=== PATIENT | male | born 1960 | race Caucasian/White ===

== ENCOUNTER 2017-06-15 08:19 | Inpatient (IN) | payer BC ==
[2017-06-15] VITALS (7 sets, daily range): BP systolic 105–108; BP diastolic 63–72; PULSE 56–98; TEMP 36.6–37.5; O2SAT 94–97; BMI 33.0
[~2017-06-15] VITALS: Ht 175.3 cm; Wt 102.1 kg
[~2017-06-15 08:19] MED LIST: ATOR-22 PO; GLC/500 PO; OLME40TA30 PO
[2017-06-15] MEDS ORDERED: NovoLIN-R INSULIN PER UNIT CHARGE SC STA (08:27)
[2017-06-15] MEDS ORDERED: SODIUM CHLORIDE 0.9% 1000ML 1,000 ML IV STA (08:27)
[2017-06-15] MEDS ORDERED: PANTOprazole INJ 80 MG in DEXTROSE 5% 100ML 100 ML IV SCH (08:30)
[2017-06-15 08:51] LABS: ISTAT CREATININE 0.9 mg/dl (0.6-1.3); ISTAT HEMOGLOBIN 10.9 g/dl (14.0-18.0); ISTAT IONIZED CALCIUM 1.12 mmol/l (1.12-1.32)
--- NOTE | 2017-06-15 08:51 | DIAGNOSTIC IMAGING REPORT ---
CHEST ONE VIEW PORTABLE CLINICAL HISTORY: Hypoxia, hypotension, gastrointestinal hemorrhage. COMPARISON STUDY: No previous studies for comparison. FINDINGS: The heart is at the upper limits of normal in size. There is no failure. There is no focal pulmonary consolidation. There are no pleural effusions. There is no free intraperitoneal air.[ IMPRESSION: No active disease in the chest. Electronically signed by: Lee Muniz M.D. 06/15/2017 8:49 AM Dictated Date/Time: 06/15/2017 8:49 AM
[2017-06-15 08:56] LABS: INR 1.1 (0.9-1.1); PARTIAL THROMBOPLASTIN RATIO 0.8
[2017-06-15] MEDS ORDERED: METF-384 PO (08:56)
[2017-06-15] MEDS ORDERED: GLIM1TAB PO (08:56)
[2017-06-15] MEDS ORDERED: LOSA100T26 PO (08:56)
--- NOTE | 2017-06-15 09:00 | EMERGENCY ROOM VISIT NOTE ---
History Report prepared by Diamond: Manju Gaviria Under the Supervision of: Dr. Priscila Alva M.D. First contact with patient: 08:15 Chief Complaint: GI ASSESSMENT Stated Complaint: GI ASSESSMENT/HYPOTENSION History of Present Illness The patient is a 56 year old male who presents to the Emergency Room for a GI assessment. The patient woke up this morning and was feeling normal. He took a shower and then went back to bed to wake his up. He went to get up again and states that he was feeling lightheaded so he went back to bed. He got up again because he felt the need to have a bowel movement. He went to the bathroom and sat down on the toilet. He leaned his head against the wall and states that the next thing he knew, there was bright red blood in the toilet and all over the wall. He is unsure if he lost consciousness. He does not remember vomiting and does not think that he had a nose bleed. states that the patient has been sick the past couple of days with a sore throat, stuffy nose, and cough. He called for help this morning and she found him standing in the bathroom with blood all over the toilet, floor, and wall. The patient denies chest pain. He is currently feeling tired, diaphoretic, and slightly short of breath. He did not have any bleeding yesterday. He does not take any blood thinners. He took Aleve last night for thumb pain, but does not take NSAIDs on a regular basis. The patient has a history of hemorrhoids. He has had 2 colonoscopies in the past, with the most recent one being about a year ago. The patient was brought to the ED by ambulance. EMS states that the patient became very hypotensive en route. 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 A total of 10 systems reviewed and were otherwise negative. Past Medical & Surgical Medical Problems: (1) Diabetes mellitus (2) Hematemesis (3) Hyperlipidemia (4) Hypertension Family History Cancer Heart disease Social History Smoking Status: Former Smoker Marital Status: Housing Status: lives with family Occupation Status: employed Current/Historical Medications Scheduled Atorvastatin (Lipitor), 20 MG PO DAILY Glimepiride (Amaryl), 1 MG PO DAILY Hctz/Losartan (Hyzaar 12.5MG/100MG), 1 TAB PO DAILY Metformin Hcl (Glucophage), 1,000 MG PO BID Allergies Coded Allergies: Penicillins (Verified Allergy, Unknown, ., 06/15/17) Physical Exam Vital Signs Date Time Temp Pulse Resp B/P (MAP) Pulse Ox O2 Delivery O2 Flow Rate FiO2 06/15/17 10:00 88 15 111/67 98 Nasal Cannula 2.0 06/15/17 09:50 87 19 97/59 99 Nasal Cannula 2.0 06/15/17 09:50 84 17 97/59 98 Nasal Cannula 2.0 06/15/17 09:40 84/56 06/15/17 09:31 84 17 106/47 96 Nasal Cannula 2.0 06/15/17 09:13 82 22 97/56 95 Nasal Cannula 2.0 06/15/17 09:12 83 22 88/50 93 06/15/17 08:45 82 107/68 95 06/15/17 08:44 115/70 06/15/17 08:35 36.5 87 20 109/69 88 Room Air 06/15/17 08:35 84 06/15/17 08:35 95 Nasal Cannula 2.0 06/15/17 08:35 Room Air 06/15/17 08:22 109/69 Physical Exam Vital signs reviewed. General: Well-appearing 56 year old male, in no significant distress. Anxious appearing HEENT: No scleral icterus, PERRLA, neck supple. Atraumatic. Dried blood in the nares and mouth. Cardiovascular: Regular rate and rhythm, no extra sounds. Pulmonary: Clear to auscultation bilaterally, normal work of breathing. Abdomen: Soft, nontender, nondistended, positive bowel sounds. Rectal: Faintly guaiac positive brown stool. No blood around the rectum. Musculoskeletal: Atraumatic, no peripheral edema. Neurologic: Patient awake alert and oriented x 3, full strength in all 4 extremities. Cranial nerves 2 through 12 grossly intact. Skin: Warm, dry, no rash, some dried blood to skin on abd, hair and upper chest Medical Decision & Procedures ER Provider Diagnostic Interpretation: Radiology results as stated below per my review and radiologist interpretation: CHEST ONE VIEW PORTABLE CLINICAL HISTORY: Hypoxia, hypotension, gastrointestinal hemorrhage. COMPARISON STUDY: No previous studies for comparison. FINDINGS: The heart is at the upper limits of normal in size. There is no failure. There is no focal pulmonary consolidation. There are no pleural effusions. There is no free intraperitoneal air. IMPRESSION: No active disease in the chest. Electronically signed by: Lee Muniz M.D. 06/15/2017 8:49 AM Dictated Date/Time: 06/15/2017 8:49 AM Laboratory Results Test 06/15/17 08:31 06/15/17 08:38 Immature Granulocyte % (Auto) 0.2 % White Blood Count 5.88 K/uL (4.8-10.8) Red Blood Count 3.58 M/uL (4.7-6.1) Hemoglobin 11.4 g/dL (14.0-18.0) Hematocrit 32.2 % (42-52) Mean Corpuscular Volume 89.9 fL (80-100) Mean Corpuscular Hemoglobin 31.8 pg (25-34) Mean Corpuscular Hemoglobin Concent 35.4 g/dl (32-36) Platelet Count 88 K/uL (130-400) Mean Platelet Volume 10.6 fL (7.4-10.4) Neutrophils (%) (Auto) 62.1 % Lymphocytes (%) (Auto) 29.4 % Monocytes (%) (Auto) 6.5 % Eosinophils (%) (Auto) 1.5 % Basophils (%) (Auto) 0.3 % Neutrophils # (Auto) 3.65 K/uL (1.4-6.5) Lymphocytes # (Auto) 1.73 K/uL (1.2-3.4) Monocytes # (Auto) 0.38 K/uL (0.11-0.59) Eosinophils # (Auto) 0.09 K/uL (0-0.5) Basophils # (Auto) 0.02 K/uL (0-0.2) Immature Granulocyte # (Auto) 0.01 K/uL (0.00-0.02) Prothrombin Time 12.0 SECONDS (9.0-12.0) Prothromb Time International Ratio 1.1 (0.9-1.1) Activated Partial Thromboplast Time 20.5 SECONDS (21.0-31.0) Partial Thromboplastin Ratio 0.8 Total Bilirubin 0.9 mg/dl (0.2-1) Direct Bilirubin 0.2 mg/dl (0-0.2) Aspartate Amino Transf (AST/SGOT) 23 U/L (15-37) Alanine Aminotransferase (ALT/SGPT) 32 U/L (12-78) Alkaline Phosphatase 47 U/L (45-117) Total Protein 5.6 gm/dl (6.4-8.2) Albumin 2.9 gm/dl (3.4-5.0) Beta-Hydroxybutyric Acid 2.28 mg/dL (0.2-2.81) Hepatitis C Antibody Screen NEG (NEG) Bedside Hemoglobin 10.9 g/dl (14.0-18.0) Bedside Hematocrit 32 % (42-52) Bedside Sodium 140 mEq/L (135-144) Bedside Potassium 4.3 mEq/L (3.3-5.0) Bedside Chloride 103 mEq/L (101-112) Bedside Total CO2 24 mEq/l (24-31) Bedside Blood Urea Nitrogen 18 mg/dl (7-18) Bedside Creatinine 0.9 mg/dl (0.6-1.3) Bedside Glucose (other) 363 mg/dl (70-99) Bedside Ionized Calcium (Jono) 1.12 mmol/l (1.12-1.32) Laboratory results per my review. Medications Administered Medications (Trade) Dose Ordered Sig/Shahid Route Start Time Stop Time Status Last Admin Dose Admin Insulin Human Regular (novoLIN-R U-100 PER UNIT) 10 units NOW STAT SC 06/15/17 08:27 06/15/17 08:32 DC 06/15/17 08:57 10 UNITS Sodium Chloride 1,000 ml @ 150 mls/hr Q6H40M STAT IV 06/15/17 08:27 06/15/17 11:26 DC 06/15/17 08:58 150 MLS/HR Pantoprazole Sodium 80 mg/ Dextrose 120 ml @ 400 mls/hr NOW IV 06/15/17 08:30 06/15/17 11:26 DC 06/15/17 09:07 400 MLS/HR Sodium Chloride 500 ml @ 999 mls/hr Q31M STAT IV 06/15/17 09:27 06/15/17 09:57 DC 06/15/17 09:42 999 MLS/HR Pantoprazole Sodium 40 mg/ Dextrose 100 ml @ 20 mls/hr Q5H IV 06/15/17 10:00 07/15/17 09:59 06/16/17 06:12 20 MLS/HR Sodium Chloride 500 ml @ 999 mls/hr Q31M STAT IV 06/15/17 09:58 06/15/17 10:31 DC 06/15/17 10:37 999 MLS/HR ECG Indication: other Rate (beats per minute): 86 Rhythm: sinus rhythm Findings: PVC, RBBB ED Course 0815: Past medical records reviewed. The patient was evaluated in room A1. A complete history and physical examination was performed. 0827: NSS 1000 ml @ 150 mls/hr IV, Insulin Human Regular 10 units SC 0830: Pantoprazole Sodium 80 mg/Dextrose 120 ml @ 400 mls/hr IV 0845: I spoke with Dr. Capone of GI. He will evaluate the patient in the hospital. 0850: I reviewed the patient's case with Dr. Aguilar. [facility] will evaluate the patient for further management. 0852: I reassessed the patient at this time. He is feeling better and resting comfortably. I discussed the results and treatment plan with the patient and his . I answered all pertaining questions that they had. They expressed understanding and verbalized agreement. Medical Decision Differential diagnosis: Etiologies such as diverticulosis, AVM, coagulopathy, colitis, inflammatory bowel disease, malignancy, Lea-Gambino tear, esophagitis, peptic ulcer disease , variceal bleed, gastritis, epistaxis, fissure, hemorrhoids, as well as others were entertained. This patient was evaluated and appeared to be in no significant distress. The patient is somewhat anxious but has no significant complaints at this time. IV fluids were initiated. The patient's blood sugar is noted to be elevated and he was given regular insulin subcutaneously. IV Protonix 80 mg bolus was ordered. Patient was type and cross for 2 units. H&H seems to be stable at this time at . Patient is noted to be chronically thrombocytopenic. Patient's blood pressure is reported to be 60 systolic in the field. It has improved and he is over 100 at this time. IV fluids have been continued. I did speak with Dr. Capone of gastroenterology who will evaluate the patient hospital. Hospital service was contacted will evaluate the patient in the ED. Patient family are aware of the plan and agree. Medication Reconcilliation Current Medication List: was personally reviewed by me Blood Pressure Screening Patient's blood pressure: Low blood pressure Consults Time Called: 08 Consulting Physician: Dr. Capone Returned Call: [address] Capone of GI. He will evaluate the patient in the hospital. Additional Consults: Time Called: 0848 Consulted Physician: Dr. Aguilar Returned Call: 0850 Additional Comments: I reviewed the patient's case with Dr. Aguilar. [facility] will evaluate the patient for further management. Impression Primary Impression: GI bleed Additional Impression: Thrombocytopenia Scribe Attestation The scribe's documentation has been prepared under my direction and personally reviewed by me in its entirety. I confirm that the note above accurately reflects all work, treatment, procedures, and medical decision making performed by me. Departure Information Dispostion Being Evaluated By Hospitalist Referrals Trace Neri M.D. (PCP) Patient Instructions My [facility] Problem Qualifiers Primary Impression: GI bleed GI bleed type/associated pathology: unspecified gastrointestinal hemorrhage type Qualified Codes: K92.2 - Gastrointestinal hemorrhage, unspecified
[2017-06-15 09:09] LABS: BUN/CREATININE RATIO 17.3 (10-20); CALCIUM 8.2 mg/dl (8.5-10.1); POTASSIUM 4.3 mmol/L (3.5-5.1)
[2017-06-15 09:21] LABS: BETA-HYDROXYBUTYRATE 2.28 mg/dL (0.2-2.81)
[2017-06-15 09:26] LABS: HEMATOCRIT 32.2 % (42-52); MEAN CELL VOLUME 89.9 fL (80-100); MEAN CORPUSCULAR HEMOGLOBIN 31.8 pg (25-34); MEAN CORPUSCULAR HGB CONC 35.4 g/dl (32-36); MEAN PLATELET VOLUME 10.6 fL (7.4-10.4); PLATELET COUNT 88 K/uL (130-400); RED BLOOD COUNT 3.58 M/uL (4.7-6.1); WHITE BLOOD COUNT 5.88 K/uL (4.8-10.8)
[2017-06-15] MEDS ORDERED: SODIUM CHLORIDE 0.9% 500ML 500 ML IV STA ×2 (09:27→09:58)
--- NOTE | 2017-06-15 09:29 | Gastrointestinal Consultation ---
Gastrointestinal Consultation Date of Consultation: Jun 15, 2017 Attending Physician: Dr. Alva Consulting Physician: Dr. Capone/JEANNINE Parnell Reason for Consultation: Hematemesis History of Present Illness Patient is a 56 year old male with a history of diabetes, sleep apnea and hyperlipidemia presenting to the ER after a sudden onset of dizziness and a single episodes of hematemesis of bright red blood. Per the patient's , "it was a lot". The symptoms began at approximately 0700 upon awakening to have a bowel movement. He denies ever having these symptoms in the past. Prior to the onset, the patient states he has been not feeling well for a few days with sore throat, headache and sinus symptoms. He was using Aleve to treat symptoms and last dose was last evening. He denies any aspirin use. No alcohol or tobacco. Upon arrival, the patient states he is slightly bloated with mild abdominal discomfort. Mild shortness of breath but no chest pain. No vomiting or nausea at present. No black, tarry or bloody stools. Dr. Capone did speak with Dr. Alva and the patient was noted to have a hemoglobin of approximately 10 and was reportedly heme negative. He has been given a single dose of IV Protonix. Past Medical/Surgical History Medical Problems: (1) GI bleed Status: Acute Past Medical History: 1. Diabetes 2. Diabetic retinopathy 3. Hypertension 4. Hyperlipidemia 5. Esophageal reflux 6. Sleep apnea 7. Cellulitis 8. Tubular adenoma Past Surgical History: Complete colonoscopy Family History Cancer Heart disease Negative for GI malignancy or IBD Social History Smoking Status: Former Smoker Alcohol Use: none Drug Use: none Marital Status: Housing Status: lives with family Occupation Status: employed Allergies Coded Allergies: Penicillins (Verified Allergy, Unknown, ., 06/15/17) Current Medications Home Meds and Scripts Medications Dose Route/Sig Max Daily Dose Days Date Category Hyzaar 12.5MG/100MG (Hctz/Losartan) 1 Tab Tab 1 Tab PO DAILY 06/15/17 Reported Amaryl (Glimepiride) 1 Mg Tab 1 Mg PO DAILY 06/15/17 Reported Glucophage (Metformin Hcl) 1,000 Mg Tab 1,000 Mg PO BID 06/15/17 Reported Lipitor (Atorvastatin Calcium) 20 Mg Tab 20 Mg PO DAILY 12/06/14 Reported Review of Systems Constitutional: + fatigue, No fever, No chills Eyes: No problem reported ENT: + sore throat, No trouble swallowing, No pain on swallowing Respiratory: + shortness of breath, No cough, No wheezing Cardiac: + see HPI Abdomen: + see HPI Musculoskeletal: No problem reported Male : No problem reported Neuro: + see HPI Psych: No problem reported Physical Exam Date Time Temp Pulse Resp B/P (MAP) Pulse Ox O2 Delivery O2 Flow Rate FiO2 06/15/17 08:35 36.5 87 20 109/69 88 Room Air 06/15/17 08:35 84 06/15/17 08:35 95 Nasal Cannula 2.0 06/15/17 08:35 Room Air General Appearance: WD/WN, no apparent distress Eyes: EOMI ENT: hearing grossly normal Neck: supple Respiratory/Chest: lungs clear, normal breath sounds, no respiratory distress Cardiovascular: regular rate, rhythm, no gallop, no murmur Abdomen: normal bowel sounds, soft, + tenderness (mild, bilateral upper quadrants) Extremities: no pedal edema Neurologic/Psych: alert, normal mood/affect, oriented x 3 Skin: warm/dry Laboratory Results Last 24 Hours Test 06/15/17 08:28 06/15/17 08:31 06/15/17 08:38 Bedside Glucose 359 mg/dl Prothrombin Time 12.0 SECONDS Prothromb Time International Ratio 1.1 Activated Partial Thromboplast Time 20.5 SECONDS Partial Thromboplastin Ratio 0.8 Sodium Level 141 mmol/L Potassium Level 4.3 mmol/L Chloride Level 108 mmol/L Carbon Dioxide Level 27 mmol/L Anion Gap 6.0 mmol/L 19.0 mmol/L Blood Urea Nitrogen 17 mg/dl Creatinine 1.00 mg/dl Est Creatinine Clear Calc Drug Dose 94.8 ml/min Estimated GFR () 97.8 Estimated GFR (Non- 84.4 BUN/Creatinine Ratio 17.3 Random Glucose 367 mg/dl Calcium Level 8.2 mg/dl Total Bilirubin 0.9 mg/dl Direct Bilirubin 0.2 mg/dl Aspartate Amino Transf (AST/SGOT) 23 U/L Alanine Aminotransferase (ALT/SGPT) 32 U/L Alkaline Phosphatase 47 U/L Total Protein 5.6 gm/dl Albumin 2.9 gm/dl Bedside Hemoglobin 10.9 g/dl Bedside Hematocrit 32 % Bedside Sodium 140 mEq/L Bedside Potassium 4.3 mEq/L Bedside Chloride 103 mEq/L Bedside Total CO2 24 mEq/l Bedside Blood Urea Nitrogen 18 mg/dl Bedside Creatinine 0.9 mg/dl Bedside Glucose (other) 363 mg/dl Bedside Ionized Calcium (Jono) 1.12 mmol/l Impression Patient is a 56 year old male with a history of diabetes presenting with dizziness and hematemesis. Diff dx: gastritis vs PUD vs esophagitis vs gastroparesis vs Lea-Gambino tear vs Kamran's erosions vs malignancy vs other. Plan 1. Keep NPO for now. 2. Await repeat H&H. Recommend transfusion if hemoglobin is <8. 3. Start a Protonix ggt at 8 mg/hr. 4. EGD with Dr. Capone. Timing to be determined. 5. Additional recommendations pending results of testing. Agree with JEANNINE Parnell as above Abd: Soft, NT, ND, +BS Continue current therapy Clear liquids tonight, NPO after midnight EGD in AM
[2017-06-15 09:32] LABS: BASO % 0.3 %; BASO ABS # 0.02 K/uL (0-0.2); COMPLETE YES; EOS % 1.5 %; IG% 0.2 %; LYMPH % 29.4 %; LYMPH ABS # 1.73 K/uL (1.2-3.4); MONO % 6.5 %; NEUT % 62.1 %; PLT ESTIMATE DECREASED
[2017-06-15] MEDS ORDERED: DEXTROSE 50% 50 ML SYR IV PRN (10:00)
[2017-06-15] MEDS ORDERED: ONDANSETRON INJ 2 MG/ML 2 ML VIAL IV PRN (10:00)
[2017-06-15] MEDS ORDERED: GLUCOSE 40% GEL 15 GM TUBE PO PRN (10:00)
[2017-06-15] MEDS ORDERED: GLUCAGON FOR INJ 1 MG VIAL SQ PRN (10:00)
[2017-06-15] MEDS ORDERED: MAGNESIUM HYDROXIDE SUSP 30 ML UDC PO PRN (10:00)
[2017-06-15] MEDS ORDERED: GLUCOSE 10 TABS/TUBE PO PRN (10:00)
[2017-06-15] MEDS ORDERED: ACETAMINOPHEN 325 MG TAB PO PRN (10:00)
[2017-06-15] MEDS ORDERED: ALUMINUM/MAGNESIUM/SIMETH (MAALOX MAX) 30 ML UDC PO PRN (10:00)
[2017-06-15] MEDS ORDERED: POLYETHYLENE (MIRALAX) 17 GM PACK PO PRN (10:00)
[2017-06-15] MEDS: PANTOprazole INJ 40 MG in DEXTROSE 5% 100ML IV SCH ×3 (10:00→20:04)
--- NOTE | 2017-06-15 10:23 | History and Physical ---
History & Physical Date & Time of Service: Jun 15, 2017 at 10:10 Chief Complaint: Gi Assessment/Hypotension Primary Care Physician: Emy Akhtar P.A. History of Present Illness Source: patient, family Mr. Hunt is a 56 y/o male with PMHx of T2DM, HTN, and HLD who presents to the ED c/o hematemesis and possible loss of consciousness this AM. He has had a URI with sore throat, rhinorrhea, and cough that started a couple days ago but reports these symptoms have been improving, otherwise has felt his normal self. He awoke this morning and felt fine. He took a shower and returned to bed. He awoke again but felt lightheaded and remained laying down. Later, he felt the need to move his bowels and went to the bathroom. He remembers leaning his head against the wall but cannot recall much after that. Per , he yelled for her to help him and she found him with diffuse blood all over the bathroom and blood around his nose and mouth. She denies recalling an actual bowel movement. He is unsure if he lost consciousness. He cannot recall actually vomiting. Per [id number], blood was thick, red, with numerous clots. He denies previous H/O GI bleed or ulcers. He took Aleve last night for thumb pain but denies chronic NSAID use. He denies chronic ETOH use. Associated lightheadedness, generalized fatigue, diaphoresis, and mild SOB. He denies fever /chills, CP, abdominal pain, nausea, dysuria, melena/hematochezia. Pre-Hospital he was noted by EMS to be hypotensive at 60/38 and received 1 L NSS. Upon arrival, he was mildly hypoxic at 88% which response to supplemental O2. Remains hypotensive but is responding to fluids. EKG with NSR and PVCs without evidence of ischemia. Hemoglobin 10.9 with repeat pending. Noted to be hyperglycemic at 359 but no presence of anion gap. GI was consulted and evaluated patient. He was initiated on Protonix gtt and placed NPO with plan for scope. Past Medical/Surgical History Medical Problems: (1) Diabetes mellitus Status: Chronic (2) Hyperlipidemia Status: Chronic (3) Hypertension Status: Chronic Family History Cancer Heart disease Social History Smoking Status: Former Smoker Alcohol Use: socially Drug Use: none Marital Status: Occupational Status: employed Multi-Drug Resistant Organisms History of MDRO: No Allergies Coded Allergies: Penicillins (Verified Allergy, Unknown, ., 06/15/17) Home Medications Scheduled Atorvastatin (Lipitor), 20 MG PO DAILY Glimepiride (Amaryl), 1 MG PO DAILY Hctz/Losartan (Hyzaar 12.5MG/100MG), 1 TAB PO DAILY Metformin Hcl (Glucophage), 1,000 MG PO BID Review of Systems Constitutional: + sweats, + weakness (generalized), + fatigue, No fever, No chills ENT: + nasal symptoms, + sore throat (improving) Respiratory: + cough, + shortness of breath (initially - currently resolved) Cardiovascular: No chest pain, No palpitations Abdomen: + GI bleeding (hematemesis), No pain, No nausea, No diarrhea, No constipation Musculoskeletal: No swelling, No calf pain Genitourinary - Male: No dysuria Hematologic / Lymphatic: No clotting problems Physical Exam Vital Signs Date Time Temp Pulse Resp B/P (MAP) Pulse Ox O2 Delivery O2 Flow Rate FiO2 06/15/17 10:00 88 15 111/67 98 Nasal Cannula 2.0 06/15/17 09:50 87 19 97/59 99 Nasal Cannula 2.0 06/15/17 09:50 84 17 97/59 98 Nasal Cannula 2.0 06/15/17 09:40 84/56 06/15/17 09:31 84 17 106/47 96 Nasal Cannula 2.0 06/15/17 09:13 82 22 97/56 95 Nasal Cannula 2.0 06/15/17 09:12 83 22 88/50 93 06/15/17 08:45 82 107/68 95 06/15/17 08:44 115/70 06/15/17 08:35 36.5 87 20 109/69 88 Room Air 06/15/17 08:35 84 06/15/17 08:35 95 Nasal Cannula 2.0 06/15/17 08:35 Room Air 06/15/17 08:22 109/69 General Appearance: WD/WN, no apparent distress Head: normocephalic, atraumatic Eyes: sclerae normal ENT: hearing grossly normal Neck: supple, no JVD, trachea midline Respiratory/Chest: lungs clear, normal breath sounds, no respiratory distress, no accessory muscle use Cardiovascular: regular rate, rhythm, no gallop, no murmur Abdomen/GI: normal bowel sounds, soft, + tenderness (mild tenderness in b/l upper quadrants, worse in the LUQ without guarding or rigidity), + distended Extremities/Musculoskelatal: no calf tenderness, no pedal edema Neurologic/Psych: alert, oriented x 3 Skin: warm/dry, + pallor Diagnostics Laboratory Results Results Past 24 Hours Test 06/15/17 08:28 06/15/17 08:31 06/15/17 08:38 06/15/17 09:27 Range/Units Bedside Glucose 359 70-99 mg/dl White Blood Count 5.88 4.8-10.8 K/uL Red Blood Count 3.58 4.7-6.1 M/uL Hemoglobin 11.4 14.0-18.0 g/dL Hematocrit 32.2 42-52 % Mean Corpuscular Volume 89.9 80-100 fL Mean Corpuscular Hemoglobin 31.8 25-34 pg Mean Corpuscular Hemoglobin Concent 35.4 32-36 g/dl Platelet Count 88 130-400 K/uL Mean Platelet Volume 10.6 7.4-10.4 fL Neutrophils (%) (Auto) 62.1 % Lymphocytes (%) (Auto) 29.4 % Monocytes (%) (Auto) 6.5 % Eosinophils (%) (Auto) 1.5 % Basophils (%) (Auto) 0.3 % Neutrophils # (Auto) 3.65 1.4-6.5 K/uL Lymphocytes # (Auto) 1.73 1.2-3.4 K/uL Monocytes # (Auto) 0.38 0.11-0.59 K/uL Eosinophils # (Auto) 0.09 0-0.5 K/uL Basophils # (Auto) 0.02 0-0.2 K/uL RDW Standard Deviation 42.3 36.4-46.3 fL RDW Coefficient of Variation 13.0 11.5-14.5 % Immature Granulocyte % (Auto) 0.2 % Immature Granulocyte # (Auto) 0.01 0.00-0.02 K/uL Platelet Estimate DECREASED Prothrombin Time 12.0 9.0-12.0 SECONDS Prothromb Time International Ratio 1.1 0.9-1.1 Activated Partial Thromboplast Time 20.5 21.0-31.0 SECONDS Partial Thromboplastin Ratio 0.8 Sodium Level 141 136-145 mmol/L Potassium Level 4.3 3.5-5.1 mmol/L Chloride Level 108 98-107 mmol/L Carbon Dioxide Level 27 21-32 mmol/L Anion Gap 6.0 19.0 16-25 mmol/L Blood Urea Nitrogen 17 7-18 mg/dl Creatinine 1.00 0.60-1.40 mg/dl Est Creatinine Clear Calc Drug Dose 94.8 ml/min Estimated GFR () 97.8 Estimated GFR (Non- 84.4 BUN/Creatinine Ratio 17.3 10-20 Random Glucose 367 70-99 mg/dl Calcium Level 8.2 8.5-10.1 mg/dl Total Bilirubin 0.9 0.2-1 mg/dl Direct Bilirubin 0.2 0-0.2 mg/dl Aspartate Amino Transf (AST/SGOT) 23 15-37 U/L Alanine Aminotransferase (ALT/SGPT) 32 12-78 U/L Alkaline Phosphatase 47 45-117 U/L Total Protein 5.6 6.4-8.2 gm/dl Albumin 2.9 3.4-5.0 gm/dl Beta-Hydroxybutyric Acid 2.28 0.2-2.81 mg/dL Bedside Hemoglobin 10.9 14.0-18.0 g/dl Bedside Hematocrit 32 42-52 % Bedside Sodium 140 135-144 mEq/L Bedside Potassium 4.3 3.3-5.0 mEq/L Bedside Chloride 103 101-112 mEq/L Bedside Total CO2 24 24-31 mEq/l Bedside Blood Urea Nitrogen 18 7-18 mg/dl Bedside Creatinine 0.9 0.6-1.3 mg/dl Bedside Glucose (other) 363 70-99 mg/dl Bedside Ionized Calcium (Jono) 1.12 1.12-1.32 mmol/l Diagnostic Radiology CHEST ONE VIEW PORTABLE FINDINGS: The heart is at the upper limits of normal in size. There is no failure. There is no focal pulmonary consolidation. There are no pleural effusions. There is no free intraperitoneal air.[ IMPRESSION: No active disease in the chest. EKG Sinus rhythm with frequent Premature ventricular complexes Right bundle branch block Abnormal ECG No previous ECGs available Impression Assessment and Plan Mr. Hunt is a 56 y/o male with PMHx of T2DM, HTN, and HLD who presents to the ED c/o hematemesis and possible loss of consciousness this AM. Upper GI Bleed: - H&H Q4H - Protonix bolus/gtt - GI following - possible scope today vs tomorrow Hypotension 2/2 Likely Hypovolemia: - Improving with fluid resuscitation - continue NSS at 175 mL/hr - may need additional boluses T2DM with Hyperglycemia: - No anion gap and beta-hydroxybutric acid WNL - Hold oral agents and cover with SSI with BSG ACHS or Q6H while NPO Thrombocytopenia: - Repeat with CBC this afternoon HTN: Currently Hypotensive - Hold Hyzaar - did not take this AM HLD: - Hold Atorvastatin 20 mg daily at this time DVT Prophylaxis: BRE/SCD; no chemical means due to thrombocytopenia/GI Bleed Code Status: FULL RESUSCITATION Disposition: From home without needs anticipated Level of Care Telemetry Resuscitation Status FULL RESUSCITATION VTE Prophylaxis VTE Risk Assessment Done? Y/N: Yes Risk Level: Moderate Given or contraindicated: T.ENghia Stockings, SCD's Social Service Consult None Apply Reviewed: Pt Seen/Exam by Me History Pt is exhausted, but no new concerns. Denies further bleeding since incident this AM. States that he had a normal day yesterday and felt just fine, but waking this AM did not feel well at all. Does not remember many details regarding this morning's event. Had blood around his mouth suggesting emesis, but is not certain if he had bleeding per rectum. No abd pain. No chest pain or SOB. Agree with HPI/ROS as noted. General Appearance: WD/WN, no apparent distress Respiratory: normal breath sounds, no respiratory distress Cardiovascular: normal peripheral pulses, regular rate, rhythm Gastrointestinal: non tender, soft Extremities: non-tender, no pedal edema Neurologic/Psychiatric: alert, normal mood/affect, oriented x 3 Skin Characteristics: normal color, warm/dry Assessment/Plan Agree with plan as outlined above GIB earlier today Hb stable, however bleeding occurred this AM Monitor on IVF C-scope/EGD later today Protonix drip No hx of prior bleeds Pt is noncompliant with medications. Did not take metformin for a week due to travel and the GI issues it causes. He travels frequently for work and holds it when this is the case Discussed that he should have a trial of XR version which has less GI side effects once this acute issue is resolved
[2017-06-15] MEDS: SODIUM CHLORIDE 0.9% 1000ML 1,000 ML IV SCH ×3 (11:00→23:00)
[2017-06-15 11:58] LABS: HEMATOCRIT 31.2 % (42-52)
[2017-06-15 11:59] LABS: URINE APPEARANCE CLEAR (CLEAR); URINE BILIRUBIN NEG (NEG); URINE COLOR YELLOW; URINE NITRITE NEG (NEG); URINE PH 5.5 (4.5-7.5); URINE SPECIFIC GRAVITY 1.039 (1.000-1.030); UROBILINOGEN NEG (NEG); ZZUR CULT IF INDIC CLEAN CATCH NO
[2017-06-15 12:24] LABS: MANUAL MICROSCOPIC REQUIRED? NO; REVIEW REQ? NO
[2017-06-15] MEDS: INSULIN ASPART 100 UNITS/ML 3 ML PEN SC SCH ×3 (12:32→21:28)
[2017-06-15] MEDS ORDERED: PNEUMOCOCCAL ADMINISTRATION CHARGE ONE (14:30)
[2017-06-15] MEDS ORDERED: PNEUMOCOCCAL POLYSACCHARIDES 25 MCG/0.5 ML VIAL/SYR IM. ONE (14:30)
[2017-06-15 16:07] LABS: HEMATOCRIT 29.5 % (42-52); MEAN CELL VOLUME 88.1 fL (80-100); MEAN CORPUSCULAR HEMOGLOBIN 30.7 pg (25-34); RED BLOOD COUNT 3.35 M/uL (4.7-6.1); WHITE BLOOD COUNT 5.96 K/uL (4.8-10.8)
[2017-06-15 17:25] LABS: MEAN CORPUSCULAR HGB CONC 34.9 g/dl (32-36); MEAN PLATELET VOLUME 10.4 fL (7.4-10.4); PLATELET COUNT 58 K/uL (130-400)
[2017-06-15 17:26] LABS: PLT ESTIMATE DECREASED
[2017-06-15 20:01] LABS: HEMATOCRIT 28.8 % (42-52); MEAN CELL VOLUME 89.2 fL (80-100); RED BLOOD COUNT 3.23 M/uL (4.7-6.1); WHITE BLOOD COUNT 6.06 K/uL (4.8-10.8)
[2017-06-15 20:03] LABS: MEAN CORPUSCULAR HGB CONC 33.7 g/dl (32-36); MEAN PLATELET VOLUME 9.9 fL (7.4-10.4); PLATELET COUNT 61 K/uL (130-400)
[2017-06-16] VITALS (12 sets, daily range): BP systolic 114–153; BP diastolic 66–93; PULSE 78–89; TEMP 36.5–37.1; O2SAT 91–99; BMI 33.2
[2017-06-16 00:31] LABS: HEMATOCRIT 26.9 % (42-52); MEAN CELL VOLUME 89.1 fL (80-100); MEAN CORPUSCULAR HEMOGLOBIN 31.5 pg (25-34); RED BLOOD COUNT 3.02 M/uL (4.7-6.1); WHITE BLOOD COUNT 5.16 K/uL (4.8-10.8)
[2017-06-16 00:42] LABS: MEAN CORPUSCULAR HGB CONC 35.3 g/dl (32-36); MEAN PLATELET VOLUME 10.6 fL (7.4-10.4); PLATELET COUNT 61 K/uL (130-400)
[2017-06-16] MEDS: PANTOprazole INJ 40 MG in DEXTROSE 5% 100ML IV SCH ×6 (01:32→23:48)
[2017-06-16] MEDS: SODIUM CHLORIDE 0.9% 1000ML 1,000 ML IV SCH (04:39)
[2017-06-16 06:34] LABS: HEMATOCRIT 26.2 % (42-52); MEAN CELL VOLUME 89.1 fL (80-100); MEAN CORPUSCULAR HEMOGLOBIN 31.6 pg (25-34); MEAN CORPUSCULAR HGB CONC 35.5 g/dl (32-36); RED BLOOD COUNT 2.94 M/uL (4.7-6.1); WHITE BLOOD COUNT 3.67 K/uL (4.8-10.8)
[2017-06-16 07:04] LABS: MEAN PLATELET VOLUME 10.2 fL (7.4-10.4); PLATELET COUNT 50 K/uL (130-400)
[2017-06-16 07:06] LABS: BUN/CREATININE RATIO 30.9 (10-20); CALCIUM 7.5 mg/dl (8.5-10.1); CREATININE 0.85 mg/dl (0.60-1.40); POTASSIUM 3.6 mmol/L (3.5-5.1)
[2017-06-16] MEDS: INSULIN ASPART 100 UNITS/ML 3 ML PEN SC SCH ×4 (08:47→20:15)
--- NOTE | 2017-06-16 10:52 | Hospitalist Progress Note ---
Hospitalist Progress Note Date of Service Jun 16, 2017. (Bekah Larkin PA-C) Subjective Pt evaluation today including: conversation w/ patient, conversation w/ family , physical exam, chart review, lab review, review of studies, review of inpatient medication list Patient seen and evaluated. No acute events overnight. Looks and feels much better today. Sitting in bedside chair. No further nausea, vomiting, fatigue. Hemoglobin dropped but stable in 9s. BP improved with fluid resuscitation and glucose readings improved. Is intermittently non-compliant with diabetes medication due to GI upset. Will obtain A1c. Discussed benefits of weight loss and diet in setting of DM and HTN. and patient verbalized understanding. Is having some bilateral hand edema and will D/C fluids at this time. Reports having melanotic stool since admission. Plan for EGD today. Constitutional: No fever, No chills, No fatigue Respiratory: No cough, No shortness of breath Cardiovascular: No chest pain, No palpitations Abdomen: + GI bleeding (melanotic stool), No pain, No nausea, No vomiting, No diarrhea, No constipation Musculoskeletal: + swelling (bilateral hands), No calf pain Male : No dysuria Heme: No abnormal bleeding/bruising Skin: No rash (Bekah Larkin PA-C) Medications Current Inpatient Medications Medications (Trade) Dose Ordered Sig/Shahid Route Start Time Stop Time Status Last Admin Dose Admin Pantoprazole Sodium 40 mg/ Dextrose 100 ml @ 20 mls/hr Q5H IV 06/15/17 10:00 07/15/17 09:59 06/16/17 06:12 20 MLS/HR Acetaminophen (Tylenol Tab) 650 mg Q4H PRN PO 06/15/17 10:00 07/15/17 09:59 Al Hydrox/Mg Hydrox/Simethicone (Maalox Max Susp) 15 ml Q4H PRN PO 06/15/17 10:00 07/15/17 09:59 Magnesium Hydroxide (Milk Of Magnesia Susp) 30 ml Q12H PRN PO 06/15/17 10:00 07/15/17 09:59 Ondansetron HCl (Zofran Inj) 4 mg Q6H PRN IV 06/15/17 10:00 07/15/17 09:59 Polyethylene (Miralax Powder Packet) 17 gm DAILY PRN PO 06/15/17 10:00 07/15/17 09:59 Insulin Aspart (novoLOG ASPART) SLIDING SCALE If C... ACHS SC 06/15/17 16:30 07/15/17 16:29 06/16/17 08:47 1 UNITS Glucose (Glucose 40% Gel) 15-30 GRAMS 15 GRAMS... UD PRN PO 06/15/17 10:00 07/15/17 09:59 Glucose (Glucose Chew Tab) 4-8 Tablets 4 Tabl... UD PRN PO 06/15/17 10:00 07/15/17 09:59 Dextrose (Dextrose 50% 50ML Syringe) 25-50ML OF 50% DW IV FOR... UD PRN IV 06/15/17 10:00 07/15/17 09:59 Glucagon (Glucagon Inj) 1 mg UD PRN SQ 06/15/17 10:00 07/15/17 09:59 (Bekah Larikn, PA-C) Objective Vital Signs Date Time Temp Pulse Resp B/P (MAP) Pulse Ox O2 Delivery O2 Flow Rate FiO2 06/16/17 06:58 36.8 89 20 142/78 (99) 98 Room Air 06/16/17 04:00 Room Air 06/16/17 03:44 36.5 84 20 114/66 (82) 98 Room Air 06/16/17 00:01 Room Air 06/15/17 23:46 36.9 56 20 105/63 (77) 94 Room Air 06/15/17 20:00 96 Room Air 06/15/17 19:20 37.5 93 18 105/68 (80) 96 Room Air 06/15/17 16:00 96 Room Air 06/15/17 15:38 37.1 98 18 108/67 (81) 96 06/15/17 12:46 Room Air 06/15/17 11:27 36.6 87 17 108/72 97 Room Air 06/15/17 10:42 89 22 106/67 98 (Bekah Larkin PA-C) Physical Exam General Appearance: WD/WN, no apparent distress Eyes: sclerae normal ENT: hearing grossly normal Neck: supple, no JVD, trachea midline Respiratory/Chest: lungs clear, normal breath sounds, no respiratory distress, no accessory muscle use Cardiovascular: regular rate, rhythm, no gallop, no murmur Abdomen: normal bowel sounds, non tender, soft, + distended Extremities: no pedal edema, no calf tenderness, + swelling (non-pitting bilateral hands/fingers) Neurologic/Psychiatric: alert, oriented x 3 Skin: normal color, warm/dry, + pertinent finding (no petechiae or purpura) (Bekah Larkin, TANIKA) Laboratory Results Last 24 Hours Test 06/15/17 11:06 06/15/17 11:20 06/15/17 11:50 06/15/17 15:57 Bedside Glucose 351 mg/dl Urine Color YELLOW Urine Appearance CLEAR Urine pH 5.5 Urine Specific [place] 1.039 Urine Protein NEG Urine Glucose (UA) 3+ Urine Ketones 1+ Urine Occult Blood NEG Urine Nitrite NEG Urine Bilirubin NEG Urine Urobilinogen NEG Urine Leukocyte Esterase NEG Hemoglobin 10.4 g/dL 10.3 g/dL Hematocrit 31.2 % 29.5 % White Blood Count 5.96 K/uL Red Blood Count 3.35 M/uL Mean Corpuscular Volume 88.1 fL Mean Corpuscular Hemoglobin 30.7 pg Mean Corpuscular Hemoglobin Concent 34.9 g/dl RDW Standard Deviation 42.2 fL RDW Coefficient of Variation 13.0 % Platelet Count 58 K/uL Mean Platelet Volume 10.4 fL Platelet Estimate DECREASED Test 06/15/17 16:30 06/15/17 19:54 06/15/17 20:19 06/15/17 23:58 Bedside Glucose 245 mg/dl 243 mg/dl White Blood Count 6.06 K/uL 5.16 K/uL Red Blood Count 3.23 M/uL 3.02 M/uL Hemoglobin 9.7 g/dL 9.5 g/dL Hematocrit 28.8 % 26.9 % Mean Corpuscular Volume 89.2 fL 89.1 fL Mean Corpuscular Hemoglobin 30.0 pg 31.5 pg Mean Corpuscular Hemoglobin Concent 33.7 g/dl 35.3 g/dl RDW Standard Deviation 42.8 fL 42.9 fL RDW Coefficient of Variation 13.1 % 13.3 % Platelet Count 61 K/uL 61 K/uL Mean Platelet Volume 9.9 fL 10.6 fL Test 06/16/17 06:12 06/16/17 07:28 White Blood Count 3.67 K/uL Red Blood Count 2.94 M/uL Hemoglobin 9.3 g/dL Hematocrit 26.2 % Mean Corpuscular Volume 89.1 fL Mean Corpuscular Hemoglobin 31.6 pg Mean Corpuscular Hemoglobin Concent 35.5 g/dl RDW Standard Deviation 44.0 fL RDW Coefficient of Variation 13.5 % Platelet Count 50 K/uL Mean Platelet Volume 10.2 fL Sodium Level 142 mmol/L Potassium Level 3.6 mmol/L Chloride Level 112 mmol/L Carbon Dioxide Level 27 mmol/L Anion Gap 3.0 mmol/L Blood Urea Nitrogen 26 mg/dl Creatinine 0.85 mg/dl Est Creatinine Clear Calc Drug Dose 115.7 ml/min Estimated GFR () 113.7 Estimated GFR (Non- 98.1 BUN/Creatinine Ratio 30.9 Random Glucose 202 mg/dl Calcium Level 7.5 mg/dl Bedside Glucose 210 mg/dl (Bekah Larkin PA-C) Assessment and Plan Mr. Hunt is a 56 y/o male with PMHx of T2DM, HTN, and HLD who presents to the ED c/o hematemesis and possible loss of consciousness this AM. Upper GI Bleed: - Hemoglobin has remained stable in 9s - Protonix bolus/gtt - GI following - plan for EGD today Hypotension 2/2 Likely Hypovolemia: RESOLVED - Likely from hypovolemia and dehydration in setting of hyperglycemia - Will D/C fluids at this time T2DM with Hyperglycemia: IMPROVING - HbA1c pending - Hold oral agents and cover with SSI with BSG ACHS or Q6H while NPO Pancytopenia: - Remains stable - unsure of etiology - did have recent URI symptoms - possible viral etiology? HTN: - Continue to hold anti-hypertensives at this time and will reinstitute when NPO lifted HLD: - Hold Atorvastatin 20 mg daily while NPO DVT Prophylaxis: BRE/SCD; no chemical means due to thrombocytopenia/GI Bleed Code Status: FULL RESUSCITATION Disposition: From home without needs anticipated - await EGD findings - likely D /C 1-2 days Continued [facility] stay due to: multiple IV medications needed Discharge planning: home (Bekah Larkin PA-C) Reviewed: Pt Seen/Exam by Me (Brittani Lowry, DO) History Pt is feeling incredibly fatigued s/p EGD. He is hungry and anxious to attempt PO. No SOB or chest pain. No further new bleeding, but stools are melanotic. Agree with HPI/ROS as noted. (Brittani Lowry, DO) General Appearance: WD/WN, no apparent distress Respiratory: normal breath sounds, no respiratory distress Cardiovascular: normal peripheral pulses, regular rate, rhythm Gastrointestinal: non tender, soft, distended Extremities: non-tender, no pedal edema Neurologic/Psychiatric: alert, normal mood/affect, oriented x 3 Skin Characteristics: normal color, warm/dry (Brittani Lowry, DO) Assessment/Plan Agree with plan as outlined above GIB Hb stable EGD shows esophageal varies that were banded Octreotide drip Monitor in ICU given extent of varies, fortunately pt's VS and Hb are stable, but increased risk of rebleeding No hx of prior bleeds LFTs WNL Platelets are trending down Liver US shows fatty liver with trace ascites (Brittani Lowry, DO)
--- NOTE | 2017-06-16 12:32 | Gastroenterology Progress Note ---
Progress Note Date of Service: Jun 16, 2017 Subjective Pt evaluation today including: conversation w/ patient, physical exam, chart review, review of inpatient medication list Still with melena. No abdominal pain. Review of Systems Abdomen: + GI bleeding Medications Current Inpatient Medications Medications (Trade) Dose Ordered Sig/Shahid Route Start Time Stop Time Status Last Admin Dose Admin Pantoprazole Sodium 40 mg/ Dextrose 100 ml @ 20 mls/hr Q5H IV 06/15/17 10:00 07/15/17 09:59 06/16/17 11:36 20 MLS/HR Acetaminophen (Tylenol Tab) 650 mg Q4H PRN PO 06/15/17 10:00 07/15/17 09:59 Al Hydrox/Mg Hydrox/Simethicone (Maalox Max Susp) 15 ml Q4H PRN PO 06/15/17 10:00 07/15/17 09:59 Magnesium Hydroxide (Milk Of Magnesia Susp) 30 ml Q12H PRN PO 06/15/17 10:00 07/15/17 09:59 Ondansetron HCl (Zofran Inj) 4 mg Q6H PRN IV 06/15/17 10:00 07/15/17 09:59 Polyethylene (Miralax Powder Packet) 17 gm DAILY PRN PO 06/15/17 10:00 07/15/17 09:59 Insulin Aspart (novoLOG ASPART) SLIDING SCALE If C... ACHS SC 06/15/17 16:30 07/15/17 16:29 06/16/17 08:47 1 UNITS Glucose (Glucose 40% Gel) 15-30 GRAMS 15 GRAMS... UD PRN PO 06/15/17 10:00 07/15/17 09:59 Glucose (Glucose Chew Tab) 4-8 Tablets 4 Tabl... UD PRN PO 06/15/17 10:00 07/15/17 09:59 Dextrose (Dextrose 50% 50ML Syringe) 25-50ML OF 50% DW IV FOR... UD PRN IV 06/15/17 10:00 07/15/17 09:59 Glucagon (Glucagon Inj) 1 mg UD PRN SQ 06/15/17 10:00 07/15/17 09:59 Objective Vital Signs Date Time Temp Pulse Resp B/P (MAP) Pulse Ox O2 Delivery O2 Flow Rate FiO2 06/16/17 12:27 37.1 86 20 165/89 (114) 98 Room Air 06/16/17 11:03 36.9 88 18 114/70 (85) 99 Room Air 06/16/17 06:58 36.8 89 20 142/78 (99) 98 Room Air 06/16/17 04:00 Room Air 06/16/17 03:44 36.5 84 20 114/66 (82) 98 Room Air 06/16/17 00:01 Room Air 06/15/17 23:46 36.9 56 20 105/63 (77) 94 Room Air 06/15/17 20:00 96 Room Air 06/15/17 19:20 37.5 93 18 105/68 (80) 96 Room Air 06/15/17 16:00 96 Room Air 06/15/17 15:38 37.1 98 18 108/67 (81) 96 06/15/17 12:46 Room Air Physical Exam General Appearance: no apparent distress Respiratory/Chest: lungs clear Cardiovascular: regular rate, rhythm Abdomen: non tender, soft Laboratory Results Last 24 Hours Test 06/15/17 15:57 06/15/17 16:30 06/15/17 19:54 06/15/17 20:19 White Blood Count 5.96 K/uL 6.06 K/uL Red Blood Count 3.35 M/uL 3.23 M/uL Hemoglobin 10.3 g/dL 9.7 g/dL Hematocrit 29.5 % 28.8 % Mean Corpuscular Volume 88.1 fL 89.2 fL Mean Corpuscular Hemoglobin 30.7 pg 30.0 pg Mean Corpuscular Hemoglobin Concent 34.9 g/dl 33.7 g/dl RDW Standard Deviation 42.2 fL 42.8 fL RDW Coefficient of Variation 13.0 % 13.1 % Platelet Count 58 K/uL 61 K/uL Mean Platelet Volume 10.4 fL 9.9 fL Platelet Estimate DECREASED Bedside Glucose 245 mg/dl 243 mg/dl Test 06/15/17 23:58 06/16/17 06:12 06/16/17 07:28 06/16/17 11:20 White Blood Count 5.16 K/uL 3.67 K/uL Red Blood Count 3.02 M/uL 2.94 M/uL Hemoglobin 9.5 g/dL 9.3 g/dL Hematocrit 26.9 % 26.2 % Mean Corpuscular Volume 89.1 fL 89.1 fL Mean Corpuscular Hemoglobin 31.5 pg 31.6 pg Mean Corpuscular Hemoglobin Concent 35.3 g/dl 35.5 g/dl RDW Standard Deviation 42.9 fL 44.0 fL RDW Coefficient of Variation 13.3 % 13.5 % Platelet Count 61 K/uL 50 K/uL Mean Platelet Volume 10.6 fL 10.2 fL Sodium Level 142 mmol/L Potassium Level 3.6 mmol/L Chloride Level 112 mmol/L Carbon Dioxide Level 27 mmol/L Anion Gap 3.0 mmol/L Blood Urea Nitrogen 26 mg/dl Creatinine 0.85 mg/dl Est Creatinine Clear Calc Drug Dose 115.7 ml/min Estimated GFR () 113.7 Estimated GFR (Non- 98.1 BUN/Creatinine Ratio 30.9 Random Glucose 202 mg/dl Calcium Level 7.5 mg/dl Bedside Glucose 210 mg/dl 218 mg/dl Assessment and Plan Assessment: 56 yo CM who presents for EGD secondary to hematemesis and melena. Plan: Proceed with EGD.
[2017-06-16] MEDS ORDERED: FENTANYL CITRATE INJ 50 MCG/1 ML 2 ML VIAL ONE (12:37)
[2017-06-16] MEDS ORDERED: LIDOCAINE HCL 2% 2 ML VIAL (20MG/ML) ONE (12:37)
[2017-06-16] MEDS ORDERED: PROPOFOL IV EMULSION 10 MG/ML 20 ML VIAL IV ONE (12:37)
[2017-06-16] MEDS ORDERED: OCTREOTIDE IV BOLUS & DRIP IV STA (12:57)
--- NOTE | 2017-06-16 13:15 | GI REPORT ---
Procedure Date: 06/16/2017 12:43 PM THIS REPORT HAS BEEN AMENDED Addendum Number: 1 Addendum Date: 06/16/2017 1:16:41 PM Will need repeat EGD in 2 weeks for further endoscopic treatment of esophageal varices. Procedure: Upper GI endoscopy Indications: Melena Medicines: Monitored Anesthesia Care Complications: No immediate complications. Estimated Blood Loss: Estimated blood loss: none. Procedure: Pre-Anesthesia Assessment: - Prior to the procedure, a History and Physical was performed, and patient medications and allergies were reviewed. The patient's tolerance of previous anesthesia was also reviewed. The risks and benefits of the procedure and the sedation options and risks were discussed with the patient. All questions were answered, and informed consent was obtained. Prior Anticoagulants: The patient has taken no previous anticoagulant or antiplatelet agents. ASA Grade Assessment: III - A patient with severe systemic disease. After reviewing the risks and benefits, the patient was deemed in satisfactory condition to undergo the procedure. After obtaining informed consent, the endoscope was passed under direct vision. Throughout the procedure, the patient's blood pressure, pulse, and oxygen saturations were monitored continuously. The scope was introduced through the mouth, and advanced to the second part of duodenum. The upper GI endoscopy was accomplished without difficulty. The patient tolerated the procedure well. Findings: Four columns of non-bleeding grade III varices were found in the entire esophagus,. They were 6 mm in largest diameter. Stigmata of recent bleeding were evident and red ray signs were present. Six bands were successfully placed with complete eradication, resulting in deflation of varices. There was no bleeding at the end of the procedure. Multiple dispersed, non-bleeding erosions were found in the entire examined stomach. There were no stigmata of recent bleeding. The examined duodenum was normal. Impression: - Recently bleeding grade III esophageal varices. Completely eradicated. Banded. - Non-bleeding erosive gastropathy. - Normal examined duodenum. - No specimens collected. Recommendation: - Return patient to ICU for ongoing care. - Clear liquid diet today. - Administer an IV bolus of 100 micrograms of octreotide followed by an infusion of 50 micrograms per hour for 5 days. Esa Capone DO 06/16/2017 1:14:46 PM This report has been signed electronically. Note Initiated On: 06/16/2017 12:43 PM I attest to the content of the Intraoperative Record and orders documented therein, exceptions below Esa Capone, 06/16/2017 1:17:20 PM This report has been signed electronically.
[2017-06-16] MEDS ORDERED: OCTREOTIDE ACETATE INJ 100 MCG in SYRINGE 9 ML IV SCH (13:30)
--- NOTE | 2017-06-16 14:19 | Anesthesiology Progress Note ---
Anesthesia Post Op Note Date & Time Jun 16, 2017 at 14:18 Vital Signs Pain Intensity: 0.0 Vital Signs Past 12 Hours Date Time Temp Pulse Resp B/P (MAP) Pulse Ox O2 Delivery O2 Flow Rate FiO2 06/16/17 13:35 85 16 125/68 (87) 100 Room Air 06/16/17 13:20 82 16 131/85 (100) 100 Room Air 06/16/17 13:05 82 14 115/70 (85) 98 Mask 10 06/16/17 12:27 37.1 86 20 165/89 (114) 98 Room Air 06/16/17 11:03 36.9 88 18 114/70 (85) 99 Room Air 06/16/17 08:00 98 Room Air 06/16/17 06:58 36.8 89 20 142/78 (99) 98 Room Air 06/16/17 04:00 Room Air 06/16/17 03:44 36.5 84 20 114/66 (82) 98 Room Air Notes Mental Status: alert / awake / arousable, participated in evaluation Pt Amnestic to Procedure: Yes Nausea / Vomiting: adequately controlled Pain: adequately controlled Airway Patency, RR, SpO2: stable & adequate BP & HR: stable & adequate Hydration State: stable & adequate Anesthetic Complications: no major complications apparent Patient had several large varices banded. Per GI physician, patient to be transferred to ICU for further workup and management. All questions answered. VSS. No complications.
--- NOTE | 2017-06-16 15:02 | DIAGNOSTIC IMAGING REPORT ---
ABDOMEN LIMITED (US) HISTORY: Ovarian disease. Dysphagia. Esophageal varices. COMPARISON: None. FINDINGS: Pancreas: The pancreas demonstrates a normal echotexture. Liver: The liver is echogenic consistent with fatty change. Trace perihepatic ascites Gallbladder: No gallbladder wall thickening. No gallstones. CBD: 5 mm Right kidney: No hydronephrosis. IMPRESSION: 1. Fatty liver 2. Trace perihepatic ascites. 3. Otherwise negative study The above report was generated using voice recognition software. It may contain grammatical, syntax or spelling errors. Electronically signed by: Pedro Pablo Garcia M.D. 06/16/2017 3:00 PM Dictated Date/Time: 06/16/2017 2:59 PM
--- NOTE | 2017-06-16 15:02 | Critical Care Consultation ---
Critical Care Consultation Date of Consultation: Jun 16, 2017. Attending Physician: Brittani Lowry DO Reason for Consultation: Hematemesis 2/2 Esophageal Varices History of Present Illness Patient is a 56 year old male with a past medical history of HTN, HLD, and DM that presented to the ED with Hematemesis. The patient had an episode yesterday morning when he went to use the bathroom, leaned against the wall, but then does not recall any events after that. The patient was found by his , where there was diffuse blood all around the bathroom and over his nose and mouth. He dose not recall the actual event or if he lost consciousness.The patient was found hypotensive by EMS and given 1 L. He was also hypoxic with a O2 sat of 88 % in the ED but responded well to oxygen. He was having some URI symptoms for a few days prior but states his symptoms were improving. He also took an ALEVE the night before but denies chronic NSAID use. He has no history of GI bleed or ulcers. Patient states he was a social drinker but denies ETOH abuse. Family History Cancer Heart disease Social History Smoking Status: Unknown if Ever Smoked Alcohol Use: socially Drug Use: none Marital Status: Housing Status: lives with family Occupation Status: employed Allergies Coded Allergies: Penicillins (Verified Allergy, Unknown, ., 06/15/17) Home Medications Scheduled Atorvastatin (Lipitor), 20 MG PO DAILY Glimepiride (Amaryl), 1 MG PO DAILY Hctz/Losartan (Hyzaar 12.5MG/100MG), 1 TAB PO DAILY Metformin Hcl (Glucophage), 1,000 MG PO BID Current Inpatient Medications Current Inpatient Medications Medications (Trade) Dose Ordered Sig/Shahid Route Start Time Stop Time Status Last Admin Dose Admin Pantoprazole Sodium 40 mg/ Dextrose 100 ml @ 20 mls/hr Q5H IV 06/15/17 10:00 07/15/17 09:59 06/16/17 11:36 20 MLS/HR Acetaminophen (Tylenol Tab) 650 mg Q4H PRN PO 06/15/17 10:00 07/15/17 09:59 Al Hydrox/Mg Hydrox/Simethicone (Maalox Max Susp) 15 ml Q4H PRN PO 06/15/17 10:00 07/15/17 09:59 Magnesium Hydroxide (Milk Of Magnesia Susp) 30 ml Q12H PRN PO 06/15/17 10:00 07/15/17 09:59 Ondansetron HCl (Zofran Inj) 4 mg Q6H PRN IV 06/15/17 10:00 07/15/17 09:59 Polyethylene (Miralax Powder Packet) 17 gm DAILY PRN PO 06/15/17 10:00 07/15/17 09:59 Insulin Aspart (novoLOG ASPART) SLIDING SCALE If C... ACHS SC 06/15/17 16:30 07/15/17 16:29 06/16/17 08:47 1 UNITS Glucose (Glucose 40% Gel) 15-30 GRAMS 15 GRAMS... UD PRN PO 06/15/17 10:00 07/15/17 09:59 Glucose (Glucose Chew Tab) 4-8 Tablets 4 Tabl... UD PRN PO 06/15/17 10:00 07/15/17 09:59 Dextrose (Dextrose 50% 50ML Syringe) 25-50ML OF 50% DW IV FOR... UD PRN IV 06/15/17 10:00 07/15/17 09:59 Glucagon (Glucagon Inj) 1 mg UD PRN SQ 06/15/17 10:00 07/15/17 09:59 Octreotide Acetate 500 mcg/ Sodium Chloride 105 ml @ 10 mls/hr [id number] IV 06/16/17 13:30 07/16/17 13:29 Physical Exam Date Time Temp Pulse Resp B/P (MAP) Pulse Ox O2 Delivery O2 Flow Rate FiO2 06/16/17 14:20 79 16 125/74 (91) 100 Room Air 06/16/17 14:05 78 16 140/80 (100) 100 Room Air 06/16/17 13:35 85 16 125/68 (87) 100 Room Air 06/16/17 13:20 82 16 131/85 (100) 100 Room Air 06/16/17 13:05 82 14 115/70 (85) 98 Mask 10 06/16/17 12:27 37.1 86 20 165/89 (114) 98 Room Air 06/16/17 11:03 36.9 88 18 114/70 (85) 99 Room Air 06/16/17 08:00 98 Room Air 06/16/17 06:58 36.8 89 20 142/78 (99) 98 Room Air 06/16/17 04:00 Room Air 06/16/17 03:44 36.5 84 20 114/66 (82) 98 Room Air 06/16/17 00:01 Room Air 06/15/17 23:46 36.9 56 20 105/63 (77) 94 Room Air 06/15/17 20:00 96 Room Air 06/15/17 19:20 37.5 93 18 105/68 (80) 96 Room Air 06/15/17 16:00 96 Room Air 06/15/17 15:38 37.1 98 18 108/67 (81) 96 Laboratory Results Last 24 Hours Test 06/15/17 15:57 06/15/17 16:30 06/15/17 19:54 06/15/17 20:19 White Blood Count 5.96 K/uL 6.06 K/uL Red Blood Count 3.35 M/uL 3.23 M/uL Hemoglobin 10.3 g/dL 9.7 g/dL Hematocrit 29.5 % 28.8 % Mean Corpuscular Volume 88.1 fL 89.2 fL Mean Corpuscular Hemoglobin 30.7 pg 30.0 pg Mean Corpuscular Hemoglobin Concent 34.9 g/dl 33.7 g/dl RDW Standard Deviation 42.2 fL 42.8 fL RDW Coefficient of Variation 13.0 % 13.1 % Platelet Count 58 K/uL 61 K/uL Mean Platelet Volume 10.4 fL 9.9 fL Platelet Estimate DECREASED Bedside Glucose 245 mg/dl 243 mg/dl Test 06/15/17 23:58 06/16/17 06:12 06/16/17 07:28 06/16/17 11:20 White Blood Count 5.16 K/uL 3.67 K/uL Red Blood Count 3.02 M/uL 2.94 M/uL Hemoglobin 9.5 g/dL 9.3 g/dL Hematocrit 26.9 % 26.2 % Mean Corpuscular Volume 89.1 fL 89.1 fL Mean Corpuscular Hemoglobin 31.5 pg 31.6 pg Mean Corpuscular Hemoglobin Concent 35.3 g/dl 35.5 g/dl RDW Standard Deviation 42.9 fL 44.0 fL RDW Coefficient of Variation 13.3 % 13.5 % Platelet Count 61 K/uL 50 K/uL Mean Platelet Volume 10.6 fL 10.2 fL Sodium Level 142 mmol/L Potassium Level 3.6 mmol/L Chloride Level 112 mmol/L Carbon Dioxide Level 27 mmol/L Anion Gap 3.0 mmol/L Blood Urea Nitrogen 26 mg/dl Creatinine 0.85 mg/dl Est Creatinine Clear Calc Drug Dose 115.7 ml/min Estimated GFR () 113.7 Estimated GFR (Non- 98.1 BUN/Creatinine Ratio 30.9 Random Glucose 202 mg/dl Calcium Level 7.5 mg/dl Bedside Glucose 210 mg/dl 218 mg/dl
--- NOTE | 2017-06-16 15:12 | Critical Care Consultation ---
Critical Care Consultation Date of Consultation: Jun 16, 2017. Attending Physician: Brittani Lowry DO Reason for Consultation: Hematemesis 2/2 Esophageal Varices History of Present Illness Patient is a 56 year old male with a past medical history of HTN, HLD, and DM that presented to the ED with Hematemesis. The patient had an episode yesterday morning when he went to use the bathroom, leaned against the wall, but then does not recall any events after that. The patient was found by his , where there was diffuse blood all around the bathroom and over his nose and mouth. The reported having URI symptoms for a few days before the event, but states that his symptoms had been improving. The patient reports being a social smoker but denies ETOH abuse. The patient also had taken an Aleve the night before, but denies chronic NSAID use. He dose not recall the actual event or if he lost consciousness.The patient was found hypotensive by EMS and given 1 L. He was also hypoxic with a O2 sat of 88% in the ED but responded well to oxygen. The patient was also found to have a glucose in the 300's. The patient was evaluated by GI and recommended starting a Protonix drip at 8mg/hr, transfuse if Hgb <8 (found to be 11.4 initially but quickly dropped to 10's in the ED), and plan to take the patient for EGD. The patient was scoped this afternoon and found to have grade III esophageal varices that were banded. The patient was transfered to the ICU after having being administered an IV bolus of 100ug of octreotide followed by an infusion of 50ug/hr for 5 days. Past Medical/Surgical History DM, HTN, HLD Family History Cancer Heart disease Social History Smoking Status: Unknown if Ever Smoked Alcohol Use: socially Drug Use: none Marital Status: Housing Status: lives with family Occupation Status: employed Allergies Coded Allergies: Penicillins (Verified Allergy, Unknown, ., 06/15/17) Home Medications Scheduled Atorvastatin (Lipitor), 20 MG PO DAILY Glimepiride (Amaryl), 1 MG PO DAILY Hctz/Losartan (Hyzaar 12.5MG/100MG), 1 TAB PO DAILY Metformin Hcl (Glucophage), 1,000 MG PO BID Current Inpatient Medications Current Inpatient Medications Medications (Trade) Dose Ordered Sig/Shahid Route Start Time Stop Time Status Last Admin Dose Admin Pantoprazole Sodium 40 mg/ Dextrose 100 ml @ 20 mls/hr Q5H IV 06/15/17 10:00 07/15/17 09:59 06/16/17 11:36 20 MLS/HR Acetaminophen (Tylenol Tab) 650 mg Q4H PRN PO 06/15/17 10:00 07/15/17 09:59 Al Hydrox/Mg Hydrox/Simethicone (Maalox Max Susp) 15 ml Q4H PRN PO 06/15/17 10:00 07/15/17 09:59 Magnesium Hydroxide (Milk Of Magnesia Susp) 30 ml Q12H PRN PO 06/15/17 10:00 07/15/17 09:59 Ondansetron HCl (Zofran Inj) 4 mg Q6H PRN IV 06/15/17 10:00 07/15/17 09:59 Polyethylene (Miralax Powder Packet) 17 gm DAILY PRN PO 06/15/17 10:00 07/15/17 09:59 Insulin Aspart (novoLOG ASPART) SLIDING SCALE If C... ACHS SC 06/15/17 16:30 07/15/17 16:29 06/16/17 08:47 1 UNITS Glucose (Glucose 40% Gel) 15-30 GRAMS 15 GRAMS... UD PRN PO 06/15/17 10:00 07/15/17 09:59 Glucose (Glucose Chew Tab) 4-8 Tablets 4 Tabl... UD PRN PO 06/15/17 10:00 07/15/17 09:59 Dextrose (Dextrose 50% 50ML Syringe) 25-50ML OF 50% DW IV FOR... UD PRN IV 06/15/17 10:00 07/15/17 09:59 Glucagon (Glucagon Inj) 1 mg UD PRN SQ 06/15/17 10:00 07/15/17 09:59 Octreotide Acetate 500 mcg/ Sodium Chloride 105 ml @ 10 mls/hr [id number] IV 06/16/17 13:30 07/16/17 13:29 Review of Systems Constitutional: + fatigue, No fever, No chills Respiratory: No cough, No sputum, No shortness of breath Cardiovascular: No chest pain, No palpitations Abdomen: No pain, No nausea, No vomiting, No diarrhea, No constipation Musculoskeletal: + swelling (Right arm swelling from IV therapy), No joint pain Psychiatric: No substance abuse Hematologic / Lymphatic: No clotting problems Physical Exam Date Time Temp Pulse Resp B/P (MAP) Pulse Ox O2 Delivery O2 Flow Rate FiO2 06/16/17 14:20 79 16 125/74 (91) 100 Room Air 06/16/17 14:05 78 16 140/80 (100) 100 Room Air 06/16/17 13:35 85 16 125/68 (87) 100 Room Air 06/16/17 13:20 82 16 131/85 (100) 100 Room Air 06/16/17 13:05 82 14 115/70 (85) 98 Mask 10 06/16/17 12:27 37.1 86 20 165/89 (114) 98 Room Air 06/16/17 11:03 36.9 88 18 114/70 (85) 99 Room Air 06/16/17 08:00 98 Room Air 06/16/17 06:58 36.8 89 20 142/78 (99) 98 Room Air 06/16/17 04:00 Room Air 06/16/17 03:44 36.5 84 20 114/66 (82) 98 Room Air 06/16/17 00:01 Room Air 06/15/17 23:46 36.9 56 20 105/63 (77) 94 Room Air 06/15/17 20:00 96 Room Air 06/15/17 19:20 37.5 93 18 105/68 (80) 96 Room Air 06/15/17 16:00 96 Room Air 06/15/17 15:38 37.1 98 18 108/67 (81) 96 General Appearance: well-appearing, WD/WN, no apparent distress Head: normocephalic, atraumatic Eyes: PERRLA, EOMI, sclerae normal, conjunctivae normal ENT: normal mouth exam Respiratory: breath sounds normal, clear to auscultation Cardiovasular: regular rate/rhythm, normal S1S2, no M/G/R, no murmur Abdomen: non tender, normal bowel sounds, no rebound, no masses, no guarding, no organomegaly Lower Extremities: no edema, no deformity Edema: RUE (0) Neuro: alert, oriented x 3, normal sensation, normal speech Psychiatric: normal affect Laboratory Results Last 24 Hours Test 06/15/17 15:57 06/15/17 16:30 06/15/17 19:54 06/15/17 20:19 White Blood Count 5.96 K/uL 6.06 K/uL Red Blood Count 3.35 M/uL 3.23 M/uL Hemoglobin 10.3 g/dL 9.7 g/dL Hematocrit 29.5 % 28.8 % Mean Corpuscular Volume 88.1 fL 89.2 fL Mean Corpuscular Hemoglobin 30.7 pg 30.0 pg Mean Corpuscular Hemoglobin Concent 34.9 g/dl 33.7 g/dl RDW Standard Deviation 42.2 fL 42.8 fL RDW Coefficient of Variation 13.0 % 13.1 % Platelet Count 58 K/uL 61 K/uL Mean Platelet Volume 10.4 fL 9.9 fL Platelet Estimate DECREASED Bedside Glucose 245 mg/dl 243 mg/dl Test 06/15/17 23:58 06/16/17 06:12 06/16/17 07:28 06/16/17 11:20 White Blood Count 5.16 K/uL 3.67 K/uL Red Blood Count 3.02 M/uL 2.94 M/uL Hemoglobin 9.5 g/dL 9.3 g/dL Hematocrit 26.9 % 26.2 % Mean Corpuscular Volume 89.1 fL 89.1 fL Mean Corpuscular Hemoglobin 31.5 pg 31.6 pg Mean Corpuscular Hemoglobin Concent 35.3 g/dl 35.5 g/dl RDW Standard Deviation 42.9 fL 44.0 fL RDW Coefficient of Variation 13.3 % 13.5 % Platelet Count 61 K/uL 50 K/uL Mean Platelet Volume 10.6 fL 10.2 fL Sodium Level 142 mmol/L Potassium Level 3.6 mmol/L Chloride Level 112 mmol/L Carbon Dioxide Level 27 mmol/L Anion Gap 3.0 mmol/L Blood Urea Nitrogen 26 mg/dl Creatinine 0.85 mg/dl Est Creatinine Clear Calc Drug Dose 115.7 ml/min Estimated GFR () 113.7 Estimated GFR (Non- 98.1 BUN/Creatinine Ratio 30.9 Random Glucose 202 mg/dl Calcium Level 7.5 mg/dl Bedside Glucose 210 mg/dl 218 mg/dl Assessment & Plan The patient is a 56 year old male with a past medical history of HTN, DM, and T2D who presented to the ED yesterday morning with Hematemesis found on EGD to have stage 3 esophageal varices and is s/p banding Neuro - Alert & Oriented - CAM-ICU negative CV - History of hypertension - resume home HCTZ/ Losartan - Resume home Atorvastatin 20mg daily GI - Stage 3 esophageal varices s/p EGD banding - Protonix 40mg q5h - IV Octreotide bolus of 100ug of octreotide followed by an infusion of 50ug/hr for 5 days. - Abdominal US --> Fatty liver - Diagnosis at this time appears to favor NAFLD (nonalcoholic fatty liver disease), especially considering patients history of HTN, HLD, and DM - LFTs wnl (AST 23, ALT 32, T Bili 0.9, Alk Phos 47) - Liquid diet - GI on board Endo - History of DM -> Insulin sliding scale as per ICU protocol - HbA1c 7.9 in 2015 - Holding home metformin and glyburide - Patient admits to not taking his metformin for the last week Heme - H/H stable (Hgb in 9's since admission) --> Monitor with q6 H/H - No bleeding since admission and banding on EGD to control esophageal varices - Pancytopenia of unknown etiology --> Continue to monitor with daily BMP - Hold DVT ppx due to GI bleed - PT/INR 12.0/1.1 Resident Physician Supervision Note: Dr. Hollingsworth was resident physician during care of patient. I separately evaluated patient and did history and exam. I discussed the case with the resident and generally agree with the findings and plan. Patient underwent EGD today, and was found to have esophageal varices which required banding. Patient critically ill due to hematemesis, acute blood loss anemia, unclear etiology of likely liver cirrhosis. We will send hepatitis panel, add antibiotic coverage secondary to esophageal leading, will require octreotide and PPI infusions. During my evaluation patient was alert oriented, not having any pain, mild dyspnea. Adequate vascular access at this time with 2 large-bore peripheral IVs. I have personally spent 40 minutes of critical care time in the direct management of this patient. This is a life/limb threatening event. This includes time spent evaluating patient, direct bedside care, chart review, placing orders, interpretation of diagnostic studies, discussion with consultants, patient, and family members, as well as other required patient management activities. This time is exclusive of all separately billable procedures, and teaching time and separate from and in addition to any other critical care service time. Documented By: Chencho Cardenas DO Resident Tracking Resident Involvement: Resident Care Provided Care Provided: [facility] Medicine
[2017-06-16] MEDS: OCTREOTIDE ACETATE INJ 500 MCG in NSS 100ML IV SCH ×2 (15:49→23:48)
[2017-06-16 20:26] LABS: HEMATOCRIT 27.7 % (42-52)
[2017-06-16] MEDS ORDERED: DOXYCYCLINE HYCLATE 100 MG CAP PO SCH (21:00)
[2017-06-17] VITALS (13 sets, daily range): BP systolic 110–151; BP diastolic 69–91; PULSE 75–84; TEMP 36.7–37.6; O2SAT 93–99; Ht 175.3 cm; Wt 102.1 kg
[2017-06-17 06:17] LABS: HEMATOCRIT 25.5 % (42-52); MEAN CELL VOLUME 89.8 fL (80-100); MEAN CORPUSCULAR HEMOGLOBIN 32.7 pg (25-34); MEAN CORPUSCULAR HGB CONC 36.5 g/dl (32-36); RED BLOOD COUNT 2.84 M/uL (4.7-6.1); WHITE BLOOD COUNT 2.61 K/uL (4.8-10.8)
[2017-06-17] MEDS: PANTOprazole INJ 40 MG in DEXTROSE 5% 100ML IV SCH ×3 (06:17→17:24)
[2017-06-17 07:01] LABS: BUN/CREATININE RATIO 17.7 (10-20); CALCIUM 8.1 mg/dl (8.5-10.1); CHOLESTEROL/HDL RATIO 4.2; CREATININE 0.95 mg/dl (0.60-1.40); FERRITIN 36.7 ng/ml (8.0-388.0); MAGNESIUM 1.9 mg/dl (1.8-2.4); PHOSPHORUS 1.7 mg/dl (2.5-4.9); POTASSIUM 3.8 mmol/L (3.5-5.1)
[2017-06-17 07:12] LABS: MEAN PLATELET VOLUME 10.2 fL (7.4-10.4); PLATELET COUNT 51 K/uL (130-400)
[2017-06-17] MEDS: INSULIN ASPART 100 UNITS/ML 3 ML PEN SC SCH ×4 (07:53→20:47)
[2017-06-17] MEDS: RIFAXIMIN TAB 550 MG TAB PO SCH ×2 (07:54→20:49)
[2017-06-17 08:33] LABS: ESTIMATED AVERAGE GLUCOSE 266 mg/dl; HA1C FLAG Normal (Normal)
[2017-06-17] MEDS ORDERED: PHARMACY GLYCEMIC MGMT CONSULT PRN (08:45)
[2017-06-17] MEDS: OCTREOTIDE ACETATE INJ 500 MCG in NSS 100ML IV SCH ×2 (09:16→20:48)
[2017-06-17] MEDS: INSULIN GLARGINE SOLOSTAR 100 UNITS/ML 3 ML PEN SC SCH ×2 (09:18→20:51)
--- NOTE | 2017-06-17 09:39 | Gastroenterology Progress Note ---
Progress Note Date of Service: Jun 17, 2017 Subjective Pt evaluation today including: conversation w/ patient, physical exam, chart review, lab review, review of studies, review of inpatient medication list Patient status post EGD with banding on Octreotide drip and Cipro due to findings of grade III varices with red ray sign. Denies any chest pain, odynophagia or dysphagia. Tolerating diet. Started Xifaxan by Dr. Capone due to hyperammonemia. Liver ultrasound with fatty liver infiltration. Denies any nausea or vomiting, GI bleeding, abdominal pain or swelling or lower extremity edema. No other complaints at present. H&H is stable at present. Review of Systems Constitutional: + see HPI Respiratory: No problem reported Cardiac: No problem reported Abdomen: + see HPI Neuro: No problem reported Psych: No problem reported Medications Current Inpatient Medications Medications (Trade) Dose Ordered Sig/Shahid Route Start Time Stop Time Status Last Admin Dose Admin Pantoprazole Sodium 40 mg/ Dextrose 100 ml @ 20 mls/hr Q5H IV 06/15/17 10:00 07/15/17 09:59 06/17/17 06:17 20 MLS/HR Acetaminophen (Tylenol Tab) 650 mg Q4H PRN PO 06/15/17 10:00 07/15/17 09:59 Al Hydrox/Mg Hydrox/Simethicone (Maalox Max Susp) 15 ml Q4H PRN PO 06/15/17 10:00 07/15/17 09:59 Magnesium Hydroxide (Milk Of Magnesia Susp) 30 ml Q12H PRN PO 06/15/17 10:00 07/15/17 09:59 Ondansetron HCl (Zofran Inj) 4 mg Q6H PRN IV 06/15/17 10:00 07/15/17 09:59 Polyethylene (Miralax Powder Packet) 17 gm DAILY PRN PO 06/15/17 10:00 07/15/17 09:59 Insulin Aspart (novoLOG ASPART) SLIDING SCALE If C... ACHS SC 06/15/17 16:30 07/15/17 16:29 06/17/17 07:53 2 UNITS Glucose (Glucose 40% Gel) 15-30 GRAMS 15 GRAMS... UD PRN PO 06/15/17 10:00 07/15/17 09:59 Glucose (Glucose Chew Tab) 4-8 Tablets 4 Tabl... UD PRN PO 06/15/17 10:00 07/15/17 09:59 Dextrose (Dextrose 50% 50ML Syringe) 25-50ML OF 50% DW IV FOR... UD PRN IV 06/15/17 10:00 07/15/17 09:59 Glucagon (Glucagon Inj) 1 mg UD PRN SQ 06/15/17 10:00 07/15/17 09:59 Octreotide Acetate 500 mcg/ Sodium Chloride 105 ml @ 10 mls/hr [id number] IV 06/16/17 13:30 07/16/17 13:29 06/17/17 09:16 10 MLS/HR Rifaximin (Xifaxan Tab) 550 mg BID PO 06/17/17 09:00 07/17/17 08:59 06/17/17 07:54 550 MG Ciprofloxacin/ Dextrose 400 mg/ Prmx 200 ml @ 100 mls/hr Q12H IV 06/17/17 10:00 06/27/17 09:59 06/17/17 09:16 100 MLS/HR Miscellaneous Information (Consult Glycemic Management Pharmacy) 1 ea UD PRN N/A 06/17/17 08:45 07/17/17 08:44 Insulin Glargine (Lantus Solostar Pen) 15 units BID SC 06/17/17 09:00 07/17/17 08:59 06/17/17 09:18 15 UNITS Objective Vital Signs Date Time Temp Pulse Resp B/P (MAP) Pulse Ox O2 Delivery O2 Flow Rate FiO2 06/17/17 08:00 36.7 78 14 134/80 (98) 95 Room Air 06/17/17 07:01 76 13 127/80 (96) 96 Room Air 06/17/17 06:00 79 18 110/69 (83) 95 Room Air 06/17/17 04:00 37.0 75 14 140/76 (97) 94 06/17/17 04:00 93 Room Air 06/17/17 03:00 84 14 138/83 (101) 06/17/17 02:00 80 12 147/76 (99) 94 Room Air 06/17/17 00:00 37.6 80 17 135/80 (98) 95 Room Air 06/16/17 23:59 93 Room Air 06/16/17 22:00 85 10 125/76 (92) 93 Room Air 06/16/17 20:00 37.1 84 16 129/77 (94) 97 Room Air 06/16/17 20:00 Room Air 06/16/17 18:00 81 19 134/68 (90) 91 Room Air 06/16/17 16:15 82 17 136/83 (100) 96 06/16/17 16:00 78 14 121/80 (94) 96 06/16/17 16:00 Room Air 06/16/17 15:15 82 20 139/79 (99) 97 Room Air 06/16/17 15:00 36.8 83 14 153/93 (113) 98 Room Air 06/16/17 14:20 79 16 125/74 (91) 100 Room Air 06/16/17 14:05 78 16 140/80 (100) 100 Room Air 06/16/17 13:35 85 16 125/68 (87) 100 Room Air 06/16/17 13:20 82 16 131/85 (100) 100 Room Air 06/16/17 13:05 82 14 115/70 (85) 98 Mask 10 06/16/17 12:27 37.1 86 20 165/89 (114) 98 Room Air 06/16/17 11:03 36.9 88 18 114/70 (85) 99 Room Air Physical Exam General Appearance: no apparent distress Eyes: EOMI ENT: hearing grossly normal Neck: supple Respiratory/Chest: lungs clear, normal breath sounds, no respiratory distress Cardiovascular: regular rate, rhythm, no gallop, no murmur Abdomen: normal bowel sounds, soft Extremities: no pedal edema Neurologic/Psych: alert, normal mood/affect, oriented x 3 Skin: warm/dry Laboratory Results Last 24 Hours Test 06/16/17 11:20 06/16/17 16:04 06/16/17 17:58 06/16/17 19:55 Bedside Glucose 218 mg/dl 177 mg/dl Ammonia 67.0 umol/L Hemoglobin 9.5 g/dL Hematocrit 27.7 % Test 06/16/17 20:10 06/17/17 05:41 06/17/17 05:45 Bedside Glucose 210 mg/dl 191 mg/dl White Blood Count 2.61 K/uL Red Blood Count 2.84 M/uL Hemoglobin 9.3 g/dL Hematocrit 25.5 % Mean Corpuscular Volume 89.8 fL Mean Corpuscular Hemoglobin 32.7 pg Mean Corpuscular Hemoglobin Concent 36.5 g/dl RDW Standard Deviation 43.9 fL RDW Coefficient of Variation 13.4 % Platelet Count 51 K/uL Mean Platelet Volume 10.2 fL Sodium Level 141 mmol/L Potassium Level 3.8 mmol/L Chloride Level 109 mmol/L Carbon Dioxide Level 28 mmol/L Anion Gap 4.0 mmol/L Blood Urea Nitrogen 17 mg/dl Creatinine 0.95 mg/dl Est Creatinine Clear Calc Drug Dose 103.5 ml/min Estimated GFR () 104.0 Estimated GFR (Non- 89.8 BUN/Creatinine Ratio 17.7 Random Glucose 178 mg/dl Estimated Average Glucose 266 mg/dl Hemoglobin A1c 10.9 % Calcium Level 8.1 mg/dl Phosphorus Level 1.7 mg/dl Magnesium Level 1.9 mg/dl Iron Level 34 mcg/dl Total Iron Binding Capacity 349 mcg/dl Transferrin 266 mg/dl Transferrin % Saturation 9 % Ferritin 36.7 ng/ml Triglycerides Level 241 mg/dl Cholesterol Level 110 mg/dl HDL Cholesterol 26 mg/dl LDL Cholesterol, Calculated 36 mg/dl VLDL Cholesterol, Calculated 48 mg/dl Cholesterol/HDL Ratio 4.2 Hepatitis B Surface Antigen NEG Hepatitis C Antibody NEG Assessment and Plan Patient is a 56 year old male with a history of diabetes presenting with dizziness and hematemesis with findings of grade III varices s/p banding and hyperammonemia suspicious for cirrhosis. 1. Triphasic liver CT for further evaluation of liver. 2. Continue PPI ggt. 3. Continue Octreotide and Cipro IV for a total of 5 days. 4. Xifaxan 550 mg po BID. 5. Repeat EGD in 2 weeks for re-evaluation of varices. Currently being scheduled by our office. 6. Supportive care per primary team. Agree with JEANNINE Parnell Abd: Soft, NT Continue Octreotide gtt at 50 micrograms per hour for 5 days Continue Xifaxan 550mg by mouth BID Continue Cipro 400 IV BID Discussed case with Dr. Cardenas [employer] following review of Triphasic CT scan of liver. Will need IR biopsies of liver and possibly lymph nodes and will be transferred to [facility] Will need repeat EGD in 2 weeks for repeat evaluation of the esophageal varices
[2017-06-17] MEDS ORDERED: OPTIRAY 320 IV PRN (09:45)
[2017-06-17] MEDS ORDERED: CIPROFLOXACIN / D5W 400 MG in PREMIXED IN D5W 200 ML IV SCH (10:00)
--- NOTE | 2017-06-17 12:08 | DIAGNOSTIC IMAGING REPORT ---
ABDOMINAL CT WITH AND WITHOUT INTRAVENOUS CONTRAST, LIVER PROTOCOL HISTORY: esophageal varices. ? Cirrhosis TECHNIQUE: Multiaxial CT images of the abdomen were performed both before and after the intravenous administration of contrast to evaluate the liver. COMPARISON STUDY: Abdominal ultrasound 06/16/2017. FINDINGS: There are patchy perihilar groundglass airspace opacities. The heart is normal in size. No pleural effusions. Extensive periesophageal varices. No evidence for hepatic cirrhosis. An 8 mm hypodense lesion within the left hepatic lobe. This is too small to characterize. Scattered peripheral ill-defined areas of hypervascularity seen predominantly within the left hepatic lobe favor transient hepatic attenuation differences. No definite hypervascular masses identified. Small amount of upper abdominal ascites. The pancreas, adrenal glands, and kidneys are unremarkable. The gallbladder is distended. There is mild gallbladder wall thickening. The spleen is enlarged measuring 16.5 cm in length. No splenic masses. The visualized loops of bowel show no wall thickening or obstruction. Mild periportal, peripancreatic, and mesenteric lymphadenopathy. The IVC and renal veins are patent. Normal caliber abdominal aorta. There is nonocclusive thrombus seen within the main portal vein, right portal vein, left portal vein, and branches of the superior mesenteric vein. There is also near occlusive thrombus seen within the mid splenic vein. The esophageal varices result from a dominant collateral extending from the splenic vein which is also partially thrombosed. There are perigastric varices present. There is partial recanalization of the umbilical vein. The splenic vein is also dilated. IMPRESSION: 1. Multiple areas of nonocclusive thrombus seen within the portal veins, splenic vein, and branches of the superior mesenteric vein. These findings likely account for the splenomegaly and extensive periesophageal and upper abdominal varices. The dominant periesophageal varix originating from the splenic vein is also partially thrombosed. 2. Small amount of upper abdominal ascites. Mildly distended gallbladder which demonstrates a thickened wall. This could also be due to the long-standing venous congestion from the areas of venous thrombosis. 3. Upper abdominal/mesenteric lymphadenopathy. This is nonspecific. However, chronic venous congestion can result in this appearance. A neoplastic process is considered less likely but not entirely excluded. 4. Patchy perihilar groundglass airspace opacities within the lungs. This may be due to mild ulnar edema or an atypical pneumonitis. 5. No evidence for hepatic cirrhosis. Electronically signed by: Miguel Chandler M.D. 06/17/2017 1:15 PM Dictated Date/Time: 06/17/2017 11:51 AM
--- NOTE | 2017-06-17 13:07 | Critical Care Progress Note ---
Critical Care Progress Note Date of Service Jun 17, 2017. ICU Day ICU Day Number: [address] Cardenas Subjective Patient resting comfortably in bed this morning with no acute complaints. The states that he did not his stool was darker yesterday but no gross blood with his bowel movement. The patient denies any shortness of breath, sore throat, abdominal pain, or any other acute complaints. Objective GENERAL: Awake, alert, well-appearing, in no distress HENT: Normocephalic, atraumatic. Oropharynx unremarkable. EYES: Normal conjunctiva. Sclera non-icteric. NECK: Supple. No nuchal rigidity. FROM. No JVD. RESPIRATORY: Clear to auscultation. CARDIAC: Regular rate, normal rhythm. Extremities warm and well perfused. ABDOMEN: Soft, non-distended. No tenderness to palpation. No rebound or guarding. No masses. RECTAL: Deferred. MUSCULOSKELETAL: Chest examination reveals no tenderness. LOWER EXTREMITIES: Calves are equal size bilaterally and non-tender. No edema. No discoloration. NEURO: Normal sensorium. No sensory or motor deficits noted. SKIN: No rash or jaundice noted. Current SOFA Score SOFA Score Response (Comments) Value Platelets (x10) > 150 0 Bilirubin (mg/dL) < 1.2 0 [place] Coma Score 15 0 Level of Hypotension No Hypotension 0 Creatinine (mg/dL) < 1.2 0 Total 0 Assessment & Plan The patient is a 56 year old male with a past medical history of HTN, DM, and T2D who presented to the ED yesterday morning with Hematemesis found on EGD to have stage 3 esophageal varices and is s/p banding Neuro - Alert & Oriented - CAM-ICU negative CV - History of hypertension - Would consider changing blood pressure medication to Propranolol from HCTZ/ Losartan due to protective effects of liver disease and hypertension - Resume home Atorvastatin 20mg daily GI - Stage 3 esophageal varices s/p EGD banding - Concert to Protonix IV BID from drip --> Continue IV therapy for 72 hours then convert to PO - IV Octreotide bolus of 100ug of octreotide followed by an infusion of 50ug/hr for 5 days. - Cipro 400mg BID - coverage after esophageal varices --> 7 days of total treatment, convert to PO on discharge - Rifaximin 550mg BID - Abdominal US --> Fatty liver and trace perihepatic ascites - Abdominal CT today - Triglycerides elevated 241 --> Consider outpatient therapy with fibrate - Hepatitis C Screen negative, Acute Hepatitis panel pending - Diagnosis at this time appears to favor NAFLD (nonalcoholic fatty liver disease), especially considering patients history of HTN, HLD, and DM - LFTs wnl (AST 23, ALT 32, T Bili 0.9, Alk Phos 47) - Liquid diet - GI on board Endo - History of DM - Lantus BID + ISS - HbA1c 10.9 today, 7.9 in 2015 - Holding home metformin and glyburide - Patient admits to not taking his metformin for the last week Heme - H/H stable (Hgb in 9's since admission) --> stopping q8h H/H, continue daily CBC - No bleeding since admission and banding on EGD to control esophageal varices - Pancytopenia of unknown etiology --> Continue to monitor with daily BMP - Hold DVT ppx due to GI bleed - PT/INR 12.0/1.1 Resident Physician Supervision Note: Dr. Hollingsworth was resident physician during care of patient. I separately evaluated patient and did history and exam. I discussed the case with the resident and generally agree with the findings and plan. On CT scanning, patient was found to have portal venous clots. I discussed the case extensively with Dr. cheek and we will proceed with IV heparin infusion. Discussed the case with radiology with regards to getting tissue sample of liver to evaluate for an extent of cirrhosis. Radiology does not believe they could safely obtain a liver biopsy specimen secondary to ascites around the liver. Minimal ascites around the liver nothing in the lower abdomen that could be easily accessed for further evaluation. We do not have interventional radiology capability to obtain at the transjugular biopsy. Given the complexity of this patient's, recent gastrointestinal bleeding secondary to grade 3 varices, and unclear etiology of the portal clot, consideration for malignancy versus hypercoagulable state and need for specialized care we have contacted [facility] who is accepting the patient in transport for further evaluation. Patient understands risks associated with transfer and accepts them, he is highly interested in furthering his evaluation and etiology of his current medical issues. I have personally spent 50 minutes of critical care time in the direct management of this patient. This is a life/limb threatening event. This includes time spent evaluating patient, direct bedside care, chart review, placing orders, interpretation of diagnostic studies, discussion with consultants, patient, and family members, as well as other required patient management activities. This time is exclusive of all separately billable procedures, and teaching time and separate from and in addition to any other critical care service time. Documented By: Chencho Cardenas DO Consults & Procedures Consultants: GI Procedures: EGD with banding of esophageal varices Data Medications: Current Inpatient Medications Medications (Trade) Dose Ordered Sig/Shahid Route Start Time Stop Time Status Last Admin Dose Admin Pantoprazole Sodium 40 mg/ Dextrose 100 ml @ 20 mls/hr Q5H IV 06/15/17 10:00 06/18/17 09:59 06/17/17 12:04 20 MLS/HR Acetaminophen (Tylenol Tab) 650 mg Q4H PRN PO 06/15/17 10:00 07/15/17 09:59 Al Hydrox/Mg Hydrox/Simethicone (Maalox Max Susp) 15 ml Q4H PRN PO 06/15/17 10:00 07/15/17 09:59 Magnesium Hydroxide (Milk Of Magnesia Susp) 30 ml Q12H PRN PO 06/15/17 10:00 07/15/17 09:59 Ondansetron HCl (Zofran Inj) 4 mg Q6H PRN IV 06/15/17 10:00 07/15/17 09:59 Polyethylene (Miralax Powder Packet) 17 gm DAILY PRN PO 06/15/17 10:00 07/15/17 09:59 Insulin Aspart (novoLOG ASPART) SLIDING SCALE If C... ACHS SC 06/15/17 16:30 07/15/17 16:29 06/17/17 12:08 6 UNITS Glucose (Glucose 40% Gel) 15-30 GRAMS 15 GRAMS... UD PRN PO 06/15/17 10:00 07/15/17 09:59 Glucose (Glucose Chew Tab) 4-8 Tablets 4 Tabl... UD PRN PO 06/15/17 10:00 07/15/17 09:59 Dextrose (Dextrose 50% 50ML Syringe) 25-50ML OF 50% DW IV FOR... UD PRN IV 06/15/17 10:00 07/15/17 09:59 Glucagon (Glucagon Inj) 1 mg UD PRN SQ 06/15/17 10:00 10/11/17 09:59 Octreotide Acetate 500 mcg/ Sodium Chloride 105 ml @ 10 mls/hr [id number] IV 06/16/17 13:30 07/16/17 13:29 06/17/17 09:16 10 MLS/HR Rifaximin (Xifaxan Tab) 550 mg BID PO 06/17/17 09:00 07/17/17 08:59 06/17/17 07:54 550 MG Ciprofloxacin/ Dextrose 400 mg/ Prmx 200 ml @ 100 mls/hr Q12H IV 06/17/17 10:00 06/27/17 09:59 06/17/17 09:16 100 MLS/HR Miscellaneous Information (Consult Glycemic Management Pharmacy) 1 ea UD PRN N/A 06/17/17 08:45 07/17/17 08:44 Insulin Glargine (Lantus Solostar Pen) 15 units BID SC 06/17/17 09:00 07/17/17 08:59 06/17/17 09:18 15 UNITS Ioversol (Optiray 320) 100 ml UD PRN IV 06/17/17 09:45 06/21/17 09:44 Pantoprazole Sodium 40 mg/ Syringe 10 ml @ 5 mls/min BID@09,21 IV 06/18/17 21:00 07/18/17 20:59 Vital Signs: Date Time Temp Pulse Resp B/P (MAP) Pulse Ox O2 Delivery O2 Flow Rate FiO2 06/17/17 12:36 36.7 82 21 143/83 (103) 99 Room Air 06/17/17 12:00 Room Air 06/17/17 10:00 80 17 129/81 (97) 98 Room Air 06/17/17 08:00 Room Air 06/17/17 08:00 36.7 78 14 134/80 (98) 95 Room Air 06/17/17 07:01 76 13 127/80 (96) 96 Room Air 06/17/17 06:00 79 18 110/69 (83) 95 Room Air 06/17/17 04:00 37.0 75 14 140/76 (97) 94 06/17/17 04:00 93 Room Air 06/17/17 03:00 84 14 138/83 (101) 06/17/17 02:00 80 12 147/76 (99) 94 Room Air 06/17/17 00:00 37.6 80 17 135/80 (98) 95 Room Air 06/16/17 23:59 93 Room Air 06/16/17 22:00 85 10 125/76 (92) 93 Room Air 06/16/17 20:00 37.1 84 16 129/77 (94) 97 Room Air 06/16/17 20:00 Room Air 06/16/17 18:00 81 19 134/68 (90) 91 Room Air 06/16/17 16:15 82 17 136/83 (100) 96 06/16/17 16:00 78 14 121/80 (94) 96 06/16/17 16:00 Room Air 06/16/17 15:15 82 20 139/79 (99) 97 Room Air 06/16/17 15:00 36.8 83 14 153/93 (113) 98 Room Air 06/16/17 14:20 79 16 125/74 (91) 100 Room Air 06/16/17 14:05 78 16 140/80 (100) 100 Room Air 06/16/17 13:35 85 16 125/68 (87) 100 Room Air 06/16/17 13:20 82 16 131/85 (100) 100 Room Air 06/16/17 13:05 82 14 115/70 (85) 98 Mask 10 Laboratory Results: Last 24 Hours Test 06/16/17 16:04 06/16/17 17:58 06/16/17 19:55 06/16/17 20:10 Bedside Glucose 177 mg/dl 210 mg/dl Ammonia 67.0 umol/L Hemoglobin 9.5 g/dL Hematocrit 27.7 % Test 06/17/17 05:41 06/17/17 05:45 06/17/17 10:57 White Blood Count 2.61 K/uL Red Blood Count 2.84 M/uL Hemoglobin 9.3 g/dL Hematocrit 25.5 % Mean Corpuscular Volume 89.8 fL Mean Corpuscular Hemoglobin 32.7 pg Mean Corpuscular Hemoglobin Concent 36.5 g/dl RDW Standard Deviation 43.9 fL RDW Coefficient of Variation 13.4 % Platelet Count 51 K/uL Mean Platelet Volume 10.2 fL Sodium Level 141 mmol/L Potassium Level 3.8 mmol/L Chloride Level 109 mmol/L Carbon Dioxide Level 28 mmol/L Anion Gap 4.0 mmol/L Blood Urea Nitrogen 17 mg/dl Creatinine 0.95 mg/dl Est Creatinine Clear Calc Drug Dose 103.5 ml/min Estimated GFR () 104.0 Estimated GFR (Non- 89.8 BUN/Creatinine Ratio 17.7 Random Glucose 178 mg/dl Estimated Average Glucose 266 mg/dl Hemoglobin A1c 10.9 % Calcium Level 8.1 mg/dl Phosphorus Level 1.7 mg/dl Magnesium Level 1.9 mg/dl Iron Level 34 mcg/dl Total Iron Binding Capacity 349 mcg/dl Transferrin 266 mg/dl Transferrin % Saturation 9 % Ferritin 36.7 ng/ml Triglycerides Level 241 mg/dl Cholesterol Level 110 mg/dl HDL Cholesterol 26 mg/dl LDL Cholesterol, Calculated 36 mg/dl VLDL Cholesterol, Calculated 48 mg/dl Cholesterol/HDL Ratio 4.2 Hepatitis B Surface Antigen NEG Hepatitis C Antibody NEG Bedside Glucose 191 mg/dl 195 mg/dl Resident Tracking Resident Involvement: Resident Care Provided Care Provided: Adult Hospital Medicine
--- NOTE | 2017-06-17 14:15 | Hospitalist Progress Note ---
Hospitalist Progress Note Date of Service Jun 17, 2017. (Bekah Larkin PA-C) Subjective Pt evaluation today including: conversation w/ patient, conversation w/ family , physical exam, chart review, lab review, review of studies, conversation w/ business system consultant ([employer]), review of inpatient medication list Patient seen and evaluated. Placed in ICU overnight due to EGD findings of Grade III esophageal varices. Continues to have melena that is improving and no further hematemesis. No abdominal pain and is tolerating clear liquid diet. No telemetry events. Initially to be transferred to Med/Surg however CT with evidence of multiple thrombi in portal vein, splenic vein, and superior mesenteric vein. Transfer will be D/Cd Constitutional: No fever, No chills ENT: + sore throat (irritative), No unusual epistaxis, No nasal symptoms, No trouble swallowing Respiratory: No cough, No sputum, No shortness of breath Cardiovascular: No chest pain, No palpitations Abdomen: + GI bleeding (melena - improving), No pain, No nausea, No vomiting , No diarrhea, No constipation Musculoskeletal: + swelling (bilateral hands - improving), No calf pain Male : No dysuria Heme: No abnormal bleeding/bruising (Bekah Larkin, REJIC) Medications Current Inpatient Medications Medications (Trade) Dose Ordered Sig/Shahid Route Start Time Stop Time Status Last Admin Dose Admin Pantoprazole Sodium 40 mg/ Dextrose 100 ml @ 20 mls/hr Q5H IV 06/15/17 10:00 06/18/17 09:59 06/17/17 12:04 20 MLS/HR Acetaminophen (Tylenol Tab) 650 mg Q4H PRN PO 06/15/17 10:00 07/15/17 09:59 Al Hydrox/Mg Hydrox/Simethicone (Maalox Max Susp) 15 ml Q4H PRN PO 06/15/17 10:00 07/15/17 09:59 Magnesium Hydroxide (Milk Of Magnesia Susp) 30 ml Q12H PRN PO 06/15/17 10:00 07/15/17 09:59 Ondansetron HCl (Zofran Inj) 4 mg Q6H PRN IV 06/15/17 10:00 07/15/17 09:59 Polyethylene (Miralax Powder Packet) 17 gm DAILY PRN PO 06/15/17 10:00 07/15/17 09:59 Insulin Aspart (novoLOG ASPART) SLIDING SCALE If C... ACHS SC 06/15/17 16:30 07/15/17 16:29 06/17/17 12:08 6 UNITS Glucose (Glucose 40% Gel) 15-30 GRAMS 15 GRAMS... UD PRN PO 06/15/17 10:00 07/15/17 09:59 Glucose (Glucose Chew Tab) 4-8 Tablets 4 Tabl... UD PRN PO 06/15/17 10:00 07/15/17 09:59 Dextrose (Dextrose 50% 50ML Syringe) 25-50ML OF 50% DW IV FOR... UD PRN IV 06/15/17 10:00 07/15/17 09:59 Glucagon (Glucagon Inj) 1 mg UD PRN SQ 06/15/17 10:00 07/15/17 09:59 Octreotide Acetate 500 mcg/ Sodium Chloride 105 ml @ 10 mls/hr [id number] IV 06/16/17 13:30 07/16/17 13:29 06/17/17 09:16 10 MLS/HR Rifaximin (Xifaxan Tab) 550 mg BID PO 06/17/17 09:00 07/17/17 08:59 06/17/17 07:54 550 MG Ciprofloxacin/ Dextrose 400 mg/ Prmx 200 ml @ 100 mls/hr Q12H IV 06/17/17 10:00 06/27/17 09:59 06/17/17 09:16 100 MLS/HR Miscellaneous Information (Consult Glycemic Management Pharmacy) 1 ea UD PRN N/A 06/17/17 08:45 07/17/17 08:44 Insulin Glargine (Lantus Solostar Pen) 15 units BID SC 06/17/17 09:00 07/17/17 08:59 06/17/17 09:18 15 UNITS Ioversol (Optiray 320) 100 ml UD PRN IV 06/17/17 09:45 06/21/17 09:44 Pantoprazole Sodium 40 mg/ Syringe 10 ml @ 5 mls/min BID@, IV 06/18/17 21:00 07/18/17 20:59 (Bekah Larkin, PAMarcelleC) Objective Vital Signs Date Time Temp Pulse Resp B/P (MAP) Pulse Ox O2 Delivery O2 Flow Rate FiO2 06/17/17 12:36 36.7 82 21 143/83 (103) 99 Room Air 06/17/17 12:00 Room Air 06/17/17 10:00 80 17 129/81 (97) 98 Room Air 06/17/17 08:00 Room Air 06/17/17 08:00 36.7 78 14 134/80 (98) 95 Room Air 06/17/17 07:01 76 13 127/80 (96) 96 Room Air 06/17/17 06:00 79 18 110/69 (83) 95 Room Air 06/17/17 04:00 37.0 75 14 140/76 (97) 94 06/17/17 04:00 93 Room Air 06/17/17 03:00 84 14 138/83 (101) 06/17/17 02:00 80 12 147/76 (99) 94 Room Air 06/17/17 00:00 37.6 80 17 135/80 (98) 95 Room Air 06/16/17 23:59 93 Room Air 06/16/17 22:00 85 10 125/76 (92) 93 Room Air 06/16/17 20:00 37.1 84 16 129/77 (94) 97 Room Air 06/16/17 20:00 Room Air 06/16/17 18:00 81 19 134/68 (90) 91 Room Air 06/16/17 16:15 82 17 136/83 (100) 96 06/16/17 16:00 78 14 121/80 (94) 96 06/16/17 16:00 Room Air 06/16/17 15:15 82 20 139/79 (99) 97 Room Air 06/16/17 15:00 36.8 83 14 153/93 (113) 98 Room Air 06/16/17 14:20 79 16 125/74 (91) 100 Room Air 06/16/17 14:05 78 16 140/80 (100) 100 Room Air (Bekah Larkin PA-C) Physical Exam General Appearance: WD/WN, no apparent distress Eyes: sclerae normal ENT: hearing grossly normal Neck: supple, no JVD, trachea midline Respiratory/Chest: lungs clear, normal breath sounds, no respiratory distress, no accessory muscle use Cardiovascular: regular rate, rhythm, no gallop, no murmur Abdomen: normal bowel sounds, non tender, + distended Extremities: no pedal edema, no calf tenderness Neurologic/Psychiatric: alert, oriented x 3 Skin: normal color, warm/dry (Bekah Larkin PA-C) Laboratory Results Last 24 Hours Test 06/16/17 16:04 06/16/17 17:58 06/16/17 19:55 06/16/17 20:10 Bedside Glucose 177 mg/dl 210 mg/dl Ammonia 67.0 umol/L Hemoglobin 9.5 g/dL Hematocrit 27.7 % Test 06/17/17 05:41 06/17/17 05:45 06/17/17 10:57 White Blood Count 2.61 K/uL Red Blood Count 2.84 M/uL Hemoglobin 9.3 g/dL Hematocrit 25.5 % Mean Corpuscular Volume 89.8 fL Mean Corpuscular Hemoglobin 32.7 pg Mean Corpuscular Hemoglobin Concent 36.5 g/dl RDW Standard Deviation 43.9 fL RDW Coefficient of Variation 13.4 % Platelet Count 51 K/uL Mean Platelet Volume 10.2 fL Sodium Level 141 mmol/L Potassium Level 3.8 mmol/L Chloride Level 109 mmol/L Carbon Dioxide Level 28 mmol/L Anion Gap 4.0 mmol/L Blood Urea Nitrogen 17 mg/dl Creatinine 0.95 mg/dl Est Creatinine Clear Calc Drug Dose 103.5 ml/min Estimated GFR () 104.0 Estimated GFR (Non- 89.8 BUN/Creatinine Ratio 17.7 Random Glucose 178 mg/dl Estimated Average Glucose 266 mg/dl Hemoglobin A1c 10.9 % Calcium Level 8.1 mg/dl Phosphorus Level 1.7 mg/dl Magnesium Level 1.9 mg/dl Iron Level 34 mcg/dl Total Iron Binding Capacity 349 mcg/dl Transferrin 266 mg/dl Transferrin % Saturation 9 % Ferritin 36.7 ng/ml Triglycerides Level 241 mg/dl Cholesterol Level 110 mg/dl HDL Cholesterol 26 mg/dl LDL Cholesterol, Calculated 36 mg/dl VLDL Cholesterol, Calculated 48 mg/dl Cholesterol/HDL Ratio 4.2 Hepatitis B Surface Antigen NEG Hepatitis C Antibody NEG Bedside Glucose 191 mg/dl 195 mg/dl (Bekah Larkin PA-C) Assessment and Plan Mr. Hunt is a 56 y/o male with PMHx of T2DM, HTN, and HLD who presents to the ED c/o hematemesis and possible loss of consciousness this AM. Grade III Esophageal Varices Bleed: - Hemoglobin has remained stable in 9s - hemodynamically stable - asymptomatic with anemia - Protonix and Octreotide x 5 days total - Ciprofloxacin 400 mg IV BID x 5 days total - GI following - recommendations appreciated - F/U EGD x 2 weeks Non-Alcoholic Fatty Liver Disease and Hyperammonemia: - Xifaxan 550 mg BID Multiple Thrombi - Portal Vein, Splenic Vein, and Superior Mesenteric Vein: - Will discuss with GI and formalize treatment plan - may need vascular input Hypotension 2/2 Likely Hypovolemia: RESOLVED - Likely from hypovolemia and dehydration in setting of hyperglycemia T2DM with Hyperglycemia: IMPROVING - HbA1c 10.9 - Hold oral agents and cover with SSI with BSG ACHS - Glycemic management - institution of Lantus Pancytopenia 2/2 Fatty Liver Disease: - Continue to monitor - no signs of bleeding, petechiae, purpura HTN: - Continue to hold anti-hypertensives at this time and will monitor - Consideration for Propranolol in place of Hyzaar for HTN control and varices HLD: - Hold Atorvastatin 20 mg daily DVT Prophylaxis: BRE/SCD; will discuss chemical prophylaxis Code Status: FULL RESUSCITATION Disposition: From home without needs anticipated - at least 4-[address] [facility] stay due to: multiple IV medications needed Discharge planning: home (Bekah Larkin, PAMarcelleC) Reviewed: Pt Seen/Exam by Me (Brittani Lowry DO) History See d/c summary for details. (Brittani Lowry DO) Assessment/Plan Agree with plan as outlined above GIB Hb stable EGD shows esophageal varies that were banded Octreotide drip Monitor in ICU given extent of varies, fortunately pt's VS and Hb are stable, but increased risk of rebleeding No hx of prior bleeds LFTs WNL Platelets are trending down Liver US shows fatty liver with trace ascites (Brittani Lowry, )
[2017-06-17] MEDS ORDERED: HEPARIN IV LOW DOSE NO BOLUS SCH (14:35)
[2017-06-17] MEDS ORDERED: HEPARIN 25,000 UNIT/500ML D5W 500 ML IV PRN (15:00)
[2017-06-17 15:33] LABS: HEMATOCRIT 28.5 % (42-52); MEAN CELL VOLUME 89.9 fL (80-100); MEAN CORPUSCULAR HEMOGLOBIN 31.5 pg (25-34); RED BLOOD COUNT 3.17 M/uL (4.7-6.1); WHITE BLOOD COUNT 3.28 K/uL (4.8-10.8)
[2017-06-17 15:58] LABS: MEAN CORPUSCULAR HGB CONC 35.1 g/dl (32-36)
[2017-06-17 16:02] LABS: PROTHROMBIN TIME (PATIENT) 11.2 SECONDS (9.0-12.0)
[2017-06-17 16:06] LABS: BASO % 0.3 %; BASO ABS # 0.01 K/uL (0-0.2); COMPLETE YES; EOS % 1.8 %; IG% 0.3 %; LYMPH % 19.8 %; LYMPH ABS # 0.65 K/uL (1.2-3.4); MEAN PLATELET VOLUME 9.5 fL (7.4-10.4); MONO % 7.6 %; NEUT % 70.2 %; PLATELET COUNT 59 K/uL (130-400); PLT ESTIMATE DECREASED
--- NOTE | 2017-06-17 17:46 | Discharge Summary ---
Discharge Summary Date of Service Jun 17, 2017. (Bekah Larkin PA-C) Discharge Summary Admission Date: Jun 15, 2017 at 10:04 Discharge Date: Jun 18, 2017 Discharge Disposition: Acute care facility ([facility]) Principal Diagnosis: Acute GI Bleed 2/2 Esophageal Varices with Multiple Venous Thrombi Problems/Secondary Diagnoses: 1. T2DM, Uncontrolled 2. HTN 3. Pancytopenia 4. Non-Alcoholic Fatty Liver Disease 5. HLD 6. Grade III Esophageal Varices Procedures: ABDOMINAL CT WITH AND WITHOUT INTRAVENOUS CONTRAST, LIVER PROTOCOL FINDINGS: There are patchy perihilar groundglass airspace opacities. The heart is normal in size. No pleural effusions. Extensive periesophageal varices. No evidence for hepatic cirrhosis. An 8 mm hypodense lesion within the left hepatic lobe. This is too small to characterize. Scattered peripheral ill-defined areas of hypervascularity seen predominantly within the left hepatic lobe favor transient hepatic attenuation differences. No definite hypervascular masses identified. Small amount of upper abdominal ascites. The pancreas, adrenal glands, and kidneys are unremarkable. The gallbladder is distended. There is mild gallbladder wall thickening. The spleen is enlarged measuring 16.5 cm in length. No splenic masses. The visualized loops of bowel show no wall thickening or obstruction. Mild periportal, peripancreatic, and mesenteric lymphadenopathy. The IVC and renal veins are patent. Normal caliber abdominal aorta. There is nonocclusive thrombus seen within the main portal vein, right portal vein, left portal vein, and branches of the superior mesenteric vein. There is also near occlusive thrombus seen within the mid splenic vein. The esophageal varices result from a dominant collateral extending from the splenic vein which is also partially thrombosed. There are perigastric varices present. There is partial recanalization of the umbilical vein. The splenic vein is also dilated. IMPRESSION: 1. Multiple areas of nonocclusive thrombus seen within the portal veins, splenic vein, and branches of the superior mesenteric vein. These findings likely account for the splenomegaly and extensive periesophageal and upper abdominal varices. The dominant periesophageal varix originating from the splenic vein is also partially thrombosed. 2. Small amount of upper abdominal ascites. Mildly distended gallbladder which demonstrates a thickened wall. This could also be due to the long-standing venous congestion from the areas of venous thrombosis. 3. Upper abdominal/mesenteric lymphadenopathy. This is nonspecific. However, chronic venous congestion can result in this appearance. A neoplastic process is considered less likely but not entirely excluded. 4. Patchy perihilar groundglass airspace opacities within the lungs. This may be due to mild ulnar edema or an atypical pneumonitis. 5. No evidence for hepatic cirrhosis. ABDOMEN LIMITED (US) FINDINGS: Pancreas: The pancreas demonstrates a normal echotexture. Liver: The liver is echogenic consistent with fatty change. Trace perihepatic ascites Gallbladder: No gallbladder wall thickening. No gallstones. CBD: 5 mm Right kidney: No hydronephrosis. IMPRESSION: 1. Fatty liver 2. Trace perihepatic ascites. 3. Otherwise negative study CHEST ONE VIEW PORTABLE FINDINGS: The heart is at the upper limits of normal in size. There is no failure. There is no focal pulmonary consolidation. There are no pleural effusions. There is no free intraperitoneal air.[ IMPRESSION: No active disease in the chest. Consultations: 1. Gastroenterology 2. Intensivists (Bekah Larkin PA-C) Discharge Exam Review of Systems: Constitutional: No fever, No chills ENT: + sore throat (irritative), No nasal symptoms, No trouble swallowing Respiratory: No cough, No shortness of breath, No hemoptysis Cardiovascular: No chest pain, No palpitations Abdomen: + GI bleeding (melena - improving), No pain, No nausea, No vomiting , No diarrhea, No constipation Musculoskeletal: + swelling (bilateral hands), No calf pain Genitourinary - Male: No dysuria Hematologic / Lymphatic: No abnormal bleeding/bruising, No clotting problems Integumentary: No rash Physical Exam: General Appearance: WD/WN, no apparent distress Eyes: sclerae normal ENT: hearing grossly normal Neck: supple, no JVD, trachea midline Respiratory/Chest: lungs clear, normal breath sounds, no respiratory distress, no accessory muscle use Cardiovascular: regular rate, rhythm, no gallop, no murmur Abdomen / GI: normal bowel sounds, non tender, soft, + distended Extremities: no calf tenderness, no pedal edema Neurologic/Psychiatric: alert, oriented x 3 Skin: normal color, warm/dry (Bekah Larkin PA-C) Hospital Course ADMISSION: Mr. Hunt is a 56 y/o male with PMHx of T2DM, HTN, and HLD who presents to the ED c/o hematemesis and possible loss of consciousness this AM. He has had a URI with sore throat, rhinorrhea, and cough that started a couple days ago but reports these symptoms have been improving, otherwise has felt his normal self. He awoke this morning and felt fine. He took a shower and returned to bed. He awoke again but felt lightheaded and remained laying down. Later, he felt the need to move his bowels and went to the bathroom. He remembers leaning his head against the wall but cannot recall much after that. Per , he yelled for her to help him and she found him with diffuse blood all over the bathroom and blood around his nose and mouth. She denies recalling an actual bowel movement. He is unsure if he lost consciousness. He cannot recall actually vomiting. Per [id number], blood was thick, red, with numerous clots. He denies previous H/O GI bleed or ulcers. He took Aleve last night for thumb pain but denies chronic NSAID use. He denies chronic ETOH use. Associated lightheadedness, generalized fatigue, diaphoresis, and mild SOB. He denies fever/chills, CP, abdominal pain, nausea, dysuria, melena/hematochezia. Pre-Hospital he was noted by EMS to be hypotensive at 60/38 and received 1 L NSS. Upon arrival, he was mildly hypoxic at 88% which response to supplemental O2. Remains hypotensive but is responding to fluids. EKG with NSR and PVCs without evidence of ischemia. Hemoglobin 10.9 with repeat pending. Noted to be hyperglycemic at 359 but no presence of anion gap. GI was consulted and evaluated patient. He was initiated on Protonix gtt and placed NPO with plan for scope. HOSPITAL COURSE: Mr. Hunt was admitted for acute GI bleed 2/2 Grade III esophageal varices and Multiple Venous Thrombi in the Portal Vein, Splenic Vein , and aspects of the Superior Mesenteric Vein. Patient adequately responded to fluid resuscitation with resolution of his hypotension. He is anemic on labs but Hgb stable in the 9s without need for transfusion. PPI gtt was instituted. EGD revealed Grade III Esophageal Varices which were banded and was started on Ciprofloxacin and Octreotide. He was placed in the ICU due to rebleeding risk. Liver U/S revealed fatty liver with trace perihepatic ascites. He also was found to have hyperammonemia. LFTs remained normal. He was then placed on Rifaximin. CT of the liver revealed multiple thrombi in the portal vein, splenic vein, and aspects of the superior mesenteric vein with ascites and splenomegaly. He was also noted to be hyperglycemic but has improved with diabetic management and A1c 10.9. May benefit for insulin therapy after acute treatment. Upon admission he was found to be pancytopenic. This may be related to the liver findings however question something more. Unfortunately differential may be concerning for underlying malignancy or possible HIV infection. In regards to his HTN medications, it may be reasonable to stop Hyzaar and institute non-selective beta petra therapy. Due to findings, patient was started on Heparin and will be transferred to [facility] for further diagnostic testing and treatment. DISPOSITION: GI recommending a repeat EGD in 2 [address] [facility] MEDICATION RECONCILIATION: - This was completed per ICU transfer to [facility]. Home medications may change pending [facility] evaluation. Total Time Spent: Greater than 30 minutes This includes examination of the patient, discharge planning, medication reconciliation, and communication with other providers. (Bekah Larkin PA-C) Discharge Instructions Please refer to the electronic Patient Visit Report (Discharge Instructions) for additional information. (Bekah Larkin PA-C) Additional Copies To Trace Neri M.D.; Emy Akhtar,P.A. Reviewed: Pt Seen/Exam by Me (Brittani Lowry DO) History Pt seen prior to CT scan. He is feeling quite well. Has tolerated liquids with no issues. Ongoing dark stools, but no further hematemesis. No SOB or chest pain. Has been able to rest some and is feeling much improved overall. Agree with HPI/ROS as noted. (Brittani Lowyr DO) General Appearance: WD/WN, no apparent distress Respiratory: normal breath sounds, no respiratory distress Cardiovascular: normal peripheral pulses, regular rate, rhythm Gastrointestinal: non tender, soft Extremities: non-tender, no pedal edema Neurologic/Psychiatric: alert, normal mood/affect, oriented x 3 Skin Characteristics: normal color, warm/dry (Brittani Lowry DO) Assessment/Plan Agree with plan as outlined above GIB Hb stable EGD shows esophageal varies that were banded Octreotide drip No hx of prior bleeds LFTs WNL Platelets are trending down--t/c HIV vs metastatic process Liver US shows fatty liver with trace ascites CT shows multiple thrombi as noted above GI discussed with pt and family Pt will need further eval at tertiary care (Brittani Lowry, DO)
[2017-06-17] MEDS ORDERED: PANTOprazole INJ 40 MG in SYRINGE 0 ML IV ONE (19:00)
[2017-06-18] MEDS ORDERED: PANTOprazole INJ 40 MG in SYRINGE 0 ML IV SCH (21:00)
[2017-06-24] MEDS ORDERED: CARV3.122 PO (08:51)
[2017-07-07] MEDS ORDERED: CARV3.122 PO (12:34)
[2017-07-07] MEDS ORDERED: OMEP20CA59 PO (12:35)
== END 2017-06-17 21:49 | disposition short-term general hospital (02) | DRG 368 ==
LOC: EDBD 08:19 → C.ED 08:20 → C.MED 10:04 → ENRESERV 10:26 → C.MSICU 06-16 14:50 → ENRESERV 06-17 11:44 → CANBEDREQ 06-17 13:53
PROVIDERS: ADMIT Family Medicine; ATTEND Family Medicine
PROC: 06L34CZ Occlusion of Esophageal Vein with Extraluminal Device, Percutaneous Endoscopic Approach (ICD-10-PCS; principal; 2017-06-16 12:13)
DX: I85.01 Esophageal varices with bleeding (principal); I81 Portal vein thrombosis; D61.818 Other pancytopenia; I82.890 Acute embolism and thrombosis of other specified veins; R18.8 Other ascites; E11.65 Type 2 diabetes mellitus with hyperglycemia; E78.5 Hyperlipidemia, unspecified; I10 Essential (primary) hypertension; F17.200 Nicotine dependence, unspecified, uncomplicated; E86.1 Hypovolemia; Z91.14 Patient's other noncompliance with medication regimen; K76.0 Fatty (change of) liver, not elsewhere classified; K31.9 Disease of stomach and duodenum, unspecified

== ENCOUNTER → 2017-06-25 | Outpatient (CLI) | payer BC ==
[~2017-06-25] MED LIST changes: +CARV3.122 PO; -GLC/500 PO; +GLIM1TAB PO; +METF-384 PO; -OLME40TA30 PO; +OMEP20CA59 PO
[2017-06-25 09:40] LABS: HEMATOCRIT 32.2 % (42-52); MEAN CELL VOLUME 90.2 fL (80-100); MEAN CORPUSCULAR HEMOGLOBIN 29.1 pg (25-34); MEAN CORPUSCULAR HGB CONC 32.3 g/dl (32-36); MEAN PLATELET VOLUME 10.4 fL (7.4-10.4); PLATELET COUNT 116 K/uL (130-400); RED BLOOD COUNT 3.57 M/uL (4.7-6.1)
[2017-06-25 10:14] LABS: BLOOD UREA NITROGEN 14 mg/dl (7-18); BUN/CREATININE RATIO 16.2 (10-20); CALCIUM 9.4 mg/dl (8.5-10.1); CARBON DIOXIDE 25 mmol/L (21-32); CHLORIDE 107 mmol/L (98-107); CREATININE 0.85 mg/dl (0.60-1.40); GLUCOSE 96 mg/dl (70-99); SODIUM 139 mmol/L (136-145)
[2017-06-25 10:17] LABS: ALB/GLOB RATIO 1.1 (0.9-2); ALKALINE PHOSPHATASE 52 U/L (45-117); ALT/SGPT 26 U/L (12-78); AST/SGOT 31 U/L (15-37)
== END | disposition home or self-care (01) ==
LOC: C.LAB 08:22
PROVIDERS: ATTEND Physician Assistant Medical
DX: I85.00 Esophageal varices without bleeding (principal); E11.65 Type 2 diabetes mellitus with hyperglycemia

== ENCOUNTER → 2017-06-29 | Day surgery (SDC) | payer BC ==
[2017-06-24 08:52] VITALS: BMI 32.0
[~2017-06-29] VITALS: Ht 170.2 cm; Wt 94.1 kg
[~2017-06-29] MED LIST changes: +LIDOCAINE HCL 2% 2 ML VIAL (20MG/ML) ONE; +MIDAZOLAM HCL 1 MG/ML 2ML VIAL ONE; +ONDANSETRON INJ 2 MG/ML 2 ML VIAL ONE; +PROPOFOL IV EMULSION 10 MG/ML 20 ML VIAL IV ONE
[2017-06-29 11:24] VITALS: Ht 170.2 cm; Wt 94.1 kg
--- NOTE | 2017-06-29 11:33 | Endo History and Physical ---
History & Physical Date of Service: Jun 29, 2017. Chief Complaint: Esophageal varices Referring Physician: Trace Neri History of Present Illness 56 yo CM who presents for EGD secondary to esophageal varices. Past Medical History Diabetes, Reflux, High Cholesterol, Sleep Apnea, Hypertension Past Surgical History Hx Cardiac Surgery: No Hx Internal Defibrillator: No Hx Pacemaker: No Hx Abdominal Surgery: No Hx Post-Op Nausea and Vomiting: No Hx Cancer Surgery: No Hx Thoracic Surgery: No Hx Orthopedic: No Hx Urinary Tract Surgery: No Family History None Social History Smoking Status: Never Smoker Hx Substance Use: No Hx Alcohol Use: Yes (RARE) Allergies Coded Allergies: Penicillins (Verified Allergy, Mild, RASH, 06/29/17) Current Medications Reported Home Medications Medications Dose Route/Sig Max Daily Dose Days Date Category Coreg (Carvedilol) 3.125 Mg Tab 3.125 Mg PO QAM 06/24/17 Reported Amaryl (Glimepiride) 1 Mg Tab 1 Mg PO QAM 06/15/17 Reported Glucophage (Metformin Hcl) 1,000 Mg Tab 1,000 Mg PO BID 06/15/17 Reported Lipitor (Atorvastatin Calcium) 20 Mg Tab 20 Mg PO HS 12/06/14 Reported Vital Signs Weight (Kilograms): 94.09 Height (Feet): 5 Height (Inches): 7 Physical Exam General Appearance: WD/WN, no apparent distress Respiratory/Chest: Auscultation: breath sounds normal Cardiovascular: Heart Auscultation: RRR Abdomen: Bowel Sounds: normal Inspection & Palpation: soft, non-distended, no tenderness, guarding & rebound Assessment and Plan Assessment: 56 yo CM who presents for EGD secondary to esophageal varices. Plan: Proceed with EGD.
--- NOTE | 2017-06-29 12:31 | GI REPORT ---
Procedure Date: 06/29/2017 12:09 PM Procedure: Upper GI endoscopy Indications: Follow-up of esophageal varices Medicines: Monitored Anesthesia Care Complications: No immediate complications. Estimated Blood Loss: Estimated blood loss: none. Procedure: Pre-Anesthesia Assessment: - Prior to the procedure, a History and Physical was performed, and patient medications and allergies were reviewed. The patient's tolerance of previous anesthesia was also reviewed. The risks and benefits of the procedure and the sedation options and risks were discussed with the patient. All questions were answered, and informed consent was obtained. Prior Anticoagulants: The patient has taken no previous anticoagulant or antiplatelet agents. ASA Grade Assessment: III - A patient with severe systemic disease. After reviewing the risks and benefits, the patient was deemed in satisfactory condition to undergo the procedure. After obtaining informed consent, the endoscope was passed under direct vision. Throughout the procedure, the patient's blood pressure, pulse, and oxygen saturations were monitored continuously. The scope was introduced through the mouth, and advanced to the second part of duodenum. The upper GI endoscopy was accomplished without difficulty. The patient tolerated the procedure well. Findings: Grade II varices were found in the middle third of the esophagus and in the lower third of the esophagus. They were 5 mm in largest diameter. Six bands were successfully placed with complete eradication, resulting in deflation of varices. Diffuse mildly erythematous mucosa without bleeding was found in the entire examined stomach. The examined duodenum was normal. Impression: - Grade II esophageal varices. Completely eradicated. Banded. - Erythematous mucosa in the stomach. - Normal examined duodenum. - No specimens collected. Recommendation: - Resume previous diet. - Continue present medications. - Repeat the upper endoscopy in 2 weeks for retreatment. - Return to primary care physician as previously scheduled. Esa Capone DO 06/29/2017 12:30:35 PM This report has been signed electronically. Note Initiated On: 06/29/2017 12:09 PM I attest to the content of the Intraoperative Record and orders documented therein, exceptions below
--- NOTE | 2017-06-29 12:31 | Discharge Instructions ---
Endoscopy Patient Instructions Date / Procedure(s) Performed Jun 29, 2017. EGD Allergy Information Coded Allergies: Penicillins (Verified Allergy, Mild, RASH, 06/29/17) Discharge Date / Findings Jun 29, 2017. Esophageal varices s/p banding Portal hypertensive gastropathy Medication Instructions Stopped Medication(s): TAKE BP MED TODAY OK to resume all medications today as prescribed Reported Home Medications Medications Dose Route/Sig Max Daily Dose Days Date Category Coreg (Carvedilol) 3.125 Mg Tab 3.125 Mg PO QAM 06/24/17 Reported Amaryl (Glimepiride) 1 Mg Tab 1 Mg PO QAM 06/15/17 Reported Glucophage (Metformin Hcl) 1,000 Mg Tab 1,000 Mg PO BID 06/15/17 Reported Lipitor (Atorvastatin Calcium) 20 Mg Tab 20 Mg PO HS 12/06/14 Reported Provider Instructions Activity Restrictions - No exercising or heavy lifting for 24 hours. - Do not drink alcohol the day of the procedure. - Do not drive a car or operate machinery until the day after the procedure. - Do not make any important decisions or sign important papers in 24 hours after the procedure. Following Day: - Return to full activity which may include returning to work/school. Diet Start your diet with liquids and light foods (jello, soup, juice, toast). Then eat your usual diet if not nauseated. Treatment For Common After Affects For mild abdominal pain, bloating, or excessive gas: - Rest - Eat lightly - Lie on right side Follow-Up Information Follow-up with DR. RUFINO ALMONTE as scheduled Anesthesia Information What You Should Know You have had a procedure that required some medicine to reduce anxiety and discomfort. This treatment is called moderate sedation. After receiving the treatment, you may be sleepy, but you will be able to breathe on your own. The effects of the treatment may last for several hours. Follow these instructions along with Activity/Diet recommendations noted above: * Do NOT do anything where dizziness or clumsiness would be dangerous. * Rest quietly at home today, then you can be up and about tomorrow. * Have a responsible person stay with you the rest of today. * You may have had an I.V. today. If so, you may take the dressing off later today. Recommendations Call your doctor if: * Trouble breathing * Continuous vomiting for more than 24 hours * Temperature above 101 degrees * Severe abdominal pain or bloating * Pain not relieved by pain medicine ordered * There is increased drainage or redness from any incision * A large amount of rectal bleeding greater than 2-3 tablespoons. (If you had a polyp/s removed or have hemorrhoids, a small amount of blood - from the rectum is to be expected.) * You have any unanswered questions or concerns. IN THE EVENT OF A SERIOUS EMERGENCY, GO TO THE NEAREST EMERGENCY ROOM Your discharge instructions were prepared by provider Esa Capone. Patient Instructions Signature Page Jose Hunt Patient (or Guardian) Signature/Date: I have read and understand the instructions given to me by my caregivers. Caregiver/RN/Doctor Signature/Date: The above-named patient and/or guardian has received patient instructions on this date. + Original Patient Signature Page (only) stays with chart. Please make copy for patient.
[2017-06-29 13:08] VITALS: BP 140/84; PULSE 74; O2SAT 98
--- NOTE | 2017-06-29 14:12 | Anesthesiology Progress Note ---
Anesthesia Post Op Note Date & Time Jun 29, 2017 at 14:12 Vital Signs Pain Intensity: 0 Vital Signs Past 12 Hours Date Time Temp Pulse Resp B/P (MAP) Pulse Ox O2 Delivery O2 Flow Rate FiO2 06/29/17 13:08 74 16 140/84 (102) 98 Room Air 06/29/17 12:57 78 16 126/85 (99) 97 Room Air 06/29/17 12:42 75 16 130/81 (97) 97 Room Air 06/29/17 12:27 81 16 120/72 (88) 99 Room Air 06/29/17 11:33 37.2 77 20 110/75 (87) 97 Room Air Notes Mental Status: alert / awake / arousable, participated in evaluation Pt Amnestic to Procedure: Yes Nausea / Vomiting: adequately controlled Pain: adequately controlled Airway Patency, RR, SpO2: stable & adequate BP & HR: stable & adequate Hydration State: stable & adequate Anesthetic Complications: no major complications apparent
== END | disposition home or self-care (01) ==
LOC: C.GI 11:00
PROVIDERS: ATTEND Internal Medicine
DX: I85.00 Esophageal varices without bleeding (principal); K21.9 Gastro-esophageal reflux disease without esophagitis; I10 Essential (primary) hypertension; E78.00 Pure hypercholesterolemia, unspecified; E11.9 Type 2 diabetes mellitus without complications; G47.30 Sleep apnea, unspecified; Z79.84 Long term (current) use of oral hypoglycemic drugs; Z79.899 Other long term (current) drug therapy

== ENCOUNTER → 2017-07-13 | Day surgery (SDC) | payer BC ==
[2017-07-07 12:36] VITALS: Ht 170.2 cm; Wt 90.9 kg
[~2017-07-13] VITALS: Ht 170.2 cm; Wt 90.9 kg
[~2017-07-13] MED LIST changes: +FENTANYL CITRATE INJ 50 MCG/1 ML 2 ML VIAL ONE; -MIDAZOLAM HCL 1 MG/ML 2ML VIAL ONE; -ONDANSETRON INJ 2 MG/ML 2 ML VIAL ONE; +SODIUM CHLORIDE 0.9% 500ML 500 ML IV ONE
[2017-07-13 13:16] VITALS: TEMP 36.6
--- NOTE | 2017-07-13 13:16 | Endo History and Physical ---
History & Physical Date of Service: Jul 13, 2017. Chief Complaint: Esophagheal varices Referring Physician: Emy Akhtar History of Present Illness 57 yo CM who presents for EGD secondary to esophageal varices. Past Medical History Diabetes, Reflux, High Cholesterol, Sleep Apnea, Hypertension Past Surgical History Hx Cardiac Surgery: No Hx Internal Defibrillator: No Hx Pacemaker: No Hx Abdominal Surgery: No Hx of Implantable Prosthesis: No Hx Post-Op Nausea and Vomiting: No Hx Cancer Surgery: No Hx Thoracic Surgery: No Hx Orthopedic: No Hx Urinary Tract Surgery: No Family History None Social History Smoking Status: Never Smoker Hx Substance Use: No Hx Alcohol Use: Yes (RARE) Allergies Coded Allergies: Penicillins (Verified Allergy, Mild, RASH, 07/13/17) Current Medications Reported Home Medications Medications Dose Route/Sig Max Daily Dose Days Date Category Prilosec (Omeprazole) 20 Mg Capcr 20 Mg PO QAM 07/07/17 Reported Coreg (Carvedilol) 3.125 Mg Tab 2 Tab PO BID 07/07/17 Reported Amaryl (Glimepiride) 1 Mg Tab 1 Mg PO QAM 06/15/17 Reported Glucophage (Metformin Hcl) 1,000 Mg Tab 1,000 Mg PO BID 06/15/17 Reported Lipitor (Atorvastatin Calcium) 20 Mg Tab 20 Mg PO HS 12/06/14 Reported Vital Signs Weight (Kilograms): 90.91 Height (Feet): 5 Height (Inches): 7 Physical Exam General Appearance: WD/WN, no apparent distress Respiratory/Chest: Auscultation: breath sounds normal Cardiovascular: Heart Auscultation: RRR Abdomen: Bowel Sounds: normal Inspection & Palpation: soft, non-distended, no tenderness, guarding & rebound Assessment and Plan Assessment: 57 yo CM who presents for EGD secondary to esophageal varices. Plan: Proceed with EGD.
--- NOTE | 2017-07-13 13:49 | GI REPORT ---
Procedure Date: 07/13/2017 1:23 PM Procedure: Upper GI endoscopy Indications: Follow-up of esophageal varices, For therapy of esophageal varices Medicines: Monitored Anesthesia Care Complications: No immediate complications. Estimated Blood Loss: Estimated blood loss: none. Procedure: Pre-Anesthesia Assessment: - Prior to the procedure, a History and Physical was performed, and patient medications and allergies were reviewed. The patient's tolerance of previous anesthesia was also reviewed. The risks and benefits of the procedure and the sedation options and risks were discussed with the patient. All questions were answered, and informed consent was obtained. Prior Anticoagulants: The patient has taken no previous anticoagulant or antiplatelet agents. ASA Grade Assessment: III - A patient with severe systemic disease. After reviewing the risks and benefits, the patient was deemed in satisfactory condition to undergo the procedure. After obtaining informed consent, the endoscope was passed under direct vision. Throughout the procedure, the patient's blood pressure, pulse, and oxygen saturations were monitored continuously. The scope was introduced through the mouth, and advanced to the second part of duodenum. The upper GI endoscopy was accomplished without difficulty. The patient tolerated the procedure well. Findings: Grade II varices were found in the middle third of the esophagus. They were 5 mm in largest diameter. Two bands were successfully placed with complete eradication, resulting in deflation of varices. There was no bleeding during the procedure. A small hiatus hernia was present. The examined duodenum was normal. Impression: - Grade II esophageal varices. Completely eradicated. Banded. - Small hiatus hernia. - Normal examined duodenum. - No specimens collected. Recommendation: - Resume previous diet. - Continue present medications. - Repeat the upper endoscopy in 3 weeks for retreatment. - Return to primary care physician as previously scheduled. Esa Capone DO 07/13/2017 1:48:50 PM This report has been signed electronically. Note Initiated On: 07/13/2017 1:23 PM I attest to the content of the Intraoperative Record and orders documented therein, exceptions below
--- NOTE | 2017-07-13 13:52 | Anesthesiology Progress Note ---
Anesthesia Post Op Note Date & Time Jul 13, 2017 at 13:51 Vital Signs Vital Signs Past 12 Hours Date Time Temp Pulse Resp B/P (MAP) Pulse Ox O2 Delivery O2 Flow Rate FiO2 07/13/17 13:45 68 12 124/69 (87) 98 Room Air 07/13/17 13:16 36.6 75 20 143/79 (100) 98 Room Air Notes Mental Status: alert / awake / arousable, participated in evaluation Pt Amnestic to Procedure: Yes Nausea / Vomiting: adequately controlled Pain: adequately controlled Airway Patency, RR, SpO2: stable & adequate BP & HR: stable & adequate Hydration State: stable & adequate Anesthetic Complications: no major complications apparent
--- NOTE | 2017-07-13 14:07 | Discharge Instructions ---
Endoscopy Patient Instructions Date / Procedure(s) Performed Jul 13, 2017. EGD Allergy Information Coded Allergies: Penicillins (Verified Allergy, Mild, RASH, 07/13/17) Discharge Date / Findings Jul 13, 2017. Esophageal varices s/p banding Medication Instructions Stopped Medication(s): metformin,glimepiride OK to resume all medications today as prescribed Reported Home Medications Medications Dose Route/Sig Max Daily Dose Days Date Category Prilosec (Omeprazole) 20 Mg Capcr 20 Mg PO QAM 07/07/17 Reported Coreg (Carvedilol) 3.125 Mg Tab 2 Tab PO BID 07/07/17 Reported Amaryl (Glimepiride) 1 Mg Tab 1 Mg PO QAM 06/15/17 Reported Glucophage (Metformin Hcl) 1,000 Mg Tab 1,000 Mg PO BID 06/15/17 Reported Lipitor (Atorvastatin Calcium) 20 Mg Tab 20 Mg PO HS 12/06/14 Reported Provider Instructions Activity Restrictions - No exercising or heavy lifting for 24 hours. - Do not drink alcohol the day of the procedure. - Do not drive a car or operate machinery until the day after the procedure. - Do not make any important decisions or sign important papers in 24 hours after the procedure. Following Day: - Return to full activity which may include returning to work/school. Diet Start your diet with liquids and light foods (jello, soup, juice, toast). Then eat your usual diet if not nauseated. Treatment For Common After Affects For mild abdominal pain, bloating, or excessive gas: - Rest - Eat lightly - Lie on right side Follow-Up Information Follow-up with Dr Trace Trinidad as scheduled Anesthesia Information What You Should Know You have had a procedure that required some medicine to reduce anxiety and discomfort. This treatment is called moderate sedation. After receiving the treatment, you may be sleepy, but you will be able to breathe on your own. The effects of the treatment may last for several hours. Follow these instructions along with Activity/Diet recommendations noted above: * Do NOT do anything where dizziness or clumsiness would be dangerous. * Rest quietly at home today, then you can be up and about tomorrow. * Have a responsible person stay with you the rest of today. * You may have had an I.V. today. If so, you may take the dressing off later today. Recommendations Call your doctor if: * Trouble breathing * Continuous vomiting for more than 24 hours * Temperature above 101 degrees * Severe abdominal pain or bloating * Pain not relieved by pain medicine ordered * There is increased drainage or redness from any incision * A large amount of rectal bleeding greater than 2-3 tablespoons. (If you had a polyp/s removed or have hemorrhoids, a small amount of blood - from the rectum is to be expected.) * You have any unanswered questions or concerns. IN THE EVENT OF A SERIOUS EMERGENCY, GO TO THE NEAREST EMERGENCY ROOM Your discharge instructions were prepared by provider Esa Capone. Patient Instructions Signature Page Jose Hunt Patient (or Guardian) Signature/Date: I have read and understand the instructions given to me by my caregivers. Caregiver/RN/Doctor Signature/Date: The above-named patient and/or guardian has received patient instructions on this date. + Original Patient Signature Page (only) stays with chart. Please make copy for patient.
[2017-07-13 14:15] VITALS: BP 137/81; PULSE 73; O2SAT 96
== END | disposition home or self-care (01) ==
LOC: C.GI 12:56
PROVIDERS: ATTEND Internal Medicine
DX: Z09 Encounter for follow-up examination after completed treatment for conditions other than malignant neoplasm (principal); I85.00 Esophageal varices without bleeding; K44.9 Diaphragmatic hernia without obstruction or gangrene; E11.9 Type 2 diabetes mellitus without complications; E78.00 Pure hypercholesterolemia, unspecified; I10 Essential (primary) hypertension; Z88.0 Allergy status to penicillin; G47.33 Obstructive sleep apnea (adult) (pediatric); E66.9 Obesity, unspecified; Z68.31 Body mass index [BMI] 31.0-31.9, adult

== ENCOUNTER → 2017-07-27 | Day surgery (SDC) | payer BC ==
[2017-07-20 08:35] VITALS: Ht 170.2 cm; Wt 90.9 kg
[~2017-07-27] VITALS: Ht 170.2 cm; Wt 90.9 kg
[~2017-07-27] MED LIST changes: -FENTANYL CITRATE INJ 50 MCG/1 ML 2 ML VIAL ONE; -SODIUM CHLORIDE 0.9% 500ML 500 ML IV ONE
--- NOTE | 2017-07-27 11:37 | Endo History and Physical ---
History & Physical Date of Service: Jul 27, 2017. Chief Complaint: Esophageal Varicies Referring Physician: Dr Trace Neri, [facility] History of Present Illness 57 yo CM who presents for EGD secondary to esophageal varices Past Medical History Diabetes, Reflux, High Cholesterol, Sleep Apnea, Hypertension Past Surgical History Hx Cardiac Surgery: No Hx Internal Defibrillator: No Hx Pacemaker: No Hx Abdominal Surgery: No Hx of Implantable Prosthesis: No Hx Post-Op Nausea and Vomiting: No Hx Cancer Surgery: No Hx Thoracic Surgery: No Hx Orthopedic: No Hx Urinary Tract Surgery: No Family History None Social History Smoking Status: Never Smoker Hx Substance Use: No Hx Alcohol Use: Yes (RARE) Allergies Coded Allergies: Penicillins (Verified Allergy, Mild, RASH, 07/20/17) Current Medications Reported Home Medications Medications Dose Route/Sig Max Daily Dose Days Date Category Prilosec (Omeprazole) 20 Mg Capcr 20 Mg PO QAM 07/07/17 Reported Coreg (Carvedilol) 3.125 Mg Tab 2 Tab PO BID 07/07/17 Reported Amaryl (Glimepiride) 1 Mg Tab 1 Mg PO QAM 06/15/17 Reported Glucophage (Metformin Hcl) 1,000 Mg Tab 1,000 Mg PO BID 06/15/17 Reported Lipitor (Atorvastatin Calcium) 20 Mg Tab 20 Mg PO HS 12/06/14 Reported Vital Signs Weight (Kilograms): 90.91 Height (Feet): 5 Height (Inches): 7 Date Time Temp Pulse Resp B/P (MAP) Pulse Ox O2 Delivery O2 Flow Rate FiO2 07/27/17 10:44 36.6 66 18 131/81 (98) 98 Room Air Physical Exam General Appearance: WD/WN, no apparent distress Respiratory/Chest: Auscultation: breath sounds normal Cardiovascular: Heart Auscultation: RRR Abdomen: Bowel Sounds: normal Inspection & Palpation: soft, non-distended, no tenderness, guarding & rebound Assessment and Plan Assessment: 57 yo CM who presents for EGD secondary to esophageal varices Plan: Proceed with EGD.
--- NOTE | 2017-07-27 12:28 | GI REPORT ---
Procedure Date: 07/27/2017 11:35 AM Procedure: Upper GI endoscopy Indications: Follow-up of esophageal varices Medicines: Monitored Anesthesia Care Complications: No immediate complications. Estimated Blood Loss: Estimated blood loss: none. Procedure: Pre-Anesthesia Assessment: - Prior to the procedure, a History and Physical was performed, and patient medications and allergies were reviewed. The patient's tolerance of previous anesthesia was also reviewed. The risks and benefits of the procedure and the sedation options and risks were discussed with the patient. All questions were answered, and informed consent was obtained. Prior Anticoagulants: The patient has taken no previous anticoagulant or antiplatelet agents. ASA Grade Assessment: III - A patient with severe systemic disease. After reviewing the risks and benefits, the patient was deemed in satisfactory condition to undergo the procedure. After obtaining informed consent, the endoscope was passed under direct vision. Throughout the procedure, the patient's blood pressure, pulse, and oxygen saturations were monitored continuously. The scope was introduced through the mouth, and advanced to the second part of duodenum. The upper GI endoscopy was accomplished without difficulty. The patient tolerated the procedure well. Findings: Grade I varices were found in the lower third of the esophagus. They were 3 mm in largest diameter. A small hiatus hernia was present. The examined duodenum was normal. Impression: - Grade I esophageal varices. - Small hiatus hernia. - Normal examined duodenum. - No specimens collected. Recommendation: - Resume previous diet. - Continue present medications. - Repeat the upper endoscopy in 1 year for surveillance. - Return to primary care physician as previously scheduled. Esa Capone DO 07/27/2017 12:28:02 PM This report has been signed electronically. Note Initiated On: 07/27/2017 11:35 AM I attest to the content of the Intraoperative Record and orders documented therein, exceptions below
--- NOTE | 2017-07-27 12:29 | Discharge Instructions ---
Endoscopy Patient Instructions Date / Procedure(s) Performed Jul 27, 2017. EGD Allergy Information Coded Allergies: Penicillins (Verified Allergy, Mild, RASH, 07/20/17) Discharge Date / Findings Jul 27, 2017. Grade I esophageal varices Hiatal hernia Medication Instructions Restart Stopped Medication(s): OK to resume all medications today as prescribed Reported Home Medications Medications Dose Route/Sig Max Daily Dose Days Date Category Prilosec (Omeprazole) 20 Mg Capcr 20 Mg PO QAM 07/07/17 Reported Coreg (Carvedilol) 3.125 Mg Tab 2 Tab PO BID 07/07/17 Reported Amaryl (Glimepiride) 1 Mg Tab 1 Mg PO QAM 06/15/17 Reported Glucophage (Metformin Hcl) 1,000 Mg Tab 1,000 Mg PO BID 06/15/17 Reported Lipitor (Atorvastatin Calcium) 20 Mg Tab 20 Mg PO HS 12/06/14 Reported Provider Instructions Activity Restrictions - No exercising or heavy lifting for 24 hours. - Do not drink alcohol the day of the procedure. - Do not drive a car or operate machinery until the day after the procedure. - Do not make any important decisions or sign important papers in 24 hours after the procedure. Following Day: - Return to full activity which may include returning to work/school. Diet Start your diet with liquids and light foods (jello, soup, juice, toast). Then eat your usual diet if not nauseated. Treatment For Common After Affects For mild abdominal pain, bloating, or excessive gas: - Rest - Eat lightly - Lie on right side Follow-Up Information Follow-up with Dr Trace Neri, [facility] as scheduled Anesthesia Information What You Should Know You have had a procedure that required some medicine to reduce anxiety and discomfort. This treatment is called moderate sedation. After receiving the treatment, you may be sleepy, but you will be able to breathe on your own. The effects of the treatment may last for several hours. Follow these instructions along with Activity/Diet recommendations noted above: * Do NOT do anything where dizziness or clumsiness would be dangerous. * Rest quietly at home today, then you can be up and about tomorrow. * Have a responsible person stay with you the rest of today. * You may have had an I.V. today. If so, you may take the dressing off later today. Recommendations Call your doctor if: * Trouble breathing * Continuous vomiting for more than 24 hours * Temperature above 101 degrees * Severe abdominal pain or bloating * Pain not relieved by pain medicine ordered * There is increased drainage or redness from any incision * A large amount of rectal bleeding greater than 2-3 tablespoons. (If you had a polyp/s removed or have hemorrhoids, a small amount of blood - from the rectum is to be expected.) * You have any unanswered questions or concerns. IN THE EVENT OF A SERIOUS EMERGENCY, GO TO THE NEAREST EMERGENCY ROOM Your discharge instructions were prepared by provider Esa Capone. Patient Instructions Signature Page Jose Hunt Patient (or Guardian) Signature/Date: I have read and understand the instructions given to me by my caregivers. Caregiver/RN/Doctor Signature/Date: The above-named patient and/or guardian has received patient instructions on this date. + Original Patient Signature Page (only) stays with chart. Please make copy for patient.
[2017-07-27 12:31] VITALS: BP 129/71; PULSE 69; O2SAT 97
--- NOTE | 2017-07-27 13:03 | Anesthesiology Progress Note ---
Anesthesia Post Op Note Date & Time Jul 27, 2017 at 13:03 Vital Signs Pain Intensity: 0 Vital Signs Past 12 Hours Date Time Temp Pulse Resp B/P (MAP) Pulse Ox O2 Delivery O2 Flow Rate FiO2 07/27/17 12:31 69 18 129/71 (90) 97 Room Air 07/27/17 12:16 66 18 113/66 (82) 97 Room Air 07/27/17 12:01 69 18 109/60 (76) 97 Room Air 07/27/17 10:44 36.6 66 18 131/81 (98) 98 Room Air Notes Mental Status: alert / awake / arousable, participated in evaluation Pt Amnestic to Procedure: Yes Nausea / Vomiting: adequately controlled Pain: adequately controlled Airway Patency, RR, SpO2: stable & adequate BP & HR: stable & adequate Hydration State: stable & adequate Anesthetic Complications: no major complications apparent
== END | disposition home or self-care (01) ==
LOC: C.GI 10:15
PROVIDERS: ATTEND Internal Medicine
DX: Z09 Encounter for follow-up examination after completed treatment for conditions other than malignant neoplasm (principal); I85.00 Esophageal varices without bleeding; K44.9 Diaphragmatic hernia without obstruction or gangrene; G47.33 Obstructive sleep apnea (adult) (pediatric); I10 Essential (primary) hypertension; E11.9 Type 2 diabetes mellitus without complications; K21.9 Gastro-esophageal reflux disease without esophagitis; E78.00 Pure hypercholesterolemia, unspecified; Z68.31 Body mass index [BMI] 31.0-31.9, adult; E66.9 Obesity, unspecified; Z88.0 Allergy status to penicillin; Z79.899 Other long term (current) drug therapy; Z87.891 Personal history of nicotine dependence

== ENCOUNTER → 2017-09-22 | Outpatient (CLI) | payer BC ==
[~2017-09-22] MED LIST changes: -LIDOCAINE HCL 2% 2 ML VIAL (20MG/ML) ONE; -PROPOFOL IV EMULSION 10 MG/ML 20 ML VIAL IV ONE
[2017-09-22 10:03] LABS: ALT/SGPT 35 U/L (12-78); BLOOD UREA NITROGEN 19 mg/dl (7-18); CALCIUM 9.6 mg/dl (8.5-10.1); CARBON DIOXIDE 28 mmol/L (21-32); CHLORIDE 107 mmol/L (98-107); CREATININE 0.94 mg/dl (0.60-1.40); GLUCOSE 98 mg/dl (70-99); POTASSIUM 4.2 mmol/L (3.5-5.1); SODIUM 138 mmol/L (136-145)
[2017-09-22 10:06] LABS: ALB/GLOB RATIO 1.2 (0.9-2); ALKALINE PHOSPHATASE 51 U/L (45-117); AST/SGOT 29 U/L (15-37)
[2017-09-22 10:12] LABS: ESTIMATED AVERAGE GLUCOSE 94 mg/dl; HA1C FLAG Normal (Normal)
== END | disposition home or self-care (01) ==
LOC: C.LAB 08:04
PROVIDERS: ATTEND Physician Assistant Medical
DX: E11.65 Type 2 diabetes mellitus with hyperglycemia (principal); E11.319 Type 2 diabetes mellitus with unspecified diabetic retinopathy without macular edema; K75.81 Nonalcoholic steatohepatitis (NASH)

== ENCOUNTER → 2017-10-28 | Outpatient (CLI) | payer BC ==
[2017-10-28 18:36] LABS: ALBUMIN 4.2 gm/dl (3.4-5.0); ALT/SGPT 42 U/L (12-78); BLOOD UREA NITROGEN 19 mg/dl (7-18); CALCIUM 9.7 mg/dl (8.5-10.1); CARBON DIOXIDE 27 mmol/L (21-32); CREATININE 0.91 mg/dl (0.60-1.40); GLUCOSE 75 mg/dl (70-99); POTASSIUM 3.9 mmol/L (3.5-5.1); SODIUM 138 mmol/L (136-145)
[2017-10-28 18:43] LABS: BASO % 0.5 %; BASO ABS # 0.02 K/uL (0-0.2); EOS ABS # 0.12 K/uL (0-0.5); HEMATOCRIT 39.9 % (42-52); HEMOGLOBIN 13.7 g/dL (14.0-18.0); IG# 0.01 K/uL (0.00-0.02); LYMPH % 24.3 %; LYMPH ABS # 0.97 K/uL (1.2-3.4); MEAN CELL VOLUME 84.4 fL (80-100); MEAN CORPUSCULAR HGB CONC 34.3 g/dl (32-36); MEAN PLATELET VOLUME 9.7 fL (7.4-10.4); MONO % 12.3 %; MONO ABS # 0.49 K/uL (0.11-0.59); NEUT % 59.6 %; NEUT ABS # 2.38 K/uL (1.4-6.5); PLATELET COUNT 70 K/uL (130-400); RED CELL DISTRIBUTION WIDTH CV 22.1 % (11.5-14.5); RED CELL DISTRIBUTION WIDTH SD 66.8 fL (36.4-46.3); WHITE BLOOD COUNT 3.99 K/uL (4.8-10.8)
[2017-10-28 18:46] LABS: ALKALINE PHOSPHATASE 51 U/L (45-117); AST/SGOT 31 U/L (15-37); TOTAL PROTEIN 7.4 gm/dl (6.4-8.2)
== END | disposition home or self-care (01) ==
LOC: C.LAB 17:19
PROVIDERS: ATTEND Physician Assistant Medical
DX: E11.65 Type 2 diabetes mellitus with hyperglycemia (principal); D64.9 Anemia, unspecified

== ENCOUNTER → 2017-10-29 | Outpatient (CLI) | payer BC ==
--- NOTE | 2017-10-29 13:50 | DIAGNOSTIC IMAGING REPORT ---
VENOUS DOPPLER UPR EXT BILA HISTORY: Pain. Edema. ARM EDEMA, PARATHESIA/TPAIN BOTH ARMS, THROMBOSIS COMPARISON STUDY: None. FINDINGS: The internal jugular veins are patent. There is normal flow within the subclavian veins. There is normal flow and compressibility within the bilateral axillary, basilic, brachial, radial, ulnar, and visualized cephalic veins. IMPRESSION: No DVT within the upper extremitys. The above report was generated using voice recognition software. It may contain grammatical, syntax or spelling errors. Electronically signed by: Pedro Pablo Garcia M.D. 10/29/2017 1:49 PM Dictated Date/Time: 10/29/2017 1:48 PM
== END | disposition home or self-care (01) ==
LOC: C.ULTRBC 13:08
PROVIDERS: ATTEND Physician Assistant Medical
DX: E11.65 Type 2 diabetes mellitus with hyperglycemia (principal); I82.890 Acute embolism and thrombosis of other specified veins; I81 Portal vein thrombosis; R20.2 Paresthesia of skin; M79.601 Pain in right arm; M79.602 Pain in left arm; R60.0 Localized edema

== ENCOUNTER → 2017-10-29 | Outpatient (CLI) | payer BC ==
[~2017-10-29] MED LIST changes: +OPTIRAY 320 IV PRN
--- NOTE | 2017-10-29 18:10 | DIAGNOSTIC IMAGING REPORT ---
CHEST ANGIO WITH CONTRAST CT DOSE: 619.74 mGycm HISTORY: 57 years-old Male with I82.890 Splenic vein [id number] Portal vein [id number]. TECHNIQUE: Multiple CTA images of the chest were obtained after the intravenous administration of 120 ml Optiray 320. Coronal and sagittal MIPS were obtained from the axial data set and were submitted for review. A dose lowering technique was utilized adhering to the principles of ALARA. COMPARISON: Duplex venous Doppler study of the upper extremities of same day, CT of the abdomen 06/17/2017. FINDINGS: CTA: Heart is normal in size without pericardial effusion. Coronary arterial disease. The thoracic aorta is normal in both course and caliber without aneurysm or dissection. Minimal atherosclerosis of the aortic arch. The imaged great vessels appear to be patent, specifically the bilateral subclavian arteries appear patent. The opacified pulmonary arterial tree is unremarkable. The segmental and subsegmental branches are not well opacified and therefore difficult to evaluate. CT CHEST: No dominant thyroid nodule identified. There is no pathologic adenopathy about the chest. There is no pneumothorax, pleural effusion, focal airspace consolidation or definite pulmonary edema. No suspicious nodules or pulmonary masses identified. Central airways are patent. Moderate sized hiatal hernia. Dilated collateral vessels are again seen adjacent to the distal esophagus and also within the upper abdomen with areas of mild mesenteric edema, unchanged from comparison study 06/17/2017. The spleen is enlarged measuring up to 16 cm. The bones appear intact. IMPRESSION: 1. No acute intrathoracic abnormality identified. No aortic aneurysm identified. 2. Dilated collateral vessels of the upper abdomen are redemonstrated, better characterized on comparison CT study 06/17/2017 which showed multiple areas of nonocclusive thrombus within the portal, splenic and superior mesenteric veins. 2. Splenomegaly. The above report was generated using voice recognition software. It may contain grammatical, syntax or spelling errors. Electronically signed by: Duy Oliveros M.D. 10/29/2017 6:08 PM Dictated Date/Time: 10/29/2017 6:00 PM
== END | disposition home or self-care (01) ==
LOC: C.CTS 17:09
PROVIDERS: ATTEND Physician Assistant Medical
DX: I82.890 Acute embolism and thrombosis of other specified veins (principal); I81 Portal vein thrombosis; R20.2 Paresthesia of skin; M79.601 Pain in right arm; M79.602 Pain in left arm

== ENCOUNTER → 2017-11-11 | Outpatient (CLI) | payer BC ==
[~2017-11-11] MED LIST changes: -OPTIRAY 320 IV PRN
--- NOTE | 2017-11-11 08:14 | DIAGNOSTIC IMAGING REPORT ---
CERVICAL WITHOUT CONTRAST HISTORY: Pain. Neuropathy. R29.898 Arm [id number] Arm painR20.0 Arm [id number] TECHNIQUE: Multiplanar multisequence MRI of the cervical spine was performed without the use of contrast. COMPARISON STUDY: None. FINDINGS: Normal signal characteristics of the vertebral bodies. Moderate degenerative disc change C5-C6. C2-C3: No significant central canal or neural foraminal narrowing. C3-C4: No significant central canal or neural foraminal narrowing. C4-C5: Slight broad-based central disc bulge. Partial effacement of the anterior subarachnoid space. No impact upon the cervical cord or neural foramina. C5-C6: Broad-based right central disc herniation. Mild focal impact right anterior aspect cervical cord. Significant narrowing right neuroforamina. Mild narrowing left neuroforamina. C6-C7: Minimal broad-based disc bulge. No impact upon the cervical cord. C7-T1: No significant central canal or neural foraminal narrowing. IMPRESSION: 1. Right central disc herniation C5-C6. 2. This creates mild focal impact upon the anterior right cervical cord and significant narrowing of the right neuroforamina. 3. Minimal disc bulges C4-C5 and C6-C7 The above report was generated using voice recognition software. It may contain grammatical, syntax or spelling errors. Electronically signed by: Pedro Pablo Garcia M.D. 11/11/2017 8:13 AM Dictated Date/Time: 11/11/2017 8:10 AM
== END | disposition home or self-care (01) ==
LOC: C.MRI 07:20
PROVIDERS: ATTEND Physician Assistant Medical
DX: M79.603 Pain in arm, unspecified (principal); R29.898 Other symptoms and signs involving the musculoskeletal system; R20.0 Anesthesia of skin; M50.20 Other cervical disc displacement, unspecified cervical region; M48.02 Spinal stenosis, cervical region

== ENCOUNTER 2021-07-30 18:33 | Inpatient (IN) ==
[2021-07-30 19:41] LABS: Hemoglobin 6.3 g/dL (14.0-18.0); Mean Corpuscular Hemoglobin 28.8 pg (25-34); Mean Corpuscular Hgb Conc 31.5 g/dL (32-36); Mean Corpuscular Volume 91.3 fL (80-100); Mean Platelet Volume 9.9 fL (7.4-10.4); Platelet Count 57 K/uL (130-400); RDW Coefficient of Variation 15.2 % (11.5-14.5); RDW Standard Deviation 50.7 fL (36.4-46.3); Red Blood Count 2.19 M/uL (4.7-6.1); White Blood Count 1.61 K/uL (4.8-10.8)
[2021-07-30 19:42] LABS: INR 1.2 (0.9-1.1); Partial Thromboplastin Time 25.8 Seconds (21.0-31.0); Prothrombin Time 11.7 Seconds (9.0-12.0)
--- NOTE | 2021-07-30 19:42 | Emergency Department Note ---
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 PLAN: Disposition: Admit MEDICAL DECISION MAKING: The patient is a pleasant 61-year-old gentleman with a past medical history of cirrhosis secondary to Baez who is status post TIPS with normalization of portosystemic gradient with history of acalculous cholecystitis status post surgery with stent placement and removal, history of MTHFR on Eliquis who presents to the emergency department referred from his urology office for ou tpatient blood work that showed severe anemia with hemoglobin 6.7. Patient reports feeling some generalized weakness but no particular dizziness or near syncope. He denies any fevers, chills, cough, congestion. He reports he has not had any bloody or black stools. He reports he did have anemia requiring transfusion at the end of June which he received in the cancer center and subsequently did have an evaluation of his TIPS which per his understanding was functioning normally. He also reports that there is a suspicion of iron deficiency and that he may need iron infusions. Patient is vaccinated for COVID-19. Denies any known COVID-19 exposures. Patient is in agreement with plan for admission for transfusion and further evaluation of his ongoing anemia. On arrival patient is fatigued appearing but no distress, afebrile with stable vital signs. He appears clinically dry. His abdomen is benign. WBC 1.6 and platelets 57K similar to prior range of values in setting of patient cirrhosis. H/H 6.3/20.0 decreased from a hemoglobin of 8 on 07/18. MCV is 91. Chemistry without metabolic acidosis. Electrolytes LFTs without significant abnormality. Patient was consented and crossed for [address] abd/pelvis demonstrates known cirrhosis per preliminary [facility] report. No acute findings. Case was discussed with Dr. Castellano, [facility] hospitalist, who will evaluate t he patient for admission. Triage Nursing notes reviewed and agree them. Prior medical records reviewed Vital Signs: reviewed and remarkable for no significant abnormalities Differential diagnosis: Infection, dehydration, metabolic abnormality, hypo/hyperglycemia, electrolyte disturbance, anemia, hypoxia, cardiac sources, intracerebral event, toxicologic, neurologic, as well as other pathologies. ER treatment provided: See below. Diagnostics interpreted by me: ECG: None Cardiac Monitoring: None Laboratory studies: See below Imaging studies: See below Preliminary Findings Only See Final Report For Complete Findings CT ABDOMEN & PELVIS With Contrast: Comparison to March 11, 2021. There is a TIPS running through a shrunken and nodular liver indicating cirrhosis. IV contrast opacification of vascular structures is suboptimal. The patency of the TIPS is not reliably determined. There is a large gastric varix as well as surgical clips in the gastric cardia. The splenic and portal veins are patent and dilated the portal vein measuring 2.3 cm consistent with cirrhosis. The liver is enlarged measuring 16 cm. Trace amount of edema in the upper abdomen adjacent to the anchors. Mild pancreatitis can be excluded. The previously seen pseudocyst is no longer present. No pneumobilia or biliary duct dilation is seen. There is a nonobstructive 3 mm calyceal calculus in the lower pole of the right kidney. No hydronephrosis or ureterolithiasis. Moderate calcification of a nondilated abdominal aorta. No aneurysm or dissection. The appendix is normal. Bowel loops are nondilated. No acute inflammatory process is seen involving the bowel. No pneumoperitoneum or free fluid. Mild degenerative changes throughout the spine. No acute fracture or bone lesion. Radiologist: Espinoza Meadows MD Study ready at 21:58 and initial results transmitted at 22:07 Consultation(s): Case was discussed with Dr. Castellano, [facility] hospitalist, who will evaluate the patient for admission. 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 Patient reports feeling some generalized weakness but no particular dizziness or near syncope. He denies any fevers, chills, cough, congestion. He reports he has not had any bloody or black stools. He reports he did have anemia requiring transfusion at the end of June which he received in the cancer center and subsequently did have an evaluation of his TIPS which per his understanding was functioning normally. He also reports that there is a suspicion of iron deficiency and that he may need iron infusions. Patient is vaccinated for COVID-19. Denies any known COVID-19 exposures. Patient is in agreement with plan for admission for transfusion and further evaluation of his ongoing anemia. ROS: See above HPI for pertinent positives & negatives. A total of 10 systems reviewed and were otherwise negative. PAST MEDICAL HISTORY:See Below PAST SURGICAL HISTORY:See Below FAMILY HISTORY:See Below SOCIAL HISTORY:See Below HOME MEDICATIONS:See Below ALLERGIES:See Below VITALS:See Below PHYSICAL EXAMINATION: GENERAL: Awake, alert, fatigued-appearing, in no distress HENT: Normocephalic, atraumatic. Oropharynx with dry mucous membranes and otherwise unremarkable. EYES: Normal conjunctiva. Sclera non-icteric. NECK: Supple. No nuchal rigidity. FROM. No JVD. RESPIRATORY: Clear to auscultation. CARDIAC: Regular rate, normal rhythm. Extremities warm and well perfused. Pulses equal. ABDOMEN: Soft, non-distended. No tenderness to palpation. No rebound or guarding. No masses. RECTAL: Deferred. MUSCULOSKELETAL: Chest examination reveals no tenderness. The back is symmetrical on inspection without obvious abnormality. There is no CVA tenderness to palpation. No joint edema. LOWER EXTREMITIES: Calves are equal size bilaterally and non-tender. No edema. No discoloration. NEURO: Normal sensorium. No sensory or motor deficits noted. SKIN: No rash or jaundice noted. ED COURSE: Critical Care: I have personally spent greater than 45 minutes of critical care time in the direct management of this patient. This includes bedside care, interpretation of diagnostic studies, and testing, discussion with consultants, patient, and family members, and other required patient management activities. This 45 minutes is in excess of all separately billable procedures. Isaac Botello MD Past Med/Surg History Medical History Anemia Anxiety CAD (coronary artery disease) Chronic anticoagulation Depression Diabetes mellitus, type [address] 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 Hiatal hernia History of biliary stent insertion Hyperlipidemia Hypertension Insomnia Nonalcoholic steatohepatitis stage 4--reason for eliquis Portal vein thrombosis Tx with Eliquis Sleep apnea no device Splenic vein thrombosis Splenomegaly Surgical History History of colonoscopy with polypectomy History of esophagogastroduodenoscopy (EGD) History of wisdom tooth extraction S/P TIPS (transjugular intrahepatic portosystemic shunt) Family History Mother Family history of diabetes mellitus Sister Leukemia Family history of diabetes mellitus Father , age 42 No problems noted. 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 Required: No Beliefs That Will Affect Care: None marital status: Current Living Situation: Spouse and Family Current Living Situation Comment: Lives with and son current occupational status: employed current occupation: [employer] Other Information That Helps Us Care for You: No Feels Safe at Home: Yes Safety Concerns: Feels Safe At This Time Childhood Exposure to Second-Hand Smoke: No caffeine: Yes Dental Care, Regularly: Yes Physical Activity Frequency: Daily Physical Activity Frequency Comment: WALK Seatbelt Use: always Sunscreen Use: Yes Assistive Devices: Glasses Allergies Allergies Allergy/AdvReac Type Severity Reaction Status Date / Time lisinopril Allergy Mild cough Verified 07/30/21 21:45 Penicillins Allergy Mild RASH Verified 07/30/21 21:45 Home Meds Home Medications Medication Instructions Recorded Confirmed apixaban 5 mg tablet 5 mg PO BID #60 tab 08/03/19 07/30/21 lactulose 10 gram/15 mL oral 15 ml PO DAILY 02/11/21 07/30/21 solution rifaximin 550 mg tablet 550 mg PO BID 02/11/21 07/30/21 trazodone 100 mg tablet 50 mg PO HS 02/27/21 07/30/21 bupropion HCl 300 mg 24 hr tablet, 300 mg PO QAM tab 05/20/21 07/30/21 extended release coenzyme Q10 30 mg capsule 30 mg PO DAILY 07/30/21 07/30/21 zinc sulfate 50 mg zinc (220 mg) 50 mg PO DAILY 07/30/21 07/30/21 tablet Previous Rx's Medication Instructions Recorded gabapentin 300 mg capsule 300 mg PO HS #90 cap 11/09/19 blood sugar diagnostic (FreeStyle #100 ea 01/12/20 Lite Strips) lancets 28 gauge (FreeStyle #100 ea 01/12/20 Lancets) atorvastatin 20 mg tablet 20 mg PO HS #90 tab 11/02/20 omeprazole 20 mg capsule,delayed 20 mg PO DAILY #90 cap 01/31/21 release fluoxetine 10 mg capsule (Prozac) 10 mg PO DAILY #90 cap 04/11/21 Results & Data (ED) Vital Signs Vital Signs - 24 hr 07/30/21 18:40 07/30/21 19:32 07/30/21 19:34 Temperature 36.7 C Temperature Source Temporal Artery Scan Pulse Rate 90 89 Pulse Rate from SpO2 Sensor 89 Respiratory Rate 18 17 Blood Pressure 152/69 H Blood Pressure Mean 96 Pulse Oximetry 99 99 Oxygen Delivery Method Room Air Room Air Sepsis Recent Fever Within 48 Hours No Sepsis New/Unexplained Change in Mental Status No Sepsis Action Taken by Nursing No Action Required 07/30/21 19:45 07/30/21 20:03 07/30/21 20:15 Temperature Temperature Source Pulse Rate 86 83 87 Pulse Rate from SpO2 Sensor 87 84 87 Respiratory Rate 16 18 17 Blood Pressure 126/68 Blood Pressure Mean 87 Pulse Oximetry 99 99 99 Oxygen Delivery Method Sepsis Recent Fever Within 48 Hours Sepsis New/Unexplained Change in Mental Status Sepsis Action Taken by Nursing 07/30/21 20:30 07/30/21 20:45 07/30/21 21:17 Temperature Temperature Source Pulse Rate 84 84 81 Pulse Rate from SpO2 Sensor 84 84 81 Respiratory Rate 16 15 17 Blood Pressure 120/52 L 135/64 Blood Pressure Mean 74 87 Pulse Oximetry 99 98 99 Oxygen Delivery Method Sepsis Recent Fever Within 48 Hours Sepsis New/Unexplained Change in Mental Status Sepsis Action Taken by Nursing 07/30/21 21:30 07/30/21 21:31 07/30/21 21:45 Temperature 37.2 C 36.9 C Temperature Source Oral Oral Pulse Rate 85 83 82 Pulse Rate from SpO2 Sensor 84 83 Respiratory Rate 17 25 H 16 Blood Pressure 128/65 128/65 121/61 Blood Pressure Mean 86 86 81 Pulse Oximetry 99 99 97 Oxygen Delivery Method Sepsis Recent Fever Within 48 Hours Sepsis New/Unexplained Change in Mental Status Sepsis Action Taken by Nursing 07/30/21 22:00 07/30/21 22:15 07/30/21 22:31 Temperature Temperature Source Pulse Rate 83 80 81 Pulse Rate from SpO2 Sensor 82 81 81 Respiratory Rate 23 17 18 Blood Pressure 113/90 126/62 Blood Pressure Mean 97 83 Pulse Oximetry 98 97 99 Oxygen Delivery Method Sepsis Recent Fever Within 48 Hours Sepsis New/Unexplained Change in Mental Status Sepsis Action Taken by Nursing 07/30/21 22:45 07/30/21 23:00 07/30/21 23:15 Temperature Temperature Source Pulse Rate 79 81 86 Pulse Rate from SpO2 Sensor 80 81 85 Respiratory Rate 13 16 23 Blood Pressure 123/57 L 120/59 L 129/68 Blood Pressure Mean 79 79 88 Pulse Oximetry 97 98 98 Oxygen Delivery Method Sepsis Recent Fever Within 48 Hours Sepsis New/Unexplained Change in Mental Status Sepsis Action Taken by Nursing 07/30/21 23:30 Temperature Temperature Source Pulse Rate 86 Pulse Rate from SpO2 Sensor 84 Respiratory Rate 18 Blood Pressure 121/72 Blood Pressure Mean 88 Pulse Oximetry 99 Oxygen Delivery Method Sepsis Recent Fever Within 48 Hours Sepsis New/Unexplained Change in Mental Status Sepsis Action Taken by Nursing Laboratory Data Attestation: I reviewed the patient's lab results. Result diagrams: 07/31/21 05:21 07/30/21 19:15 Lab Results 07/30/21 07/30/21 07/30/21 Range/Units 19:15 19:15 19:15 WBC 1.61 L (4.8-10.8) K/uL RBC 2.19 L (4.7-6.1) M/uL Hgb 6.3 L* (14.0-18.0) g/dL Hct 20.0 L* (42-52) % MCV 91.3 (80-100) fL MCH 28.8 (25-34) pg MCHC 31.5 L (32-36) g/dL RDW Std Deviation 50.7 H (36.4-46.3) fL RDW Coeff of Blanca 15.2 H (11.5-14.5) % Plt Count 57 L (130-400) K/uL MPV 9.9 (7.4-10.4) fL Immature Gran % (Auto) 0.0 % Neut % (Auto) 68.6 % Lymph % (Auto) 21.6 % Sharp % (Auto) 8.6 % Eos % (Auto) 1.2 % Baso % (Auto) 0.0 % Reticulocyte % (Auto) 3.0 H (0.5-2.0) % Neut # (Auto) 1.11 L (1.4-6.5) K/uL Lymph # (Auto) 0.35 L (1.2-3.4) K/uL Sharp # (Auto) 0.14 (0.11-0.59) K/uL Eos # (Auto) 0.02 (0-0.5) K/uL Baso # (Auto) 0.00 (0-0.2) K/uL Reticulocyte # 0.07 (0.02-0.10) 10^6/uL Immature Gran # (Auto) 0.00 (0.00-0.02) K/uL Platelet Estimate Decreased L (Normal) PT 11.7 (9.0-12.0) Seconds INR 1.2 H (0.9-1.1) APTT 25.8 (21.0-31.0) Seconds PTT Ratio 1.0 Sodium 142 (136-145) mmol/L Potassium 3.8 (3.5-5.1) mmol/L Chloride 112 H (98-107) mmol/L Carbon Dioxide 25 (21-32) mmol/L Anion Gap 6.0 (3-11) BUN 13 (7-18) mg/dl Creatinine 0.88 (0.6-1.4) mg/dl Est Cr Clr Drug Dosing 91.2 ml/min Est GFR ( Amer) 108.2 ml/min Est GFR (Non-Af Amer) 93.4 ml/min BUN/Creatinine Ratio 15.2 (10-20) Glucose 146 H (70-99) mg/dl Calcium 8.7 (8.5-10.1) mg/dl Iron 30 L (35-175) mcg/dl TIBC 411 (250-450) mcg/dl Transferrin 321 (200-360) mg/dl Ferritin 8.8 (8-388) ng/ml Total Bilirubin 0.5 (0.2-1) mg/dl AST 28 (15-37) U/L ALT 30 (12-78) U/L Alkaline Phosphatase 88 (45-117) U/L Total Protein 5.8 L (6.4-8.2) gm/dl Albumin 2.6 L (3.4-5.0) gm/dl Globulin 3.2 (2.5-4.0) gm/dl Albumin/Globulin Ratio 0.8 L (0.9-2) Lipase 300 (73-393) U/L COVID-19 Eval Order SARS-CoV-2 (PCR) (Negative) Blood Type Antibody Screen Crossmatch 07/30/21 07/30/21 07/30/21 Range/Units 19:27 20:44 20:44 WBC (4.8-10.8) K/uL RBC (4.7-6.1) M/uL Hgb (14.0-18.0) g/dL Hct (42-52) % MCV (80-100) fL MCH (25-34) pg MCHC (32-36) g/dL RDW Std Deviation (36.4-46.3) fL RDW Coeff of Blanca (11.5-14.5) % Plt Count (130-400) K/uL MPV (7.4-10.4) fL Immature Gran % (Auto) % Neut % (Auto) % Lymph % (Auto) % Sharp % (Auto) % Eos % (Auto) % Baso % (Auto) % Reticulocyte % (Auto) (0.5-2.0) % Neut # (Auto) (1.4-6.5) K/uL Lymph # (Auto) (1.2-3.4) K/uL Sharp # (Auto) (0.11-0.59) K/uL Eos # (Auto) (0-0.5) K/uL Baso # (Auto) (0-0.2) K/uL Reticulocyte # (0.02-0.10) 10^6/uL Immature Gran # (Auto) (0.00-0.02) K/uL Platelet Estimate (Normal) PT (9.0-12.0) Seconds INR (0.9-1.1) APTT (21.0-31.0) Seconds PTT Ratio Sodium (136-145) mmol/L Potassium (3.5-5.1) mmol/L Chloride (98-107) mmol/L Carbon Dioxide (21-32) mmol/L Anion Gap (3-11) BUN (7-18) mg/dl Creatinine (0.6-1.4) mg/dl Est Cr Clr Drug Dosing ml/min Est GFR ( Amer) ml/min Est GFR (Non-Af Amer) ml/min BUN/Creatinine Ratio (10-20) Glucose (70-99) mg/dl Calcium (8.5-10.1) mg/dl Iron (35-175) mcg/dl TIBC (250-450) mcg/dl Transferrin (200-360) mg/dl Ferritin (8-388) ng/ml Total Bilirubin (0.2-1) mg/dl AST (15-37) U/L ALT (12-78) U/L Alkaline Phosphatase (45-117) U/L Total Protein (6.4-8.2) gm/dl Albumin (3.4-5.0) gm/dl Globulin (2.5-4.0) gm/dl Albumin/Globulin Ratio (0.9-2) Lipase (73-393) U/L COVID-19 Eval Order Covid19 at [facility] SARS-CoV-2 (PCR) NEGATIVE (Negative) Blood Type A Positive Antibody Screen NEGATIVE Crossmatch See Detail Administered Medications Gabapentin (Gabapentin 300 Mg Cap) 300 mg PO HS LIZET Stop: 08/30/21 00:48 Last Admin: 07/31/21 02:06 Dose: 300 mg Documented by: [id number] Sodium Chloride (Nss 1000ml) 1,000 mls @ 125 mls/hr IV .Q8H LIZET Stop: 08/30/21 01:44 Last Admin: 07/31/21 04:35 Dose: 125 mls/hr Documented by: [id number] Rifaximin (Rifaximin 550 Mg Tablet) 550 mg PO BID LIZET Stop: 08/30/21 00:48 Last Admin: 07/31/21 02:05 Dose: 550 mg Documented by: [id number] Discontinued Medications Sodium Chloride (Nss) 500 mls @ 125 mls/hr IV .Q4H LIZET Stop: 08/29/21 19:59 Last Admin: 07/31/21 03:32 Dose: Not Given Documented by: [id number] Infusion: 07/31/21 01:45 Dose: 0 mls/hr Documented by: [id number] Admin: 07/30/21 20:11 Dose: 125 mls/hr Documented by: [id number] Ioversol (Optiray 320 100ml) 90 ml IV ONCE ONE Stop: 07/30/21 21:05 Last Admin: 07/30/21 21:09 Dose: 90 ml Documented by: [id number] Discharge Plan Visit Data Chief Complaint: Abnormal Labs/Diagnostic Testing Stated Complaint: LOW BLOOD COUNT- DOC REF ED Provider: Isaac Botello Discharge Problem: Anemia, 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
[2021-07-30 19:49] LABS: Albumin Level 2.6 gm/dl (3.4-5.0); BUN Creatinine Ratio 15.2 (10-20); Calcium 8.7 mg/dl (8.5-10.1); Creatinine Clr Calc Pharmacy 91.2 ml/min; Est GFR (African American) 108.2 ml/min; Est GFR (Non-African American) 93.4 ml/min; Potassium 3.8 mmol/L (3.5-5.1)
[2021-07-30 19:51] LABS: Albumin Globulin Ratio 0.8 (0.9-2); Bilirubin,Total 0.5 mg/dl (0.2-1); Globulin 3.2 gm/dl (2.5-4.0); Total Protein 5.8 gm/dl (6.4-8.2)
[2021-07-30] MEDS ORDERED: SODIUM CHLORIDE 0.9% 250 ML IV PRN (19:51)
[2021-07-30 19:54] LABS: Platelet Estimate Decreased (Normal)
[2021-07-30 20:10] LABS: Reticulocytes # 0.07 10^6/uL (0.02-0.10)
[2021-07-30] MEDS: SODIUM CHLORIDE 0.9% 500 ML IV SCH (20:11)
[2021-07-30 20:26] LABS: Ferritin 8.8 ng/ml (8-388)
[2021-07-30] MEDS ORDERED: OPTIRAY 320 100ml IV ONE (21:04)
[2021-07-30 23:07] LABS: Eosinophils # (auto) 0.02 K/uL (0-0.5); Eosinophils % (auto) 1.2 %; Lymphocytes # (auto) 0.35 K/uL (1.2-3.4); Lymphocytes % (auto) 21.6 %; Monocytes # (auto) 0.14 K/uL (0.11-0.59); Monocytes % (auto) 8.6 %; Neutrophils # (auto) 1.11 K/uL (1.4-6.5); Neutrophils % (auto) 68.6 %
--- NOTE | 2021-07-30 23:43 | History & Physical Report ---
Date of Service July 30, 2021 Assessment & Plan (1) Anemia: Plan: Mr. Hunt is a 61 yo gentleman with a complex PMHx here today for acute on chronic anemia. - acute on chronic - Hgb 6.3, down from 8.0. MCV 91, normocytic - etiology of acute worsening unknown. Hemoccult all stool to assess for GI bleed - blood consent signed - 2 unit prbcs ordered - repeat H+H q4 - As for underlying etiology: suspect production > destruction issue, as peripheral smear in 03/2021 showed no evidence of hemolysis and retic count not appropriately elevated (3.0) - iron low at 30, ferritin 8.8, TIBC and transferrin normal. per patient, Dr. Murphy has scheduled him to have an IV iron infusion on 08/16/21. Will start oral supplement now. - B12 and folate were both WNL in 03/2021. - intake unlikley to be an issue, malabsorption unlikley given normal B12 and folate - transaminases WNL, lipase WNL - unlikley to have an exocrine problem - bone marrow issue is possible - DOAC is likely contributory to his symptoms - placed on hold - If hemoglobin appropriately increases, can be d/c with further work up as outpatient (2) Pancytopenia: Plan: - platelet count considered stable > 40 - WBC 1.21, ANC > 1000 - anemia as above - likely secondary to liver cirrhosis, although unclear if bone marrow disease has been explored - follows with Dr. 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 Crisostomo (7) Diabetes mellitus: Plan: - history of - A1c 5.1 in 06/2021 - diet controlled (8) Hyperlipidemia: Plan: - continue home dose statin with coQ10 Diet: heart healthy, carb consistent DVT ppx: eliquis on hold, SCD Dispo: Med/tele Code: Full History of Present Illness Primary Care Provider: Chencho Gilliland DO Mr. Hunt is a 61 yo gentleman who was referred by his urologist ([facility]) to the [facility] ED after an outpatient blood draw revealed a hemoglobin of 6.7 on 07/30/21. He has an extensive PMHx including type II diabetes, liver cirrhosis secondary to COOL with severe portal hypertension and esophageal varices, s/p TIPS with normalization of the portosystemic gradient, and portal vein thrombosis (on chronic anticoagulation). His TIPS procedure was complicated by acalculous cholecystitis (which was treated with EUG guided drainage, stenting) and subsequent duodenal fistula formation. He follows with [facility] and Dr. Murphy locally for hematology. His last colonoscopy was in 2019 - 2 polyps were removed and 3-5 year follow up was recommended. He is not dizzy or lightheaded, although he generally feels weak and fatigued. No chest pain or SOB. He denies any visible blood in stool or urine. He eats meat and dairy products. In the ED, he was afebrile and hemodynamically stable. His Hgb was 6.3, down from 8.0 on 07/18/21. MCV is 91. Retic count at 3.0. His WBC was 1.61, platelets low at 57k/Ul. ALT/AST and alk phos WNL. Kidney function and electrolytes WNL. CT abdomen showing no acute changes when compared to prior imaging (per STAT rad). A blood consent was obtained and 2 units pRBCs were ordered. Allergies Allergy/AdvReac Type Severity Reaction Status Date / Time lisinopril Allergy Mild cough Verified 07/30/21 21:45 Penicillins Allergy Mild RASH Verified 07/30/21 21:45 Home Medications Medication Instructions Recorded Confirmed Type apixaban 5 mg tablet 5 mg PO BID #60 tab 08/03/19 07/30/21 History gabapentin 300 mg capsule 300 mg PO HS #90 cap 11/09/19 07/30/21 Rx blood sugar diagnostic (FreeStyle #100 ea 01/12/20 05/20/21 Rx Lite Strips) lancets 28 gauge (FreeStyle #100 ea 01/12/20 05/20/21 Rx Lancets) atorvastatin 20 mg tablet 20 mg PO HS #90 tab 11/02/20 07/30/21 Rx omeprazole 20 mg capsule,delayed 20 mg PO DAILY #90 cap 01/31/21 07/30/21 Rx release lactulose 10 gram/15 mL oral 15 ml PO DAILY 02/11/21 07/30/21 History solution rifaximin 550 mg tablet 550 mg PO BID 02/11/21 07/30/21 History trazodone 100 mg tablet 50 mg PO HS 02/27/21 07/30/21 History fluoxetine 10 mg capsule (Prozac) 10 mg PO DAILY #90 cap 04/11/21 07/30/21 Rx bupropion HCl 300 mg 24 hr tablet, 300 mg PO QAM tab 05/20/21 07/30/21 History extended release coenzyme Q10 30 mg capsule 30 mg PO DAILY 07/30/21 07/30/21 History zinc sulfate 50 mg zinc (220 mg) 50 mg PO DAILY 07/30/21 07/30/21 History tablet Past Med/Surg History Medical History Anemia Anxiety CAD (coronary artery disease) Chronic anticoagulation Depression Diabetes mellitus, type [address] 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 Hiatal hernia History of biliary stent insertion Hyperlipidemia Hypertension Insomnia Nonalcoholic steatohepatitis stage 4--reason for eliquis Portal vein thrombosis Tx with Eliquis Sleep apnea no device Splenic vein thrombosis Splenomegaly Surgical History History of colonoscopy with polypectomy History of esophagogastroduodenoscopy (EGD) History of wisdom tooth extraction S/P TIPS (transjugular intrahepatic portosystemic shunt) Family History Mother Family history of diabetes mellitus Sister Leukemia Family history of diabetes mellitus Father , age 42 No problems noted. Brother Benign polyp of large intestine Uncle Diabetes Other No family history of adverse response to anesthesia Social History Smoking Status: Never smoker Tobacco Type: Cigarettes Age Started Using Tobacco: 22; Age Quit Using Tobacco: 47; packs per day: 1; Years Smoked: 25; Second Hand Exposure: No (parents smoked); Hx Alcohol Use: No Hx Substance Use: No Preferred Language: Citizen Of [place] Communication Ability: Effective Visual Impairment: Limited Hearing Ability: Normal Machine Stripper Cutter Required: No Beliefs That Will Affect Care: None marital status: Current Living Situation: Spouse and Family Current Living Situation Comment: Lives with and son current occupational status: employed current occupation: [employer] Feels Safe at Home: Yes Childhood Exposure to Second-Hand Smoke: No caffeine: Yes Dental Care, Regularly: Yes Physical Activity Frequency: Daily Physical Activity Frequency Comment: WALK Seatbelt Use: always Sunscreen Use: Yes Assistive Devices: None Review of Systems Review of Systems: All systems reviewed & are unremarkable except as noted in HPI & below Physical Exam Constitutional: WD/WN, vitals as above cooperative; no acute distress Eyes: + anicteric sclerae ENMT: external ear and nose normal, oropharynx normal Neck: trachea midline Respiratory: normal respiratory effort, lungs clear to auscultation Cardiovascular: Rate/Rhythm: regular rate and regular rhythm Heart Sounds: normal S1, normal S2 and + murmur (systolic) Gastrointestinal (Abdomen): normal bowel sounds, soft, nontender, no hepatosplenomegaly Musculoskeletal: Head/Neck/Chest: normocephalic and head atraumatic Skin: no rashes, warm and dry Psychiatric: A+Ox3, euthymic affect Results & Data Results & Data ([facility]) Vital Signs (Past 12 Hours) Vital Signs Temp Pulse Resp BP Pulse Ox 07/30/21 23:15 86 23 129/68 98 07/30/21 23:00 81 16 120/59 L 98 07/30/21 22:45 79 13 123/57 L 97 07/30/21 22:31 81 18 99 07/30/21 22:15 80 17 126/62 97 07/30/21 22:00 83 23 113/90 98 07/30/21 21:45 36.9 C 82 16 121/61 97 07/30/21 21:31 37.2 C 83 25 H 128/65 99 07/30/21 21:30 85 17 128/65 99 07/30/21 21:17 81 17 135/64 99 07/30/21 20:45 84 15 98 07/30/21 20:30 84 16 120/52 L 99 07/30/21 20:15 87 17 99 07/30/21 20:03 83 18 126/68 99 07/30/21 19:45 86 16 99 07/30/21 19:34 89 17 99 07/30/21 18:40 36.7 C 90 18 152/69 H 99 Supervising Physician Co-Signing Physician Notes Attending addendum: I have physically seen this patient, have supervised the medical residents activities, and agree with the H&P unless as otherwise noted. Assessment and Plan: Acute on chronic symptomatic anemia- Hemoglobin 6.3 down from most recent 8.0 To receive 2 units PRBCs from the ED H&H every 4 hours Check a peripheral smear Hold apixaban for now Hemoccult stools Pancytopenia- Chronic Following with Dr. Murphy Portal vein thrombosis/cirrhosis/COOL- Temporarily hold anticoagulation Remaining orders and notations as noted Resident Activity Tracking Resident Involvement: Resident Care Provided Care Provided: Adult Hospital Medicine
[2021-07-31] MEDS ORDERED: GABAPENTIN 300 MG CAP PO SCH (00:49)
[2021-07-31] MEDS ORDERED: ONDANSETRON INJ 2 MG/ML 2 ML VIAL IV PRN (00:49)
[2021-07-31] MEDS ORDERED: ACETAMINOPHEN 325 MG TAB PO PRN (00:49)
[2021-07-31] MEDS ORDERED: SODIUM CHLORIDE 0.9% 250 ML IV PRN (00:55)
[2021-07-31] MEDS: rifAXIMin 550 MG TABLET PO SCH ×2 (02:05→09:16)
[2021-07-31] MEDS: SODIUM CHLORIDE 0.9% 500 ML IV SCH (03:32)
[2021-07-31] MEDS: SODIUM CHLORIDE 0.9% 1000ML 1,000 ML IV SCH ×2 (04:35→10:01)
[2021-07-31 05:41] LABS: Hematocrit (blood only) 24.3 % (42-52); Hemoglobin 7.8 g/dL (14.0-18.0)
[2021-07-31] MEDS ORDERED: Influenza Vaccine (Fluarix) 0.5 ML SYR (Standard Dose) IM ONE (08:00)
[2021-07-31] MEDS ORDERED: FERROUS SULFATE 325 MG TAB PO SCH (08:00)
[2021-07-31 08:12] LABS: Hematocrit (blood only) 23.4 % (42-52); Hemoglobin 7.7 g/dL (14.0-18.0)
--- NOTE | 2021-07-31 08:43 | CT Scan Report ---
ABDOMEN AND PELVIS CT WITH IV CONTRAST CT DOSE: 475.68 mGy.cm HISTORY: Follow up study in a patient with anemia and cirrhosis. anemia, h/o varices TECHNIQUE: Multiaxial CT images of the abdomen and pelvis were performed following the IV administrat ion of 90 cc of Optiray, A dose lowering technique was utilized adhering to the principles of ALARA. COMPARISON STUDY: CT abdomen and pelvis 03/11/2021, 02/27/2021 FINDINGS: Moderate coronary artery calcifications. The lung bases are generally clear. There is no pn eumatosis or pneumoperitoneum. The spleen measures up to 16.8 cm in length, similar in size to prior. Interstitial and peripancreatic edema with edema within the mesenteric root. No pancreatic ductal di lation. Unremarkable adrenal glands. Upper abdominal varices are notably adjacent to the distal esoph dmitry and proximal stomach. Surgical clips of the gastric cardia. There is a punctate calcification no naveed in the gallbladder fundus. Gallbladder wall thickening and irregularity may represent partial cho lecystectomy changes. Edema within the joe hepatis is noted. Cirrhotic liver. No hepatic mass ident ified. A TIPS shunt is present which appears to be patent. Decreased attenuation along the posterior aspect of the portal vein on image 133 is unchanged possibly a small chronic thrombus. No acute throm bus within the portal vein is identified. Unremarkable left kidney. 3 mm nonobstructing calculus of the interpolar right kidney. No hydronephro sis. Prostamegaly. Mild urinary bladder wall thickening with partial distention. Atherosclerosis of t he aorta. Prominent retroperitoneal lymph nodes measure up to 8 mm. Mildly enlarged mesenteric lymph nodes measure up to 10 mm, similar from comparison. No bowel obstruction or bowel wall thickening. No retroperitoneal hematoma. Normal appendix. Unremarkable soft tissues. There is no acute fracture. IMPRESSION: 1. Mild interstitial and peripancreatic edema with edema also noted within the mesenteric root. Corre late with lipase to exclude acute pancreatitis. 2. Cirrhotic liver disease with patent appearing TIPS shunt. 3. Irregular gallbladder wall thickening with possible partial cholecystectomy changes. Cholelithiasi s. 4. Prominent distal esophageal and proximal gastric varices redemonstrated. 5. Right nephrolithiasis. 6. Prostamegaly with evidence of chronic bladder outlet obstruction. 7. Unchanged retroperitoneal and mesenteric adenopathy. 8. Additional findings as above. ACT 112: Negative or not required by law. The above report was generated using voice recognition software. It may contain grammatical, syntax o r spelling errors. Electronically signed by: Mik Oliveros M.D. 07/31/2021 8:41 AM
[2021-07-31] MEDS ORDERED: LACTULOSE SYRUP 20 GM/30 ML UDC PO SCH (09:00)
[2021-07-31] MEDS ORDERED: FLUoxetine HCL 10 MG CAP PO SCH (09:00)
[2021-07-31] MEDS ORDERED: PANTOprazole 40 MG TAB PO SCH (09:00)
[2021-07-31] MEDS ORDERED: buPROPion XL 300 MG TABCR PO SCH (09:00)
[2021-07-31] MEDS ORDERED: IRON SUCROSE 400 MG in SODIUM CHLORIDE 0.9% 250 ML IV ONE (10:00)
--- NOTE | 2021-07-31 10:35 | Discharge Summary ---
Date of Service July 31, 2021 Admission HPI Per Admitting Provider Mr. Hunt is a 61 yo gentleman who was referred by his urologist ([facility]) to the [facility] ED after an outpatient blood draw revealed a hemoglobin of 6.7 on 07/30/21. He has an extensive PMHx including type II diabetes, liver cirrhosis secondary to COOL with severe portal hypertension and esophageal varices, s/p TIPS with normalization of the portosystemic gradient, and portal vein thrombosis (on chronic anticoagulation). His TIPS procedure was complicated by acalculous cholecystitis (which was treated with EUG guided drainage, stenting) and subsequent duodenal fistula formation. He follows with [facility] and Dr. Murphy locally for hematology. His last colonoscopy was in 2019 - 2 polyps were removed and 3-5 year follow up was recommended. He is not dizzy or lightheaded, although he generally feels weak and fatigued. No chest pain or SOB. He denies any visible blood in stool or urine. He eats meat and dairy products. In the ED, he was afebrile and hemodynamically stable. His Hgb was 6.3, down from 8.0 on 07/18/21. MCV is 91. Retic count at 3.0. His WBC was 1.61, platelets low at 57k/Ul. ALT/AST and alk phos WNL. Kidney function and electrolytes WNL. CT abdomen showing no acute changes when compared to prior imaging (per STAT rad). A blood consent was obtained and 2 units pRBCs were ordered. Principal Diagnosis Anemia NOS Discharge Exam Constitutional WD/WN, vitals as above Eyes EOM intact bilaterally; no conjunctival abnormality ENMT external ear and nose normal, oropharynx normal Neck trachea midline, no thyromegaly normal visual inspection Respiratory normal respiratory effort, lungs clear to auscultation no respiratory distress Cardiovascular RRR, no murmur, no edema Gastrointestinal (Abdomen) Inspection/Auscultation: abdomen normal to inspection; abdomen not distended Musculoskeletal no cyanosis or clubbing, extremities motor strength 5/5 Skin no rashes, warm and dry Neurologic moves all extremities and awake Psychiatric Orientation: alert, oriented to person and cooperative Discharge Data Allergies Allergy/AdvReac Type Severity Reaction Status Date / Time lisinopril Allergy Mild cough Verified 07/30/21 21:45 Penicillins Allergy Mild RASH Verified 07/30/21 21:45 Consultations 10/26/21 22:09 ED Decision to Admit Stat Ordered Studies 07/30/21 19:50 CT abd pelvis IV con only Urgent Hospital Course (1) Anemia: Mr. Hunt is a 61 yo gentleman with a complex PMHx here today for acute on chronic anemia. - chronic - Hgb 6.3, down from 8.0. MCV 91, normocytic. - etiology of acute worsening unknown. Hemoccult all stool to assess for GI bleed - As for underlying etiology: suspect production > destruction issue, as peripheral smear in 03/2021 showed no evidence of hemolysis and retic count not appropriately elevated (3.0) - iron low at 30, ferritin 8.8, TIBC and transferrin normal. per patient, Dr. Murphy has scheduled him to have an IV iron infusion on 08/16/21. Will start oral supplement now. - B12 and folate were both WNL in 03/2021. - intake unlikley to be an issue, malabsorption unlikley given normal B12 and folate - transaminases WNL, lipase WNL - unlikley to have an exocrine problem - bone marrow issue is possible - DOAC is likely contributory to his symptoms - placed on hold - If hemoglobin appropriately increases, can be d/c with further work up as outpatient -> Improved to 7.9 after 2 units. Patient felt well and requested to go. Given chronicity and hemodynamic stability, I do not think this is an acute bleed. - On discharge, restarted his DOAC. [facility] note clearly indicates anticoagulation is very important for him to maintain superior mesenteric vein patency which would be critical for eventual liver transplant if he needs it. Plt count > 40k is their cutoff, and again, I think this is a slow, chronic bleed or underproduction rather than an acute GI or other bleed. - Patient in agreement with above plan. Will get 1 bag of IV iron before discharge. F/u with Dr. Murphy in Aug. Appt already made and the patient was encouraged to keep this appt. (2) Pancytopenia: - platelet count considered stable > 40 - WBC 1.21, ANC > 1000 - anemia as above - likely secondary to liver cirrhosis, although unclear if bone marrow disease has been explored - follows with Dr. 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 Crisostomo (7) Diabetes mellitus: - history of - A1c 5.1 in 06/2021 - diet controlled (8) Hyperlipidemia: - continue home dose statin with coQ10 Diet: heart healthy, carb consistent DVT ppx: eliquis on hold, SCD Dispo: Med/tele Code: Full Total Time Total Time Spent Total Time Spent (In Minutes): 35 Discharge Plan Discharge Items Patient Disposition: Home - Self-Care Reason For Visit: ANEMIA Discharge Diagnosis: Anemia of unknown cause Activity: Resume your previous activity Non-emergency contact: Primary Care Provider, Traveling Auditor and Oncologist Call non-emergency contact if: your symptoms worsen Follow-up/Referrals: Primo Murphy DO [Physician] - (Please follow up with your usual appt in August.) Chencho Gilliland DO [Primary Care Provider] - 08/06/21 11:00 am (Your appointment is with Emy Akhtar PA-C. If you have any questions or need to change this appointment, please call [phone].) Diet: Heart Healthy Addtl Attending Provider Instructions: You were admitted with anemia which has been an ongoing issue for you. We gave you 2 units of blood and a dose of IV iron to help with this. Please follow up with Dr. Murphy at your usual appointment. Pending Studies at Discharge: No Stand-Alone Forms: My [facility] [employer], Smoking Cessation Medications and DC Order Prescriptions: Continued gabapentin 300 mg capsule 300 mg PO HS Qty: 90 RF: 3 omeprazole 20 mg capsule,delayed release(DR/EC) 20 mg PO DAILY Qty: 90 RF: 3 lactulose 10 gram/15 mL solution 15 ml PO DAILY RF: 0 rifaximin 550 mg tablet 550 mg PO BID RF: 0 fluoxetine [Prozac] 10 mg capsule 10 mg PO DAILY Qty: 90 RF: 3 (DME) blood sugar diagnostic [FreeStyle Lite Strips] Strip See Rx Instructions .ROUTE .MEDSUPPLY Qty: 100 RF: 0 (DME) lancets [FreeStyle Lancets] 28 gauge misc See Rx Instructions .ROUTE .MEDSUPPLY Qty: 100 RF: 0 bupropion HCl 300 mg tablet extended release 24 hr 300 mg PO QAM RF: 0 apixaban 5 mg tablet 5 mg PO BID Qty: 60 RF: 0 Hold Instructions: per forest fire lookout atorvastatin 20 mg tablet 20 mg PO HS Qty: 90 RF: 3 trazodone 100 mg tablet 50 mg PO HS RF: 0 zinc sulfate 50 mg zinc (220 mg) tablet 50 mg PO DAILY RF: 0 coenzyme Q10 30 mg capsule 30 mg PO DAILY RF: 0 Discharge Orders: Discharge Order (Routine); Ordered 07/31/21 Ordered By: Alf Mendez Admission Data Admit Date/Time: 07/30/21 23:35 Attending Provider: Alf Mendez Admit Provider: Maine Dueñas Primary Care Provider: Chencho Gilliland Other Providers: Alf Mendez Other Interventions: Discharge Summary Assessment (RN) Last Done: 07/31/21 10:09 Coding Level of Care Code D/C DAY MANAGEMENT >30 MINS Diagnoses Anemia D64.9 Anemia type: unspecified type Pancytopenia D61.818 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
--- NOTE | 2021-07-31 20:00 | Billing Data ---
Date of Service July 31, 2021 Coding Level of Care Code 84507 Initial Inpt Care Lvl 3
[2021-07-31] MEDS ORDERED: ATORVASTATIN 20 MG TAB PO SCH (21:00)
[2021-07-31] MEDS ORDERED: traZODone HCL 50 MG TAB PO SCH (21:00)
--- NOTE | 2021-08-01 05:33 | Electrocardiogram Report ---
Test Reason : Blood Pressure : / mmHG Vent. Rate : 087 BPM Atrial Rate : 087 BPM P-R Int : 194 ms QRS Dur : 160 ms QT Int : 456 ms P-R-T Axes : 056 102 072 degrees QTc Int : 548 ms Normal sinus rhythm Right bundle branch block Abnormal ECG When compared with ECG of 11-MAR-2021 12:45, No significant change was found Confirmed by Benjamin Caballero ([id number]) on 08/01/2021 5:32:57 AM Referred By: DOMENICA DILLARD Confirmed By:Benjamin Caballero
--- NOTE | 2021-08-06 12:22 | Coding Query ---
CODING QUERY To promote full compliance with coding requirements relating to patient care, provider participation is requested in all cases of silk screen operator uncertainty. Please assist us with the question(s) below: Coding Question(s): There is documentation in the record of History of Portal Vein Thrombosis and the Discharge Summary documents, "(4) Portal vein thrombosis: - in the setting on an inherited thrombophilia (MTHFR) - on chronic anticoagulation with eliquis". The CT scan shows, "Decreased attenuation along the posterior aspect of the portal vein on image 133 is unchanged possibly a small chronic thrombus. No acute thrombus within the portal vein is identified". It is not clear if the patient was treated for current Chronic Portal Vein Thrombosis or for History of Portal Vein Thrombosis with no current thrombosis. Please specify below, in your clinical opinion. ( ) Current Portal Vein Thrombosis was teated during this admission ( x ) History of Portal Vein Thrombosis was under treatment during this admission ( ) Other: Please Specify Physician's Response(s): Thank you Suzanna Pisano Principal Diagnosis: "that condition established after study, to be chiefly responsible for occasioning the admission of the patient to the hospital for care." Co-Existing Principal Diagnosis: "when two or more diagnoses equally meet the criteria for principal diagnosis as determined by the circumstances of admission, diagnostic work up, and/or therapy provided, and the Alphabetic Index, Tabular List, or another coding guideline does not provide sequencing direction, any one of the diagnoses may be sequenced first." "When the physician has documented what appears to be a current diagnosis in the body of the record, but has not included the diagnosis in the final diagnostic statement, the physician should be asked whether the diagnosis should be added." (Source Coding Clinic 2 QTR90. p3-4) CORNELL
== END 2021-07-31 13:04 | disposition home or self-care (01) | DRG 812 ==
LOC: ED 18:33 → SUATTDRO 23:35 → 2N 23:35

== ENCOUNTER 2021-10-04 22:07 | Observation (INO) ==
--- NOTE | 2021-10-04 22:52 | XRay Report ---
SINGLE VIEW CHEST CLINICAL HISTORY: Generalized weakness. FINDINGS: An AP, portable, upright chest radiograph is compared to study dated 02/01/2021. Correlation is made with chest CT dated 10/29/2017. The heart is top normal for projection. There is bibasilar at electasis. No airspace consolidation or large pleural effusion is identified. No pneumothorax is seen . The skeletal structures appear osteopenic. The bony thorax is grossly intact. Surgical clips projec t over the upper abdomen. IMPRESSION: No acute cardiopulmonary abnormality. ACT 112: Negative or not required by law. Electronically signed by: Robe Lin M.D. 10/04/2021 10:51 PM
[2021-10-04 22:56] LABS: Hematocrit (blood only) 22.3 % (42-52); Hemoglobin 6.8 g/dL (14.0-18.0); Mean Corpuscular Hemoglobin 29.8 pg (25-34); Mean Corpuscular Hgb Conc 30.5 g/dL (32-36); Mean Corpuscular Volume 97.8 fL (80-100); Mean Platelet Volume 9.5 fL (7.4-10.4); Platelet Count 68 K/uL (130-400); RDW Standard Deviation 65.6 fL (36.4-46.3); Red Blood Count 2.28 M/uL (4.7-6.1); White Blood Count 2.18 K/uL (4.8-10.8)
[2021-10-04 22:59] LABS: Partial Thromboplastin Ratio 0.9; Partial Thromboplastin Time 23.2 Seconds (21.0-31.0); Prothrombin Time 10.6 Seconds (9.0-12.0)
[2021-10-04 23:00] LABS: iSTAT Hemoglobin 6.5 g/dl (14.0-18.0); iSTAT Ionized Calcium 1.22 mmol/l (1.12-1.32); iSTAT Potassium 3.8 mmol/L (3.3-5.0)
[2021-10-04 23:07] LABS: Alanine Aminotransferase 43 (12-78); Albumin Level 2.7 gm/dl (3.4-5.0); Aspartate Aminotransferase 49 U/L (15-37); BUN Creatinine Ratio 17.1 (10-20); Blood Urea Nitrogen 17 mg/dl (7-18); Calcium 8.3 mg/dl (8.5-10.1); Carbon Dioxide 27 mmol/L (21-32); Chloride 112 mmol/L (98-107); Creatinine Clr Calc Pharmacy 84.3 ml/min; Est GFR (African American) 97.9 ml/min; Est GFR (Non-African American) 84.5 ml/min; Glucose 124 mg/dl (70-99); Potassium 3.8 mmol/L (3.5-5.1); Sodium 141 mmol/L (136-145)
[2021-10-04 23:12] LABS: Albumin Globulin Ratio 0.8 (0.9-2); Alkaline Phosphatase 101 U/L (45-117); Bilirubin,Total 0.7 mg/dl (0.2-1); Globulin 3.3 gm/dl (2.5-4.0); Troponin I < 0.015 ng/ml (0-0.045)
[2021-10-04 23:13] LABS: Anisocytosis Present; Basophilic Stippling 1+; Basophils # (auto) 0.01 K/uL (0-0.2); Basophils % (auto) 0.5 %; Eosinophils # (auto) 0.07 K/uL (0-0.5); Eosinophils % (auto) 3.2 %; Immature Granulocytes # (auto) 0.01 K/uL (0.00-0.02); Immature Granulocytes % (auto) 0.5 %; Lymphocytes # (auto) 0.55 K/uL (1.2-3.4); Lymphocytes % (auto) 25.2 %; Monocytes # (auto) 0.21 K/uL (0.11-0.59); Monocytes % (auto) 9.6 %; Neutrophils # (auto) 1.33 K/uL (1.4-6.5); Polychromasia 1+; Tear Drop Cells Occasional
[2021-10-04] MEDS ORDERED: SODIUM CHLORIDE 0.9% 250 ML IV PRN (23:23)
[2021-10-04 23:36] LABS: Magnesium 2.1 mg/dl (1.8-2.4); Phosphorus 2.9 mg/dl (2.5-4.9)
--- NOTE | 2021-10-04 23:48 | Emergency Department Note ---
History of Present Illness General Chief complaint: Swelling/Edema to Extremity Stated complaint: fluid around liver, edema in legs and abdomen Time Seen by Provider: 10/04/21 22:52 Source: patient and family Mode of arrival: ambulatory Limitations: no limitations History of Present Illness Provider complaint: Anemia, concern for bleeding Onset (ago): unknown Maximum Pain Intensity: 2 Treatments prior to arrival: none This is a 61-year-old male presents emergency department with concern for anemia, leg swelling, and unknown source of bleeding. Patient with an extensive past medical history including Baez status post TIPS. He does follow with [facility] liver specialist Dr. Aj. Patient also follows with Dr. Murphy of hematology here. Patient had routine follow-up this week down at [facility] including a CAT scan, and then had follow-up vascular ultrasound this past week in addition. Patient had a urology appointment which she states was unremarkable. Patient states he has had ongoing evaluation due to anemia. Patient has been anticoagulated due to a portal vein thrombus and a history of MTHFR. He states he was told by both his customer care manager and his GI specialist at [facility] to stop his Eliquis. He states his last dose was Thursday morning. Patient with chronic ongoing anemia, worse over the last 6 months. Patient has had previous blood transfusion. On a outpatient check of labs earlier this week his hemoglobin was found to be 4. He states Dr. Murphy arranged for an outpatient blood transfusion. He did not have a repeat H&H drawn until tonight when he presented to the emergency room. He has denied noting any black or bloody sto ols. Denies epistaxis, bleeding with brushing his teeth, hematemesis, or bleeding from any other source. Patient and have been in contact with his nursing skilled nursing case manager at [facility] who instructed him to come the emergency room for any changes. Patient states he has noticed increased lower extremity edema and sense of bloating in the abdomen. He denies any swelling to the face or legs. Copies of results from recent vascular ultrasound and CT of the abdomen and pelvis were obtained. Pt seen during a time of high acuity and national emergency pandemic while wearing PPE. Home Medications Medication Instructions Recorded Confirmed Type blood sugar diagnostic (FreeStyle #100 ea 01/12/20 09/17/21 Rx Lite Strips) lancets 28 gauge (FreeStyle #100 ea 01/12/20 09/17/21 Rx Lancets) atorvastatin 20 mg tablet 20 mg PO HS #90 tab 11/02/20 10/04/21 Rx omeprazole 20 mg capsule,delayed 20 mg PO DAILY #90 cap 01/31/21 10/04/21 Rx release lactulose 10 gram/15 mL oral 15 ml PO DAILY 02/11/21 10/04/21 History solution rifaximin 550 mg tablet 550 mg PO BID 02/11/21 10/04/21 History trazodone 100 mg tablet 50 mg PO HS 02/27/21 10/04/21 History fluoxetine 10 mg capsule (Prozac) 10 mg PO DAILY #90 cap 04/11/21 10/04/21 Rx bupropion HCl 300 mg 24 hr tablet, 300 mg PO QAM tab 05/20/21 10/04/21 History extended release coenzyme Q10 30 mg capsule 30 mg PO DAILY 07/30/21 10/04/21 History zinc sulfate 50 mg zinc (220 mg) 50 mg PO DAILY 07/30/21 10/04/21 History tablet ferrous sulfate 325 mg (65 mg 325 mg PO BID 08/06/21 10/04/21 History iron) tablet (Feosol) gabapentin 300 mg capsule 300 mg PO HS #90 cap 08/06/21 10/04/21 Rx doxycycline hyclate 100 mg capsule 100 mg PO BID 7 Days #14 cap 09/18/21 10/04/21 Rx Allergies Allergy/AdvReac Type Severity Reaction Status Date / Time lisinopril Allergy Mild cough Verified 10/04/21 23:22 Penicillins Allergy Mild RASH Verified 10/04/21 23:22 Past Med/Surg History Medical History Anemia Anxiety CAD (coronary artery disease) Chronic anticoagulation Depression Diabetes mellitus, type [address] 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 Hiatal hernia History of biliary stent insertion Hyperlipidemia Hypertension Insomnia Nonalcoholic steatohepatitis stage 4--reason for eliquis Portal vein thrombosis Tx with Eliquis Sleep apnea no device Splenic vein thrombosis Splenomegaly Surgical History History of colonoscopy with polypectomy History of esophagogastroduodenoscopy (EGD) History of wisdom tooth extraction S/P TIPS (transjugular intrahepatic portosystemic shunt) Family History Mother Family history of diabetes mellitus Sister Leukemia Family history of diabetes mellitus Father , age 42 No problems noted. Brother Benign polyp of large intestine Uncle Diabetes Other No family history of adverse response to anesthesia Social History Smoking Status: Never smoker Tobacco Type: Cigarettes Age Started Using Tobacco: 22; Age Quit Using Tobacco: 47; packs per day: 1; Years Smoked: 25; Second Hand Exposure: No (parents smoked); Hx Alcohol Use: No Hx Substance Use: No Preferred Language: Sinhala Communication Ability: Effective Visual Impairment: Limited Hearing Ability: Normal Color Straining Bag Washer Required: No Beliefs That Will Affect Care: None marital status: Current Living Situation: Spouse and Family Current Living Situation Comment: Lives with and son current occupational status: employed current occupation: [employer] Feels Safe at Home: Yes Childhood Exposure to Second-Hand Smoke: No caffeine: Yes Dental Care, Regularly: Yes Physical Activity Frequency: Daily Physical Activity Frequency Comment: WALK Seatbelt Use: always Sunscreen Use: Yes Assistive Devices: Glasses Review of Systems A total of 10 systems reviewed and were otherwise negative All systems reviewed & are unremarkable except as noted in HPI & below Physical Exam Vital Signs Vital Signs - 24 hr 10/04/21 22:14 10/05/21 00:22 10/05/21 00:40 Temperature 36.8 C 36.9 C 37 C Temperature Source Temporal Artery Scan Oral Oral Pulse Rate 93 H 95 H 91 H Pulse Rhythm Regular Regular Pulse Strength Normal Normal Respiratory Rate 18 18 18 Respiratory Depth Normal Blood Pressure 136/71 138/70 131/67 Blood Pressure Mean 92 92 88 Blood Pressure Position Sitting Lying Pulse Oximetry 100 100 99 Oxygen Delivery Method Room Air Sepsis Recent Fever Within 48 Hours No Sepsis New/Unexplained Change in Mental Status N/A Sepsis Action Taken by Nursing No Action Required 10/05/21 00:55 Temperature 37 C Temperature Source Oral Pulse Rate 94 H Pulse Rhythm Regular Pulse Strength Normal Respiratory Rate 18 Respiratory Depth Blood Pressure 122/66 Blood Pressure Mean 84 Blood Pressure Position Lying Pulse Oximetry 99 Oxygen Delivery Method Sepsis Recent Fever Within 48 Hours Sepsis New/Unexplained Change in Mental Status Sepsis Action Taken by Nursing GENERAL: alert, well appearing, well nourished, no distress, non-toxic EYE EXAM: normal conjunctiva, PERRL and EOM's grossly intact OROPHARYNX: no exudate, no erythema, lips, buccal mucosa, and tongue normal and mucous membranes are moist NECK: supple, no nuchal rigidity, no adenopathy, non-tender LUNGS: Clear to auscultation. Normal chest wall mechanics, no w/r/r HEART: no murmurs, S1 normal and S2 normal ABDOMEN: abdomen soft, non-tender, normo-active bowel sounds, no masses, no rebound or guarding. Mild abdominal bloating noted, no pitting edema to the abdominal wall. BACK: Back is symmetrical on inspection and there is no deformity, no midline tenderness, no CVA tenderness. No presacral edema. SKIN: no rashes and no bruising, no petechiae UPPER EXTREMITIES: upper extremities are grossly normal. FROM, nml pulses b/l. LOWER EXTREMITIES: 1-2+ b/l pitting edema. FROM, nml pulses b/l. NEURO EXAM: Normal sensorium, cranial nerves II-XII grossly intact, normal speech, no gross weakness of arms, no gross weakness of legs. Gross sensation intact. Course Course 0010: Discussed with [facility] GI/hepatology, Dr. Gupta. Discussed all results and patient presentation. Discussed recent imaging and other evaluations. At this time given stability and no evidence for acute ongoing blood loss, she feels patient could be admitted here for blood transfusion. Agrees with plan for 2 units at this time. Patient's last dose of anticoagulation was Thursday morning. We also discussed lower extremity edema and she recommended starting Lasix 40 mg and spironolactone 100 mg. She requested a CBC be drawn in the morning and the hospitalist team call her back to update on the H&H. If patient's H&H responds appropriately, they will continue to make attempts to move up the patient's EGD/[place] to earlier in October instead of the as a scheduled at this time. If the patient does not have an appropriate response, they will consider transfer for more emergent intervention. 0050: Pt updated on discussion with [facility]. Discussed with the hospitalist team. First unit of blood already being transfused. Administered Medications Discontinued Medications Atorvastatin Calcium (Atorvastatin 20 Mg Tab) 20 mg PO [facility] Stop: 11/04/21 20:59 Last Admin: 10/05/21 20:30 Dose: 20 mg Documented by: [id number] Bupropion HCl (Bupropion Xl 300 Mg Tabcr) [facility] Stop: 11/04/21 08:59 Last Admin: 10/05/21 08:09 Dose: 300 mg Documented by: [id number] Ceftriaxone Sodium (Ceftriaxone Sodium 2000mg/70ml D5w) Confirm Administered Dose 2,000 mg IV .STK-MED ONE Stop: 10/05/21 05:54 Last Admin: 10/05/21 06:00 Dose: Not Given Documented by: [id number] Fluoxetine HCl (Fluoxetine Hcl 10 Mg Cap) 10 mg PO DAILY [facility] Stop: 11/04/21 08:59 Last Admin: 10/05/21 08:09 Dose: 10 mg Documented by: [id number] Furosemide (Furosemide 40 Mg/4 Ml Vial) 40 mg IV ONE [facility] Stop: 10/05/21 03:30 Last Admin: 10/05/21 06:02 Dose: 40 mg Documented by: [id number] Furosemide (Furosemide 40 Mg/4 Ml Vial) Confirm Administered Dose 40 mg IV .STK- MED ONE Stop: 10/05/21 05:54 Last Admin: 10/05/21 06:00 Dose: Not Given Documented by: [id number] Gabapentin (Gabapentin 300 Mg Cap) 300 mg PO [facility] Stop: 11/04/21 20:59 Last Admin: 10/05/21 20:30 Dose: 300 mg Documented by: [id number] Ceftriaxone Sodium 2,000 mg/ (Dextrose) 70 mls @ 100 mls/hr IV Q24H [facility]; Protocol Stop: 10/15/21 05:59 Last Infusion: 10/06/21 06:32 Dose: 0 mls/hr Documented by: [id number] Admin: 10/06/21 05:50 Dose: 100 mls/hr Documented by: [id number] Infusion: 10/05/21 07:05 Dose: 0 mls/hr Documented by: [id number] Admin: 10/05/21 06:07 Dose: 100 mls/hr Documented by: [id number] Famotidine 20 mg/ Syringe 5 mls @ 2.5 mls/min IV Q12H [facility] Stop: 11/04/21 08:59 Last Admin: 10/05/21 20:31 Dose: 2.5 mls/min Documented by: [id number] Admin: 10/05/21 08:07 Dose: 2.5 mls/min Documented by: [id number] Lactulose (Lactulose Syrup 20 Gm/30 Ml Udc) 10 gm PO DAILY [facility] Stop: 11/04/21 08:59 Last Admin: 10/05/21 08:11 Dose: 10 gm Documented by: [id number] Pantoprazole Sodium (Pantoprazole 40 Mg Tab) 40 mg PO DAILY [facility] Stop: 11/04/21 08:59 Last Admin: 10/05/21 08:10 Dose: 40 mg Documented by: [id number] Rifaximin (Rifaximin 550 Mg Tablet) 550 mg PO BID [facility] Stop: 11/04/21 08:59 Last Admin: 10/05/21 20:30 Dose: 550 mg Documented by: [id number] Admin: 10/05/21 08:10 Dose: 550 mg Documented by: [id number] Trazodone HCl (Trazodone Hcl 50 Mg Tab) 50 mg PO HS [facility] Stop: 11/04/21 20:59 Last Admin: 10/05/21 20:30 Dose: 50 mg Documented by: [id number] Zinc Sulfate (Zinc Sulfate 220 Mg Capsule) 220 mg PO DAILY [facility] Stop: 11/04/21 08:59 Last Admin: 10/05/21 08:10 Dose: 220 mg Documented by: [id number] Critical Care Time Critical Care Time: Yes Total Critical Care Time: 48 Critical care of 48 min performed to assess and manage high likelihood of life- threatening anemia and GI bleed, involving labs and imaging performed with assessment to evaluate anemia diagnosis with frequent reassessment. This time includes bedside time, treatment discussions with patient/family/consultants, documentation time and excludes procedure time. Medical Decision Making Differential Diagnosis Differential diagnosis includes etiologies such as diverticulosis, AVM, coagulopathy, colitis, inflammatory bowel disease, malignancy, Lea-Gambino tear, esophagitis, peptic ulcer disease, variceal bleed, gastritis, epistaxis, fissure, hemorrhoids, as well as others were entertained. Medical Records Attestation: I reviewed the patient's medical records. Home Medications Current Medication List: was personally reviewed by me Laboratory Data Attestation: I reviewed the patient's lab results. Result diagrams: 10/06/21 04:58 10/06/21 04:58 Lab Results 10/04/21 10/04/21 10/04/21 Range/Units 22:35 22:35 22:35 WBC 2.18 L (4.8-10.8) K/uL RBC 2.28 L (4.7-6.1) M/uL Hgb 6.8 L* (14.0-18.0) g/dL POC Hgb (14.0-18.0) g/dl Hct 22.3 L (42-52) % POC Hct (42-52) % MCV 97.8 (80-100) fL MCH 29.8 (25-34) pg MCHC 30.5 L (32-36) g/dL RDW Std Deviation 65.6 H (36.4-46.3) fL RDW Coeff of Blanca 20.0 H (11.5-14.5) % Plt Count 68 L (130-400) K/uL MPV 9.5 (7.4-10.4) fL Immature Gran % (Auto) 0.5 % Neut % (Auto) 61.0 % Lymph % (Auto) 25.2 % Riley % (Auto) 9.6 % Eos % (Auto) 3.2 % Baso % (Auto) 0.5 % Neut # (Auto) 1.33 L (1.4-6.5) K/uL Lymph # (Auto) 0.55 L (1.2-3.4) K/uL Riley # (Auto) 0.21 (0.11-0.59) K/uL Eos # (Auto) 0.07 (0-0.5) K/uL Baso # (Auto) 0.01 (0-0.2) K/uL Immature Gran # (Auto) 0.01 (0.00-0.02) K/uL Polychromasia 1+ Basophilic Stippling 1+ Anisocytosis Present Tear Drop Cells Occasional PT 10.6 (9.0-12.0) Seconds INR 1.0 (0.9-1.1) APTT 23.2 (21.0-31.0) Seconds PTT Ratio 0.9 POC Sodium (135-144) mmol/L Sodium (136-145) mmol/L POC Potassium (3.3-5.0) mmol/L Potassium (3.5-5.1) mmol/L POC Chloride (101-112) mmol/L Chloride (98-107) mmol/L Carbon Dioxide (21-32) mmol/L POC Total CO2 (24-31) mmol/L Anion Gap (3-11) POC Anion Gap (16-25) mmol/L POC BUN (7-18) mg/dl BUN (7-18) mg/dl Creatinine (0.6-1.4) mg/dl POC Creatinine (0.6-1.3) mg/dl Est Cr Clr Drug Dosing ml/min Est GFR ( Amer) ml/min Est GFR (Non-Af Amer) ml/min BUN/Creatinine Ratio (10-20) Glucose (70-99) mg/dl POC Glucose (other) (70-99) mg/dl Calcium (8.5-10.1) mg/dl POC Ioniz Calcium Jono (1.12-1.32) mmol/l Phosphorus (2.5-4.9) mg/dl Magnesium (1.8-2.4) mg/dl Total Bilirubin (0.2-1) mg/dl AST (15-37) U/L ALT (12-78) Alkaline Phosphatase (45-117) U/L Troponin I (0-0.045) ng/ml Total Protein (6.4-8.2) gm/dl Albumin (3.4-5.0) gm/dl Globulin (2.5-4.0) gm/dl Albumin/Globulin Ratio (0.9-2) POC Stool Occult Blood (Negative) SARS-CoV-2, RNA, NAAT (NEGATIVE) Blood Type A Positive Antibody Screen NEGATIVE Crossmatch See Detail 10/04/21 10/04/21 10/04/21 Range/Units 22:35 22:48 23:47 WBC (4.8-10.8) K/uL RBC (4.7-6.1) M/uL Hgb (14.0-18.0) g/dL POC Hgb 6.5 L* (14.0-18.0) g/dl Hct (42-52) % POC Hct 19 L* (42-52) % MCV (80-100) fL MCH (25-34) pg MCHC (32-36) g/dL RDW Std Deviation (36.4-46.3) fL RDW Coeff of Blanca (11.5-14.5) % Plt Count (130-400) K/uL MPV (7.4-10.4) fL Immature Gran % (Auto) % Neut % (Auto) % Lymph % (Auto) % Riley % (Auto) % Eos % (Auto) % Baso % (Auto) % Neut # (Auto) (1.4-6.5) K/uL Lymph # (Auto) (1.2-3.4) K/uL Riley # (Auto) (0.11-0.59) K/uL Eos # (Auto) (0-0.5) K/uL Baso # (Auto) (0-0.2) K/uL Immature Gran # (Auto) (0.00-0.02) K/uL Polychromasia Basophilic Stippling Anisocytosis Tear Drop Cells PT (9.0-12.0) Seconds INR (0.9-1.1) APTT (21.0-31.0) Seconds PTT Ratio POC Sodium 141 (135-144) mmol/L Sodium 141 (136-145) mmol/L POC Potassium 3.8 (3.3-5.0) mmol/L Potassium 3.8 (3.5-5.1) mmol/L POC Chloride 107 (101-112) mmol/L Chloride 112 H (98-107) mmol/L Carbon Dioxide 27 (21-32) mmol/L POC Total CO2 23 L (24-31) mmol/L Anion Gap 2.0 L (3-11) POC Anion Gap 16.0 (16-25) mmol/L POC BUN 15 (7-18) mg/dl BUN 17 (7-18) mg/dl Creatinine 0.97 (0.6-1.4) mg/dl POC Creatinine 1.0 (0.6-1.3) mg/dl Est Cr Clr Drug Dosing 84.3 ml/min Est GFR ( Amer) 97.9 ml/min Est GFR (Non-Af Amer) 84.5 ml/min BUN/Creatinine Ratio 17.1 (10-20) Glucose 124 H (70-99) mg/dl POC Glucose (other) 121 H (70-99) mg/dl Calcium 8.3 L (8.5-10.1) mg/dl POC Ioniz Calcium Jono 1.22 (1.12-1.32) mmol/l Phosphorus 2.9 (2.5-4.9) mg/dl Magnesium 2.1 (1.8-2.4) mg/dl Total Bilirubin 0.7 (0.2-1) mg/dl AST 49 H (15-37) U/L ALT 43 (12-78) Alkaline Phosphatase 101 (45-117) U/L Troponin I < 0.015 (0-0.045) ng/ml Total Protein 6.0 L (6.4-8.2) gm/dl Albumin 2.7 L (3.4-5.0) gm/dl Globulin 3.3 (2.5-4.0) gm/dl Albumin/Globulin Ratio 0.8 L (0.9-2) POC Stool Occult Blood Positive A (Negative) SARS-CoV-2, RNA, NAAT (NEGATIVE) Blood Type Antibody Screen Crossmatch 10/05/21 Range/Units 01:15 WBC (4.8-10.8) K/uL RBC (4.7-6.1) M/uL Hgb (14.0-18.0) g/dL POC Hgb (14.0-18.0) g/dl Hct (42-52) % POC Hct (42-52) % MCV (80-100) fL MCH (25-34) pg MCHC (32-36) g/dL RDW Std Deviation (36.4-46.3) fL RDW Coeff of Blanca (11.5-14.5) % Plt Count (130-400) K/uL MPV (7.4-10.4) fL Immature Gran % (Auto) % Neut % (Auto) % Lymph % (Auto) % Riley % (Auto) % Eos % (Auto) % Baso % (Auto) % Neut # (Auto) (1.4-6.5) K/uL Lymph # (Auto) (1.2-3.4) K/uL Riley # (Auto) (0.11-0.59) K/uL Eos # (Auto) (0-0.5) K/uL Baso # (Auto) (0-0.2) K/uL Immature Gran # (Auto) (0.00-0.02) K/uL Polychromasia Basophilic Stippling Anisocytosis Tear Drop Cells PT (9.0-12.0) Seconds INR (0.9-1.1) APTT (21.0-31.0) Seconds PTT Ratio POC Sodium (135-144) mmol/L Sodium (136-145) mmol/L POC Potassium (3.3-5.0) mmol/L Potassium (3.5-5.1) mmol/L POC Chloride (101-112) mmol/L Chloride (98-107) mmol/L Carbon Dioxide (21-32) mmol/L POC Total CO2 (24-31) mmol/L Anion Gap (3-11) POC Anion Gap (16-25) mmol/L POC BUN (7-18) mg/dl BUN (7-18) mg/dl Creatinine (0.6-1.4) mg/dl POC Creatinine (0.6-1.3) mg/dl Est Cr Clr Drug Dosing ml/min Est GFR ( Amer) ml/min Est GFR (Non-Af Amer) ml/min BUN/Creatinine Ratio (10-20) Glucose (70-99) mg/dl POC Glucose (other) (70-99) mg/dl Calcium (8.5-10.1) mg/dl POC Ioniz Calcium Jono (1.12-1.32) mmol/l Phosphorus (2.5-4.9) mg/dl Magnesium (1.8-2.4) mg/dl Total Bilirubin (0.2-1) mg/dl AST (15-37) U/L ALT (12-78) Alkaline Phosphatase (45-117) U/L Troponin I (0-0.045) ng/ml Total Protein (6.4-8.2) gm/dl Albumin (3.4-5.0) gm/dl Globulin (2.5-4.0) gm/dl Albumin/Globulin Ratio (0.9-2) POC Stool Occult Blood (Negative) SARS-CoV-2, RNA, NAAT NEGATIVE (NEGATIVE) Blood Type Antibody Screen Crossmatch Imaging Data Radiologist's Impression: Chest X-Ray 10/04/21 22:22 SINGLE VIEW CHEST CLINICAL HISTORY: Generalized weakness. FINDINGS: An AP, portable, upright chest radiograph is compared to study dated 02/01/2021. Correlation is made with chest CT dated 10/29/2017. The heart is top normal for projection. There is bibasilar atelectasis. No airspace consolidation or large pleural effusion is identified. No pneumothorax is seen. The skeletal structures appear osteopenic. The bony thorax is grossly intact. Surgical clips project over the upper abdomen. IMPRESSION: No acute cardiopulmonary abnormality. ACT 112: Negative or not required by law. Electronically signed by: Robe Lni M.D. 10/04/2021 10:51 PM ECG Data Attestation: I personally reviewed and interpreted this ECG as follows: Indication: + weakness Rate (beats per minute): 92 Rhythm: + normal sinus ECG Intervals/blocks: + Right Bundle branch block and + Prolonged QT ECG [place]: + Normal ECG ST segments: + Nonspecific ST abnormalities MDM Narrative This is a 61-year-old male with a complicated past medical history including BAEZ cirrhosis status post TIPS at [facility]. Patient hemodynamically stable. Patient has had contact and evaluation by her she hepatology recently. Patient with recent worsening anemia status post transfusion earlier this week as an outpatient by hematology. Patient found to have persistent anemia here. concerned about additional lower extremity and abdominal wall edema in addition. Case discussed with [facility] hepatology on-call Dr. Gupta. At this time they do not feel patient required emergent transfer, were comfortable with transfusi on and monitoring appear overnight and will reevaluate need for urgent transfer versus outpatient follow-up and EGD/[place]. Case discussed with hospitalist for additional evaluation and management. Patient remained hemodynamically stable and afebrile in the emergency room. Blood was ordered and transfusion begun while in the emergency room. An order was placed for continuous cardiac monitoring. The monitor shows a rate of _68_ with _normal sinus_ rhythm. 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
[2021-10-05] MEDS ORDERED: FUROSEMIDE 40 MG/4 ML VIAL IV STA (03:29)
--- NOTE | 2021-10-05 03:43 | History & Physical Report ---
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 Glucose 124 upon admission We will place on Accu-Cheks his a.m. glucose is elevated (10) Hyperlipidemia: Plan: Continue atorvastatin (11) CAD (coronary artery disease): Plan: Continue treatment for risk factor modifications (12) Depression: Plan: Continue bupropion, fluoxetine and trazodone History of Present Illness Chief Complaint: The patient presents to the emergency department with complaint of swelling in abdomen and legs, and concern regarding anemia Primary Care Provider: Chencho Gilliland DO The patient is a 61-year-old male with a past medical history including portal vein thrombosis, status post TIPS, liver cirrhosis secondary to COOL, esophageal varices, splenomegaly, insomnia, depression, SHEREEN, diabetes mellitus, hypertension, hyperlipidemia, CAD, diabetic retinopathy, and hiatal hernia. He presently had his Eliquis discontinued and oral iron discontinued. He most recently received 2 units PRBCs on 10/02 for hemoglobin of 4.7, and upon admission this evening, has a hemoglobin 6.8. [facility] hepatology asked that the patient be admitted to [facility], be transfused 2 additional units of PRBCs, and contact them in the a.m. for further recommendations. Patient does have some outpatient studies that [facility] would prefer to keep as outpatient if possible Allergies Allergy/AdvReac Type Severity Reaction Status Date / Time lisinopril Allergy Mild cough Verified 10/04/21 23:22 Penicillins Allergy Mild RASH Verified 10/04/21 23:22 Home Medications Medication Instructions Recorded Confirmed Type apixaban 5 mg tablet 5 mg PO BID #60 tab 08/03/19 10/04/21 History blood sugar diagnostic (FreeStyle #100 ea 01/12/20 09/17/21 Rx Lite Strips) lancets 28 gauge (FreeStyle #100 ea 01/12/20 09/17/21 Rx Lancets) atorvastatin 20 mg tablet 20 mg PO HS #90 tab 11/02/20 10/04/21 Rx omeprazole 20 mg capsule,delayed 20 mg PO DAILY #90 cap 01/31/21 10/04/21 Rx release lactulose 10 gram/15 mL oral 15 ml PO DAILY 02/11/21 10/04/21 History solution rifaximin 550 mg tablet 550 mg PO BID 02/11/21 10/04/21 History trazodone 100 mg tablet 50 mg PO HS 02/27/21 10/04/21 History fluoxetine 10 mg capsule (Prozac) 10 mg PO DAILY #90 cap 04/11/21 10/04/21 Rx bupropion HCl 300 mg 24 hr tablet, 300 mg PO QAM tab 05/20/21 10/04/21 History extended release coenzyme Q10 30 mg capsule 30 mg PO DAILY 07/30/21 10/04/21 History zinc sulfate 50 mg zinc (220 mg) 50 mg PO DAILY 07/30/21 10/04/21 History tablet ferrous sulfate 325 mg (65 mg 325 mg PO BID 08/06/21 10/04/21 History iron) tablet (Feosol) gabapentin 300 mg capsule 300 mg PO HS #90 cap 08/06/21 10/04/21 Rx doxycycline hyclate 100 mg capsule 100 mg PO BID 7 Days #14 cap 09/18/21 10/04/21 Rx Past Med/Surg History Medical History Anemia Anxiety CAD (coronary artery disease) Chronic anticoagulation Depression Diabetes mellitus, type [address] 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 Hiatal hernia History of biliary stent insertion Hyperlipidemia Hypertension Insomnia Nonalcoholic steatohepatitis stage 4--reason for eliquis Portal vein thrombosis Tx with Eliquis Sleep apnea no device Splenic vein thrombosis Splenomegaly Surgical History History of colonoscopy with polypectomy History of esophagogastroduodenoscopy (EGD) History of wisdom tooth extraction S/P TIPS (transjugular intrahepatic portosystemic shunt) Family History Mother Family history of diabetes mellitus Sister Leukemia Family history of diabetes mellitus Father , age 42 No problems noted. Brother Benign polyp of large intestine Uncle Diabetes Other No family history of adverse response to anesthesia Social History Smoking Status: Former smoker Tobacco Type: Cigarettes Age Started Using Tobacco: 22; Age Quit Using Tobacco: 47; packs per day: 1; Years Smoked: 25; Second Hand Exposure: No (parents smoked); Hx Alcohol Use: No Hx Substance Use: No Preferred Language: Danish Communication Ability: Effective Visual Impairment: Limited Hearing Ability: Normal Supplier Quality Required: No Beliefs That Will Affect Care: None marital status: Current Living Situation: Spouse and Family Current Living Situation Comment: Lives with and son current occupational status: employed current occupation: [employer] Feels Safe at Home: Yes Childhood Exposure to Second-Hand Smoke: No caffeine: Yes Dental Care, Regularly: Yes Physical Activity Frequency: Daily Physical Activity Frequency Comment: WALK Seatbelt Use: always Sunscreen Use: Yes Assistive Devices: None Review of Systems Review of Systems: The patient denies chest pain, palpitations, cough, sore throat, fevers, chills, sweats, nausea, vomiting, diarrhea , constipation, abdominal pain, pelvic pain, blood in urine or stool, dysuria, urinary frequency or urgency, lightheadedness, dizziness, headache, memory loss, loss of consciousness, imbalance, focal weakness, numbness or tingling in arms or legs, generalized arthralgias or myalgias, back or neck pain, or night sweats. The review of systems is otherwise negative other than for that already noted above, and at least 10 systems have been reviewed. Physical Exam Physical Exam: The patient is awake, alert and oriented 3, well developed and well nourished, normocephalic and atraumatic, lying in bed and in no acute distress. HEENT--PERRL, EOMI, mucous membranes and oropharynx normal Neck--supple. No JVD. No bruits. Thyroid normal, trachea midline, no adenopathy. Heart--normal S1 and S2. No murmurs, rubs or gallops. Lungs--clear bilaterally, no respiratory distress, no accessory muscle use. Abdomen--normal bowel sounds and soft. Nontender. Mildly distended. Extremities--2+ bilateral pretibial pitting edema Dermatologic--skin is mildly dry Neurologic--cranial nerves II through XII grossly intact. Rheumatologic--normal range of motion. Psychiatric--normal affect. Results & Data Results & Data ([facility]) Vital Signs (Past 12 Hours) Vital Signs Temp Pulse Resp BP Pulse Ox 10/05/21 03:23 37.5 C 94 H 18 122/72 98 10/05/21 03:00 37 C 93 H 18 128/78 99 10/05/21 01:25 37 C 93 H 18 126/67 98 10/05/21 01:20 94 H 16 99 10/05/21 01:15 96 H 13 109/66 100 10/05/21 01:10 96 H 13 100 10/05/21 01:00 94 H 17 122/66 99 10/05/21 00:55 37 C 94 H 18 122/66 99 10/05/21 00:50 96 H 14 99 10/05/21 00:45 115/68 10/05/21 00:44 92 H 26 H 99 10/05/21 00:40 37 C 93 H 13 131/67 99 10/05/21 00:30 91 H 11 L 131/67 100 10/05/21 00:23 93 H 16 132/68 99 10/05/21 00:22 36.9 C 95 H 18 138/70 100 10/05/21 00:20 95 H 14 100 10/05/21 00:10 94 H 17 100 10/05/21 00:00 92 H 16 138/70 100 10/04/21 23:56 92 H 16 100 10/04/21 22:14 36.8 C 93 H 18 136/71 100 Laboratory Results Laboratory Results WBC 2.18 K/uL (4.8-10.8) L 10/04/21 22:35 RBC 2.28 M/uL (4.7-6.1) L 10/04/21 22:35 Hgb 6.8 g/dL (14.0-18.0) L* 10/04/21 22:35 POC Hgb 6.5 g/dl (14.0-18.0) L* 10/04/21 22:48 Hct 22.3 % (42-52) L 10/04/21 22:35 POC Hct 19 % (42-52) L* 10/04/21 22:48 MCV 97.8 fL (80-100) 10/04/21 22:35 MCH 29.8 pg (25-34) 10/04/21 22:35 MCHC 30.5 g/dL (32-36) L 10/04/21 22:35 RDW Std Deviation 65.6 fL (36.4-46.3) H 10/04/21 22:35 RDW Coeff of Blanca 20.0 % (11.5-14.5) H 10/04/21 22:35 Plt Count 68 K/uL (130-400) L 10/04/21 22:35 MPV 9.5 fL (7.4-10.4) 10/04/21 22:35 Immature Gran % (Auto) 0.5 % 10/04/21 22:35 Neut % (Auto) 61.0 % 10/04/21 22:35 Lymph % (Auto) 25.2 % 10/04/21 22:35 [place] % (Auto) 9.6 % 10/04/21 22:35 Eos % (Auto) 3.2 % 10/04/21 22:35 Baso % (Auto) 0.5 % 10/04/21 22:35 Neut # (Auto) 1.33 K/uL (1.4-6.5) L 10/04/21 22:35 Lymph # (Auto) 0.55 K/uL (1.2-3.4) L 10/04/21 22:35 [place] # (Auto) 0.21 K/uL (0.11-0.59) 10/04/21 22:35 Eos # (Auto) 0.07 K/uL (0-0.5) 10/04/21 22:35 Baso # (Auto) 0.01 K/uL (0-0.2) 10/04/21 22:35 Immature Gran # (Auto) 0.01 K/uL (0.00-0.02) 10/04/21 22:35 Polychromasia 1+ 10/04/21 22:35 Basophilic Stippling 1+ 10/04/21 22:35 Anisocytosis Present 10/04/21 22:35 Tear Drop Cells Occasional 10/04/21 22:35 PT 10.6 Seconds (9.0-12.0) 10/04/21 22:35 INR 1.0 (0.9-1.1) 10/04/21 22:35 APTT 23.2 Seconds (21.0-31.0) 10/04/21 22:35 PTT Ratio 0.9 10/04/21 22:35 POC Sodium 141 mmol/L (135-144) 10/04/21 22:48 Sodium 141 mmol/L (136-145) 10/04/21 22:35 POC Potassium 3.8 mmol/L (3.3-5.0) 10/04/21 22:48 Potassium 3.8 mmol/L (3.5-5.1) 10/04/21 22:35 POC Chloride 107 mmol/L (101-112) 10/04/21 22:48 Chloride 112 mmol/L (98-107) H 10/04/21 22:35 Carbon Dioxide 27 mmol/L (21-32) 10/04/21 22:35 POC Total CO2 23 mmol/L (24-31) L 10/04/21 22:48 Anion Gap 2.0 (3-11) L 10/04/21 22:35 POC Anion Gap 16.0 mmol/L (16-25) 10/04/21 22:48 POC BUN 15 mg/dl (7-18) 10/04/21 22:48 BUN 17 mg/dl (7-18) 10/04/21 22:35 Creatinine 0.97 mg/dl (0.6-1.4) 10/04/21 22:35 POC Creatinine 1.0 mg/dl (0.6-1.3) 10/04/21 22:48 Est Cr Clr Drug Dosing 84.3 ml/min 10/04/21 22:35 Est GFR ( Amer) 97.9 ml/min 10/04/21 22:35 Est GFR (Non-Af Amer) 84.5 ml/min 10/04/21 22:35 BUN/Creatinine Ratio 17.1 (10-20) 10/04/21 22:35 Glucose 124 mg/dl (70-99) H 10/04/21 22:35 POC Glucose (other) 121 mg/dl (70-99) H 10/04/21 22:48 Calcium 8.3 mg/dl (8.5-10.1) L 10/04/21 22:35 POC Ioniz Calcium Jono 1.22 mmol/l (1.12-1.32) 10/04/21 22:48 Phosphorus 2.9 mg/dl (2.5-4.9) 10/04/21 22:35 Magnesium 2.1 mg/dl (1.8-2.4) 10/04/21 22:35 Total Bilirubin 0.7 mg/dl (0.2-1) 10/04/21 22:35 AST 49 U/L (15-37) H 10/04/21 22:35 ALT 43 (12-78) 10/04/21 22:35 Alkaline Phosphatase 101 U/L (45-117) 10/04/21 22:35 Troponin I < 0.015 ng/ml (0-0.045) 10/04/21 22:35 Total Protein 6.0 gm/dl (6.4-8.2) L 10/04/21 22:35 Albumin 2.7 gm/dl (3.4-5.0) L 10/04/21 22:35 Globulin 3.3 gm/dl (2.5-4.0) 10/04/21 22:35 Albumin/Globulin Ratio 0.8 (0.9-2) L 10/04/21 22:35 POC Stool Occult Blood Positive (Negative) A 10/04/21 23:47 SARS-CoV-2, RNA, NAAT NEGATIVE (NEGATIVE) 10/05/21 01:15 Blood Type A Positive 10/04/21 22:35 Antibody Screen NEGATIVE 10/04/21 22:35 Crossmatch See Detail 10/04/21 22:35 Impressions Chest X-Ray 10/04/21 22:22 SINGLE VIEW CHEST CLINICAL HISTORY: Generalized weakness. FINDINGS: An AP, portable, upright chest radiograph is compared to study dated 02/01/2021. Correlation is made with chest CT dated 10/29/2017. The heart is top normal for projection. There is bibasilar atelectasis. No airspace consolidation or large pleural effusion is identified. No pneumothorax is seen. The skeletal structures appear osteopenic. The bony thorax is grossly intact. Surgical clips project over the upper abdomen. IMPRESSION: No acute cardiopulmonary abnormality. ACT 112: Negative or not required by law. Electronically signed by: Robe Lin M.D. 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
[2021-10-05] MEDS ORDERED: ONDANSETRON INJ 2 MG/ML 2 ML VIAL IV PRN (04:34)
[2021-10-05 05:13] LABS: Hematocrit (blood only) 23.6 % (42-52); Hemoglobin 7.5 g/dL (14.0-18.0); Mean Corpuscular Hemoglobin 30.4 pg (25-34); Mean Corpuscular Hgb Conc 31.8 g/dL (32-36); Mean Corpuscular Volume 95.5 fL (80-100); RDW Coefficient of Variation 18.2 % (11.5-14.5); RDW Standard Deviation 58.5 fL (36.4-46.3); Red Blood Count 2.47 M/uL (4.7-6.1); White Blood Count 2.04 K/uL (4.8-10.8)
[2021-10-05 05:27] LABS: Mean Platelet Volume 9.7 fL (7.4-10.4); Platelet Count 59 K/uL (130-400)
[2021-10-05 05:33] LABS: Albumin Level 2.4 gm/dl (3.4-5.0); BUN Creatinine Ratio 20.3 (10-20); Creatinine Clr Calc Pharmacy 95.1 ml/min; Est GFR (African American) 109.2 ml/min; Est GFR (Non-African American) 94.3 ml/min; Potassium 3.9 mmol/L (3.5-5.1)
[2021-10-05 05:35] LABS: Albumin Globulin Ratio 0.9 (0.9-2); Bilirubin,Total 0.7 mg/dl (0.2-1); Globulin 2.7 gm/dl (2.5-4.0); Total Protein 5.1 gm/dl (6.4-8.2)
[2021-10-05] MEDS ORDERED: cefTRIAXone SODIUM 2000MG/70ML D5W IV ONE (05:53)
[2021-10-05] MEDS ORDERED: FUROSEMIDE 40 MG/4 ML VIAL IV ONE (05:53)
[2021-10-05] MEDS: cefTRIAXone SODIUM 2,000 MG in DEXTROSE 5% 50 ML IV SCH (06:07)
[2021-10-05 06:08] LABS: Eosinophils # (auto) 0.03 K/uL (0-0.5); Eosinophils % (auto) 1.5 %; Lymphocytes # (auto) 0.48 K/uL (1.2-3.4); Lymphocytes % (auto) 23.5 %; Monocytes # (auto) 0.21 K/uL (0.11-0.59); Monocytes % (auto) 10.3 %; Neutrophils # (auto) 1.32 K/uL (1.4-6.5); Neutrophils % (auto) 64.7 %; Polychromasia 1+; Tear Drop Cells 1+
[2021-10-05] MEDS: FAMOTIDINE 20 MG in SYRINGE 3 ML IV SCH ×2 (08:07→20:31)
[2021-10-05] MEDS: rifAXIMin 550 MG TABLET PO SCH ×2 (08:10→20:30)
[2021-10-05] MEDS ORDERED: buPROPion XL 300 MG TABCR PO SCH (09:00)
[2021-10-05] MEDS ORDERED: FLUoxetine HCL 10 MG CAP PO SCH (09:00)
[2021-10-05] MEDS ORDERED: ZINC SULFATE 220 MG CAPSULE PO SCH (09:00)
[2021-10-05] MEDS ORDERED: PANTOprazole 40 MG TAB PO SCH (09:00)
[2021-10-05] MEDS ORDERED: LACTULOSE SYRUP 20 GM/30 ML UDC PO SCH (09:00)
[2021-10-05 16:27] LABS: Hematocrit (blood only) 24.5 % (42-52); Hemoglobin 7.9 g/dL (14.0-18.0)
--- NOTE | 2021-10-05 17:24 | Hospitalist Progress Note ---
Date of Service October 05, 2021 Assessment & Plan (1) Anemia: Plan: Jose is a 7-year-old male with a past medical history of liver cirrhosis 2/2 COOL status post TIPS procedure, MTHFR gene positive, SHEREEN, hypertension, CAD, and portal vein thrombosis who has had anticoagulation stopped due to bleeding who presented with anemia requiring transfusion suspected from upper GI origin. Endoscopy complicated by history of TIPS procedure, is recommended for transfer to [facility]. He had received 2 units of blood earlier in the week, and an additional 2 units of blood while admitted with suboptimal rise. Slight increase in hemoglobin 10/05/2021, hemodynamically stable through the day. Disposition: Case reviewed and discussed with [facility] Hepatology Dr. Gupta. Patient is recommended for direct transfer to [facility] for further endoscopy evaluation. He has been accepted to [facility], is pending bed availability for transfer. Acute blood loss anemia 2/2 GI bleed in the setting of cirrhosis with TIPS procedure, history of pancytopenia - Status post 2 units PRBCs on 10/02 for hemoglobin 4.7 -Received 2 additional units with suboptimal rise to 7.5, 7.9 on afternoon recheck - Lasix 40mg IV for volume management Patient without active clinical bleeding on daytime assessment Hemodynamically stable 10/05, continue to follow and trend hemoglobin Covid negative Occult blood positive stool Remains on GI antibiotic prophylaxis with Rocephin (2) Pancytopenia: Plan: Follow serially (3) Portal vein thrombosis: Plan: Eliquis was stopped recently due to dropping hemoglobin (4) S/P TIPS (transjugular intrahepatic portosystemic shunt): Plan: Status post TIPS/liver cirrhosis secondary to COOL/esophageal varices/splenomegaly- Following with [facility] hepatology Outpatient studies pending to be continued after appropriate response to transfusions Discussed with hepatology, patient accepted for transfer pending bed availability Continue lactulose, omeprazole, rifaximin (5) 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 Glucose 124 upon admission We will place on Accu-Cheks his a.m. glucose is elevated (10) Hyperlipidemia: Plan: Continue atorvastatin (11) CAD (coronary artery disease): Plan: Continue treatment for risk factor modifications (12) Depression: Plan: Continue bupropion, fluoxetine and trazodone Admission and Anticipated Discharge Date Admission Date: October 05, 2021 Subjective Seen at bedside, patient reports he feels well today. Swelling in his legs is improving. He denies chest pain, chest pressure, shortness of breath, lightheadedness, dizziness, bleeding, abdominal pain at bedside assessment. He has not noticed any bleeding today. Did review the case with patient and with [facility] hepatology service, recommended that patient be transferred for upper endoscopy and has been accepted for this at [facility]. Pending bed availability. Review of Systems Review of Systems: All systems reviewed & are unremarkable except as noted in Subjective Physical Exam Physical Exam: General: A&Ox3. NAD. Cooperative. HEENT: Atraumatic, normocephalic. Pulm: CTAB A&P. -wheezes, -rales, -rhonchi. Symmetrical chest rise. No increase work of breathing. No respiratory distress. Cardiac: RRR, -mrg. Radial pulses intact and symmetrical. Abdominal: Nontender, nondistended, soft. BS present. Extremities: Warm, dry. Pitting edema of the ankles bilaterally, improved from prior per patient. Results & Data Results & Data ([facility]) Vital Signs (Past 12 Hours) Vital Signs Temp Pulse Resp BP Pulse Ox 10/05/21 16:55 80 16 127/72 99 10/05/21 12:00 89 17 137/74 98 10/05/21 11:19 37.1 C 85 17 121/77 98 10/05/21 07:30 81 18 127/71 98 PG Care Time/CCT Total # of Minutes Spent Total Time Spent with Patient: Total time spent is greater than 50% in coordination of care (as documented) at patient's floor/unit and/or counseling patient: Coding Level of Care Code 26852 Subseq Hosp Care Lvl 2 Diagnoses Anemia D64.9 Anemia type: unspecified type Pancytopenia D61.818 Portal vein thrombosis I81 S/P TIPS (transjugular intrahepatic portosystemic shunt) Z95.828 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
--- NOTE | 2021-10-05 18:36 | Discharge Summary ---
Date of Service October 05, 2021 Admission HPI Per Admitting Provider The patient is a 61-year-old male with a past medical history including portal vein thrombosis, status post TIPS, liver cirrhosis secondary to COOL, esophageal varices, splenomegaly, insomnia, depression, SHEREEN, diabetes mellitus, hypertension, hyperlipidemia, CAD, diabetic retinopathy, and hiatal hernia. He presently had his Eliquis discontinued and oral iron discontinued. He most recently received 2 units PRBCs on 10/02 for hemoglobin of 4.7, and upon admission this evening, has a hemoglobin 6.8. [facility] hepatology asked that the patient be admitted to [facility], be transfused 2 additional units of PRBCs, and contact them in the a.m. for further recommendations. Patient does have some outpatient studies that [facility] would prefer to keep as outpatient if possible Admission Exam Per Admitting Provider The patient is awake, alert and oriented 3, well developed and well nourished, normocephalic and atraumatic, lying in bed and in no acute distress. HEENT--PERRL, EOMI, mucous membranes and oropharynx normal Neck--supple. No JVD. No bruits. Thyroid normal, trachea midline, no adenopathy. Heart--normal S1 and S2. No murmurs, rubs or gallops. Lungs--clear bilaterally, no respiratory distress, no accessory muscle use. Abdomen--normal bowel sounds and soft. Nontender. Mildly distended. Extremities--2+ bilateral pretibial pitting edema Dermatologic--skin is mildly dry Neurologic--cranial nerves II through XII grossly intact. Rheumatologic--normal range of motion. Psychiatric--normal affect. Principal Diagnosis Symptomatic anemia Discharge Exam General: A&Ox3. NAD. Cooperative. HEENT: Atraumatic, normocephalic. Pulm: CTAB A&P. -wheezes, -rales, -rhonchi. Symmetrical chest rise. No increase work of breathing. No respiratory distress. Cardiac: RRR, -mrg. Radial pulses intact and symmetrical. Abdominal: Nontender, nondistended, soft. BS present. Extremities: Warm, dry. Pitting edema of the ankles bilaterally, improved from prior per patient. Discharge Data Allergies Allergy/AdvReac Type Severity Reaction Status Date / Time lisinopril Allergy Mild cough Verified 10/04/21 23:22 Penicillins Allergy Mild RASH Verified 10/04/21 23:22 Consultations 10/05/21 01:40 ED Decision to Admit Stat 10/05/21 18:05 Burn CD for patient Stat Hospital Course (1) Anemia: Jose is a 7-year-old male with a past medical history of liver cirrhosis 2/2 COOL status post TIPS procedure, MTHFR gene positive, SHEREEN, hypertension, CAD, and portal vein thrombosis who has had anticoagulation stopped due to bleeding who presented with anemia requiring transfusion suspected from upper GI origin. Endoscopy complicated by history of TIPS procedure, is recommended for transfer to [facility]. He had received 2 units of blood earlier in the week, and an additional 2 units of blood while admitted with suboptimal rise. Slight increase in hemoglobin 10/05/2021, hemodynamically stable through the day. Disposition: Case reviewed and discussed with [facility] Hepatology Dr. Gupta. Patient is recommended for direct transfer to [facility] for further endoscopy evaluation. He has been accepted to [facility], is transferred for further evaluation and treatment. Acute blood loss anemia 2/2 GI bleed in the setting of cirrhosis with TIPS procedure, history of pancytopenia - Status post 2 units PRBCs on 10/02 for hemoglobin 4.7 -Received 2 additional units with suboptimal rise to 7.5, 7.9 on afternoon recheck - Lasix 40mg IV for volume management Patient without active clinical bleeding on daytime assessment Hemodynamically stable 10/05, continue to follow and trend hemoglobin Covid negative Occult blood positive stool Remains on GI antibiotic prophylaxis with Rocephin N.p.o. 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 Glucose 124 upon admission Continue Accu-Cheks, SSI as needed (10) Hyperlipidemia: Continue atorvastatin (11) CAD (coronary artery disease): Continue treatment for risk factor modifications (12) Depression: Continue bupropion, fluoxetine and trazodone Total Time Total Time Spent Total Time Spent (In Minutes): Total time spent day of discharge 65 minutes including direct patient care, coordination of care, review of labs and images, discussion of case Discharge Plan Discharge Items Patient Disposition: Transfer Acute Care Hospital Reason For Visit: SYMPTOMATIC ANEMIA Discharge Diagnosis: Symptomatic Anemia, GI Bleed, Hx TIPS Activity: Resume your previous activity Non-emergency contact: Primary Care Provider and Specialist Call non-emergency contact if: you have any medication questions, your symptoms worsen and your pain is not controlled Follow-up/Referrals: Chencho Gilliland, [Primary Care Provider] - Diet: Nothing by Mouth Addtl Attending Provider Instructions: Jose is a 7-year-old male with a past medical history of liver cirrhosis 2/2 COOL status post TIPS procedure, MTHFR gene positive, SHEREEN, hypertension, CAD, and portal vein thrombosis who has had anticoagulation stopped due to bleeding who presented with anemia requiring transfusion suspected from upper GI origin. Endoscopy complicated by history of TIPS procedure, is recommended for transfer to [facility]. He had received 2 units of blood earlier in the week, and an additional 2 units of blood while admitted with suboptimal rise. Slight increase in hemoglobin 10/05/2021, hemodynamically stable through the day. Disposition: Case reviewed and discussed with [facility] Hepatology Dr. Gupta. Patient is recommended for direct transfer to [facility] for further endoscopy evaluation. He has been accepted to [facility], transferred for additional care and evaluation. Acute blood loss anemia 2/2 GI bleed in the setting of cirrhosis with TIPS procedure, history of pancytopenia - Status post 2 units PRBCs on 10/02 for hemoglobin 4.7 -Received 2 additional units with suboptimal rise to 7.5, 7.9 on afternoon recheck - Lasix 40mg IV for volume management Patient without active clinical bleeding on daytime assessment Hemodynamically stable 10/05, continue to follow and trend hemoglobin Covid negative Occult blood positive stool Remains on GI antibiotic prophylaxis with Rocephin Available at [facility] evening of 10/05/2021, transported for further evaluation N.p.o. pending endoscopy eval Pending Studies at Discharge: No Stand-Alone Forms: My [facility] Skilled Items Patient informed of condition?: Yes DNR: No Discharge Level of Care: Other Communicable Disease: No Discharge Prognosis: Stable Lines: Peripheral IV Urinary Catheter: No Medications and DC Order Prescriptions: Continued omeprazole 20 mg capsule,delayed release(DR/EC) 20 mg PO DAILY Qty: 90 RF: 3 lactulose 10 gram/15 mL solution 15 ml PO DAILY RF: 0 rifaximin 550 mg tablet 550 mg PO BID RF: 0 fluoxetine [Prozac] 10 mg capsule 10 mg PO DAILY Qty: 90 RF: 3 doxycycline hyclate 100 mg capsule 100 mg PO BID 7 Days Qty: 14 RF: 0 (DME) blood sugar diagnostic [FreeStyle Lite Strips] Strip See Rx Instructions .ROUTE .MEDSUPPLY Qty: 100 RF: 0 (DME) lancets [FreeStyle Lancets] 28 gauge misc See Rx Instructions .ROUTE .MEDSUPPLY Qty: 100 RF: 0 bupropion HCl 300 mg tablet extended release 24 hr 300 mg PO QAM RF: 0 atorvastatin 20 mg tablet 20 mg PO HS Qty: 90 RF: 3 ferrous sulfate [Feosol] 325 mg (65 mg iron) tablet 325 mg PO BID RF: 0 gabapentin 300 mg capsule 300 mg PO HS Qty: 90 RF: 3 trazodone 100 mg tablet 50 mg PO HS RF: 0 zinc sulfate 50 mg zinc (220 mg) tablet 50 mg PO DAILY RF: 0 coenzyme Q10 30 mg capsule 30 mg PO DAILY RF: 0 Discontinued apixaban 5 mg tablet 5 mg PO BID Qty: 60 RF: 0 Hold Instructions: per housekeeper hospital Discharge Orders: Discharge Order (Routine); Ordered 10/05/21 Ordered By: Cassius Reyes Admission Data Admit Date/Time: 10/05/21 01:28 Attending Provider: Cassius Reyes Admit Provider: Wilmer Castellano Primary Care Provider: Chencho Gilliland Other Providers: Wilmer Castellano Coding Level of Care Code D/C DAY MANAGEMENT >30 MINS Diagnoses Anemia D64.9 Anemia type: unspecified type Pancytopenia D61.818 Portal vein thrombosis I81 S/P TIPS (transjugular intrahepatic portosystemic shunt) Z95.828 Liver cirrhosis secondary to COOL K75.81; K74.60 Esophageal varices I85.00 Splenomegaly R16.1 Obstructive sleep apnea G47.33 Diabetes mellitus E11.9 Hyperlipidemia E78.5 CAD (coronary artery disease) I25.10 Depression F32.9
[2021-10-05] MEDS ORDERED: traZODone HCL 50 MG TAB PO SCH (21:00)
[2021-10-05] MEDS ORDERED: ATORVASTATIN 20 MG TAB PO SCH (21:00)
[2021-10-05] MEDS ORDERED: GABAPENTIN 300 MG CAP PO SCH (21:00)
--- NOTE | 2021-10-05 21:04 | Electrocardiogram Report ---
Test Reason : Blood Pressure : / mmHG Vent. Rate : 092 BPM Atrial Rate : 092 BPM P-R Int : 196 ms QRS Dur : 162 ms QT Int : 448 ms P-R-T Axes : 037 102 025 degrees QTc Int : 554 ms Normal sinus rhythm Right bundle branch block Abnormal ECG When compared with ECG of 30-JUL-2021 19:02, T wave inversion now evident in Inferior leads Confirmed by Bhanu Coleman ([id number]) on 10/05/2021 9:04:18 PM Referred By: REFERRED SELF Confirmed By:Bhanu Coleman
[2021-10-06 05:05] LABS: Hematocrit (blood only) 23.4 % (42-52); Hemoglobin 7.7 g/dL (14.0-18.0); Mean Corpuscular Hemoglobin 30.7 pg (25-34); Mean Corpuscular Hgb Conc 32.9 g/dL (32-36); Mean Corpuscular Volume 93.2 fL (80-100); RDW Coefficient of Variation 17.7 % (11.5-14.5); RDW Standard Deviation 57.9 fL (36.4-46.3); Red Blood Count 2.51 M/uL (4.7-6.1)
[2021-10-06 05:08] LABS: Mean Platelet Volume 8.8 fL (7.4-10.4); Platelet Count 43 K/uL (130-400)
[2021-10-06 05:28] LABS: Basophils # (auto) 0.01 K/uL (0-0.2); Basophils % (auto) 0.6 %; Eosinophils # (auto) 0.07 K/uL (0-0.5); Eosinophils % (auto) 3.9 %; Lymphocytes % (auto) 27.8 %; Monocytes % (auto) 11.1 %; Neutrophils # (auto) 1.02 K/uL (1.4-6.5); Neutrophils % (auto) 56.6 %; Polychromasia 1+; Tear Drop Cells 1+
[2021-10-06 05:42] LABS: Albumin Level 2.4 gm/dl (3.4-5.0); BUN Creatinine Ratio 17.2 (10-20); Calcium 8.4 mg/dl (8.5-10.1); Creatinine Clr Calc Pharmacy 90.8 ml/min; Est GFR (African American) 107.7 ml/min; Est GFR (Non-African American) 92.9 ml/min; Potassium 3.6 mmol/L (3.5-5.1)
[2021-10-06 05:45] LABS: Albumin Globulin Ratio 0.9 (0.9-2); Bilirubin,Total 0.9 mg/dl (0.2-1); Globulin 2.6 gm/dl (2.5-4.0)
[2021-10-06] MEDS: cefTRIAXone SODIUM 2,000 MG in DEXTROSE 5% 50 ML IV SCH (05:50)
== END 2021-10-06 07:22 | disposition short-term general hospital (02) ==
LOC: ED 22:07 → EDINP 22:07 → SUATTDRO 10-05 01:28 → EDINP 10-05 04:33

== ENCOUNTER 2023-12-05 16:49 | Inpatient (IN) ==
--- NOTE | 2023-12-05 17:05 | Emergency Department Note ---
Impression & Plan Bacteremia, Elevated procalcitonin, Elevated lactic acid level ED Provider Note HISTORY OF PRESENT ILLNESS: Patient is a 63-year-old male presenting with abdominal pain and fever. Patient reports that he was here in the ER yesterday and sent home on cefdinir. He got a call that he had a positive blood culture and was to present back to the ER. Patient reports that he has felt generally unwell for the last 24 hours. He does have some right flank pain. He has not eaten or drank anything all day secondary to feeling unwell. Denies significant dysuria or hematuria. He took 2 doses of cefdinir since being home. He has not taken any antipyretics today. He reports nausea but no vomiting. He has chronic diarrhea secondary to lactulose use. ROS: as above PHYSICAL EXAM: Constitutional: Patient appears in no acute distress. HENT: Head: Normocephalic and atraumatic. Eyes: EOMI, PERRL Mouth/Throat: Mucous membranes moist. Neck: Trachea midline. Neck supple. Cardiovascular: RRR, No murmurs, rubs or gallops. Intact distal pulses. Pulmonary/Chest: No respiratory distress. Breath sounds clear and equal bilaterally. No wheezes or rales. Abdominal: Abdomen soft, no rebound or guarding. RUQ TTP Musculoskeletal: No edema, tenderness or deformity noted. Skin: Warm and dry. No rash, erythema, pallor or cyanosis Psychiatric: Appropriate mood and affect for situation. Neurological: Alert and keenly responsive. CN II-XII grossly intact, moving all extremities equally and fully. MDM: - Vitals signs showed fever - History obtained via patient. Patient presents with abdominal pain and fever. Patient reports right upper quadrant abdominal pain and a persistent fever in the last 24 hours. Reports feeling generally unwell. He has not eaten or drank anything today. He was seen in the emergency department yesterday and believed to have a urinary tract infection and sent home with cefdinir. He had blood cultures drawn at that time and they came back today positive and he was called to return to the ER. - Chronic conditions affecting care: DM-2; HTN; HLD; CAD; cirrhosis - Differential diagnoses include, but are not limited to: UTI; pneumonia; sepsis; cholecystitis; colitis - Order placed for continuous cardiac monitoring. At this time, monitor showed rate of 94 bpm with normal sinus rhythm, per my interpretation. - External medical records reviewed. Blood cultures obtained on 12/04/2023 were reviewed. Patient grew gram-negative bacilli in one of his blood culture bottles. It does appear to be Pseudomonas on PCR testing. - IV was established and repeat sepsis workup ordered. Blood cultures obtained. - Patient given 2L NS and IV cefepime in ER. Given 1g IV tylenol for fever. - EKG interpreted by myself showed normal sinus rhythm. Rate 91 bpm. QT 396. No acute ischemic changes. Noted to have a right bundle branch block. - Laboratory workup interpreted by myself showed normal WBC; hyponatremia (Na 131 - likely pseudohyponatremia from hyperglycemia); hyperglycemia (glucose 213); elevated lactic acid (2.4); hypomagnesemia (Mg 1.5); slight transaminitis (AST 64; ALT 57); elevated procalcitonin (5.83); normal troponin - CXR negative for pneumonia, per my interpretation - Blood cultures obtained. - Patient started on IV cefepime for pseudomonas infection - Discussion was had with health care marketing specialist about patient's case and need for admission - Hospitalist consulted for admission - [facility] for further evaluation and management. ASSESSMENT AND PLAN: Diagnosis: bacteremia; elevated procalcitonin; elevated lactic acid Plan: admit Past Med/Surg History Medical History Type 2 diabetes mellitus with retinopathy Decompensated hepatic cirrhosis Type 2 diabetes mellitus with obesity Portal vein thrombosis History of biliary stent insertion Chronic anticoagulation Insomnia Depression Diabetes mellitus, type 2 Anemia Anxiety Sleep apnea Liver cirrhosis secondary to COOL Splenomegaly Splenic vein thrombosis Hiatal hernia Heterozygous for methylenetetrahydrofolate reductase gene mutation Esophageal varices Diabetic retinopathy CAD (coronary artery disease) Hyperlipidemia Hypertension Surgical History S/P TIPS (transjugular intrahepatic portosystemic shunt) History of colonoscopy with polypectomy History of esophagogastroduodenoscopy (EGD) History of wisdom tooth extraction Family History Mother Family history of diabetes mellitus Stroke Sister Leukemia Family history of diabetes mellitus Father Heart disease Brother Benign polyp of large intestine Uncle Diabetes Other No family history of adverse response to anesthesia Denies family history of Ovarian cancer Prostate cancer Myocardial infarction Breast cancer Colorectal cancer Social History Smoking Status: Never smoker Tobacco Type: Cigarettes Age Started Using Tobacco: 22; Age Quit Using Tobacco: 47; packs per day: 1; Second Hand Exposure: No (parents smoked); Do You Dip or Chew Tobacco: No; Hx Alcohol Use: No Hx Substance Use: No Preferred Language: Georgian Communication Ability: Effective Visual Impairment: Limited Hearing Ability: Normal Contract Administration Coordinator Required: No Beliefs That Will Affect Care: None marital status: Current Living Situation: Spouse and Family Current Living Situation Comment: Lives with and son current occupational status: retired current occupation: [employer] Feels Safe at Home: Yes Childhood Exposure to Second-Hand Smoke: No Diet: low salt caffeine: Yes Dental Care, Regularly: Yes Physical Activity Frequency: Daily Physical Activity Frequency Comment: WALK Seatbelt Use: always Sunscreen Use: Yes Assistive Devices: Glasses Allergies Allergies Allergy/AdvReac Type Severity Reaction Status Date / Time lisinopril Allergy Mild cough Verified 12/01/23 08:29 Penicillins Allergy Mild RASH Verified 12/01/23 08:29 Home Meds Home Medications Medication Instructions Recorded Confirmed rifaximin 550 mg tablet 550 mg PO BID 02/11/21 12/05/23 coenzyme Q10 30 mg capsule 30 mg PO DAILY 07/30/21 12/05/23 zinc sulfate 50 mg zinc (220 mg) 50 mg PO DAILY 07/30/21 12/05/23 tablet furosemide 20 mg tablet 20 mg PO DAILY peripheral edema 10/11/21 12/05/23 spironolactone 50 mg tablet 50 mg PO DAILY 10/11/21 12/05/23 carvedilol 6.25 mg tablet 6.25 mg PO BID 07/30/23 12/05/23 Previous Rx's Medication Instructions Recorded blood sugar diagnostic (FreeStyle #100 ea 01/12/20 Lite Strips) lancets 28 gauge (FreeStyle #100 ea 01/12/20 Lancets) omeprazole 20 mg capsule,delayed 20 mg PO DAILY #90 caps 12/26/22 release atorvastatin 20 mg tablet 20 mg PO HS #90 tabs 03/31/23 gabapentin 300 mg capsule 300 mg PO HS #90 caps 03/31/23 metformin 500 mg tablet,extended 500 mg PO BID #180 tabs 06/09/23 release 24 hr sildenafil 50 mg tablet (Viagra) 25 - 50 mg (0.5 - 1 x 50 mg) PO 06/09/23 DAILY PRN sexual activity #10 tabs Auto Titrating CPAP #1 ea 07/30/23 trazodone 100 mg tablet 50 mg (1/2 x 100 mg) PO HS #45 tabs 09/09/23 lactulose 10 gram/15 mL oral 15 ml PO DAILY #1,419 mL 10/22/23 solution apixaban 5 mg tablet 5 mg PO BID #180 tabs 10/28/23 ferrous sulfate 325 mg (65 mg 325 mg PO .three times weekly #30 12/01/23 iron) tablet tabs bupropion HCl 300 mg 24 hr tablet, See Rx Instructions .Route 12/04/23 extended release .COMPLEX #90 tabs cefdinir 300 mg capsule 300 mg PO BID 7 days #14 caps 12/04/23 fluoxetine 10 mg capsule See Rx Instructions .Route 12/04/23 .COMPLEX #90 caps Results & Data (ED) Vital Signs Vital Signs - 24 hr 12/05/23 16:51 12/05/23 17:55 12/05/23 18:30 Temperature 38.0 C H Temperature Source Temporal Artery Scan Pulse Rate 94 H Pulse Rate from SpO2 Sensor Respiratory Rate 18 Respiratory Effort / Characteristics Spontaneous Respiratory Depth Normal Respiratory Pattern Regular Blood Pressure 134/71 119/65 Blood Pressure Mean 92 78 Blood Pressure Position Sitting Pulse Oximetry 95 Oxygen Delivery Method Room Air Room Air Sepsis Recent Fever Within 48 Hours Yes Sepsis New/Unexplained Change in Mental Status No Sepsis Action Taken by Nursing No Action Required 12/05/23 18:31 12/05/23 18:32 12/05/23 18:51 Temperature Temperature Source Pulse Rate 90 89 87 Pulse Rate from SpO2 Sensor 89 89 Respiratory Rate 18 14 Respiratory Effort / Characteristics Respiratory Depth Respiratory Pattern Blood Pressure Blood Pressure Mean Blood Pressure Position Pulse Oximetry 96 96 Oxygen Delivery Method Sepsis Recent Fever Within 48 Hours Sepsis New/Unexplained Change in Mental Status Sepsis Action Taken by Nursing 12/05/23 18:51 Temperature Temperature Source Pulse Rate Pulse Rate from SpO2 Sensor Respiratory Rate Respiratory Effort / Characteristics Respiratory Depth Respiratory Pattern Blood Pressure 114/58 L Blood Pressure Mean 81 Blood Pressure Position Pulse Oximetry Oxygen Delivery Method Sepsis Recent Fever Within 48 Hours Sepsis New/Unexplained Change in Mental Status Sepsis Action Taken by Nursing Laboratory Data 12/05/23 17:30 12/05/23 17:30 Lab Results 12/05/23 Range/Units 17:30 WBC 5.16 (4.8-10.8) K/ul RBC 2.96 L (4.70-6.10) M/uL Hgb 9.9 L (14.0-18.0) g/dl Hct 28.7 L (42.0-52.0) % MCV 97.0 (80.0-100.0) fL MCH 33.4 (25.0-34.0) pg MCHC 34.5 (32.0-36.0) g/dL RDW Std Deviation 51.3 H (36.4-46.3) fL RDW Coeff of Blanca 14.4 (11.5-14.5) % Plt Count 33 L D (130-400) K/uL MPV 10.8 (9.4-12.4) fL Immature Gran % (Auto) 2.1 % Neut % (Auto) 83.6 % Lymph % (Auto) 6.0 % Lyon % (Auto) 8.1 % Eos % (Auto) 0.0 % Baso % (Auto) 0.2 % Neut # (Auto) 4.31 (1.40-6.50) K/uL Lymph # (Auto) 0.31 L (1.20-3.40) K/uL Lyon # (Auto) 0.42 (0.11-0.59) K/uL Eos # (Auto) 0.00 (0.00-0.50) K/uL Baso # (Auto) 0.01 (0.00-0.20) K/uL Immature Gran # (Auto) 0.11 (0.01-0.20) K/uL Platelet Estimate Decreased L (Normal) Sodium 131 L (136-145) mmol/L Potassium 3.9 (3.5-5.1) mmol/L Chloride 102 (98-107) mmol/L Carbon Dioxide 21 (21-32) mmol/L Anion Gap 8 (3-11) BUN 19 (6-23) mg/dl Creatinine 1.00 (0.6-1.4) mg/dl Est Cr Clr Drug Dosing Not Reportable Est GFR ( Amer) 93.1 ml/min Est GFR (Non-Af Amer) 80.3 ml/min BUN/Creatinine Ratio 19.0 (10-20) Glucose 213 H (70-99(Fasting)) mg/dl Lactate 2.4 H* (0.4-2.0) mmol/L Calcium 8.2 L (8.6-10.3) mg/dl Magnesium 1.5 L (1.7-2.4) mg/dl Total Bilirubin 2.4 H (0.2-1.0) mg/dl Direct Bilirubin 1.3 H (0-0.2) mg/dl AST 64 H (13-39) U/L ALT 57 H (7-52) U/L Alkaline Phosphatase 62 (34-104) U/L Troponin I High Sens 18.8 (0-20) pg/ml Total Protein 6.0 (6.0-8.3) gm/dl Albumin 3.3 L (3.4-5.0) gm/dl Procalcitonin 5.83 H (0-0.5) ng/ml Administered Medications Discontinued Medications Sodium Chloride (Nss) 1,000 mls @ 999 mls/hr IV .Q1H1M LIZET Stop: 12/05/23 19:00 Last Admin: 12/05/23 18:13 Dose: 999 mls/hr Documented By: Infusion: 12/05/23 18:13 Dose: Infused Documented By: Admin: 12/05/23 17:34 Dose: 999 mls/hr Documented By: GUTIERREZ Cefepime HCl (Maxipime) 2,000 mg in 20 mls @ 5 mls/min IV NOW STA; Protocol Stop: 12/05/23 16:58 Last Admin: 12/05/23 17:35 Dose: 5 mls/min Documented By: GUTIERREZ Acetaminophen (Ofirmev) 1,000 mg in 100 mls @ 400 mls/hr IV NOW STA Stop: 12/05/23 17:14 Last Infusion: 12/05/23 18:05 Dose: Infused Documented By: Admin: 12/05/23 17:34 Dose: 400 mls/hr Documented By: GUTIERREZ Imaging Data Radiologist's Impression: Chest X-Ray 12/05/23 16:55 XR chest 1V portable HISTORY: 63 years-old Male Sepsis acute sepsis COMPARISON: 03/10/2022 TECHNIQUE: AP view of the chest FINDINGS: Cardiomediastinal and hilar silhouettes are unchanged. No pneumothorax, pleural effusion or airspace consolidation. Bones appear grossly intact. Upper abdominal endoscopy clips. A TIPS shunt is noted. Bones appear grossly intact. IMPRESSION: No acute process. ACT 112: Negative or not required by law. The above report was generated using voice recognition software. It may contain grammatical, syntax or spelling errors. Electronically signed by: Mik Oliveros M.D. 12/05/2023 5:12 PM Discharge Plan Visit Data Chief Complaint: Illness Stated Complaint: CALLED BACK BY ER FOR CHANGE IN MED ED Provider: Yuki Zepeda Discharge Problem: Bacteremia, Elevated procalcitonin, Elevated lactic acid level Forms Stand Alone Forms: My [facility] [employer] ([place]) Prescriptions Prescriptions: No Action rifaximin 550 mg tablet 550 mg PO BID furosemide 20 mg tablet 20 mg PO DAILY Patient Comments: Rx sent to [facility] [place]. #30 with 1 RF. 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 Parth Little DO @ [facility] [place] omeprazole 20 mg capsule,delayed release(/EC) 20 mg PO DAILY Qty: 90 3RF atorvastatin 20 mg tablet 20 mg PO HS Qty: 90 3RF gabapentin 300 mg capsule 300 mg PO HS Qty: 90 3RF metformin 500 mg tablet extended release 24 hr 500 mg PO BID Qty: 180 2RF sildenafil [Viagra] 50 mg tablet 25 - 50 mg PO DAILY PRN (Reason: sexual activity) Qty: 10 3RF Rx Instructions: administer 30 minutes to 4 hours before activity trazodone 100 mg tablet 50 mg PO HS Qty: 45 2RF lactulose 10 gram/15 mL solution 15 ml PO DAILY Qty: 1419 3RF apixaban 5 mg tablet 5 mg PO BID Qty: 180 3RF Hold Instructions: per numerical control lathe operator bupropion HCl 300 mg tablet extended release 24 hr See Rx Instructions .ROUTE .COMPLEX Qty: 90 3RF Dose Instruction: TAKE 1 TABLET EVERY MORNING Rx Instructions: TAKE 1 TABLET EVERY MORNING fluoxetine 10 mg capsule See Rx Instructions .ROUTE .COMPLEX Qty: 90 3RF Dose Instruction: TAKE 1 CAPSULE DAILY Rx Instructions: TAKE 1 CAPSULE DAILY (DME) blood sugar diagnostic [FreeStyle Lite Strips] Strip See Rx Instructions .ROUTE .MEDSUPPLY Qty: 100 0RF Rx Instructions: tests twice daily (DME) lancets [FreeStyle Lancets] 28 gauge misc See Rx Instructions .ROUTE .MEDSUPPLY Qty: 100 0RF Rx Instructions: test 2 times daily carvedilol 6.25 mg tablet 6.25 mg PO BID (DME) Auto Titrating CPAP Misc See Rx Instructions .ROUTE .MEDSUPPLY Qty: 1 0RF Rx Instructions: AutoPAP [id number] C flex setting 2. With mask fitting (mask of pt choice) humidification heated tubing and chin strap. Lifetime supplies. ferrous sulfate 325 mg (65 mg iron) tablet 325 mg PO .three times weekly Qty: 30 0RF zinc sulfate 50 mg zinc (220 mg) tablet 50 mg PO DAILY coenzyme Q10 30 mg capsule 30 mg PO DAILY cefdinir 300 mg capsule 300 mg PO BID 7 Days Qty: 14 0RF Referrals Referrals: Jyoti Hemphill MD [Primary Care Provider] -
--- NOTE | 2023-12-05 17:13 | XRay Report ---
XR chest 1V portable HISTORY: 63 years-old Male Sepsis acute sepsis COMPARISON: 03/10/2022 TECHNIQUE: AP view of the chest FINDINGS: Cardiomediastinal and hilar silhouettes are unchanged. No pneumothorax, pleural effusion or airspace consolidation. Bones appear grossly intact. Upper abdominal endoscopy clips. A TIPS shunt is noted. B ones appear grossly intact. IMPRESSION: No acute process. ACT 112: Negative or not required by law. The above report was generated using voice recognition software. It may contain grammatical, syntax o r spelling errors. Electronically signed by: Mik Oliveros M.D. 12/05/2023 5:12 PM
--- NOTE | 2023-12-05 17:14 | History & Physical Report ---
Date of Service December 05, 2023 Assessment & Plan (1) Sepsis: Plan: Urosepsis Patient presented to the ED on 12/03 for fever, chills, and right flank/back pain that started that day; d/c on cefdinir He returned on 12/04 after being notified that he had a positive blood culture for Pseudomonas No leukocytosis (in the setting of pancytopenia/leukopenia), but patient is febrile at 38 C on admission UA positive on arrival Lactate 2.4-->1.9 on arrival after IVF resuscitation with NSS x 2000mL + LR x 1000mL Procalcitonin elevated at 5.83 Continue IVF with LR at 125mL/hr A/P CT on 12/03 revealed punctate nonobstructing right renal calculus; no deficits of either kidney Patient declines repeat CT abd/pelvic scan at time of admission MAP 73 at time of admission; maintain >65 Cefepime 2000 mg IV q8h We will double cover for Pseudomonas with ciprofloxacin 400 mg IV q12h Follow blood Cx A.m. CBC, CMP, procalcitonin, mag (2) Pancytopenia: Plan: Due to liver cirrhosis with splenomegaly Follows with Dr. Qiu at [facility] Hematology (3) Portal vein thrombosis: Plan: On Eliquis Hgb 9.9 on arrival which represents a 1.5L drop from the day before on 12/03 (Hgb 11.4) No signs of active bleeding on exam Continue Eliquis for now and hold if downtrending (4) Hypomagnesemia: Plan: Mag 1.5 on arrival Magnesium sulfate 1 g IV x 3 Recheck a.m. mag (5) Anemia: Plan: Chronic; noted Hgb 9.9 and Hct at 28.7 (as above) Monitor a.m. 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: Plan: Not listed for transplant at present due to low/variable MELD Continue lactulose Continue rifaximin (9) Obstructive sleep apnea: Plan: CPAP at bedtime (10) Hypertension: Plan: Continue carvedilol, spironolactone, furosemide (11) S/P TIPS (transjugular intrahepatic portosystemic shunt): Plan: Noted Plan Disposition: Admit to PCU telemetry Full code T2DM diet VTE PPx: On Eliquis History of Present Illness Chief Complaint: Sepsis Primary Care Provider: Jyoti Hemphill MD Jose is a 63-year-old male with PMH of T2DM, HTN, HLD, CAD, esophageal varices, depression, SHEREEN, portal vein thrombosis, s/p TIPS, and COOL. Patient developed a fever, chills, vomiting, burning with urination, bilateral flank pain, lower back pain, on 12/03 and came to ID ED; discharged on cefdinir. He returned on 12/04 after positive blood culture showed gram-negative bacilli with Pseudomonas. Hx of extensive liver disease. His pain has been constant since yesterday. No radiation to the upper back. Patient is unsure if he has had blood in his urine. Patient reports that has been trying to eat and drink a lot at home to stay hydrated. He endorses a recent change in diet after getting rid of sugars; lost 18 pounds since October 30 (this was intentional). He does note that he had a recent injury several weeks ago where he fell in the garage and struck his head. He has not taken any medications today; no recent change medications. He denies a history of of kidney stones. No history of abdominal surgeries. Patient is febrile at 38 C at time of admission; vitals otherwise stable. ED course: Acetaminophen 1000 g IV Cefepime 2000 mg IV NSS 1000 mL IV ROS: Patient endorses fever, chills, rigors, coughing (clear sputum production), severe lower back pain, b/l flank pain, nausea, vomiting (including bile), diarrhea, burning with urination, unsure of blood in urine, unsure of blood in stool (iron supplement), and N/T in arms/legs (chronic; on gapapentin). Patient denies nightsweats, chest pain, SOB, chest palpitations, abdominal pain, hematemesis, hemoptysis, dysuria, saddle anesthesia. Allergies Allergy/AdvReac Type Severity Reaction Status Date / Time lisinopril Allergy Mild cough Verified 12/01/23 08:29 Penicillins Allergy Mild RASH Verified 12/01/23 08:29 Home Medications Medication Instructions Recorded Confirmed Type blood sugar diagnostic (FreeStyle #100 ea 01/12/20 12/05/23 Rx Lite Strips) lancets 28 gauge (FreeStyle #100 ea 01/12/20 12/05/23 Rx Lancets) rifaximin 550 mg tablet 550 mg PO BID 02/11/21 12/05/23 History coenzyme Q10 30 mg capsule 30 mg PO DAILY 07/30/21 12/05/23 History zinc sulfate 50 mg zinc (220 mg) 50 mg PO DAILY 07/30/21 12/05/23 History tablet furosemide 20 mg tablet 20 mg PO DAILY peripheral edema 10/11/21 12/05/23 History spironolactone 50 mg tablet 50 mg PO DAILY 10/11/21 12/05/23 History omeprazole 20 mg capsule,delayed 20 mg PO DAILY #90 caps 12/26/22 12/05/23 Rx release atorvastatin 20 mg tablet 20 mg PO HS #90 tabs 03/31/23 12/05/23 Rx gabapentin 300 mg capsule 300 mg PO HS #90 caps 03/31/23 12/05/23 Rx metformin 500 mg tablet,extended 500 mg PO BID #180 tabs 06/09/23 12/05/23 Rx release 24 hr sildenafil 50 mg tablet (Viagra) 25 - 50 mg (0.5 - 1 x 50 mg) PO 06/09/23 12/05/23 Rx DAILY PRN sexual activity #10 tabs Auto Titrating CPAP #1 ea 07/30/23 12/05/23 Rx carvedilol 6.25 mg tablet 6.25 mg PO BID 07/30/23 12/05/23 History trazodone 100 mg tablet 50 mg (1/2 x 100 mg) PO HS #45 tabs 09/09/23 12/05/23 Rx lactulose 10 gram/15 mL oral 15 ml PO DAILY #1,419 mL 10/22/23 12/05/23 Rx solution apixaban 5 mg tablet 5 mg PO BID #180 tabs 10/28/23 12/05/23 Rx ferrous sulfate 325 mg (65 mg 325 mg PO .three times weekly #30 12/01/23 12/05/23 Rx iron) tablet tabs bupropion HCl 300 mg 24 hr tablet, See Rx Instructions .Route 12/04/23 12/05/23 Rx extended release .COMPLEX #90 tabs cefdinir 300 mg capsule 300 mg PO BID 7 days #14 caps 12/04/23 12/05/23 Rx fluoxetine 10 mg capsule See Rx Instructions .Route 12/04/23 12/05/23 Rx .COMPLEX #90 caps Past Med/Surg History Medical History (Updated 12/05/23 @ 19:56 by Miguel De Luna PA-C) Type 2 diabetes mellitus with retinopathy Decompensated hepatic cirrhosis Type 2 diabetes mellitus with obesity Portal vein thrombosis Tx with Eliquis History of biliary stent insertion Chronic anticoagulation Insomnia Depression Diabetes mellitus, type 2 Anemia Anxiety Sleep apnea no device 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 Esophageal varices hx of bleeding and banding Diabetic retinopathy dr. Moody CAD (coronary artery disease) Hyperlipidemia Hypertension Surgical History S/P TIPS (transjugular intrahepatic portosystemic shunt) History of colonoscopy with polypectomy History of esophagogastroduodenoscopy (EGD) History of wisdom tooth extraction Family History Mother Family history of diabetes mellitus Stroke Sister Leukemia Family history of diabetes mellitus Father Heart disease Brother Benign polyp of large intestine Uncle Diabetes Other No family history of adverse response to anesthesia Denies family history of Ovarian cancer Prostate cancer Myocardial infarction Breast cancer Colorectal cancer Social History Smoking Status: Former smoker Tobacco Type: Cigarettes Age Started Using Tobacco: 22; Age Quit Using Tobacco: 47; packs per day: 1; Second Hand Exposure: No; Do You Dip or Chew Tobacco: No; Tobacco Cessation Education Requested by Patient: No Hx Alcohol Use: No Hx Substance Use: No Preferred Language: Icelandic Communication Ability: Effective Visual Impairment: Limited Hearing Ability: Normal Liner Inserter Required: No Beliefs That Will Affect Care: None marital status: Current Living Situation: Spouse Current Living Situation Comment: Lives with and son current occupational status: retired current occupation: [employer] Other Information That Helps Us Care for You: No Feels Safe at Home: Yes Safety Concerns: Feels Safe At This Time Childhood Exposure to Second-Hand Smoke: No Diet: low salt caffeine: Yes Dental Care, Regularly: Yes Physical Activity Frequency: Daily Physical Activity Frequency Comment: WALK Seatbelt Use: always Sunscreen Use: Yes Assistive Devices: Glasses Review of Systems Review of Systems: See HPI above Physical Exam Physical Exam: General: In acute physical distress; pleasant affect; non-toxic appearing; well- nourished; cooperative HEENT: normocephalic, atraumatic; PERRLA; dry mucus membrane; vision and hearing intact Neck: supple; no lymphadenopathy; trachea midline Skin: warm, dry without signs of tenting; no cyanosis; no rashes, bruising, lesions, or erythema noted CV: chest wall NTP; RRR; S1/S2 normal; no murmurs/rubs/gallops; pulses intact and symmetric at radial, DP, and PT Lungs: no acute respiratory distress; symmetrical chest wall expansion; clear breath sounds across all lung mcdaniels w/o adventitious sounds; no wheezing ABD: Soft; BS present; RUQ/right flank tender to palpation; right CVA tenderness; splenomegaly; no signs of rashes, bruising or active bleeding MSK: no tics or fasciculations; no edema noted in the LEs b/l, nonerythematous Neuro: A&Ox3; normal mood and affect; fluent speech; no focal deficits; diminished sensation in the LEs bilaterally (patient endorses burning sensation in the feet) Results & Data Results & Data Vital Signs (Past 12 Hours) Vital Signs Temp Pulse Resp BP Pulse Ox O2 Del Method 12/05/23 16:51 38.0 C H 94 H 18 134/71 95 Room Air Diagnostic Findings Chest X-Ray 12/05/23 16:55 XR chest 1V portable HISTORY: 63 years-old Male Sepsis acute sepsis COMPARISON: 03/10/2022 TECHNIQUE: AP view of the chest FINDINGS: Cardiomediastinal and hilar silhouettes are unchanged. No pneumothorax, pleural effusion or airspace consolidation. Bones appear grossly intact. Upper abdominal endoscopy clips. A TIPS shunt is noted. Bones appear grossly intact. IMPRESSION: No acute process. ACT 112: Negative or not required by law. The above report was generated using voice recognition software. It may contain grammatical, syntax or spelling errors. Electronically signed by: Mik Oliveros M.D. 12/05/2023 5:12 PM Code Status & VTE Plan Code Status Full code VTE Prophylaxis Plan VTE Prophylaxis will be ordered: Yes Supervising Physician Co-Signing Physician Notes Attending addendum: I have physically seen this patient, have supervised the COREY's activities, and agree with the H&P unless as otherwise noted. Assessment and Plan: Sepsis due to UTI- Initial presentation to the emergency department on 12/03 for fever, chills and right flank and back pain, was sent home on cefdinir Patient was notified to return to the ED on 12/04 after blood cultures were positive for Pseudomonas LR at [address] abdomen and pelvis on 12/03 negative other than for nonobstructing right renal calculus Placed on cefepime 2 g IV every 8 hours Add ciprofloxacin 40 mg IV every 12 hours to double cover Pseudomonas Follow blood cultures for sensitivity patterns Pancytopenia/liver cirrhosis/splenomegaly- Follows with hematology/oncology Dr. Qiu Diabetes mellitus type 2- A1c on 10/30/2023 was 6.3 Holding metformin Placed on Accu-Cheks with NovoLog SSI Liver cirrhosis/COOL- Continue lactulose and rifaximin Remaining orders and notations as noted PG Care Time/CCT Total # of Minutes Spent Total Time Spent with Patient: Total time spent is greater than 50% in coordination of care (as documented) at patient's floor/unit and/or counseling patient: Coding [place] [address] INT INP/OBS CARE 3/75MIN Patient Type Established Medical Decision Making High Complexity Diagnoses Sepsis A41.9 Pancytopenia D61.818 Portal vein thrombosis I81 Hypomagnesemia E83.42 Anemia D64.9 Thrombocytopenia D69.6 Type 2 diabetes mellitus with obesity E11.69; E66.9 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
[2023-12-05] MEDS: ACETAMINOPHEN 1,000 MG/100 ML VIAL IV STA (17:34)
[2023-12-05] MEDS: SODIUM CHLORIDE 0.9% 1,000 ML IV SCH (17:34)
[2023-12-05] MEDS: CEFEPIME 2,000 MG/20 ML VIAL IV STA (17:35)
[2023-12-05 18:08] LABS: Alanine Aminotransferase 57 U/L (7-52); Albumin Level 3.3 gm/dl (3.4-5.0); Alkaline Phosphatase 62 U/L (34-104); Anion Gap 8 (3-11); Aspartate Aminotransferase 64 U/L (13-39); Bilirubin Direct 1.3 mg/dl (0-0.2); Bilirubin,Total 2.4 mg/dl (0.2-1.0); Blood Urea Nitrogen 19 mg/dl (6-23); Calcium 8.2 mg/dl (8.6-10.3); Carbon Dioxide 21 mmol/L (21-32); Chloride 102 mmol/L (98-107); Est GFR (African American) 93.1 ml/min; Est GFR (Non-African American) 80.3 ml/min; Glucose 213 mg/dl (70-99(Fasting)); Magnesium 1.5 mg/dl (1.7-2.4); Potassium 3.9 mmol/L (3.5-5.1); Sodium 131 mmol/L (136-145)
[2023-12-05 18:11] LABS: Basophils # (auto) 0.01 K/uL (0.00-0.20); Basophils % (auto) 0.2 %; Hematocrit (blood only) 28.7 % (42.0-52.0); Hemoglobin 9.9 g/dl (14.0-18.0); Immature Granulocytes # (auto) 0.11 K/uL (0.01-0.20); Immature Granulocytes % (auto) 2.1 %; Lymphocytes # (auto) 0.31 K/uL (1.20-3.40); Mean Corpuscular Hemoglobin 33.4 pg (25.0-34.0); Mean Corpuscular Hgb Conc 34.5 g/dL (32.0-36.0); Mean Platelet Volume 10.8 fL (9.4-12.4); Monocytes # (auto) 0.42 K/uL (0.11-0.59); Monocytes % (auto) 8.1 %; Neutrophils # (auto) 4.31 K/uL (1.40-6.50); Neutrophils % (auto) 83.6 %; Platelet Count 33 K/uL (130-400); Platelet Estimate Decreased (Normal); RDW Coefficient of Variation 14.4 % (11.5-14.5); RDW Standard Deviation 51.3 fL (36.4-46.3); Red Blood Count 2.96 M/uL (4.70-6.10); White Blood Count 5.16 K/ul (4.8-10.8)
[2023-12-05 18:14] LABS: Troponin I High Sensitivity 18.8 pg/ml (0-20)
[2023-12-05] MEDS ORDERED: PLASMA-LYTE A 1,000 ML IV SCH (19:15)
[2023-12-05 19:23] LABS: Appearance Urine Clear (Clear); Bacteria Urine Automated Negative (Negative); Blood Urine 2+ (Negative); Color Urine Dark Yellow; Glucose Urine UA 1+ (Negative); Ketones Urine Trace (Negative); Leukocyte Esterase Urine Trace (Negative); Nitrite Urine Positive (Negative); Protein Urine 1+ (Negative); RBC Urine Automated 0-4 /hpf (0-4); Specific Gravity Urine 1.034 (1.000-1.030); Urobilinogen Urine Positive (Negative)
[2023-12-05 19:27] LABS: Bilirubin Urine 1+ (Negative)
[2023-12-05] MEDS: MAGNESIUM SULFATE / D5W 1 GM/100 ML BAG IV SCH (20:15)
[2023-12-05] MEDS: LACTATED RINGER'S 1,000 ML IV ONE (20:32)
--- OUTSIDE RECORDS SUMMARY | 2023-12-05 20:45 | External Medical Summary | Continuity of Care Document ---
Author Name Unknown Organization [address] [place] [address] Address [address] [place] [place], [place] [id number] Care Team Providers Care Process Mechanic Name Role Phone Jyoti Hemphill Primary Care Physician [phone] [id number] Date(s): 11/30/23 - 11/30/[address] [place] [address] [facility] Diagnostic Radiology [address] [facility] [facility] [place] [address] Discharge Disposition: Home or Self Care Attending Physician: MD Madai, Abdelrahman Neumann Referring Physician: MD Madai, Abdelrahman Neumann Allergies, Adverse Reactions, Alerts Substance Reaction Severity Status penicillin rash Active Latex hives Active Immunizations Given and Recorded Vaccine Date Status Refusal Reason influenza virus vaccine, inactivated 07/01/18 Give n pneumococcal 23-valent vaccine 06/19/17 Given Medications atorvastatin 20 mg oral tablet Start: 06/18/17 2:48:00, 1 tab, PO, Daily Start Date: 06/18/17 Status: Ordered buPROPion 300 mg/24 hours (XL) oral tablet, extended release 1 tab, PO, Daily Start Date: 12/06/20 Status: Ordered Carafate 1 g oral tablet Start: 10/08/21 14:07:00 EST, 1 tab, PO, bid, Disp# 14 tab, Refills: 0, Pharmacy: [facility] Start Date: 10/08/21 Stop Date: 10/15/21 Status: Ordered carvedilol 6.25 mg oral tablet Start: 04/30/23 12:16:00 EDT, 1 tab, PO, bid, Disp# 180 tab, Refills: 3, Pharmacy: [facility]/pharmacy #[id number] Start Date: 04/30/23 Stop Date: 04/24/24 Status: Ordered Coenzyme Q10 30 mg oral capsule Start: 07/02/22 9:56:00 EDT, See Instructions, Disp# 90 cap, Refills: 3, TAKE 1 CAPSULE DAILY, Pharmacy: [facility] Start Date: 07/02/22 Status: Ordered Eliquis 5 mg oral tablet Start: 12/12/22 10:30:00 EST, 1 tab, PO, bid, Disp# 180 tab, Refills: 3, Pharmacy: [facility] Start Date: 12/12/22 Status: Ordered FLUoxetine 10 mg oral capsule Start: 02/01/21 13:29:00 EDT, 1 cap, PO, Daily Start Date: 02/01/21 Status: Ordered furosemide 20 mg oral tablet Start: 10/01/22 11:33:00 EST, See Instructions, Disp# 90 tab, Refills: 3, TAKE 1 TABLET DAILY, Pharmacy: [facility] Start Date: 10/01/22 Status: Ordered gabapentin 300 mg oral capsule Start: 01/05/18 14:42:00, 1 cap, PO, Daily Start Date: 01/05/18 Status: Ordered lactulose 10 g/15 mL oral syrup Start: 02/08/21 11:04:00 EDT, 15 mL, PO, Daily, Disp# 4,000 mL, Refills: 1, titrate 3-4 BM daily, PRN: as needed for constipation, Pharmacy: [facility] Start Date: 02/08/21 Stop Date: 08/07/21 Status: Ordered omeprazole Start: 08/20/17 12:39:00 EST, 20 mg =, PO, Daily Start Date: 08/20/17 Status: Ordered spironolactone 50 mg oral tablet Start: 10/01/22 11:33:00 EST, See Instructions, Disp# 90 tab, Refills: 3, TAKE 1 TABLET DAILY, Pharmacy: [facility] Start Date: 10/01/22 Status: Ordered traZODone 100 mg oral tablet Start: 04/11/20 16:25:00 EDT, See Instructions, 50 mg 1 tab PO qhs Start Date: 04/11/20 Status: Ordered Xifaxan 550 mg oral tablet Start: 04/30/23 14:34:00 EDT, 1 tab, PO, bid, Disp# 180 tab, Refills: 3, Pharmacy: [facility]/pharmacy #[id number] Start Date: 04/30/23 Stop Date: 04/24/24 Status: Ordered zinc sulfate 220 mg oral tablet Start: 04/03/22 8:14:00 EDT, See Instructions, Disp# 90 tab, Refills: 3, TAKE 1 TABLET DAILY, Pharmacy: [facility] Start Date: 04/03/22 Status: Ordered Problem List Condition Confirmation Course Effective Dates Status Health Status Informant Anemia Confirmed Active BPH with obstruction/lower urinary tract symptoms Confirmed Active Cholecystitis Confirmed Active Cirrhosis Confirmed Active ED (erectile dysfunction) Confirmed Active Esophageal varices Confirmed Active Anticoagulation adequate Confirmed Active S/P TIPS (transjugular intrahepatic portosystemic shunt) Confirmed Active Hypertension Confirmed Active Hypertriglyceridemia Confirmed Active Lower urinary tract symptoms (LUTS) Confirmed Active COOL (nonalcoholic steatohepatitis) Confirmed Active Portal hypertension Confirmed Active Portal hypertensive gastropathy Confirmed Active Portal vein thrombosis Confirmed Active Mesenteric vein thrombosis Confirmed Active Diabetes mellitus, type 2 Confirmed Active Left varicocele Confirmed Active GAVE (gastric antral vascular ectasia) Confirmed Active Procedures Procedure Date Related Diagnosis Body Site Status Upper GI endoscopy 03/2021 Comple naveed Upper GI endoscopy 01/2021 Comple naveed Colonoscopy x3, multiple Completed Upper GI endoscopy= multiple ~ x15 1 Completed 1MT.[place] Results Laboratory List Name Date Creatinine, POC ([facility]) (CREATININE,P OC([facility])) 11/30/23 Most recent to oldest [Reference Range]: 1 Estimated CrCl 89.04 mL/min (11/30/23 3:12 PM) Cret, POC [0.6-1.3 mg/dL] 1.1 mg/dL (11/30/23 12:00 PM) Performing Loc, POC Testing performed at : 1 *Unknown* (11/30/23 12:00 PM) 1Result Comment: [facility] [address] [place] [address] Radiology Reports * Exam Date Time Procedure Performing Provider Status 11/30/23 12:[address] Abdomen w/ + w/o Contrast Steve Ortiz; Final Notes: (CT Abdomen w/ + w/o Contrast) Reason For Exam: cirrhosis, HCC screening, history of PVT now with complete recanalization on AC CT Abdomen w/ + w/o Contrast EXAMINATION: CT Abdomen w/ + w/o Contrast CLINICAL HISTORY: I81: Portal vein thrombosis; cirrhosis, HCC screening, history of PVT now with complete recanalization on AC COMPARISON: Multiple priors most recent 05/18/2023. TECHNIQUE: CT Abdomen w/ + w/o Contrast CONTRAST: Contrast Type (IV): Omnipaque 350 Contrast Volume (IV) in ml: 100.00 DOSE: Total Reported Dose Length Product (DLP) = 1423.21 mGy*cm FINDINGS: Lower chest: Unremarkable. ABDOMEN Liver, Gallbladder \T\ bile ducts: No focal liver lesion. Mild intrahepatic duct dilation, unchanged. Persistent attenuated left portal vein, with scattered periportal collaterals. Status post TIPS procedure. No evidence of thrombosis of the SMV, splenic, or main portal veins. Cholecystoduodenal stent. Pancreas: Normal. Spleen: Unchanged splenomegaly. Adrenals: Normal. Kidneys, collecting system and ureters: Unchanged right renal cyst. Symmetric enhancement. No hydronephrosis. Retroperitoneum, lymph nodes, and vessels: No lymphadenopathy. Bowel \T\ Mesentery: Nonobstructive bowel. No free air. Distal esophageal varices. Upper Pelvis: Unremarkable. Osseous and soft tissues: Degenerative changes of the spine. IMPRESSION: 1. Morphologic changes of chronic liver disease and sequela of portal venous hypertension. Stable attenuated left portal vein, scattered periportal collaterals and with TIPS in place. 2. No focal liver lesion to suggest hepatoma. [place] Act 112: This study does not meet the requirements of [place] Act 112. Dr. Anson Healy is the dictating resident. Finalized reports status indicates that the attending has reviewed the images and report, and agrees with the interpretation. Preliminary report status shouldbe regarded as NOT interpreted by the attending radiologist. Workstation ID: [id number] Final Dictated by:MD Healy Dan Dictated DT/TM:12/01/2023 9:12 Resident:MD Healy Dan Signed by:MD Rodríguez Nabeel I Signed (Electronic Signature):12/01/2023 9:11 a Social History Social History Type Response Smoking Status Former Smoker, quit > 1 yr Sex Patient Care team information Care Team Personnel Name: MD Kanchan, Jyoti Crowder Position: Referring Member Role: Primary Care Provider Address: Address: [facility] [address], [address] [place] [address] [place] Name: MD Reese, Laci Aparicio Position: Physician - Gastro Member Role: Lifetime Relationship Address: Address: [address] [place] [address] [place] [address] [place] Name: MD Madai, Abdelrahman Neumann Position: Physician - Gastro Member Role: Lifetime Relationship Address: Address: [address] [place] [address] [place] [address] [place] Name: Loc Lerma Kyle Position: Pharmacist Member Role: Pharmacy - Lifetime Address: Address: [address] [place] [address] [place] Name: Doug Bobby Position: HIS Supervisor_P Member Role: HIS Lifetime Care Team Related Persons Name: CELI CERON Address: home [address] [facility] [id number] Name: ROSIE CERON Address: home [place] [facility], [id number] Name: GUIDO CERON Address: home [address] [place], [phone] Name: SEN CERON Address: [place] Address: home [place], [place] [phone]
[2023-12-05] MEDS ORDERED: DEXTROSE 50% 50 ML SYRINGE IV PRN (22:38)
[2023-12-05] MEDS ORDERED: GLUCOSE 10 TAB/TUBE PO PRN (22:38)
[2023-12-05] MEDS ORDERED: PHARMACY GLYCEMIC MGMT CONSULT PRN (22:38)
[2023-12-05] MEDS ORDERED: GLUCAGON FOR INJ 1 MG VIAL SQ PRN (22:38)
[2023-12-05] MEDS ORDERED: GLUCOSE 40% GEL 15 GM TUBE PO PRN (22:38)
[2023-12-05] MEDS ORDERED: CARBOHYDRATES FOR HYPOGLYCEMIA PO PRN (22:38)
[2023-12-05] MEDS ORDERED: ONDANSETRON INJ 2 MG/ML 2 ML VIAL IV PRN (22:38)
[2023-12-05] MEDS: CIPROFLOXACIN / D5W 400 MG/200 ML BAG IV SCH (23:02)
[2023-12-05] MEDS: LACTATED RINGER'S 1,000 ML IV SCH (23:04)
[2023-12-05] MEDS: GABAPENTIN 300 MG CAP PO SCH (23:08)
[2023-12-05] MEDS: APIXABAN 5 MG TABLET PO SCH (23:08)
[2023-12-05] MEDS: carvediloL 6.25 MG TAB PO SCH (23:08)
[2023-12-05] MEDS: traZODone HCL 50 MG TAB PO SCH (23:08)
[2023-12-05] MEDS: rifAXIMin 550 MG TABLET PO SCH (23:08)
[2023-12-05] MEDS: ATORVASTATIN 20 MG TAB PO SCH (23:08)
[2023-12-06] MEDS: CEFEPIME 2,000 MG in SYRINGE 0 ML IV SCH (01:53)
[2023-12-06] MEDS: SODIUM CHLORIDE 0.9% 1,000 ML IV SCH (01:54)
[2023-12-06 08:12] LABS: Eosinophils # (auto) 0.03 K/uL (0.00-0.50); Eosinophils % (auto) 0.8 %; Hematocrit (blood only) 26.8 % (42.0-52.0); Hemoglobin 9.3 g/dl (14.0-18.0); Immature Granulocytes # (auto) 0.07 K/uL (0.01-0.20); Immature Granulocytes % (auto) 1.9 %; Lymphocytes # (auto) 0.23 K/uL (1.20-3.40); Lymphocytes % (auto) 6.4 %; Mean Corpuscular Hemoglobin 33.5 pg (25.0-34.0); Mean Corpuscular Hgb Conc 34.7 g/dL (32.0-36.0); Mean Corpuscular Volume 96.4 fL (80.0-100.0); Mean Platelet Volume 11.6 fL (9.4-12.4); Monocytes # (auto) 0.38 K/uL (0.11-0.59); Monocytes % (auto) 10.6 %; Neutrophils # (auto) 2.88 K/uL (1.40-6.50); Neutrophils % (auto) 80.3 %; Platelet Count 33 K/uL (130-400); RDW Coefficient of Variation 14.5 % (11.5-14.5); RDW Standard Deviation 50.9 fL (36.4-46.3); Red Blood Count 2.78 M/uL (4.70-6.10); White Blood Count 3.59 K/ul (4.8-10.8)
--- NOTE | 2023-12-06 08:28 | Hospitalist Progress Note ---
Date of Service December 06, 2023 Assessment & Plan (1) Sepsis: Plan: Initially seen in ED 12/03 for fever. Discharged on Cefdinir empirically. Returned 12/04 due to positive blood cx with pseudomonas. Repeat blood cx pending. No leukocytosis (in the setting of pancytopenia/leukopenia), afebrile on admission Suspect urinary source. UA appeared infectious. Urine bacteria negative however this was s/p doses of cefdinir. Urine cx pending. Lactate improved s/p IVF. Cont. IVF. CT A/P (12/03): punctate nonobstructing right renal calculus; no deficits of either kidney Pseudomonal double coverage with Cefepime and ciprofloxacin. Plan to double cover x1 week then reduce to mono-coverage. (2) Pancytopenia: Plan: Due to liver cirrhosis with splenomegaly Follows with Dr. 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: Plan: Not listed for transplant at present due to low/variable MELD Continue lactulose Continue rifaximin (8) Obstructive sleep apnea: Plan: CPAP at bedtime (9) Hypertension: Plan: Continue carvedilol, spironolactone, furosemide (10) S/P TIPS (transjugular intrahepatic portosystemic shunt): Plan: Noted Plan DVT ppx: Eliquis FEN/GI: DM2 Code Status: Full Dispo: PCU Admission and Anticipated Discharge Date Admission Date: December 05, 2023 Supervising Physician Co-Signing Physician Notes I personally examined the patient and verified all landrum points of history and exam, discussed case, and agree with decision making with Dr. Pham. Endorsing general fatigue. Denies any ongoing nausea or vomiting at time of evaluation. Having mild abdominal discomfort. Reports urine coloration is normalizing. Denies any shortness of breath or chest pain. Vitals reviewed and unremarkable. Generally laying in bed, nontoxic but tired appearing. Heart regular rate and rhythm, lungs clear to auscultation bilaterally, abdomen with mild tenderness to palpation but no guarding. Labs reviewed and notable for decrease in hemoglobin to 9.3 and decreasing platelets to 33, T. bili/AST/ALT decreasing but increasing alkaline phosphatase. Procalcitonin improving. Blood cultures 12/03 GNR with pseudomonal PCR detected. Repeat blood cultures 12/04 pending. Sepsis likely secondary to urinary source, suspected to be pseudomonal. Do not suspect obstructing stone given prior CT scan. Given patient's other significant comorbidities and delay in appropriate antimicrobial treatment, will continue with segmental double coverage with cefepime and ciprofloxacin. Tentatively plan for double coverage for about 1 week, though may de-escalate prior to that pending culture results. Anticipate total antibacterial coverage for 7 to 10 days. Urine culture added on. Follow-up blood cultures. Portal vein thrombosis. Continue Eliquis but will be carefully monitoring anemia. Liver cirrhosis secondary to Baez status post TIPS with subsequent pancytopenia. Continue with lactulose and rifaximin. Other care as above. Subjective Patient seen at bedside. Feeling better from previous. R flank pain improving. Still with some gross hematuria. +fatigue. Denies cp, dysuria, sob, abd pain, N/V/D. Review of Systems Review of Systems: All systems reviewed & are unremarkable except as noted in HPI & below Physical Exam 2 Physical Exam: Constitutional:in no acute distress, pleasant and normal affect, intact memory. Vitals as above. HEENT: No scleral injection or discharge. Moist mucous membranes. Neck: Supple without lymphadenopathy. Trachea midline. Lungs: Clear to auscultation bilaterally with good effort. Cardiac: Regular rate and rhythm. No murmurs. No lower extremity edema. 2+ distal peripheral pulses. Abdomen: Bowel sounds present. Soft, nontender, and nondistended.No guarding. MSK: No cyanosis or clubbing. Skin: No rashes, warm, dry. Neurologic: no focal deficits Results & Data Results & Data Vital Signs (Past 12 Hours) Vital Signs Temp Pulse Pulse Resp BP BP Pulse Ox 12/06/23 07:35 36.8 C 89 18 143/67 H 91 03/03/24 03:02 37.1 C 81 18 121/65 95 12/05/23 23:05 85 12/05/23 23:00 12/05/23 22:49 37.4 C 86 18 118/62 96 12/05/23 21:00 121/65 12/05/23 21:00 85 21 94 12/05/23 20:30 119/67 12/05/23 20:30 85 18 93 O2 Del Method 12/06/23 07:35 Room Air 12/06/23 03:02 Room Air 12/05/23 23:05 12/05/23 23:00 Room Air 12/05/23 22:49 Room Air 12/05/23 21:00 12/05/23 21:00 12/05/23 20:30 12/05/23 20:30 Laboratory Results 12/06/23 12/06/23 12/05/23 Range/Units 07:22 07:02 20:33 WBC 3.59 L (4.8-10.8) K/ul RBC 2.78 L (4.70-6.10) M/uL Hgb 9.3 L (14.0-18.0) g/dl Hct 26.8 L (42.0-52.0) % MCV 96.4 (80.0-100.0) fL MCH 33.5 (25.0-34.0) pg MCHC 34.7 (32.0-36.0) g/dL RDW Std Deviation 50.9 H (36.4-46.3) fL RDW Coeff of Blanca 14.5 (11.5-14.5) % Plt Count 33 L (130-400) K/uL MPV 11.6 (9.4-12.4) fL Immature Gran % (Auto) 1.9 % Neut % (Auto) 80.3 % Lymph % (Auto) 6.4 % Starr % (Auto) 10.6 % Eos % (Auto) 0.8 % Baso % (Auto) 0.0 % Neut # (Auto) 2.88 (1.40-6.50) K/uL Lymph # (Auto) 0.23 L (1.20-3.40) K/uL Starr # (Auto) 0.38 (0.11-0.59) K/uL Eos # (Auto) 0.03 (0.00-0.50) K/uL Baso # (Auto) 0.00 (0.00-0.20) K/uL Immature Gran # (Auto) 0.07 (0.01-0.20) K/uL Platelet Estimate (Normal) Sodium Pending (136-145) mmol/L Potassium Pending (3.5-5.1) mmol/L Chloride Pending (98-107) mmol/L Carbon Dioxide Pending (21-32) mmol/L Anion Gap Pending (3-11) BUN Pending (6-23) mg/dl Creatinine Pending (0.6-1.4) mg/dl Est Cr Clr Drug Dosing Pending Est GFR ( Amer) Pending ml/min Est GFR (Non-Af Amer) Pending ml/min BUN/Creatinine Ratio Pending (10-20) Glucose Pending (70-99(Fasting)) mg/dl POC Glucose 98 119 H (70-99) mg/dl Lactate (0.4-2.0) mmol/L Calcium Pending (8.6-10.3) mg/dl Magnesium Pending (1.7-2.4) mg/dl Total Bilirubin Pending (0.2-1.0) mg/dl Direct Bilirubin (0-0.2) mg/dl AST Pending (13-39) U/L ALT Pending (7-52) U/L Alkaline Phosphatase Pending (34-104) U/L Troponin I High Sens (0-20) pg/ml Total Protein Pending (6.0-8.3) gm/dl Albumin Pending (3.4-5.0) gm/dl Globulin Pending Albumin/Globulin Ratio Pending Procalcitonin Pending (0-0.5) ng/ml Urine Color Urine Appearance (Clear) Urine pH (4.5-7.5) Ur Specific [place] (1.000-1.030) Urine Protein (Negative) Urine Glucose (UA) (Negative) Urine Ketones (Negative) Urine Blood (Negative) Urine Nitrite (Negative) Urine Bilirubin (Negative) Urine Urobilinogen (Negative) Ur Leukocyte Esterase (Negative) Urine WBC (Auto) (0-5) /hpf Urine RBC (Auto) (0-4) /hpf U Hyaline Cast (Auto) (0-5) /lpf U Epithel Cells (Auto) (0-5) /lpf Urine Bacteria (Auto) (Negative) 12/05/23 12/05/23 12/05/23 Range/Units 19:15 18:50 17:30 WBC 5.16 (4.8-10.8) K/ul RBC 2.96 L (4.70-6.10) M/uL Hgb 9.9 L (14.0-18.0) g/dl Hct 28.7 L (42.0-52.0) % MCV 97.0 (80.0-100.0) fL MCH 33.4 (25.0-34.0) pg MCHC 34.5 (32.0-36.0) g/dL RDW Std Deviation 51.3 H (36.4-46.3) fL RDW Coeff of Blanca 14.4 (11.5-14.5) % Plt Count 33 L D (130-400) K/uL MPV 10.8 (9.4-12.4) fL Immature Gran % (Auto) 2.1 % Neut % (Auto) 83.6 % Lymph % (Auto) 6.0 % Starr % (Auto) 8.1 % Eos % (Auto) 0.0 % Baso % (Auto) 0.2 % Neut # (Auto) 4.31 (1.40-6.50) K/uL Lymph # (Auto) 0.31 L (1.20-3.40) K/uL Starr # (Auto) 0.42 (0.11-0.59) K/uL Eos # (Auto) 0.00 (0.00-0.50) K/uL Baso # (Auto) 0.01 (0.00-0.20) K/uL Immature Gran # (Auto) 0.11 (0.01-0.20) K/uL Platelet Estimate Decreased L (Normal) Sodium 131 L (136-145) mmol/L Potassium 3.9 (3.5-5.1) mmol/L Chloride 102 (98-107) mmol/L Carbon Dioxide 21 (21-32) mmol/L Anion Gap 8 (3-11) BUN 19 (6-23) mg/dl Creatinine 1.00 (0.6-1.4) mg/dl Est Cr Clr Drug Dosing Not Reportable Est GFR ( Amer) 93.1 ml/min Est GFR (Non-Af Amer) 80.3 ml/min BUN/Creatinine Ratio 19.0 (10-20) Glucose 213 H (70-99(Fasting)) mg/dl POC Glucose (70-99) mg/dl Lactate 1.9 2.4 H* (0.4-2.0) mmol/L Calcium 8.2 L (8.6-10.3) mg/dl Magnesium 1.5 L (1.7-2.4) mg/dl Total Bilirubin 2.4 H (0.2-1.0) mg/dl Direct Bilirubin 1.3 H (0-0.2) mg/dl AST 64 H (13-39) U/L ALT 57 H (7-52) U/L Alkaline Phosphatase 62 (34-104) U/L Troponin I High Sens 18.8 (0-20) pg/ml Total Protein 6.0 (6.0-8.3) gm/dl Albumin 3.3 L (3.4-5.0) gm/dl Globulin Albumin/Globulin Ratio Procalcitonin 5.83 H (0-0.5) ng/ml Urine Color Dark Yellow Urine Appearance Clear (Clear) Urine pH 6.0 (4.5-7.5) Ur Specific [place] 1.034 H (1.000-1.030) Urine Protein 1+ H (Negative) Urine Glucose (UA) 1+ H (Negative) Urine Ketones Trace H (Negative) Urine Blood 2+ H (Negative) Urine Nitrite Positive A (Negative) Urine Bilirubin 1+ H (Negative) Urine Urobilinogen Positive H (Negative) Ur Leukocyte Esterase Trace H (Negative) Urine WBC (Auto) 1-5 (0-5) /hpf Urine RBC (Auto) 0-4 (0-4) /hpf U Hyaline Cast (Auto) 1-5 (0-5) /lpf U Epithel Cells (Auto) 5-10 H (0-5) /lpf Urine Bacteria (Auto) Negative (Negative) Resident Activity Tracking Resident Involvement: Resident Care Provided Care Provided: Adult [facility] Medicine
[2023-12-06 08:34] LABS: Albumin Globulin Ratio 1.3 (0.9-2); Albumin Level 2.9 gm/dl (3.4-5.0); BUN Creatinine Ratio 19.5 (10-20); Bilirubin,Total 1.9 mg/dl (0.2-1.0); Calcium 7.7 mg/dl (8.6-10.3); Creatinine Clr Calc Pharmacy 105.6 ml/min; Est GFR (African American) 112.7 ml/min; Est GFR (Non-African American) 97.3 ml/min; Globulin 2.3 gm/dl (2.5-4.0); Magnesium 1.9 mg/dl (1.7-2.4); Potassium 3.9 mmol/L (3.5-5.1); Total Protein 5.2 gm/dl (6.0-8.3)
--- NOTE | 2023-12-06 08:42 | Electrocardiogram Report ---
Test Reason : Blood Pressure : / mmHG Vent. Rate : 091 BPM Atrial Rate : 091 BPM P-R Int : 184 ms QRS Dur : 154 ms QT Int : 396 ms P-R-T Axes : 033 102 036 degrees QTc Int : 487 ms Normal sinus rhythm Right bundle branch block Abnormal ECG When compared with ECG of 10-MAR-2022 21:42, T wave inversion less evident in Anterior leads Confirmed by Mick Hollingsworth [id number] on 12/06/2023 8:42:04 AM Referred By: REFERRED SELF Confirmed By:Mick Hollingsworth
[2023-12-06] MEDS: FUROSEMIDE 20 MG TAB PO SCH (09:03)
[2023-12-06] MEDS: FLUoxetine HCL 10 MG CAP PO SCH (09:03)
[2023-12-06] MEDS: PANTOprazole 40 MG TAB PO SCH (09:03)
[2023-12-06] MEDS: buPROPion XL 300 MG TABCR PO SCH (09:03)
[2023-12-06] MEDS: LACTULOSE SYRUP 10 GM/15 ML BTL 960 ML PO SCH (09:04)
[2023-12-06] MEDS: INSULIN ASPART PER UNIT CHARGE SC SCH (09:09)
[2023-12-06] MEDS: ZINC SULFATE 220 MG CAPSULE PO SCH (09:10)
[2023-12-06] MEDS: SPIRONOLACTONE 25 MG TAB PO SCH (09:10)
--- NOTE | 2023-12-06 09:13 | Pharmacy Report ---
Pharmacy Glycemic Short Note 2 - Date of Service December 06, 2023 - Glycemic Short BSG Results (Last 24 hours): 12/05/23 12/05/23 12/06/23 17:30 20:33 07:02 Glucose 213 H 89 POC Glucose 119 H 12/06/23 07:22 Glucose POC Glucose 98 OUTPATIENT ANTIDIABETIC REGIMEN: * Metformin 500mg PO BID * A1c 6.3% 10/30/23 ASSESSMENT: * 63 yo M, admitted with sepsis pseudomonas bacteremia + UTI, on IV Cipro + Cefepime, T2DM controlled on metformin alone at home. * Oral agents are not recommended for inpatient use d/t drug interactions, changing PO intake, and difficulty titrating for acute hyper/hypoglycemia. * Will hold oral agents for admission and utilize SQ basal bolus insulin regimen which is the recommended regimen for inpatient glycemic control. * Euglycemic, no basal needed at this time. PLAN FOR INPATIENT GLYCEMIC CONTROL: * Hold outpatient oral diabetes medications * Basal insulin * None at this time * Bolus insulin * NovoLog per scale ACHS or Q6hrs while NPO * Goal Range: Low 110 mg/dL - High 140 mg/dL * Correction Factor: 25 mg/dL/unit * Nutritional / Prandial insulin per carb ratio of 1 unit per 9 grams CHO consumed
--- NOTE | 2023-12-06 13:03 | Billing Data ---
Date of Service December 06, 2023 Coding Level of Care Code 56895 SUB INP/OBS CARE
[2023-12-06] MEDS: ACETAMINOPHEN 325 MG TAB PO PRN (17:26)
[2023-12-06] MEDS: HYDROmorphone INJ 0.5 MG/0.5 ML SYR IV STA (18:26)
[2023-12-07 06:31] LABS: Basophils # (auto) 0.01 K/uL (0.00-0.20); Basophils % (auto) 0.3 %; Eosinophils # (auto) 0.11 K/uL (0.00-0.50); Eosinophils % (auto) 3.6 %; Hematocrit (blood only) 29.1 % (42.0-52.0); Hemoglobin 9.6 g/dl (14.0-18.0); Immature Granulocytes # (auto) 0.03 K/uL (0.01-0.20); Lymphocytes # (auto) 0.36 K/uL (1.20-3.40); Lymphocytes % (auto) 11.7 %; Mean Platelet Volume 11.1 fL (9.4-12.4); Monocytes # (auto) 0.27 K/uL (0.11-0.59); Monocytes % (auto) 8.7 %; Neutrophils # (auto) 2.31 K/uL (1.40-6.50); Neutrophils % (auto) 74.7 %; Platelet Count 41 K/uL (130-400); RDW Coefficient of Variation 14.5 % (11.5-14.5); RDW Standard Deviation 53.5 fL (36.4-46.3); Red Blood Count 2.91 M/uL (4.70-6.10); White Blood Count 3.09 K/ul (4.8-10.8)
[2023-12-07 06:45] LABS: Albumin Globulin Ratio 1.2 (0.9-2); Albumin Level 2.9 gm/dl (3.4-5.0); BUN Creatinine Ratio 16.3 (10-20); Bilirubin,Total 1.5 mg/dl (0.2-1.0); Calcium 8.1 mg/dl (8.6-10.3); Creatinine Clr Calc Pharmacy 101.4 ml/min; Est GFR (Non-African American) 95.7 ml/min; Globulin 2.5 gm/dl (2.5-4.0); Magnesium 1.7 mg/dl (1.7-2.4); Potassium 4.3 mmol/L (3.5-5.1); Total Protein 5.4 gm/dl (6.0-8.3)
[2023-12-07 06:51] LABS: INR 1.3 (0.9-1.1); Prothrombin Time 13.6 Seconds (9.0-12.0)
--- NOTE | 2023-12-07 07:57 | Hospitalist Progress Note ---
Date of Service December 07, 2023 Assessment & Plan (1) Sepsis: Plan: Pseudomonas bacteremia Initially seen in ED 12/03 for fever. Discharged on Cefdinir empirically. Returned 12/04 due to positive blood cx with pseudomonas. No leukocytosis (in the setting of pancytopenia/leukopenia), afebrile on admission Suspect urinary source. UA appeared infectious. Urine bacteria negative however this was s/p doses of cefdinir. Urine cx pending. Lactate improved s/p IVF. Cont. IVF. CT A/P (12/03): punctate nonobstructing right renal calculus; no deficits of either kidney Pseudomonal double coverage with Cefepime (day 3) Cipro stopped today Will consult ID for input (2) Pancytopenia: Plan: Due to liver cirrhosis with splenomegaly Follows with Dr. Qiu at [facility] Hematology (3) Portal vein thrombosis: Plan: Hgb 9.9 on arrival which represents a 1.5L drop from the day before on 12/03 (Hgb 11.4) Likely 2/2 gross hematuria Continue Eliquis for now and hold if downtrending (4) Hypomagnesemia: Plan: Mag 1.5 on arrival, replenished, monitor (5) Anemia: Plan: Chronic; noted Hgb 9.9 (as above) (6) Type 2 diabetes mellitus with obesity: Plan: Last A1c 6.3% Hold metformin Pharmacy glycemic management consult - SSI (7) Liver cirrhosis secondary to COOL: Plan: Not listed for transplant at present due to low/variable MELD Continue lactulose Continue rifaximin (8) Obstructive sleep apnea: Plan: CPAP qHS (9) Hypertension: Plan: Continue carvedilol, spironolactone, furosemide (10) S/P TIPS (transjugular intrahepatic portosystemic shunt): Plan: Noted (11) Right flank pain: Plan: not improving will order thoracic and c spine xr Plan DVT ppx: Eliquis FEN/GI: DM2 Code Status: Full Dispo: PCU Admission and Anticipated Discharge Date Admission Date: December 05, 2023 Supervising Physician Co-Signing Physician Notes Attending Physician Supervision Note: I independently interviewed and examined the patient and verified the landrum history and physical, reviewed labs and image studies and agree with findings and care plan noted above. Sepsis with Pseudomonas bacteremia - likely urinary source. ED visit 12/03 for fever, chills and right flank and back pain, was sent home on cefdinir. Returned back 12/04 positive blood cx with Pseudomonas CT A/P - 12/03 - nonobstructing right renal calculus -continue cefepime 2 g IV every 8 hours. d/c cipro. -repeat cx negative. -consult ID for abx duration recommendation considering h/o TIPS Pancytopenia/liver cirrhosis/splenomegaly- Follows with hematology/oncology Dr. Qiu Right flank pain and headache - since his fall. Thoracic spine xray today - ne gative for facture. -will trial muscle relaxant in am. Diabetes mellitus type 2- A1c on 10/30/2023 was 6.3 Holding metformin Placed on Accu-Cheks with NovoLog SSI Liver cirrhosis/COOL/s/p TIPS- Continue lactulose and rifaximin Remaining orders and notations as noted Subjective No acute events overnight. Patient seen and evaluated at bedside this morning. Improving. Continues to have flank pain radiating to shoulder. Has mild persistent SMITH. Patient denies CP, SOB, abdominal pain, nausea, vomiting, lightheadedness, dizziness, and diarrhea. Review of Systems Review of Systems: reviewed, per HPI Physical Exam Physical Exam: Constitutional:no acute distress HEENT: NCAT, no conjunctival injection CV: regular rhythm, no murmur appreciated, extremities well-perfused, no LE edema Resp: CTABL, no wheezes/rales/rhonchi appreciated, no increased work of breathing GI: soft, nondistended, nontender, BS normoactive MSK: no gross deformities appreciated, R flank TTP Skin: warm, dry, no rash appreciated Neuro: alert, oriented, no focal neurologic deficit appreciated Results & Data Results & Data Vital Signs (Past 12 Hours) Vital Signs Temp Pulse Pulse Resp BP BP Pulse Ox 12/07/23 02:25 36.5 C 81 18 118/59 L 96 12/06/23 23:08 74 12/06/23 22:32 36.7 C 72 18 114/56 L 93 O2 Del Method 12/07/23 02:25 Room Air 12/06/23 23:08 12/06/23 22:32 Room Air Resident Activity Tracking Resident Involvement: Resident Care Provided Care Provided: Adult [facility] Medicine
[2023-12-07] MEDS: FERROUS SULFATE 325 MG TAB PO SCH (09:04)
[2023-12-07] MEDS: HYDROmorphone INJ 1 MG/ML SYRINGE IV PRN (12:00)
--- NOTE | 2023-12-07 13:38 | Infectious Disease Consult ---
Date of Consultation December 07, 2023 Assessment & Plan (1) Sepsis: (2) Bacteremia: Plan #Pseudomonas bacteremia #Liver cirrhosis 63-year-old male with PMH of T2DM, HTN, HLD, CAD, COOL liver cirrhosis with esophageal varices, portal vein thrombosis, s/p TIPS. Patient initially seen in ED on 12/03 after he developed a fever, chills, vomiting, burning with urination, bilateral flank pain, lower back pain, on 12/03 and came to [facility] ED; discharged on cefdinir. He returned on 12/04 when 12/03 Blood cultures became positive ultimately growing PSA. ID c/s for abx management Patient seen in ED on 12/03 Blood cultures drawn and growing PanS PSA in 2/[address] A/P on 12/03 showed punctate nonobstructing right renal calculus; no deficits of either kidney 12/05 Ucx (added to 12/04 urine) No growth - Less than 1,000 colonies/mL, Patient RT to hospital, HD stable. CXR no acute process Recommend: Patient doesnt need double coverage, agree with cefepime at 2G IV q8 hours Recommend repeat blood cultures His Ucx on 12/04 approx 1 day of cefdinir would expect some PSA growth given cefdinir doesnt cover Consider abdominal source as well Thank you for this consult ID will follow Ariella Baltazar MD Infectious Diseases Consultation Information This patient recommendation is based on a telemedicine consult request which was completed asynchronously through chart review and information provided by the primary physician. The patient was not seen or examined today. The evaluation is consultative in nature and all patient care and treatment decisions can either be accepted or rejected by the patient's primary hospital-based treating physi nilsa using their own independent medical judgment for their patient. Coordinator [employer] Program contact information: Please call [facility] Center . (Phone Number For Physician Use Only) Time Spent Reviewing Chart: 31+ minutes History of Present Illness Reason for Consultation: Pseudomonas Bacteremia Requesting Physician: Dr. Ramirez Attending Physician: Natalie Ramirez MD Allergies Allergy/AdvReac Type Severity Reaction Status Date / Time lisinopril Allergy Mild cough Verified 12/01/23 08:29 Penicillins Allergy Mild RASH Verified 12/01/23 08:29 Home Medications Medication Instructions Recorded Confirmed Type blood sugar diagnostic (FreeStyle #100 ea 01/12/20 12/05/23 Rx Lite Strips) lancets 28 gauge (FreeStyle #100 ea 01/12/20 12/05/23 Rx Lancets) rifaximin 550 mg tablet 550 mg PO BID 02/11/21 12/05/23 History coenzyme Q10 30 mg capsule 30 mg PO DAILY 07/30/21 12/05/23 History zinc sulfate 50 mg zinc (220 mg) 50 mg PO DAILY 07/30/21 12/05/23 History tablet furosemide 20 mg tablet 20 mg PO DAILY peripheral edema 10/11/21 12/05/23 History spironolactone 50 mg tablet 50 mg PO DAILY 10/11/21 12/05/23 History atorvastatin 20 mg tablet 20 mg PO HS #90 tabs 03/31/23 12/05/23 Rx gabapentin 300 mg capsule 300 mg PO HS #90 caps 03/31/23 12/05/23 Rx metformin 500 mg tablet,extended 500 mg PO BID #180 tabs 06/09/23 12/05/23 Rx release 24 hr sildenafil 50 mg tablet (Viagra) 25 - 50 mg (0.5 - 1 x 50 mg) PO 06/09/23 12/05/23 Rx DAILY PRN sexual activity #10 tabs Auto Titrating CPAP #1 ea 07/30/23 12/05/23 Rx carvedilol 6.25 mg tablet 6.25 mg PO BID 07/30/23 12/05/23 History trazodone 100 mg tablet 50 mg (1/2 x 100 mg) PO HS #45 tabs 09/09/23 12/05/23 Rx lactulose 10 gram/15 mL oral 15 ml PO DAILY #1,419 mL 10/22/23 12/05/23 Rx solution apixaban 5 mg tablet 5 mg PO BID #180 tabs 10/28/23 12/05/23 Rx ferrous sulfate 325 mg (65 mg 325 mg PO .three times weekly #30 12/01/23 12/05/23 Rx iron) tablet tabs bupropion HCl 300 mg 24 hr tablet, See Rx Instructions .Route 12/04/23 12/05/23 Rx extended release .COMPLEX #90 tabs cefdinir 300 mg capsule 300 mg PO BID 7 days #14 caps 12/04/23 12/05/23 Rx fluoxetine 10 mg capsule See Rx Instructions .Route 12/04/23 12/05/23 Rx .COMPLEX #90 caps omeprazole 20 mg capsule,delayed See Rx Instructions .Route 12/07/23 Rx release .COMPLEX #90 caps Patient History Medical History Type 2 diabetes mellitus with retinopathy Decompensated hepatic cirrhosis Type 2 diabetes mellitus with obesity Portal vein thrombosis Tx with Eliquis History of biliary stent insertion Chronic anticoagulation Insomnia Depression Diabetes mellitus, type 2 Anemia Anxiety Sleep apnea no device 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 Esophageal varices hx of bleeding and banding Diabetic retinopathy dr. Moody CAD (coronary artery disease) Hyperlipidemia Hypertension Surgical History S/P TIPS (transjugular intrahepatic portosystemic shunt) History of colonoscopy with polypectomy History of esophagogastroduodenoscopy (EGD) History of wisdom tooth extraction Family History Mother Family history of diabetes mellitus Stroke Sister Leukemia Family history of diabetes mellitus Father , age 42 Heart disease Brother Benign polyp of large intestine Uncle Diabetes Other No family history of adverse response to anesthesia Denies family history of Ovarian cancer Prostate cancer Myocardial infarction Breast cancer Colorectal cancer Social History Smoking Status: Former smoker Tobacco Type: Cigarettes Age Started Using Tobacco: 22; Age Quit Using Tobacco: 47; packs per day: 1; Second Hand Exposure: No; Do You Dip or Chew Tobacco: No; Tobacco Cessation Education Requested by Patient: No Hx Alcohol Use: No Hx Substance Use: No Preferred Language: Mohawk Communication Ability: Effective Visual Impairment: Limited Hearing Ability: Normal Environmental Projects Advisor Required: No Beliefs That Will Affect Care: None marital status: Current Living Situation: Spouse Current Living Situation Comment: Lives with and son current occupational status: retired current occupation: [employer] Other Information That Helps Us Care for You: No Feels Safe at Home: Yes Safety Concerns: Feels Safe At This Time Childhood Exposure to Second-Hand Smoke: No Diet: low salt caffeine: Yes Dental Care, Regularly: Yes Physical Activity Frequency: Daily Physical Activity Frequency Comment: WALK Seatbelt Use: always Sunscreen Use: Yes Assistive Devices: Glasses Results & Data Vital Signs (Past 12 Hours) Vital Signs Temp Pulse Pulse Resp BP BP Pulse Ox 12/07/23 11:39 36.9 C 78 17 138/70 95 12/07/23 08:02 36.8 C 78 17 147/80 H 98 12/07/23 08:00 75 12/07/23 02:25 36.5 C 81 18 118/59 L 96 O2 Del Method 12/07/23 11:39 Room Air 12/07/23 08:02 Room Air 12/07/23 08:00 12/07/23 02:25 Room Air Laboratory Results Short CBC 12/07/23 Range/Units 05:56 WBC 3.09 L (4.8-10.8) K/ul Hgb 9.6 L (14.0-18.0) g/dl Hct 29.1 L (42.0-52.0) % Plt Count 41 L (130-400) K/uL BMP 12/07/23 05:56 Sodium 138 Potassium 4.3 Chloride 111 H Carbon Dioxide 26 BUN 13 Creatinine 0.80 Glucose 77 Calcium 8.1 L Liver Function 12/07/23 Range/Units 05:56 Total Bilirubin 1.5 H (0.2-1.0) mg/dl AST 37 (13-39) U/L ALT 38 (7-52) U/L Alkaline Phosphatase 62 (34-104) U/L Albumin 2.9 L (3.4-5.0) gm/dl Medications Administered Current Inpatient Medications Acetaminophen (Acetaminophen 325 Mg Tab) 650 mg PO Q4H PRN PRN Reason: Pain or Fever Stop: 01/05/24 17:00 Last Admin: 12/07/23 09:05 Dose: 650 mg Apixaban (Apixaban 5 Mg Tablet) 5 mg PO BID LIZET Stop: 01/04/24 22:37 Last Admin: 12/07/23 09:05 Dose: 5 mg Atorvastatin Calcium (Atorvastatin 20 Mg Tab) 20 mg PO HS [facility]ZET Stop: 01/04/24 22:37 Last Admin: 12/06/23 20:13 Dose: 20 mg Bupropion HCl (Bupropion Xl 300 Mg Tabcr) 300 mg PO QAM [facility] Stop: 01/05/24 08:59 Last Admin: 12/07/23 09:05 Dose: 300 mg Carvedilol (Carvedilol 6.25 Mg Tab) 6.25 mg PO BID [facility] Stop: 01/04/24 22:37 Last Admin: 12/07/23 09:05 Dose: 6.25 mg Dextrose (Dextrose 50% 50 Ml Syringe) 25 - 50 ml IV UD PRN; Protocol PRN Reason: Hypoglycemia Protocol Stop: 01/04/24 22:37 Ferrous Sulfate (Ferrous Sulfate 325 Mg Tab) 325 mg PO [id number] [facility] Stop: 01/06/24 08:59 Last Admin: 12/07/23 09:04 Dose: 325 mg Fluoxetine HCl (Fluoxetine Hcl 10 Mg Cap) 10 mg PO DAILY [facility] Stop: 01/05/24 08:59 Last Admin: 12/07/23 09:05 Dose: 10 mg Furosemide (Furosemide 20 Mg Tab) 20 mg PO DAILY [facility] Stop: 01/05/24 08:59 Last Admin: 12/07/23 09:05 Dose: 20 mg Gabapentin (Gabapentin 300 Mg Cap) 300 mg PO HS [facility] Stop: 01/04/24 22:37 Last Admin: 12/06/23 20:14 Dose: 300 mg Glucagon (Glucagon For Inj 1 Mg Vial) 1 mg SQ UD PRN; Protocol PRN Reason: Hypoglycemia Protocol Stop: 01/04/24 22:37 Glucose (Glucose 10 Tab/Tube) 4 - 8 tab PO UD PRN; Protocol PRN Reason: Hypoglycemia Treatment Stop: 01/04/24 22:37 Glucose (Glucose 40% Gel 15 Gm Tube) 15 - 30 gm PO UD PRN; Protocol PRN Reason: Hypoglycemia Protocol Stop: 01/04/24 22:37 Hydromorphone HCl (Hydromorphone Inj 1 Mg/Ml Syringe) 1 mg IV Q4H PRN PRN Reason: Pain Stop: 12/21/23 11:43 Last Admin: 12/07/23 12:00 Dose: 1 mg Cefepime HCl 2,000 mg/ Syringe 20 mls @ 5 mls/min IV Q8H LIZET; Protocol Stop: 12/16/23 01:34 Last Admin: 12/07/23 09:07 Dose: 5 mls/min Insulin Aspart (Insulin Aspart Per Unit Charge) 0 units SC ACHS [facility] Stop: 01/05/24 07:29 Last Admin: 12/07/23 12:36 Dose: 8 units Lactulose (Lactulose Syrup 10 Gm/15 Ml Btl 960 Ml) 10 gm PO QAM [facility] Stop: 01/05/24 08:59 Last Admin: 12/07/23 09:05 Dose: 10 gm Miscellaneous (Carbohydrates For Hypoglycemia ) 15 - 30 gm PO UD PRN PRN Reason: Hypoglycemia Protocol Stop: 01/04/24 22:37 Miscellaneous Information (Pharmacy Glycemic Mgmt Consult) 1 each N/A UD PRN PRN Reason: Consult Stop: 01/04/24 22:37 Ondansetron HCl (Ondansetron Inj 2 Mg/Ml 2 Ml Vial) 4 mg IV Q6H PRN PRN Reason: Nausea Stop: 01/04/24 22:37 Pantoprazole Sodium (Pantoprazole 40 Mg Tab) 40 mg PO DAILY [facility] Stop: 01/05/24 08:59 Last Admin: 12/07/23 09:05 Dose: 40 mg Rifaximin (Rifaximin 550 Mg Tablet) 550 mg PO BID [facility] Stop: 01/04/24 22:37 Last Admin: 12/07/23 09:05 Dose: 550 mg Spironolactone (Spironolactone 25 Mg Tab) 50 mg PO DAILY [facility] Stop: 01/05/24 08:59 Last Admin: 12/07/23 09:05 Dose: 50 mg Trazodone HCl (Trazodone Hcl 50 Mg Tab) 50 mg PO HS [facility] Stop: 01/04/24 22:37 Last Admin: 12/06/23 20:14 Dose: 50 mg Zinc Sulfate (Zinc Sulfate 220 Mg Capsule) 220 mg PO DAILY [facility] Stop: 01/05/24 08:59 Last Admin: 12/07/23 09:05 Dose: 220 mg
--- NOTE | 2023-12-07 15:57 | XRay Report ---
XR thoracic spine 3V routine HISTORY: 63 years-old Male r/o rib fracture acute mid back pain status post trauma COMPARISON: Chest radiograph December 05, 2023 TECHNIQUE: 3 views of the thoracic spine FINDINGS: Mild multilevel disc space narrowing and spondylotic spurring. No acute fracture, subluxation or endp late erosion. A TIPS shunt catheter is noted. Upper abdominal endoscopy clip. IMPRESSION: No acute fracture or subluxation. ACT 112: Negative or not required by law. The above report was generated using voice recognition software. It may contain grammatical, syntax o r spelling errors. Electronically signed by: Mik Oliveros M.D. 12/07/2023 3:55 PM
[2023-12-08 06:30] LABS: Basophils # (auto) 0.01 K/uL (0.00-0.20); Basophils % (auto) 0.4 %; Eosinophils % (auto) 4.2 %; Hemoglobin 9.2 g/dl (14.0-18.0); Immature Granulocytes # (auto) 0.01 K/uL (0.01-0.20); Immature Granulocytes % (auto) 0.4 %; Lymphocytes # (auto) 0.51 K/uL (1.20-3.40); Lymphocytes % (auto) 21.4 %; Mean Corpuscular Hemoglobin 32.6 pg (25.0-34.0); Mean Corpuscular Hgb Conc 34.1 g/dL (32.0-36.0); Mean Corpuscular Volume 95.7 fL (80.0-100.0); Mean Platelet Volume 10.9 fL (9.4-12.4); Monocytes # (auto) 0.27 K/uL (0.11-0.59); Monocytes % (auto) 11.3 %; Neutrophils # (auto) 1.48 K/uL (1.40-6.50); Neutrophils % (auto) 62.3 %; Platelet Count 51 K/uL (130-400); RDW Coefficient of Variation 14.1 % (11.5-14.5); RDW Standard Deviation 49.8 fL (36.4-46.3); Red Blood Count 2.82 M/uL (4.70-6.10); White Blood Count 2.38 K/ul (4.8-10.8)
--- NOTE | 2023-12-08 06:53 | Hospitalist Progress Note ---
Date of Service December 08, 2023 Assessment & Plan (1) Sepsis: Plan: Pseudomonas bacteremia Initially seen in ED 12/03 for fever. Discharged on Cefdinir empirically. Returned 12/04 due to positive blood cx with pseudomonas. No leukocytosis (in the setting of pancytopenia/leukopenia), afebrile since 12/04 Suspect urinary source. Urine bacteria negative however this was s/p doses of cefdinir. Urine so far negative CT A/P (12/03): punctate nonobstructing right renal calculus; no deficits of either kidney CT Abd (12/07): no significant change Pseudomonal double coverage with Cefepime (day 02/15) Cipro stopped today ID consult, appreciate recs: continue cefepime for a total of 14 days, no oral substitute, PICC line, okay for dc from their perspective (2) Pancytopenia: Plan: Due to liver cirrhosis with splenomegaly Follows with Dr. Qiu at [facility] Hematology and Dr. Albert @[facility] [place] (3) Portal vein thrombosis: Plan: Hgb 9.9 on arrival which represents a 1.5L drop from the day before on 12/03 (Hgb 11.4) Likely 2/2 gross hematuria Continue Eliquis for now and hold if downtrending (4) Hypomagnesemia: Plan: Mag 1.5 on arrival, replenished, monitor (5) Anemia: Plan: Chronic; noted Hgb 9.9 (as above) (6) Type 2 diabetes mellitus with obesity: Plan: Last A1c 6.3% Hold metformin Pharmacy glycemic management consult - SSI (7) Liver cirrhosis secondary to COOL: Plan: Not listed for transplant at present due to low/variable MELD Continue lactulose Continue rifaximin (8) Obstructive sleep apnea: Plan: CPAP qHS (9) Hypertension: Plan: Continue carvedilol, spironolactone, furosemide (10) S/P TIPS (transjugular intrahepatic portosystemic shunt): Plan: Noted (11) Right flank pain: Plan: not improving will order thoracic and c spine xr Plan DVT ppx: Eliquis FEN/GI: DM2 Code Status: Full Dispo: PCU Admission and Anticipated Discharge Date Admission Date: December 05, 2023 Supervising Physician Co-Signing Physician Notes Attending Physician Supervision Note: I independently interviewed and examined the patient and verified the landrum history and physical, reviewed labs and image studies and agree with findings and care plan noted above. Sepsis with Pseudomonas bacteremia - unclear source since urine cx neg after only one day of cefdinir. ED visit 12/03 for fever, chills and right flank and back pain, was sent home on cefdinir. Returned back 12/04 positive blood cx with Pseudomonas CT A/P - 12/03 - nonobstructing right renal calculus -continue cefepime 2 g IV every 8 hours. -repeat cx negative. -CT A/P on admission and recheck with IV - no acute pathology. Right flank pain and headache - since his fall. Thoracic spine xray - negative for facture. CT A? with dye - no acute pathology. -trial muscle relaxant at low dose -prn hydromorphone. Pancytopenia/liver cirrhosis/splenomegaly- Follows with hematology/oncology Dr. Qiu Liver cirrhosis/COOL/s/p TIPS- -Continue lactulose and rifaximin Diabetes mellitus type 2- A1c on 10/30/2023 was 6.3 Holding metformin -Accu-Cheks with NovoLog SSI Remaining orders and notations as noted Subjective No acute events overnight. Patient seen and evaluated at bedside this morning. Resting with some pain in the r-flank area this am. Patient denies CP, SOB, abdominal pain, nausea, vomiting, lightheadedness, dizziness, and diarrhea. Review of Systems Review of Systems: reviewed, per HPI Physical Exam Physical Exam: Constitutional:no acute distress HEENT: NCAT, no conjunctival injection CV: regular rhythm, no murmur appreciated, extremities well-perfused, no LE edema Resp: CTABL, no wheezes/rales/rhonchi appreciated, no increased work of breathing GI: soft, nondistended, nontender, BS normoactive MSK: no gross deformities appreciated, R flank TTP Skin: warm, dry, no rash appreciated Neuro: alert, oriented, no focal neurologic deficit appreciated Results & Data Results & Data Vital Signs (Past 12 Hours) Vital Signs Temp Pulse Pulse Resp BP Pulse Ox O2 Del Method 12/08/23 02:06 36.4 C L 74 18 121/67 95 Room Air 12/07/23 23:44 81 12/07/23 22:55 36.7 C 66 18 110/63 96 Room Air 12/07/23 19:33 36.9 C 63 18 115/71 96 Room Air Resident Activity Tracking Resident Involvement: Resident Care Provided Care Provided: Adult [facility]
[2023-12-08 06:55] LABS: Albumin Globulin Ratio 1.1 (0.9-2); Albumin Level 2.8 gm/dl (3.4-5.0); BUN Creatinine Ratio 16.9 (10-20); Bilirubin,Total 1.1 mg/dl (0.2-1.0); Creatinine Clr Calc Pharmacy 105.4 ml/min; Est GFR (African American) 112.7 ml/min; Est GFR (Non-African American) 97.3 ml/min; Globulin 2.5 gm/dl (2.5-4.0); Magnesium 1.7 mg/dl (1.7-2.4); Potassium 4.2 mmol/L (3.5-5.1); Total Protein 5.3 gm/dl (6.0-8.3)
[2023-12-08] MEDS ORDERED: HYDROmorphone INJ 0.5 MG/0.5 ML SYR IV PRN (08:37)
[2023-12-08] MEDS: OPTIRAY 320 500ml IV ONE (11:19)
--- NOTE | 2023-12-08 11:50 | CT Scan Report ---
CT abdomen w IV con CLINICAL HISTORY: Abdominal, flank pain, TIPS, ? ischemia TECHNIQUE: Helical axial images of the abdomen were obtained. Automated dose lowering techniques and/ or adjustment according to patient size were utilized for this exam. This exam was performed with in travenous contrast. CT DOSE: 916.46 mGy.cm Comparison: Comparison is made to CT abdomen pelvis 12/04/2023 FINDINGS: Lower chest: Small right pleural effusion with underlying atelectasis. Bronchial wall thickening is seen. Liver: A TIPS shunt is noted. Cirrhotic contour of the liver is noted. Gallbladder and biliary tree: Patient is status post cholecystomy with a small gallbladder remnant no naveed. No intra- or extrahepatic biliary ductal dilation. Pancreas: Unremarkable, no focal lesions. Spleen: Spleen measures 17 mm in clinical dimension, enlarged. Adrenals: Unremarkable. Kidneys and ureters: There is a 15 mm cyst in the right kidney. Nonobstructive stones are seen in the right kidney. No evidence of hydronephrosis. Bowel: The appendix is normal. Lymph nodes Retroperitoneal: Subcentimeter lymph nodes are noted. Mesenteric: Subcentimeter lymph nodes are noted. Peritoneum: Trace peritoneal fluid is seen. Vessels: Atherosclerotic calcifications are seen. Paraesophageal varices. Abdominal wall: Unremarkable. Bones: Degenerative changes in the visualized spine. IMPRESSION: 1. No acute abnormality is seen, in particular no evidence of hydronephrosis or appendicitis. Vessel s are patent with no evidence of ischemia. 2. Cirrhosis, splenomegaly, and abdominal varices are seen. There is a small amount of peritoneal fl uid. 3. Additional findings as above. ACT 112: Negative or not required by law. Electronically signed by: Jairo Field M.D. 12/08/2023 11:49 AM
--- NOTE | 2023-12-08 12:06 | Pharmacy Report ---
Pharmacy Glycemic Short Note 2 - Date of Service December 08, 2023 - Glycemic Short BSG Results (Last 24 hours): 12/07/23 12/07/23 12/08/23 16:14 20:26 05:28 Glucose 87 POC Glucose 99 125 H 12/08/23 12/08/23 06:59 11:43 Glucose POC Glucose 86 126 H OUTPATIENT ANTIDIABETIC REGIMEN: * Metformin 500mg PO BID * A1c 6.3% 10/30/23 ASSESSMENT: 12/07: * BSGs within goal the last 48h. Receiving no basal and 8 units of bolus insulin only yesterday. * Diet ordered, continues on cefepime, other stressors stable. * Continue Novolog ACHS- loosened to 03/09 today. 12/05: * 63 yo M, admitted with sepsis pseudomonas bacteremia + UTI, on IV Cipro + Cefepime, T2DM controlled on metformin alone at home. * Oral agents are not recommended for inpatient use d/t drug interactions, changing PO intake, and difficulty titrating for acute hyper/hypoglycemia. * Will hold oral agents for admission and utilize SQ basal bolus insulin regimen which is the recommended regimen for inpatient glycemic control. * Euglycemic, no basal needed at this time. PLAN FOR INPATIENT GLYCEMIC CONTROL: * Hold outpatient oral diabetes medications * Basal insulin * None at this time * Bolus insulin * NovoLog per scale ACHS or Q6hrs while NPO * Goal Range: Low 110 mg/dL - High 140 mg/dL * Correction Factor: 30 mg/dL/unit * Nutritional / Prandial insulin per carb ratio of 1 unit per 11 grams CHO consumed
[2023-12-08] MEDS ORDERED: POLYETHYLENE (MIRALAX) 17 GM PACK PO PRN (12:20)
[2023-12-08] MEDS: HYDROmorphone INJ 0.5 MG/0.5 ML SYR IV PRN (13:03)
[2023-12-08] MEDS: DICLOFENAC SOD 1% GEL 100 GM TUBE EXT SCH (17:12)
[2023-12-08] MEDS: Cefepime 2,000 MG Extended Infusion IV SCH (17:37)
[2023-12-08] MEDS: HYDROmorphone INJ 1 MG/ML SYRINGE IV PRN (19:45)
[2023-12-08] MEDS: CYCLOBENZAPRINE HCL 5 MG TAB PO SCH (20:25)
[2023-12-09] MEDS: POLYETHYLENE (MIRALAX) 17 GM PACK PO SCH (07:32)
[2023-12-09 07:38] LABS: Basophils # (auto) 0.01 K/uL (0.00-0.20); Basophils % (auto) 0.3 %; Eosinophils # (auto) 0.08 K/uL (0.00-0.50); Eosinophils % (auto) 2.6 %; Hematocrit (blood only) 27.5 % (42.0-52.0); Hemoglobin 9.4 g/dl (14.0-18.0); Immature Granulocytes # (auto) 0.02 K/uL (0.01-0.20); Immature Granulocytes % (auto) 0.7 %; Lymphocytes # (auto) 0.67 K/uL (1.20-3.40); Lymphocytes % (auto) 22.2 %; Mean Corpuscular Hemoglobin 33.3 pg (25.0-34.0); Mean Corpuscular Hgb Conc 34.2 g/dL (32.0-36.0); Mean Corpuscular Volume 97.5 fL (80.0-100.0); Mean Platelet Volume 11.2 fL (9.4-12.4); Monocytes # (auto) 0.32 K/uL (0.11-0.59); Monocytes % (auto) 10.6 %; Neutrophils # (auto) 1.92 K/uL (1.40-6.50); Neutrophils % (auto) 63.6 %; Platelet Count 64 K/uL (130-400); RDW Coefficient of Variation 14.2 % (11.5-14.5); RDW Standard Deviation 50.4 fL (36.4-46.3); Red Blood Count 2.82 M/uL (4.70-6.10); White Blood Count 3.02 K/ul (4.8-10.8)
[2023-12-09 07:53] LABS: Albumin Level 2.9 gm/dl (3.4-5.0); BUN Creatinine Ratio 15.9 (10-20); Bilirubin Direct 0.4 mg/dl (0-0.2); C Reactive Protein 9.77 mg/dl (0-0.5); Calcium 8.3 mg/dl (8.6-10.3); Creatinine Clr Calc Pharmacy 98.9 ml/min; Est GFR (African American) 109.8 ml/min; Est GFR (Non-African American) 94.8 ml/min; Potassium 3.6 mmol/L (3.5-5.1); Total Protein 5.4 gm/dl (6.0-8.3)
[2023-12-09] MEDS: CYCLOBENZAPRINE HCL 10 MG TAB PO SCH (10:22)
[2023-12-09] MEDS: CYCLOBENZAPRINE HCL 5 MG TAB PO ONE (10:58)
--- NOTE | 2023-12-09 14:15 | Hospitalist Progress Note ---
Date of Service December 09, 2023 Assessment & Plan (1) Sepsis: Plan: Pseudomonas bacteremia Initially seen in ED 12/03 for fever. Discharged on Cefdinir empirically. Returned 12/04 due to positive blood cx with pseudomonas. No leukocytosis (in the setting of pancytopenia/leukopenia), afebrile since 12/04 Suspect urinary source. Urine bacteria negative however this was s/p doses of cefdinir. Urine so far negative CT A/P (12/03): punctate nonobstructing right renal calculus; no deficits of either kidney CT Abd (12/07): no significant change Pseudomonal coverage with Cefepime (day 01/16) Cipro stopped ID consult, appreciate recs: continue cefepime for a total of 14 days, no oral substitute, PICC line, okay for dc from their perspective Case discussed with sole scraper Dr. Aj at [facility] [place]; no further workup, okay for discharge with home abx from his perspective Will go home with tunneled IV, home administration of abx, line care at infusion center (2) Pancytopenia: Plan: Due to liver cirrhosis with splenomegaly Follows with Dr. Qiu at [facility] Hematology and Dr. Albert @[facility] [place] (3) Portal vein thrombosis: Plan: Hgb 9.9 on arrival which represents a 1.5L drop from the day before on 12/03 (Hgb 11.4) Likely 2/2 gross hematuria Continue Eliquis for now and hold if downtrending (4) Hypomagnesemia: Plan: Mag 1.5 on arrival, replenished, monitor (5) Anemia: Plan: Chronic; noted Hgb 9.9 (as above) (6) Type 2 diabetes mellitus with obesity: Plan: Last A1c 6.3% Hold metformin Pharmacy glycemic management consult - SSI (7) Liver cirrhosis secondary to COOL: Plan: Not listed for transplant at present due to low/variable MELD MELD-Na 9 this admission Continue lactulose Continue rifaximin (8) Obstructive sleep apnea: Plan: CPAP qHS (9) Hypertension: Plan: Continue carvedilol, spironolactone, furosemide (10) S/P TIPS (transjugular intrahepatic portosystemic shunt): Plan: Noted (11) Right flank pain: Plan: not improving will order thoracic and c spine xr Plan DVT ppx: Eliquis FEN/GI: DM2 Code Status: Full Dispo: PCU Admission and Anticipated Discharge Date Admission Date: December 05, 2023 Supervising Physician Co-Signing Physician Notes Attending Physician Supervision Note: I independently interviewed and examined the patient and verified the landrum history and physical, reviewed labs and image studies and agree with findings and care plan noted above. Sepsis with Pseudomonas bacteremia - unclear source since urine cx neg after only one day of cefdinir. ED visit 12/03 for fever, chills and right flank and back pain, was sent home on cefdinir. Returned back 12/04 positive blood cx with Pseudomonas CT A/P - 12/03 - nonobstructing right renal calculus -repeat cx negative. -CT A/P on admission and recheck with IV - no acute pathology. -continue cefepime 2 g IV every 8 hours. plan to d/c home and finish total of 14 days. Right flank pain and headache - likely MSK. Thoracic spine xray - negative for facture. CT A? with dye - no acute pathology. -pain improving. hasn't needed hydromorphone. continue flexeril. Pancytopenia/liver cirrhosis/splenomegaly- Follows with hematology/oncology Dr. Qiu Liver cirrhosis/COOL/s/p TIPS- -Continue lactulose and rifaximin Diabetes mellitus type 2- A1c on 10/30/2023 was 6.3 Holding metformin -Accu-Cheks with NovoLog SSI Ambulation. Possible discharge in am. Subjective No acute events overnight. Patient seen and evaluated at bedside this morning. Seated edge of bed with some remaining discomfort in R flank region. Patient denies CP, SOB, abdominal pain, nausea, vomiting, lightheadedness, dizziness, and diarrhea. Review of Systems Review of Systems: reviewed, per HPI Physical Exam Physical Exam: Constitutional:no acute distress HEENT: NCAT, no conjunctival injection CV: regular rhythm, no murmur appreciated, extremities well-perfused, no LE edema Resp: CTABL, no wheezes/rales/rhonchi appreciated, no increased work of breathing GI: soft, nondistended, nontender, BS normoactive MSK: no gross deformities appreciated, R flank TTP Skin: warm, dry, no rash appreciated Neuro: alert, oriented, no focal neurologic deficit appreciated Results & Data Results & Data Vital Signs (Past 12 Hours) Vital Signs Temp Pulse Pulse Resp BP BP Pulse Ox 12/09/23 11:30 12/09/23 11:28 59 L 12/09/23 10:41 36.7 C 55 L 17 138/68 95 12/09/23 07:30 36.5 C 57 L 18 123/66 95 12/09/23 02:50 36.5 C 66 18 129/69 93 O2 Del Method 12/09/23 11:30 Room Air 12/09/23 11:28 12/09/23 10:41 Room Air 12/09/23 07:30 Room Air 12/09/23 02:50 Room Air Resident Activity Tracking Resident Involvement: Resident Care Provided Care Provided: Adult Hospital Medicine
[2023-12-09] MEDS: oxyCODONE HCL IR 5 MG TAB (IMMEDIATE RELEASE) PO PRN (19:17)
[2023-12-09] MEDS: CYCLOBENZAPRINE HCL 5 MG TAB PO SCH (20:23)
[2023-12-09] MEDS ORDERED: CYCLOBENZAPRINE HCL 10 MG TAB PO SCH (21:00)
--- NOTE | 2023-12-09 22:37 | Infectious Disease Progress Nt ---
Date of Service December 09, 2023 Assessment & Plan (1) Sepsis: (2) Bacteremia: Plan #Pseudomonas bacteremia #Liver cirrhosis 63-year-old male with PMH of T2DM, HTN, HLD, CAD, COOL liver cirrhosis with esophageal varices, portal vein thrombosis, s/p TIPS. Patient initially seen in ED on 12/03 after he developed a fever, chills, vomiting, burning with urination, bilateral flank pain, lower back pain, on 12/03 and came to [place] ED; discharged on cefdinir. He returned on 12/04 when 12/03 Blood cultures became positive ultimately growing PSA. ID c/s for abx management Patient seen in ED on 12/03 Blood cultures drawn and growing PanS PSA in 2/4 bottles and also growing / Organism 2 Elisealia (Actinomyces) meyeri CT A/P on 12/03 showed punctate nonobstructing right renal calculus; no deficits of either kidney 12/05 Ucx (added to 12/04 urine) No growth - Less than 1,000 colonies/mL, Patient RT to hospital, HD stable. CXR no acute process Recommend: C/W cefepime at 2G IV q8 hours Elisealia (Actinomyces) meyeri from initial blood culture is likely contaminant / Blood cultures is no growth, anticipate 14 day course from first negative blood culture through 12/19/23 Please page ID with any questions or concerns will s/o at this time. Ariella Baltazar MD Infectious Diseases Admission and Anticipated Discharge Date Admission Date: December 05, 2023 Subjective This patient recommendation is based on a telemedicine consult request which was completed asynchronously through chart review and information provided by the primary physician. The patient was not seen or examined today. The evaluation is consultative in nature and all patient care and treatment decisions can either be accepted or rejected by the patient's primary hospital-based treating physician using their own independent medical judgment for their patient. Time Spent Reviewing Chart: 21 - 30 minutes Results & Data Vital Signs (Past 12 Hours) Vital Signs Temp Pulse Pulse Resp BP BP Pulse Ox 12/09/23 19:38 36.5 C 69 18 138/72 94 12/09/23 15:22 36.5 C 62 19 117/61 96 12/09/23 14:59 62 12/09/23 11:30 12/09/23 11:28 59 L 12/09/23 10:41 36.7 C 55 L 17 138/68 95 O2 Del Method 12/09/23 19:38 Room Air 12/09/23 15:22 Room Air 12/09/23 14:59 12/09/23 11:30 Room Air 12/09/23 11:28 12/09/23 10:41 Room Air
[2023-12-10 06:53] LABS: Basophils # (auto) 0.02 K/uL (0.00-0.20); Basophils % (auto) 0.5 %; Eosinophils # (auto) 0.11 K/uL (0.00-0.50); Eosinophils % (auto) 2.8 %; Hematocrit (blood only) 28.1 % (42.0-52.0); Hemoglobin 9.7 g/dl (14.0-18.0); Immature Granulocytes # (auto) 0.03 K/uL (0.01-0.20); Immature Granulocytes % (auto) 0.8 %; Mean Corpuscular Hemoglobin 33.2 pg (25.0-34.0); Mean Corpuscular Hgb Conc 34.5 g/dL (32.0-36.0); Mean Corpuscular Volume 96.2 fL (80.0-100.0); Mean Platelet Volume 11.2 fL (9.4-12.4); Monocytes # (auto) 0.38 K/uL (0.11-0.59); Monocytes % (auto) 9.5 %; Neutrophils # (auto) 2.66 K/uL (1.40-6.50); Neutrophils % (auto) 66.4 %; Platelet Count 79 K/uL (130-400); RDW Coefficient of Variation 14.2 % (11.5-14.5); RDW Standard Deviation 50.4 fL (36.4-46.3); Red Blood Count 2.92 M/uL (4.70-6.10)
[2023-12-10 07:25] LABS: BUN Creatinine Ratio 16.9 (10-20); Bilirubin Direct 0.4 mg/dl (0-0.2); Bilirubin,Total 1.1 mg/dl (0.2-1.0); C Reactive Protein 6.62 mg/dl (0-0.5); Calcium 8.3 mg/dl (8.6-10.3); Creatinine Clr Calc Pharmacy 97.6 ml/min; Est GFR (African American) 109.3 ml/min; Est GFR (Non-African American) 94.3 ml/min; Potassium 4.1 mmol/L (3.5-5.1); Total Protein 5.6 gm/dl (6.0-8.3)
--- NOTE | 2023-12-10 08:29 | Pharmacy Report ---
Pharmacy Glycemic Sign Off Nt - Date of Service December 10, 2023 - Assessment & Plan ASSESSMENT: * Pharmacy was consulted by Dr De Luna on 12/04 for glycemic control and to write orders per [facility] inpatient glycemic control protocol. * Major changes made by pharmacy to antidiabetic regimen include: * No major changes, has been managed solely on novolog scale * Patient has been receiving/requiring ~8 units of insulin per day for adequate glycemic control * BSGs ranging 86 - 143 mg/dl * Regimen has only required minor adjustments over the past 48hrs to achieve this level of control * Do not anticipate further changes in patient status that would quickly deteriorate glycemic control (i.e. patient to be NPO for upcoming procedure, steroids tapering, starting tube feedings, etc). * Please see recommendations for outpatient antidiabetic regimen below. PLAN FOR INPATIENT GLYCEMIC CONTROL: No changes needed to current regimen. * Continue NovoLog per scale ACHS/Q6hrs while NPO * Goal range = 110 140 mg/dl * CF = 30 mg/dl/unit * CR = 1 unit for ever 11 g CHO consumed * Pharmacy is signing off of glycemic consult and will no longer be making adjustments to inpatient regimen. Please feel free to re-consult if needed. Thank you.
--- NOTE | 2023-12-10 12:58 | Discharge Summary ---
Date of Service December 10, 2023 Admission HPI Per Admitting Provider Jose is a 63-year-old male with PMH of T2DM, HTN, HLD, CAD, esophageal varices, depression, SHEREEN, portal vein thrombosis, s/p TIPS, and COOL. Patient developed a fever, chills, vomiting, burning with urination, bilateral flank pain, lower back pain, on 12/03 and came to [place] ED; discharged on cefdinir. He returned on 12/04 after positive blood culture showed gram-negative bacilli with Pseudomonas. Hx of extensive liver disease. His pain has been constant since yesterday. No radiation to the upper back. Patient is unsure if he has had blood in his urine. Patient reports that has been trying to eat and drink a lot at home to stay hydrated. He endorses a recent change in diet after getting rid of sugars; lost 18 pounds since October 30 (this was intentional). He does note that he had a recent injury several weeks ago where he fell in the garage and struck his head. He has not taken any medications today; no recent change medications. He denies a history of of kidney stones. No history of abdominal surgeries. Patient is febrile at 38 C at time of admission; vitals otherwise stable. ED course: Acetaminophen 1000 g IV Cefepime 2000 mg IV NSS 1000 mL IV ROS: Patient endorses fever, chills, rigors, coughing (clear sputum production), severe lower back pain, b/l flank pain, nausea, vomiting (including bile), diarrhea, burning with urination, unsure of blood in urine, unsure of blood in stool (iron supplement), and N/T in arms/legs (chronic; on gapapentin). Patient denies nightsweats, chest pain, SOB, chest palpitations, abdominal pain, hematemesis, hemoptysis, dysuria, saddle anesthesia. Admission Exam Per Admitting Provider General: In acute physical distress; pleasant affect; non-toxic appearing; well-nourished; cooperative HEENT: normocephalic, atraumatic; PERRLA; dry mucus membrane; vision and hearing intact Neck: supple; no lymphadenopathy; trachea midline Skin: warm, dry without signs of tenting; no cyanosis; no rashes, bruising, lesions, or erythema noted CV: chest wall NTP; RRR; S1/S2 normal; no murmurs/rubs/gallops; pulses intact and symmetric at radial, DP, and PT Lungs: no acute respiratory distress; symmetrical chest wall expansion; clear breath sounds across all lung mcdaniels w/o adventitious sounds; no wheezing ABD: Soft; BS present; RUQ/right flank tender to palpation; right CVA tend erness; splenomegaly; no signs of rashes, bruising or active bleeding MSK: no tics or fasciculations; no edema noted in the LEs b/l, nonerythematous Neuro: A&Ox3; normal mood and affect; fluent speech; no focal deficits; diminished sensation in the LEs bilaterally (patient endorses burning sensation in the feet) Principal Diagnosis pseudomonas bacteremia Discharge Exam Constitutional:no acute distress HEENT: NCAT, no conjunctival injection CV: regular rhythm, no murmur appreciated, extremities well-perfused, no LE edema Resp: CTABL, no wheezes/rales/rhonchi appreciated, no increased work of breathing GI: soft, nondistended, nontender, BS normoactive MSK: no gross deformities appreciated, R flank TTP Skin: warm, dry, no rash appreciated Neuro: alert, oriented, no focal neurologic deficit appreciated Discharge Data Allergies Allergy/AdvReac Type Severity Reaction Status Date / Time lisinopril Allergy Mild cough Verified 12/01/23 08:29 Penicillins Allergy Mild RASH Verified 12/01/23 08:29 Consultations 12/05/23 16:59 ED Decision to Admit Stat 12/07/23 12:12 Consult Infectious Diseases Routine Ordered Studies 12/08/23 09:58 CT abdomen w IV con Urgent Hospital Course (1) Sepsis: Pseudomonas bacteremia Initially seen in ED 12/03 for fever. Discharged on Cefdinir empirically. Returned 12/04 due to positive blood cx with pseudomonas. No leukocytosis (in the setting of pancytopenia/leukopenia), afebrile since 12/04 Suspect urinary source. Urine bacteria negative however this was s/p doses of cefdinir. Urine so far negative CT A/P (12/03): punctate nonobstructing right renal calculus; no deficits of either kidney CT Abd (12/07): no significant change Pseudomonal coverage with Cefepime (day 02/15) Cipro stopped ID consult, appreciate recs: continue cefepime for a total of 14 days, no oral substitute, PICC line, okay for dc from their perspective Case discussed with superintendent Dr. Aj at [facility] [place]; no further workup, okay for discharge with home abx from his perspective Will go home with tunneled IV, home administration of abx, line care at infusion center (2) Pancytopenia: Due to liver cirrhosis with splenomegaly Follows [facility] Dr[facility] Qiu at [facility] Hematology and Dr. Albert @[facility] [place] (3) Portal vein thrombosis: Hgb 9.9 on arrival which represents a 1.5L drop from the day before on 12/03 (Hgb 11.4) Likely 2/2 gross hematuria Continue Eliquis for now and hold if downtrending (4) Hypomagnesemia: Mag 1.5 on arrival, replenished, monitor (5) Anemia: Chronic; noted Hgb 9.9 (as above) (6) Type 2 diabetes mellitus with obesity: Last A1c 6.3% Hold metformin Pharmacy glycemic management consult - SSI (7) Liver cirrhosis secondary to COOL: Not listed for transplant at present due to low/variable MELD MELD-Na 9 this admission Continue lactulose Continue rifaximin (8) Obstructive sleep apnea: CPAP qHS (9) Hypertension: Continue carvedilol, spironolactone, furosemide (10) S/P TIPS (transjugular intrahepatic portosystemic shunt): Noted (11) Right flank pain: not improving will order thoracic and c spine xr Plan DVT ppx: Eliquis FEN/GI: DM2 Code Status: Full Dispo: PCU Total Time Total Time Spent Total Time Spent (In Minutes): See attending attestation Discharge Plan Discharge Items Patient Disposition: Home - Self-Care Reason For Visit: SEPSIS Discharge Diagnosis: Pseudomonas bacteremia Activity: As commented below Activity Comment: Resume regular activity as tolerated Non-emergency contact: Primary Care Provider Call non-emergency contact if: you have any medication questions, your pain is not controlled, your pain is worsening, you have a fever and your temperature is above 101 Follow-up/Referrals: Jyoti Hemphill MD [Primary Care Provider] - Diet: Regular Addtl Attending Provider Instructions: You were admitted to the hospital for fever. You were treated with antibiotics and pain controlling medications. You were found to have a bacteria in your blood stream known as pseudomonas. We treated you with broad spectrum antibiotics and consulted with infectious disease to determine a plan for you to go home. You received 5 days of antibiotics while in the hospital; you will need to complete another 9 days of antibiotics as directed. A discharge summary will be sent to your primary care physician to ensure continuity of care. Please bring this discharge summary with you to your next office appointment so that your provider can review it at that time. Follow-up appointments: Make a follow-up appointment with your PCP within the next week. It is very important that you follow up with them shortly after discharge from the hospital. Keep all your follow-up appointments as already scheduled. If you cannot make an appointment, notify your provider. Medications: Your medication list has been reviewed and reconciled upon discharge to ensure accuracy and continuity of care. An updated list of all your medications is included with your hospital discharge paperwork. Please review this list closely, and make note of any changes. We sent a new medication called cyclobenzaprine to your pharmacy. Take cyclobenzaprine (5mg) one tablet every 6 hours as needed for muscle spasm/pain. We sent a new medication called ondansetron to your pharmacy. Take ondansetron (4mg) one tablet every 6 hours as needed for nausea. If you have any issues filling these prescriptions, please call [phone] and ask to leave a message for Dr. Jose Mae. Take your medications as instructed; do not skip a dose of your medicines. Make sure all of your doctors know every medicine you are taking (including [id number]-wreduix medicines, vitamins, and supplements). Call your primary care provider before taking any new medicines (including yzmj-qak-wvigqkm medicines, vitamins, and supplements), because some of these may interact with your current medications, or may make your symptoms worse. Tell your primary care provider if you cannot afford your medications. CONTACT YOUR PRIMARY CARE PROVIDER if you experience any of the following: Increased pain Fever Difficulty following your treatment plan, or difficulty taking medications CALL 911 OR GO TO THE EMERGENCY DEPARTMENT if you experience any of the following: Sudden, severe abdominal pain or nausea/vomiting Severe chest pain, or chest pain that radiates (moves) to your jaw or arm Sudden, severe shortness of breath or difficulty breathing Thank you for allowing us to participate in your care. Pending Studies at Discharge: No Stand-Alone Forms: My [facility] Medications and DC Order Prescriptions: New cyclobenzaprine 5 mg Tablet 5 mg PO Q6H Qty: 30 0RF ondansetron 4 mg tablet,disintegrating 4 mg PO Q6H PRN (Reason: nausea and vomiting) Qty: 30 0RF oxycodone 5 mg tablet 5 mg PO Q12H Qty: 7 0RF Continued rifaximin 550 mg tablet 550 mg PO BID furosemide 20 mg tablet 20 mg PO DAILY Patient Comments: Rx sent to [facility] [place]. #30 with 1 RF. Rx Instructions: Parth Little DO ([facility] [place]) spironolactone 50 mg tablet 50 mg PO DAILY Patient Comments: sent to [facility] [place] for patient moss picker Rx Instructions: Ordered by Dr. Parth Little DO @ [facility] [place] atorvastatin 20 mg tablet 20 mg PO HS Qty: 90 3RF gabapentin 300 mg capsule 300 mg PO HS Qty: 90 3RF metformin 500 mg tablet extended release 24 hr 500 mg PO BID Qty: 180 2RF sildenafil [Viagra] 50 mg tablet 25 - 50 mg PO DAILY PRN (Reason: sexual activity) Qty: 10 3RF Rx Instructions: administer 30 minutes to 4 hours before activity trazodone 100 mg tablet 50 mg PO HS Qty: 45 2RF lactulose 10 gram/15 mL solution 15 ml PO DAILY Qty: 1419 3RF apixaban 5 mg tablet 5 mg PO BID Qty: 180 3RF Hold Instructions: per resident services supervisor bupropion HCl 300 mg tablet extended release 24 hr See Rx Instructions .ROUTE .COMPLEX Qty: 90 3RF Dose Instruction: TAKE 1 TABLET EVERY MORNING Rx Instructions: TAKE 1 TABLET EVERY MORNING fluoxetine 10 mg capsule See Rx Instructions .ROUTE .COMPLEX Qty: 90 3RF Dose Instruction: TAKE 1 CAPSULE DAILY Rx Instructions: TAKE 1 CAPSULE DAILY omeprazole 20 mg capsule,delayed release(DR/EC) See Rx Instructions .ROUTE .COMPLEX Qty: 90 3RF Dose Instruction: TAKE ONE CAPSULE BY MOUTH EVERY DAY Rx Instructions: TAKE ONE CAPSULE BY MOUTH EVERY DAY (DME) blood sugar diagnostic [FreeStyle Lite Strips] Strip See Rx Instructions .ROUTE .MEDSUPPLY Qty: 100 0RF Rx Instructions: tests twice daily (DME) lancets [FreeStyle Lancets] 28 gauge misc See Rx Instructions .ROUTE .MEDSUPPLY Qty: 100 0RF Rx Instructions: test 2 times daily carvedilol 6.25 mg tablet 6.25 mg PO BID (DME) Auto Titrating CPAP Misc See Rx Instructions .ROUTE .MEDSUPPLY Qty: 1 0RF Rx Instructions: AutoPAP [id number] C flex setting 2. With mask fitting (mask of pt choice) humidification heated tubing and chin strap. Lifetime supplies. ferrous sulfate 325 mg (65 mg iron) tablet 325 mg PO .three times weekly Qty: 30 0RF zinc sulfate 50 mg zinc (220 mg) tablet 50 mg PO DAILY coenzyme Q10 30 mg capsule 30 mg PO DAILY Discontinued cefdinir 300 mg capsule 300 mg PO BID 7 Days Qty: 14 0RF Discharge Orders: Discharge Order (Routine); Ordered 12/10/23 Ordered By: Jose Solis/Other Patient Handouts: Midline Catheter Dc Admission Data Admit Date/Time: 12/05/23 19:51 Attending Provider: Natalie Ramirez Admit Provider: Miguel De Luna Primary Care Provider: Jyoti Hemphill Other Providers: Wilmer Castellano; Lea Wan; Milly Maradiaga; Tammy Presley; Kate Kendall; Ariella Baltazar; Pearl Barnes; Genny Monsalve; Maryam Johnson; Leonor Wisdom; [facility],Home [facility]; Sadi,Fax Other Interventions: Discharge Summary Assessment (RN) Last Done: 12/10/23 15:10 Supervising Physician Co-Signing Physician Notes Attending Physician Supervision Note: I independently interviewed and examined the patient and verified the landrum history and physical, reviewed labs and image studies and agree with findings and care plan noted above. Sepsis with Pseudomonas bacteremia - unclear source since urine cx neg after only one day of cefdinir. ED visit 12/03 for fever, chills and right flank and back pain, was sent home on cefdinir. Returned back 3/2 positive blood cx with Pseudomonas -repeat cx negative. -CT A/P on admission and recheck with IV - no acute pathology. -continue cefepime 2 g IV every 8 hours to finish total 14 days of treatment at home per ID recommendation. Lab orders placed. -Dr. Albert - his superintendent at [facility] [place] [facility] informed. Right flank pain and headache - likely MSK. Thoracic spine xray - negative for facture. CT AP with dye - no acute pathology. -pain controlled. continue flexeril on discharge and prn oxycodone rx sent. f/u with pcp. Pancytopenia/liver cirrhosis/splenomegaly- Follows with hematology/oncology Dr. Qiu Liver cirrhosis/COOL/s/p TIPS- -Continue lactulose and rifaximin Diabetes mellitus type 2- A1c on 10/30/2023 was 6.3 continue home meds. Resident Activity Tracking Resident Involvement: Resident Care Provided Care Provided: Adult Hospital Medicine
[2023-12-10] MEDS: CEFEPIME 2,000 MG in SYRINGE 0 ML IV ONE (15:53)
== END 2023-12-10 16:45 | disposition home health service (06) | DRG 871 ==
LOC: ED 16:49 → 2E 19:51 → SUATTDRO 19:51 → 2E 22:31

== ENCOUNTER 2024-12-21 15:18 | Inpatient (IN) ==
[2024-12-21 16:38] LABS: Hematocrit (blood only) 40.2 % (42.0-52.0); Hemoglobin 14.4 g/dl (14.0-18.0); Mean Corpuscular Hemoglobin 34.6 pg (25.0-34.0); Mean Corpuscular Hgb Conc 35.8 g/dL (32.0-36.0); Mean Corpuscular Volume 96.6 fL (80.0-100.0); Mean Platelet Volume 10.4 fL (9.4-12.4); Platelet Count 93 K/uL (130-400); RDW Coefficient of Variation 13.5 % (11.5-14.5); RDW Standard Deviation 48.4 fL (36.4-46.3); Red Blood Count 4.16 M/uL (4.70-6.10); White Blood Count 4.49 K/ul (4.8-10.8)
--- NOTE | 2024-12-21 16:48 | XRay Report ---
Clinical History: Chest pain Technique: A frontal view of the chest was obtained Comparison is made to the prior examination dated 03/10/2022 Findings: There are no confluent pulmonary infiltrates. The heart size is within normal limits. No pleural effusion or pneumothorax is seen. There is no definite pulmonary nodule. No fracture is noted. No foreign body is seen Impression: No active disease Electronically signed by Dilip Dunn 12-21-2024 4:45 PM
[2024-12-21 16:55] LABS: Alanine Aminotransferase 69 U/L (7-52); Albumin Globulin Ratio 1.1 (0.9-2); Albumin Level 3.9 gm/dl (3.4-5.0); Alkaline Phosphatase 112 U/L (34-104); Anion Gap 3 (3-11); Aspartate Aminotransferase 55 U/L (13-39); BUN Creatinine Ratio 16.7 (10-20); Bilirubin,Total 1.9 mg/dl (0.2-1.0); Blood Urea Nitrogen 14 mg/dl (6-23); Calcium 9.3 mg/dl (8.6-10.3); Carbon Dioxide 28 mmol/L (21-32); Chloride 107 mmol/L (98-107); Creatinine Clr Calc Pharmacy 98.2 ml/min; Globulin 3.4 gm/dl (2.5-4.0); Glucose 159 mg/dl (70-99(Fasting)); Potassium 4.1 mmol/L (3.5-5.1); Sodium 138 mmol/L (136-145); Total Protein 7.3 gm/dl (6.0-8.3)
[2024-12-21 17:00] LABS: Basophils # (auto) 0.03 K/uL (0.00-0.20); Basophils % (auto) 0.7 %; Eosinophils # (auto) 0.08 K/uL (0.00-0.50); Eosinophils % (auto) 1.8 %; Immature Granulocytes # (auto) 0.01 K/uL (0.01-0.20); Immature Granulocytes % (auto) 0.2 %; Lymphocytes # (auto) 0.96 K/uL (1.20-3.40); Lymphocytes % (auto) 21.4 %; Monocytes # (auto) 0.62 K/uL (0.11-0.59); Monocytes % (auto) 13.8 %; Neutrophils # (auto) 2.79 K/uL (1.40-6.50); Neutrophils % (auto) 62.1 %
[2024-12-21 17:01] LABS: Troponin I High Sensitivity < 2.3 pg/ml (0-20)
[2024-12-21 17:09] LABS: Partial Thromboplastin Time 27 Seconds (21-31); Prothrombin Time 11.1 Seconds (9.0-12.0)
--- NOTE | 2024-12-21 17:38 | Emergency Department Note ---
History of Present Illness General Chief complaint: Infection Stated complaint: BLOOD INFECTION AGAN Time Seen by Provider: 12/21/24 16:33 Source: patient Limitations: no limitations History of Present Illness Maximum Pain Intensity: 3 Patient is a 64-year-old male with history of liver cirrhosis, type 2 diabetes, esophageal varices, portal vein thrombosis status post TIPS procedure, CAD, hyperlipidemia, hypertension who presents with several days of subjective fevers and chills, fatigue and decreased p.o. intake. He did not take his temperature at home. Has been sleeping more throughout the day. Also having some nausea without vomiting. Denies any new headache, chest pain, cough, shortness of breath, abdominal pain, change in bowel or bladder habits. He does take rifaximin and lactulose. His states that last time he presented like this he had bacteremia secondary to a UTI. Home Medications Medication Instructions Recorded Confirmed Type blood sugar diagnostic (FreeStyle #100 ea 01/12/20 12/12/24 Rx Lite Strips) lancets 28 gauge (FreeStyle #100 ea 01/12/20 12/12/24 Rx Lancets) rifaximin 550 mg tablet 550 mg PO BID 02/11/21 12/21/24 History coenzyme Q10 30 mg capsule 30 mg PO DAILY 07/30/21 12/21/24 History zinc sulfate 50 mg zinc (220 mg) 50 mg PO DAILY 07/30/21 12/21/24 History tablet spironolactone 50 mg tablet 50 mg PO DAILY 10/11/21 12/21/24 History sildenafil 50 mg tablet (Viagra) 25 - 50 mg (0.5 - 1 x 50 mg) PO 06/09/23 12/21/24 Rx DAILY PRN sexual activity #10 tabs Auto Titrating CPAP #1 ea 07/30/23 12/12/24 Rx lactulose 10 gram/15 mL oral 15 ml PO DAILY #1,419 mL 10/22/23 12/21/24 Rx solution apixaban 5 mg tablet 5 mg PO BID #180 tabs 10/28/23 12/21/24 Rx ferrous sulfate 325 mg (65 mg 325 mg PO .three times weekly #30 12/01/23 12/21/24 Rx iron) tablet tabs ondansetron 4 mg disintegrating 4 mg PO Q6H PRN nausea and 12/10/23 12/21/24 Rx tablet vomiting #30 tabs magnesium 250 mg tablet 250 mg PO DAILY 02/03/24 12/21/24 History atorvastatin 20 mg tablet 20 mg PO HS #90 tabs 03/10/24 12/21/24 Rx gabapentin 300 mg capsule 300 mg PO HS #90 caps 03/10/24 12/21/24 Rx metformin 500 mg tablet,extended 500 mg PO BID #180 tabs 05/03/24 12/21/24 Rx release 24 hr carvedilol 6.25 mg tablet 6.25 mg PO BID #180 tabs 05/06/24 12/21/24 Rx cyclobenzaprine 5 mg tablet 5 mg PO Q6H PRN muscle spasm #30 05/06/24 12/21/24 Rx tabs furosemide 20 mg tablet 20 mg PO DAILY PRN peripheral edema 05/06/24 12/21/24 History bupropion HCl 300 mg 24 hr tablet, 300 mg PO QAM 12/21/24 12/21/24 History extended release fluoxetine 10 mg capsule 10 mg PO DAILY 12/21/24 12/21/24 History omeprazole 20 mg capsule,delayed 20 mg PO QAM 12/21/24 12/21/24 History release trazodone 100 mg tablet 50 mg PO HS 12/21/24 12/21/24 History Allergies Allergy/AdvReac Type Severity Reaction Status Date / Time lisinopril Allergy Mild cough Verified 12/21/24 19:09 Penicillins Allergy Mild RASH Verified 12/21/24 19:09 Past Med/Surg History Problem List (Updated 12/21/24 @ 22:16 by Chencho Webb MD) Leukocytosis, unspecified (Acute) Metabolic dysfunction-associated steatohepatitis (MASH) Sepsis Bacteremia Right flank pain Anemia Acute upper abdominal pain (Acute) Fever (Acute) Nausea & vomiting (Acute) Decompensated hepatic cirrhosis Type 2 diabetes mellitus with obesity Erectile dysfunction LOAN (iron deficiency anemia) Portal vein thrombosis Tx with Eliquis S/P TIPS (transjugular intrahepatic portosystemic shunt) Chronic anticoagulation Insomnia Depression Obstructive sleep apnea (Acute) Dr. 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 Esophageal varices (Chronic) hx of bleeding and banding CAD (coronary artery disease) (Chronic) Hyperlipidemia (Chronic) Hypertension (Chronic) Type 2 diabetes mellitus with retinopathy Medical History Hypomagnesemia Elevated lactic acid level Elevated procalcitonin Pancytopenia History of biliary stent insertion Diabetes mellitus, type 2 Anxiety Sleep apnea Splenic vein thrombosis Diabetic retinopathy Surgical History History of colonoscopy with polypectomy History of esophagogastroduodenoscopy (EGD) History of wisdom tooth extraction Family History Mother Family history of diabetes mellitus Stroke Sister Leukemia Family history of diabetes mellitus Father Heart disease Brother Benign polyp of large intestine Uncle Diabetes Other No family history of adverse response to anesthesia Denies family history of Ovarian cancer Prostate cancer Myocardial infarction Breast cancer Colorectal cancer Social History Smoking Status: Never smoker Tobacco Type: Cigarettes Age Started Using Tobacco: 22; Age Quit Using Tobacco: 47; packs per day: 1; Second Hand Exposure: No; Do You Dip or Chew Tobacco: No; Hx Alcohol Use: No Hx Substance Use: No Preferred Language: Citizen Of [place] Communication Ability: Effective Visual Impairment: Limited Hearing Ability: Normal Scorekeeper Required: No Beliefs That Will Affect Care: None marital status: Current Living Situation: Spouse Current Living Situation Comment: Lives with and son current occupational status: retired current occupation: [employer] Feels Safe at Home: Yes Childhood Exposure to Second-Hand Smoke: No Diet: low salt caffeine: Yes Dental Care, Regularly: Yes Physical Activity Frequency: Daily Physical Activity Frequency Comment: WALK Seatbelt Use: always Sunscreen Use: Yes Assistive Devices: Glasses Review of Systems See HPI for pertinent positives & negatives. Physical Exam Vital Signs Vital Signs - 24 hr 12/21/24 15:37 12/21/24 16:38 12/21/24 16:47 Temperature 36.5 C Temperature Source Oral Pulse Rate 81 74 Pulse Rate from SpO2 Sensor Respiratory Rate 20 Blood Pressure 155/77 H 151/80 H Blood Pressure Mean 103 115 Pulse Oximetry 97 Oxygen Delivery Method Room Air Sepsis Recent Fever Within 48 Hours No Sepsis New/Unexplained Change in Mental Status N/A Sepsis Action Taken by Nursing No Action Required 12/21/24 17:24 12/21/24 17:25 12/21/24 17:30 Temperature Temperature Source Pulse Rate 74 Pulse Rate from SpO2 Sensor 74 Respiratory Rate Blood Pressure Blood Pressure Mean Pulse Oximetry 97 97 96 Oxygen Delivery Method Room Air Room Air Sepsis Recent Fever Within 48 Hours Sepsis New/Unexplained Change in Mental Status Sepsis Action Taken by Nursing 12/21/24 17:45 12/21/24 17:45 12/21/24 18:00 Temperature Temperature Source Pulse Rate 74 Pulse Rate from SpO2 Sensor 74 Respiratory Rate 18 Blood Pressure 154/88 H 127/69 Blood Pressure Mean 95 90 Pulse Oximetry 97 Oxygen Delivery Method Sepsis Recent Fever Within 48 Hours Sepsis New/Unexplained Change in Mental Status Sepsis Action Taken by Nursing 12/21/24 18:00 12/21/24 18:00 12/21/24 18:30 Temperature Temperature Source Pulse Rate 74 75 Pulse Rate from SpO2 Sensor 73 75 Respiratory Rate 22 16 Blood Pressure 127/69 Blood Pressure Mean 90 Pulse Oximetry 96 95 Oxygen Delivery Method Sepsis Recent Fever Within 48 Hours Sepsis New/Unexplained Change in Mental Status Sepsis Action Taken by Nursing 12/21/24 19:00 12/21/24 19:39 12/21/24 20:00 Temperature Temperature Source Pulse Rate 75 Pulse Rate from SpO2 Sensor 76 Respiratory Rate 19 Blood Pressure 131/66 138/75 Blood Pressure Mean 91 86 Pulse Oximetry 96 Oxygen Delivery Method Sepsis Recent Fever Within 48 Hours Sepsis New/Unexplained Change in Mental Status Sepsis Action Taken by Nursing 12/21/24 20:33 12/21/24 20:57 12/21/24 20:59 Temperature Temperature Source Pulse Rate 73 76 77 Pulse Rate from SpO2 Sensor 73 76 Respiratory Rate 18 16 Blood Pressure Blood Pressure Mean Pulse Oximetry 96 95 Oxygen Delivery Method Sepsis Recent Fever Within 48 Hours Sepsis New/Unexplained Change in Mental Status Sepsis Action Taken by Nursing 12/21/24 21:00 12/21/24 21:09 12/21/24 21:42 Temperature Temperature Source Pulse Rate 72 74 Pulse Rate from SpO2 Sensor 72 75 Respiratory Rate 23 19 Blood Pressure 141/70 H Blood Pressure Mean 80 Pulse Oximetry 96 95 Oxygen Delivery Method Sepsis Recent Fever Within 48 Hours Sepsis New/Unexplained Change in Mental Status Sepsis Action Taken by Nursing 12/21/24 22:00 Temperature Temperature Source Pulse Rate Pulse Rate from SpO2 Sensor Respiratory Rate Blood Pressure 146/79 H Blood Pressure Mean 88 Pulse Oximetry Oxygen Delivery Method Sepsis Recent Fever Within 48 Hours Sepsis New/Unexplained Change in Mental Status Sepsis Action Taken by Nursing See below Constitutional WD/WN, vitals as above Eyes PERRL, conjunctivae normal, anicteric sclerae Respiratory normal respiratory effort, lungs clear to auscultation Cardiovascular RRR, no murmur, no edema Gastrointestinal (Abdomen) Inspection/Auscultation: abdomen normal to inspection; abdomen not distended and no abdominal edema Percussion/Palpation: + abdomen tender (RUQ) and abdomen soft; no guarding, abdomen not rigid and no hepatomegaly Skin no rashes, warm and dry Psychiatric A+Ox3, euthymic affect Course Administered Medications Discontinued Medications Cefepime HCl (Maxipime 2000mg) 1,000 mg in 10 mls @ 5 mls/min IV NOW STA; Protocol Stop: 12/21/24 21:12 Last Admin: 12/21/24 21:53 Dose: 5 mls/min Documented By: SAMANTHA Ioversol (Optiray 320 100ml) 93 ml IV ONCE ONE Stop: 12/21/24 18:16 Last Admin: 12/21/24 18:16 Dose: 93 ml Documented By: ISI Medical Decision Making Differential Diagnosis sepsis, UTI, pneumonia, viral URI, bacteremia, SBP Laboratory Data Attestation: I reviewed the patient's lab results. 12/21/24 16:20 12/21/24 16:20 Lab Results 12/21/24 12/21/24 12/21/24 Range/Units 16:20 17:35 17:45 WBC 4.49 L (4.8-10.8) K/ul RBC 4.16 L (4.70-6.10) M/uL Hgb 14.4 (14.0-18.0) g/dl Hct 40.2 L (42.0-52.0) % MCV 96.6 (80.0-100.0) fL MCH 34.6 H (25.0-34.0) pg MCHC 35.8 (32.0-36.0) g/dL RDW Std Deviation 48.4 H (36.4-46.3) fL RDW Coeff of Blanca 13.5 (11.5-14.5) % Plt Count 93 L (130-400) K/uL MPV 10.4 (9.4-12.4) fL Immature Gran % (Auto) 0.2 % Neut % (Auto) 62.1 % Lymph % (Auto) 21.4 % Gillespie % (Auto) 13.8 % Eos % (Auto) 1.8 % Baso % (Auto) 0.7 % Neut # (Auto) 2.79 (1.40-6.50) K/uL Lymph # (Auto) 0.96 L (1.20-3.40) K/uL Gillespie # (Auto) 0.62 H (0.11-0.59) K/uL Eos # (Auto) 0.08 (0.00-0.50) K/uL Baso # (Auto) 0.03 (0.00-0.20) K/uL Immature Gran # (Auto) 0.01 (0.01-0.20) K/uL PT 11.1 (9.0-12.0) Seconds INR 1.0 (0.9-1.1) APTT 27 (21-31) Seconds PTT Ratio 1.0 Sodium 138 (136-145) mmol/L Potassium 4.1 (3.5-5.1) mmol/L Chloride 107 (98-107) mmol/L Carbon Dioxide 28 (21-32) mmol/L Anion Gap 3 (3-11) BUN 14 (6-23) mg/dl Creatinine 0.84 (0.6-1.4) mg/dl Est Cr Clr Drug Dosing 98.2 ml/min eGFR 97.99 BUN/Creatinine Ratio 16.7 (10-20) Glucose 159 H (70-99(Fasting)) mg/dl Lactate 1.0 (0.4-2.0) mmol/L Calcium 9.3 (8.6-10.3) mg/dl Total Bilirubin 1.9 H (0.2-1.0) mg/dl AST 55 H (13-39) U/L ALT 69 H (7-52) U/L Alkaline Phosphatase 112 H (34-104) U/L Ammonia 52.0 (18-72) umol/L Troponin I High Sens < 2.3 (0-20) pg/ml Total Protein 7.3 (6.0-8.3) gm/dl Albumin 3.9 (3.4-5.0) gm/dl Globulin 3.4 (2.5-4.0) gm/dl Albumin/Globulin Ratio 1.1 (0.9-2) Urine Color Dark Yellow Urine Appearance Clear (Clear) Urine pH 5.5 (4.5-7.5) Ur Specific [place] 1.027 (1.000-1.030) Urine Protein Negative (Negative) Urine Glucose (UA) 3+ H (Negative) Urine Ketones Trace H (Negative) Urine Blood Negative (Negative) Urine Nitrite Negative (Negative) Urine Bilirubin 1+ H (Negative) Urine Urobilinogen Negative (Negative) Ur Leukocyte Esterase Negative (Negative) Adenovirus (PCR) (NotDetected) B. pertussis DNA (PCR) (NotDetected) B.parapertussis DNA PCR (NotDetected) C. pneumoniae DNA (PCR) (NotDetected) Coronavirus OC43 (PCR) (NotDetected) Coronavirus HKU1 (PCR) (NotDetected) Coronavirus 229E (PCR) (NotDetected) SARS-CoV-2 (PCR) (NotDetected) Coronavirus NL63 (PCR) (NotDetected) Human Metapneumovir PCR (NotDetected) Influenza Type A (PCR) (NotDetected) Influenza Type B (PCR) (NotDetected) M. pneumoniae (PCR) (NotDetected) Parainfluenza 1 (PCR) (NotDetected) Parainfluenza 2 (PCR) (NotDetected) Parainfluenza 3 (PCR) (NotDetected) Parainfluenza 4 (PCR) (NotDetected) RSV (PCR) (NotDetected) Entero/Rhino (PCR) (NotDetected) 12/21/24 Range/Units 19:24 WBC (4.8-10.8) K/ul RBC (4.70-6.10) M/uL Hgb (14.0-18.0) g/dl Hct (42.0-52.0) % MCV (80.0-100.0) fL MCH (25.0-34.0) pg MCHC (32.0-36.0) g/dL RDW Std Deviation (36.4-46.3) fL RDW Coeff of Blanca (11.5-14.5) % Plt Count (130-400) K/uL MPV (9.4-12.4) fL Immature Gran % (Auto) % Neut % (Auto) % Lymph % (Auto) % Gillespie % (Auto) % Eos % (Auto) % Baso % (Auto) % Neut # (Auto) (1.40-6.50) K/uL Lymph # (Auto) (1.20-3.40) K/uL Gillespie # (Auto) (0.11-0.59) K/uL Eos # (Auto) (0.00-0.50) K/uL Baso # (Auto) (0.00-0.20) K/uL Immature Gran # (Auto) (0.01-0.20) K/uL PT (9.0-12.0) Seconds INR (0.9-1.1) APTT (21-31) Seconds PTT Ratio Sodium (136-145) mmol/L Potassium (3.5-5.1) mmol/L Chloride (98-107) mmol/L Carbon Dioxide (21-32) mmol/L Anion Gap (3-11) BUN (6-23) mg/dl Creatinine (0.6-1.4) mg/dl Est Cr Clr Drug Dosing ml/min eGFR BUN/Creatinine Ratio (10-20) Glucose (70-99(Fasting)) mg/dl Lactate (0.4-2.0) mmol/L Calcium (8.6-10.3) mg/dl Total Bilirubin (0.2-1.0) mg/dl AST (13-39) U/L ALT (7-52) U/L Alkaline Phosphatase (34-104) U/L Ammonia (18-72) umol/L Troponin I High Sens (0-20) pg/ml Total Protein (6.0-8.3) gm/dl Albumin (3.4-5.0) gm/dl Globulin (2.5-4.0) gm/dl Albumin/Globulin Ratio (0.9-2) Urine Color Urine Appearance (Clear) Urine pH (4.5-7.5) Ur Specific [place] (1.000-1.030) Urine Protein (Negative) Urine Glucose (UA) (Negative) Urine Ketones (Negative) Urine Blood (Negative) Urine Nitrite (Negative) Urine Bilirubin (Negative) Urine Urobilinogen (Negative) Ur Leukocyte Esterase (Negative) Adenovirus (PCR) Not Detected (NotDetected) B. pertussis DNA (PCR) Not Detected (NotDetected) B.parapertussis DNA PCR Not Detected (NotDetected) C. pneumoniae DNA (PCR) Not Detected (NotDetected) Coronavirus OC43 (PCR) Not Detected (NotDetected) Coronavirus HKU1 (PCR) Not Detected (NotDetected) Coronavirus 229E (PCR) Not Detected (NotDetected) SARS-CoV-2 (PCR) Not Detected (NotDetected) Coronavirus NL63 (PCR) Not Detected (NotDetected) Human Metapneumovir PCR Not Detected (NotDetected) Influenza Type A (PCR) Not Detected (NotDetected) Influenza Type B (PCR) Not Detected (NotDetected) M. pneumoniae (PCR) Not Detected (NotDetected) Parainfluenza 1 (PCR) Not Detected (NotDetected) Parainfluenza 2 (PCR) Not Detected (NotDetected) Parainfluenza 3 (PCR) Not Detected (NotDetected) Parainfluenza 4 (PCR) Not Detected (NotDetected) RSV (PCR) Not Detected (NotDetected) Entero/Rhino (PCR) Not Detected (NotDetected) Imaging Data Radiologist's Impression: Chest X-Ray 12/21/24 15:42 Clinical History: Chest pain Technique: A frontal view of the chest was obtained Comparison is made to the prior examination dated 03/10/2022 Findings: There are no confluent pulmonary infiltrates. The heart size is within normal limits. No pleural effusion or pneumothorax is seen. There is no definite pulmonary nodule. No fracture is noted. No foreign body is seen Impression: No active disease Electronically signed by Dilip Dunn 12-21-2024 4:45 PM Abdomen/Pelvis CT 12/21/24 17:34 EXAMINATION: Abdomen and pelvis CT with CLINICAL HISTORY: Abdominal pain, liver cirrhosis PRIORS: 12/08/2023 TECHNIQUE: Contiguous axial images were obtained through the abdomen and pelvis with the use of intravenous contrast. Sagittal and coronal reformations are supplied. FINDINGS: Lung bases unremarkable. The right pleural effusion on the prior exam is no longer present. A cirrhotic liver is noted, unchanged with TIPS stent present, unchanged. Allowing for technique, this appears patent. Spleen is enlarged measuring up to 15 cm on the axial images, unchanged. No ascites. The liver enhances homogeneously. The gallbladder is not identified. The pancreas, stomach, adrenals, aorta and IVC are morphologically unremarkable. Advanced atherosclerotic disease of the abdominal aorta noted. Appendix is normal in the right lower quadrant. The kidneys enhance symmetrically. No obstructing renal calculus or hydronephrosis. 2 right nonobstructing renal calculi present. A probable right renal cyst is present, unchanged. Small mediastinal lymph nodes noted in the upper abdomen, unchanged. Prostate is enlarged with mild circumferential urinary bladder wall thickening versus under distention. No free fluid in the pelvis. No adenopathy. Colon is partly under distended and contains a moderate to large amount of formed stool. No dilated loops of bowel. No retroperitoneal adenopathy. Moderate osseous demineralization is present. Possible mild compression fracture versus Schmorl's node involving the L3 vertebral body, unchanged. No acute fracture or dislocation. IMPRESSION: 1. Hepatic cirrhosis with patent TPIS, splenomegaly and no ascites, unchanged. 2. No acute abdominal or pelvic abnormality. 3. Prostamegaly with under distended urinary bladder. 4. Two right renal nonobstructing calculi. Electronically signed by Mojgan Sweeney 12-21-2024 6:53 PM Blood Pressure Blood Pressure Findings: Elevated blood pressure MDM Narrative Patient is a 64-year-old male with history of stage IV liver cirrhosis who presents for fevers, chills, fatigue. Afebrile here in the emergency room. Lowest temperature of 36.4 Celsius. Sepsis workup was initiated. No obvious source. Patient's white blood cell count of 4.49 this is double his baseline in the setting of his pancytopenia. Lactate within normal limits. UA nonconcerning for obvious infection. Urine culture and blood cultures were sent. Chest x-ray was independently reviewed and negative for acute cardiopulmonary process. CT of the abdomen and pelvis nonconcerning for acute abdominal or pelvic abnormality. No free fluid or concern for SBP at this time. Because of similar presentation in the past related to bacteremia with Pseudomonas will cover with cefepime and admit until top culture results return. Patient does not require 30 mL/kg of IV fluid at this time. Stable for [facility] to [facility] hospitalist service. Impression & Plan Leukocytosis, unspecified Admit to hospitalist service. 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 #30 with 1 RF. Rx Instructions: Parth Little DO ([facility] (DME) blood sugar diagnostic [FreeStyle Lite Strips] Strip See Rx Instructions .ROUTE .MEDSUPPLY Qty: 100 0RF Rx Instructions: tests twice daily (DME) lancets [FreeStyle Lancets] [facility] See Rx Instructions .ROUTE .MEDSUPPLY Qty: 100 0RF Rx Instructions: test 2 times daily (DME) Auto Titrating CPAP Misc See Rx Instructions .ROUTE .MEDSUPPLY Qty: 1 0RF Rx Instructions: AutoPAP [id number] C flex setting 2. With mask fitting (mask of pt choice) humidification heated tubing and chin strap. Lifetime supplies. magnesium 250 mg tablet 250 mg PO DAILY ferrous sulfate 325 mg (65 mg iron) tablet 325 mg PO .three times weekly Qty: 30 0RF Rx Instructions: Thursday, Thursday, and Thursday at night cyclobenzaprine 5 mg tablet 5 mg PO Q6H PRN (Reason: muscle spasm) Qty: 30 0RF carvedilol 6.25 mg tablet 6.25 mg PO BID Qty: 180 3RF zinc sulfate 50 mg zinc (220 mg) tablet 50 mg PO DAILY coenzyme Q10 30 mg capsule 30 mg PO DAILY ondansetron 4 mg tablet,disintegrating 4 mg PO Q6H PRN (Reason: nausea and vomiting) Qty: 30 0RF trazodone 100 mg tablet 50 mg PO HS fluoxetine 10 mg capsule 10 mg PO DAILY omeprazole 20 mg capsule,delayed release(DR/EC) 20 mg PO QAM Rx Instructions: TAKE ONE CAPSULE BY MOUTH EVERY DAY bupropion HCl 300 mg tablet extended release 24 hr 300 mg PO QAM Referrals Referrals: Jyoti Knight MD [Primary Care Provider] -
[2024-12-21 18:05] LABS: Appearance Urine Clear (Clear); Bilirubin Urine 1+ (Negative); Blood Urine Negative (Negative); Color Urine Dark Yellow; Glucose Urine UA 3+ (Negative); Ketones Urine Trace (Negative); Leukocyte Esterase Urine Negative (Negative); Nitrite Urine Negative (Negative); Protein Urine Negative (Negative); Specific Gravity Urine 1.027 (1.000-1.030); Urobilinogen Urine Negative (Negative); pH Urine 5.5 (4.5-7.5)
[2024-12-21] MEDS: OPTIRAY 320 100ml IV ONE (18:16)
--- NOTE | 2024-12-21 18:53 | CT Scan Report ---
EXAMINATION: Abdomen and pelvis CT with CLINICAL HISTORY: Abdominal pain, liver cirrhosis PRIORS: 12/08/2023 TECHNIQUE: Contiguous axial images were obtained through the abdomen and pelvis with the use of intravenous contrast. Sagittal and coronal reformations are supplied. FINDINGS: Lung bases unremarkable. The right pleural effusion on the prior exam is no longer present. A cirrhotic liver is noted, unchanged with TIPS stent present, unchanged. Allowing for technique, this appears patent. Spleen is enlarged measuring up to 15 cm on the axial images, unchanged. No ascites. The liver enhances homogeneously. The gallbladder is not identified. The pancreas, stomach, adrenals, aorta and IVC are morphologically unremarkable. Advanced atherosclerotic disease of the abdominal aorta noted. Appendix is normal in the right lower quadrant. The kidneys enhance symmetrically. No obstructing renal calculus or hydronephrosis. 2 right nonobstructing renal calculi present. A probable right renal cyst is present, unchanged. Small mediastinal lymph nodes noted in the upper abdomen, unchanged. Prostate is enlarged with mild circumferential urinary bladder wall thickening versus under distention. No free fluid in the pelvis. No adenopathy. Colon is partly under distended and contains a moderate to large amount of formed stool. No dilated loops of bowel. No retroperitoneal adenopathy. Moderate osseous demineralization is present. Possible mild compression fracture versus Schmorl's node involving the L3 vertebral body, unchanged. No acute fracture or dislocation. IMPRESSION: 1. Hepatic cirrhosis with patent TPIS, splenomegaly and no ascites, unchanged. 2. No acute abdominal or pelvic abnormality. 3. Prostamegaly with under distended urinary bladder. 4. Two right renal nonobstructing calculi. Electronically signed by Mojgan Sweeney 12-21-2024 6:53 PM
[2024-12-21 20:20] LABS: Adenovirus PCR Not Detected (NotDetected); Bordetella parapertussis PCR Not Detected (NotDetected); Bordetella pertussis PCR Not Detected (NotDetected); Chlamydia pneumoniae PCR Not Detected (NotDetected); Coronavirus 229E PCR Not Detected (NotDetected); Coronavirus CoV-2 (COVID19)PCR Not Detected (NotDetected); Coronavirus HKU1 PCR Not Detected (NotDetected); Coronavirus NL63 PCR Not Detected (NotDetected); Coronavirus OC43PCR Not Detected (NotDetected); Human Metapneumovirus PCR Not Detected (NotDetected); Influenza A PCR Not Detected (NotDetected); Influenza B PCR Not Detected (NotDetected); Mycoplasma pneumoniae PCR Not Detected (NotDetected); Parainfluenza Virus 1 PCR Not Detected (NotDetected); Parainfluenza Virus 2 PCR Not Detected (NotDetected); Parainfluenza Virus 3 PCR Not Detected (NotDetected); Parainfluenza Virus 4 PCR Not Detected (NotDetected); Respiratory Syncytial VirusPCR Not Detected (NotDetected); Rhinovirus/Enterovirus PCR Not Detected (NotDetected)
[2024-12-21] MEDS: CEFEPIME 1000MG 1,000 MG/10 ML SYR IV STA (21:53)
--- NOTE | 2024-12-21 22:11 | History & Physical Report ---
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 Patient felt similar to this when he presented a year ago and found to have Pseudomonas bacteremia. Presently afebrile, hemodynamically stable #Feverwith reported rigors, weakness and fatigue. Concern for early infection Admit to medical Follow cultures sent from the ER Will continue empiric cefepime 2 g IV every 12 hours Tylenol as needed #Metabolic dysfunction associated steatohepatitispatient with history of TIPS procedure, history of esophageal varices. He follows with hepatology. Overall well compensated. Continue carvedilol 6.25 mg p.o. twice daily Continue lactulose 10 g p.o. daily Continue rifaximin 550 mg p.o. twice daily Continue spironolactone 50 mg p.o. daily #Anemiapatient denies acute blood loss, no melena/hematochezia/hematemesis. He follows with Dr. Qiu of hematology. Was previously on IV iron but has recently been taking oral iron Continue to monitor #diabetes Blood sugar = 159, last hemoglobin A1c on 12/12/2024 = 7.8. Patient is on metformin 500 mg p.o. twice daily Hold metformin Lantus 5 units twice daily with insulin sliding scale, goal blood sugar [id number] #portal vein thrombosis Continue Eliquis 5 mg p.o. twice daily #Depression/Mental health Continue bupropion 300 mg p.o. every morning Continue Prozac 10 mg p.o. daily continue trazodone 50 mg p.o. nightly #Sleep apnea CPAP nightly #Hyperlipidemia Continue atorvastatin 20 mg p.o. nightly #Hypertension Continue carvedilol 6.25 mg p.o. twice daily Continue to monitor History of Present Illness Chief Complaint: rigors Primary Care Provider: Jyoti Knight MD Ricardo Hunt is a 64yo male with history of Cirrhosis secondary to MASH with varices, s/p TIPS procedure, DM, HTN, HLP, SHEREEN history of iatrogenic injury to his gallbladder during his TIPS procedure resulting in acalculous cholecystitis which was treated with drainage and stenting - complicated by fistula formation between gallbladder and duodenum which has since healed, gallbladder stent has been removed. Patient presenting with weakness, fatigue, subjective fevers/chills and sweats as well as rigors and dry heaving. Of note, patient had a similar presentation approximately 1 year ago and was found to have Pseudomonas bacteremia thought to be secondary to a UTI. He does report that he feels similar now. reports that patient's rigors were so intense that the shaking woke her from sleep Patient denies cough, congestion, headache. Denies abdominal pain, diarrhea. Denies rash, ulcers, joint pain. He does report he has had an ongoing sinus infection which improves with use of nasal saline. Also reports that he gets episodes of significant pain in his right shoulder, mostly at night. In the ER patient is afebrile, hemodynamically stable and nontoxic in appearance ER course: Cefepime Allergies Allergy/AdvReac Type Severity Reaction Status Date / Time lisinopril Allergy Mild cough Verified 12/21/24 19:09 Penicillins Allergy Mild RASH Verified 12/21/24 19:09 Home Medications Medication Instructions Recorded Confirmed Type blood sugar diagnostic (FreeStyle #100 ea 01/12/20 12/12/24 Rx Lite Strips) lancets 28 gauge (FreeStyle #100 ea 01/12/20 12/12/24 Rx Lancets) rifaximin 550 mg tablet 550 mg PO BID 02/11/21 12/21/24 History coenzyme Q10 30 mg capsule 30 mg PO DAILY 07/30/21 12/21/24 History zinc sulfate 50 mg zinc (220 mg) 50 mg PO DAILY 07/30/21 12/21/24 History tablet spironolactone 50 mg tablet 50 mg PO DAILY 10/11/21 12/21/24 History sildenafil 50 mg tablet (Viagra) 25 - 50 mg (0.5 - 1 x 50 mg) PO 06/09/23 12/21/24 Rx DAILY PRN sexual activity #10 tabs Auto Titrating CPAP #1 ea 07/30/23 12/12/24 Rx lactulose 10 gram/15 mL oral 15 ml PO DAILY #1,419 mL 10/22/23 12/21/24 Rx solution apixaban 5 mg tablet 5 mg PO BID #180 tabs 10/28/23 12/21/24 Rx ferrous sulfate 325 mg (65 mg 325 mg PO .three times weekly #30 12/01/23 12/21/24 Rx iron) tablet tabs ondansetron 4 mg disintegrating 4 mg PO Q6H PRN nausea and 12/10/23 12/21/24 Rx tablet vomiting #30 tabs magnesium 250 mg tablet 250 mg PO DAILY 02/03/24 12/21/24 History atorvastatin 20 mg tablet 20 mg PO HS #90 tabs 03/10/24 12/21/24 Rx gabapentin 300 mg capsule 300 mg PO HS #90 caps 03/10/24 12/21/24 Rx metformin 500 mg tablet,extended 500 mg PO BID #180 tabs 05/03/24 12/21/24 Rx release 24 hr carvedilol 6.25 mg tablet 6.25 mg PO BID #180 tabs 05/06/24 12/21/24 Rx cyclobenzaprine 5 mg tablet 5 mg PO Q6H PRN muscle spasm #30 05/06/24 12/21/24 Rx tabs furosemide 20 mg tablet 20 mg PO DAILY PRN peripheral edema 05/06/24 12/21/24 History bupropion HCl 300 mg 24 hr tablet, 300 mg PO QAM 12/21/24 12/21/24 History extended release fluoxetine 10 mg capsule 10 mg PO DAILY 12/21/24 12/21/24 History omeprazole 20 mg capsule,delayed 20 mg PO QAM 12/21/24 12/21/24 History release trazodone 100 mg tablet 50 mg PO HS 12/21/24 12/21/24 History Past Med/Surg History Problem List Leukocytosis, unspecified (Acute) Metabolic dysfunction-associated steatohepatitis (MASH) Sepsis Bacteremia Right flank pain Anemia Acute upper abdominal pain (Acute) Fever (Acute) Nausea & vomiting (Acute) Decompensated hepatic cirrhosis Type 2 diabetes mellitus with obesity Erectile dysfunction LOAN (iron deficiency anemia) Portal vein thrombosis Tx with Eliquis S/P TIPS (transjugular intrahepatic portosystemic shunt) Chronic anticoagulation Insomnia Depression Obstructive sleep apnea (Acute) Dr. 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 Esophageal varices (Chronic) hx of bleeding and banding CAD (coronary artery disease) (Chronic) Hyperlipidemia (Chronic) Hypertension (Chronic) Type 2 diabetes mellitus with retinopathy Medical History Hypomagnesemia Elevated lactic acid level Elevated procalcitonin Pancytopenia History of biliary stent insertion Diabetes mellitus, type 2 Anxiety Sleep apnea no device Splenic vein thrombosis Diabetic retinopathy dr. Moody Surgical History History of colonoscopy with polypectomy History of esophagogastroduodenoscopy (EGD) History of wisdom tooth extraction Family History Mother Family history of diabetes mellitus Stroke Sister Leukemia Family history of diabetes mellitus Father , age 42 Heart disease Brother Benign polyp of large intestine Uncle Diabetes Other No family history of adverse response to anesthesia Denies family history of Ovarian cancer Prostate cancer Myocardial infarction Breast cancer Colorectal cancer Social History Smoking Status: Never smoker Tobacco Type: Cigarettes Age Started Using Tobacco: 22; Age Quit Using Tobacco: 47; packs per day: 1; Second Hand Exposure: No; Do You Dip or Chew Tobacco: No; Hx Alcohol Use: No Hx Substance Use: No Preferred Language: Bhutanese Communication Ability: Effective Visual Impairment: Limited Hearing Ability: Normal Data Processing Manager Required: No Beliefs That Will Affect Care: None marital status: Current Living Situation: Spouse Current Living Situation Comment: Lives in home with current occupational status: retired current occupation: [employer] Feels Safe at Home: Yes Safety Concerns: Feels Safe At This Time Childhood Exposure to Second-Hand Smoke: No Diet: low salt caffeine: Yes Dental Care, Regularly: Yes Physical Activity Frequency: Daily Physical Activity Frequency Comment: WALK Seatbelt Use: always Sunscreen Use: Yes Assistive Devices: None Review of Systems Review of Systems: All systems reviewed & are unremarkable except as noted in HPI & below Physical Exam Physical Exam: General: patient resting comfortably, NAD, non-toxic in appearance, AA&O x 4 Skin: warm, dry, intact, no rashes or lesions HEENT: NC/AT, PERRL, EOMI, anicteric sclera, conjunctiva without injection, external ear normal to inspection and nontender, nares patent, moist mucus membranes, dentition intact, no oropharyngeal lesions, neck supple, trachea midline, no LAD, no thyromegaly, no JVD Heart: +S1/S2, regular, no m/r/g Lungs: equal air entry bilaterally, no rales/rhonchi/wheezes Abd: +BS, soft, NT/ND, no masses/organomegaly/ascites Ext: warm, 2+ pulses in UE/LE bilaterally, no clubbing/cyanosis or edema Neuro: nonfocal, patient AA&O x 4, speech intact, no facial droop, moving all extremities on command with equal strength 5/5 Results & Data Results & Data Vital Signs (Past 12 Hours) Vital Signs Temp Pulse Resp BP Pulse Ox O2 Del Method 12/21/24 22:00 146/79 H 12/21/24 21:42 74 19 95 12/21/24 21:09 72 23 96 12/21/24 21:00 141/70 H 12/21/24 20:59 77 12/21/24 20:57 76 16 95 12/21/24 20:33 73 18 96 12/21/24 20:00 138/75 12/21/24 19:39 75 19 96 12/21/24 19:00 131/66 12/21/24 18:30 75 16 95 12/21/24 18:00 127/69 12/21/24 18:00 74 22 96 12/21/24 18:00 127/69 12/21/24 17:45 154/88 H 12/21/24 17:45 74 18 97 12/21/24 17:30 74 96 12/21/24 17:25 97 Room Air 12/21/24 17:24 97 Room Air 12/21/24 16:47 74 12/21/24 16:38 151/80 H 12/21/24 15:37 36.5 C 81 20 155/77 H 97 Room Air Laboratory Results Laboratory Results WBC 4.49 K/ul (4.8-10.8) L 12/21/24 16:20 RBC 4.16 M/uL (4.70-6.10) L 12/21/24 16:20 Hgb 14.4 g/dl (14.0-18.0) 12/21/24 16:20 Hct 40.2 % (42.0-52.0) L 12/21/24 16:20 MCV 96.6 fL (80.0-100.0) 12/21/24 16:20 MCH 34.6 pg (25.0-34.0) H 12/21/24 16:20 MCHC 35.8 g/dL (32.0-36.0) 12/21/24 16:20 RDW Std Deviation 48.4 fL (36.4-46.3) H 12/21/24 16:20 RDW Coeff of Blanca 13.5 % (11.5-14.5) 12/21/24 16:20 Plt Count 93 K/uL (130-400) L 12/21/24 16:20 MPV 10.4 fL (9.4-12.4) 12/21/24 16:20 Immature Gran % (Auto) 0.2 % 12/21/24 16:20 Neut % (Auto) 62.1 % 12/21/24 16:20 Lymph % (Auto) 21.4 % 12/21/24 16:20 [place] % (Auto) 13.8 % 12/21/24 16:20 Eos % (Auto) 1.8 % 12/21/24 16:20 Baso % (Auto) 0.7 % 12/21/24 16:20 Neut # (Auto) 2.79 K/uL (1.40-6.50) 12/21/24 16:20 Lymph # (Auto) 0.96 K/uL (1.20-3.40) L 12/21/24 16:20 [place] # (Auto) 0.62 K/uL (0.11-0.59) H 12/21/24 16:20 Eos # (Auto) 0.08 K/uL (0.00-0.50) 12/21/24 16:20 Baso # (Auto) 0.03 K/uL (0.00-0.20) 12/21/24 16:20 Immature Gran # (Auto) 0.01 K/uL (0.01-0.20) 12/21/24 16:20 PT 11.1 Seconds (9.0-12.0) 12/21/24 16:20 INR 1.0 (0.9-1.1) 12/21/24 16:20 APTT 27 Seconds (21-31) 12/21/24 16:20 PTT Ratio 1.0 12/21/24 16:20 Sodium 138 mmol/L (136-145) 12/21/24 16:20 Potassium 4.1 mmol/L (3.5-5.1) 12/21/24 16:20 Chloride 107 mmol/L (98-107) 12/21/24 16:20 Carbon Dioxide 28 mmol/L (21-32) 12/21/24 16:20 Anion Gap 3 (3-11) 12/21/24 16:20 BUN 14 mg/dl (6-23) 12/21/24 16:20 Creatinine 0.84 mg/dl (0.6-1.4) 12/21/24 16:20 Est Cr Clr Drug Dosing 98.2 ml/min 12/21/24 16:20 eGFR 97.99 12/21/24 16:20 BUN/Creatinine Ratio 16.7 (10-20) 12/21/24 16:20 Glucose 159 mg/dl (70-99(Fasting)) H 12/21/24 16:20 POC Glucose 196 mg/dl (70-99) H 12/22/24 00:54 Lactate 1.0 mmol/L (0.4-2.0) 12/21/24 17:35 Calcium 9.3 mg/dl (8.6-10.3) 12/21/24 16:20 Magnesium 1.9 mg/dl (1.7-2.4) 12/21/24 16:20 Total Bilirubin 1.9 mg/dl (0.2-1.0) H 12/21/24 16:20 AST 55 U/L (13-39) H 12/21/24 16:20 ALT 69 U/L (7-52) H 12/21/24 16:20 Alkaline Phosphatase 112 U/L (34-104) H 12/21/24 16:20 Ammonia 52.0 umol/L (18-72) 12/21/24 17:35 Troponin I High Sens < 2.3 pg/ml (0-20) 12/21/24 16:20 Total Protein 7.3 gm/dl (6.0-8.3) 12/21/24 16:20 Albumin 3.9 gm/dl (3.4-5.0) 12/21/24 16:20 Globulin 3.4 gm/dl (2.5-4.0) 12/21/24 16:20 Albumin/Globulin Ratio 1.1 (0.9-2) 12/21/24 16:20 Urine Color Dark Yellow 12/21/24 17:45 Urine Appearance Clear (Clear) 12/21/24 17:45 Urine pH 5.5 (4.5-7.5) 12/21/24 17:45 Ur Specific [place] 1.027 (1.000-1.030) 12/21/24 17:45 Urine Protein Negative (Negative) 12/21/24 17:45 Urine Glucose (UA) 3+ (Negative) H 12/21/24 17:45 Urine Ketones Trace (Negative) H 12/21/24 17:45 Urine Blood Negative (Negative) 12/21/24 17:45 Urine Nitrite Negative (Negative) 12/21/24 17:45 Urine Bilirubin 1+ (Negative) H 12/21/24 17:45 Urine Urobilinogen Negative (Negative) 12/21/24 17:45 Ur Leukocyte Esterase Negative (Negative) 12/21/24 17:45 Adenovirus (PCR) Not Detected (NotDetected) 12/21/24 19:24 B. pertussis DNA (PCR) Not Detected (NotDetected) 12/21/24 19:24 B.parapertussis DNA PCR Not Detected (NotDetected) 12/21/24 19:24 C. pneumoniae DNA (PCR) Not Detected (NotDetected) 12/21/24 19:24 Coronavirus OC43 (PCR) Not Detected (NotDetected) 12/21/24 19:24 Coronavirus HKU1 (PCR) Not Detected (NotDetected) 12/21/24 19:24 Coronavirus 229E (PCR) Not Detected (NotDetected) 12/21/24 19:24 SARS-CoV-2 (PCR) Not Detected (NotDetected) 12/21/24 19:24 Coronavirus NL63 (PCR) Not Detected (NotDetected) 12/21/24 19:24 Human Metapneumovir PCR Not Detected (NotDetected) 12/21/24 19:24 Influenza Type A (PCR) Not Detected (NotDetected) 12/21/24 19:24 Influenza Type B (PCR) Not Detected (NotDetected) 12/21/24 19:24 M. pneumoniae (PCR) Not Detected (NotDetected) 12/21/24 19:24 Parainfluenza 1 (PCR) Not Detected (NotDetected) 12/21/24 19:24 Parainfluenza 2 (PCR) Not Detected (NotDetected) 12/21/24 19:24 Parainfluenza 3 (PCR) Not Detected (NotDetected) 12/21/24 19:24 Parainfluenza 4 (PCR) Not Detected (NotDetected) 12/21/24 19:24 RSV (PCR) Not Detected (NotDetected) 12/21/24 19:24 Entero/Rhino (PCR) Not Detected (NotDetected) 12/21/24 19:24 Impressions Chest X-Ray 12/21/24 15:42 Clinical History: Chest pain Technique: A frontal view of the chest was obtained Comparison is made to the prior examination dated 03/10/2022 Findings: There are no confluent pulmonary infiltrates. The heart size is within normal limits. No pleural effusion or pneumothorax is seen. There is no definite pulmonary nodule. No fracture is noted. No foreign body is seen Impression: No active disease Electronically signed by Dilip Dunn 12-21-2024 4:45 PM Abdomen/Pelvis CT 12/21/24 17:34 EXAMINATION: Abdomen and pelvis CT with CLINICAL HISTORY: Abdominal pain, liver cirrhosis PRIORS: 12/08/2023 TECHNIQUE: Contiguous axial images were obtained through the abdomen and pelvis with the use of intravenous contrast. Sagittal and coronal reformations are supplied. FINDINGS: Lung bases unremarkable. The right pleural effusion on the prior exam is no longer present. A cirrhotic liver is noted, unchanged with TIPS stent present, unchanged. Allowing for technique, this appears patent. Spleen is enlarged measuring up to 15 cm on the axial images, unchanged. No ascites. The liver enhances homogeneously. The gallbladder is not identified. The pancreas, stomach, adrenals, aorta and IVC are morphologically unremarkable. Advanced atherosclerotic disease of the abdominal aorta noted. Appendix is normal in the right lower quadrant. The kidneys enhance symmetrically. No obstructing renal calculus or hydronephrosis. 2 right nonobstructing renal calculi present. A probable right renal cyst is present, unchanged. Small mediastinal lymph nodes noted in the upper abdomen, unchanged. Prostate is enlarged with mild circumferential urinary bladder wall thickening versus under distention. No free fluid in the pelvis. No adenopathy. Colon is partly under distended and contains a moderate to large amount of formed stool. No dilated loops of bowel. No retroperitoneal adenopathy. Moderate osseous demineralization is present. Possible mild compression fracture versus Schmorl's node involving the L3 vertebral body, unchanged. No acute fracture or dislocation. IMPRESSION: 1. Hepatic cirrhosis with patent TPIS, splenomegaly and no ascites, unchanged. 2. No acute abdominal or pelvic abnormality. 3. Prostamegaly with under distended urinary bladder. 4. Two right renal nonobstructing calculi. Electronically signed by Mojgan Sweeney 12-21-2024 6:53 PM PG Care Time/CCT Total # of Minutes Spent Total Time Spent with Patient: Total time spent is greater than 50% in coordination of care (as documented) at patient's floor/unit and/or counseling patient: Coding Level of Care Code 06422 INT INP/OBS CARE 3/75MIN Diagnoses Fever R50.9 Fever type: unspecified Metabolic dysfunction-associated steatohepatitis (MASH) K75.81 Anemia D64.9 Type 2 diabetes mellitus with obesity E11.69; E66.9 Portal vein thrombosis I81 Depression F32.9 Obstructive sleep apnea G47.33 Hyperlipidemia E78.5 Hypertension I10 (1) Fever Fever type: unspecified Qualified Code(s): R50.9 - Fever, unspecified
[2024-12-21] MEDS ORDERED: GLUCOSE 10 TAB/TUBE PO PRN (22:57)
[2024-12-21] MEDS ORDERED: CYCLOBENZAPRINE HCL 5 MG TAB PO PRN (22:57)
[2024-12-21] MEDS ORDERED: GLUCOSE 40% GEL 15 GM TUBE PO PRN (22:57)
[2024-12-21] MEDS ORDERED: SODIUM CHLORIDE 0.65% NA SOLN 45 ML (OCEAN) PRN (22:57)
[2024-12-21] MEDS ORDERED: ACETAMINOPHEN 325 MG TAB PO PRN (22:57)
[2024-12-21] MEDS ORDERED: DEXTROSE 50% 50 ML SYRINGE IV PRN (22:57)
[2024-12-21] MEDS ORDERED: GLUCAGON FOR INJ 1 MG VIAL SQ PRN (22:57)
[2024-12-21] MEDS ORDERED: ONDANSETRON INJ 2 MG/ML 2 ML VIAL IV PRN (22:57)
[2024-12-21] MEDS ORDERED: CARBOHYDRATES FOR HYPOGLYCEMIA PO PRN (22:57)
[2024-12-21] MEDS: GABAPENTIN 300 MG CAP PO STA (23:10)
[2024-12-21] MEDS: carvediloL 6.25 MG TAB PO STA (23:10)
[2024-12-21] MEDS: rifAXIMin 550 MG TABLET PO STA (23:11)
[2024-12-21] MEDS: ATORVASTATIN 20 MG TAB PO STA (23:11)
[2024-12-21] MEDS: APIXABAN 5 MG TABLET PO STA (23:12)
[2024-12-21] MEDS: traZODone HCL 50 MG TAB PO ONE (23:13)
[2024-12-21 23:18] LABS: Magnesium 1.9 mg/dl (1.7-2.4)
[2024-12-22] MEDS: CEFEPIME 2000MG 2,000 MG/20 ML SYR IV SCH (03:51)
[2024-12-22 03:59] LABS: Hematocrit (blood only) 37.1 % (42.0-52.0); Hemoglobin 13.1 g/dl (14.0-18.0); Mean Corpuscular Hgb Conc 35.3 g/dL (32.0-36.0); Mean Corpuscular Volume 96.4 fL (80.0-100.0); Mean Platelet Volume 9.6 fL (9.4-12.4); Platelet Count 85 K/uL (130-400); RDW Coefficient of Variation 13.7 % (11.5-14.5); RDW Standard Deviation 48.5 fL (36.4-46.3); Red Blood Count 3.85 M/uL (4.70-6.10)
[2024-12-22 04:17] LABS: Albumin Level 3.5 gm/dl (3.4-5.0); BUN Creatinine Ratio 16.7 (10-20); Bilirubin Direct 0.5 mg/dl (0-0.2); Bilirubin,Total 2.2 mg/dl (0.2-1.0); Calcium 8.8 mg/dl (8.6-10.3); Creatinine Clr Calc Pharmacy 98.2 ml/min; Potassium 3.9 mmol/L (3.5-5.1); Total Protein 6.3 gm/dl (6.0-8.3)
[2024-12-22 04:46] LABS: INR 1.1 (0.9-1.1); Prothrombin Time 12.1 Seconds (9.0-12.0)
--- NOTE | 2024-12-22 08:41 | Electrocardiogram Report ---
Test Reason : Blood Pressure : */* mmHG Vent. Rate : 78 BPM Atrial Rate : 78 BPM P-R Int : 188 ms QRS Dur : 152 ms QT Int : 434 ms P-R-T Axes : 32 100 29 degrees QTcB Int : 494 ms Normal sinus rhythm Right bundle branch block Abnormal ECG When compared with ECG of 05-Dec-2023 18:09, No significant change was found Confirmed by Yves Ayon ([id number]) on 12/22/2024 8:40:49 AM Referred By: Confirmed By: Yves Ayon
[2024-12-22] MEDS: INSULIN ASPART PER UNIT CHARGE SC SCH (08:46)
[2024-12-22] MEDS: LANTUS PER UNIT CHARGE SQ SCH (08:47)
[2024-12-22] MEDS: buPROPion XL 300 MG TABCR PO SCH (10:01)
[2024-12-22] MEDS: carvediloL 6.25 MG TAB PO SCH (10:01)
[2024-12-22] MEDS: FLUoxetine HCL 10 MG CAP PO SCH (10:02)
[2024-12-22] MEDS: APIXABAN 5 MG TABLET PO SCH (10:02)
[2024-12-22] MEDS: SPIRONOLACTONE 25 MG TAB PO SCH (10:02)
[2024-12-22] MEDS: rifAXIMin 550 MG TABLET PO SCH (10:02)
[2024-12-22] MEDS: LACTULOSE SYRUP 10 GM/15 ML BTL 960 ML PO SCH (10:02)
--- NOTE | 2024-12-22 14:55 | Hospitalist Progress Note ---
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 Patient felt similar to this when he presented a year ago and found to have Pseudomonas bacteremia. Presently afebrile, hemodynamically stable #Feverwith reported rigors, weakness and fatigue. Concern for early infection Possible source of sinusitis but given history of Pseudomonas bacteremia and elevated procalcitonin we will continue previous plan with IV cefepime pending blood culture results If blood cultures negative after 48 hours can be discharged on doxycycline or Bactrim for sinusitis +/- prednisone #Metabolic dysfunction associated steatohepatitispatient with history of TIPS procedure, history of esophageal varices. He follows with hepatology. Overall well compensated. Continue carvedilol 6.25 mg p.o. twice daily Continue lactulose 10 g p.o. daily Continue rifaximin 550 mg p.o. twice daily Continue spironolactone 50 mg p.o. daily #diabetes Blood sugar = 159, last hemoglobin A1c on 12/12/2024 = 7.8. Patient is on metformin 500 mg p.o. twice daily Hold metformin Lantus 5 units twice daily with insulin sliding scale, goal blood sugar [id number] #portal vein thrombosis Continue Eliquis 5 mg p.o. twice daily #Depression/Mental health Continue bupropion 300 mg p.o. every morning Continue Prozac 10 mg p.o. daily continue trazodone 50 mg p.o. nightly #Sleep apnea CPAP nightly #Hyperlipidemia Continue atorvastatin 20 mg p.o. nightly #Hypertension Continue carvedilol 6.25 mg p.o. twice daily Continue to monitor VTE prophylaxis - Eliquis Diet - T2DM, low sodium Disposition - continued admission on med/surg Admission and Anticipated Discharge Date Admission Date: December 21, 2024 Subjective No fevers overnight. Feels improved on intravenous cefepime with increased energy and less weakness. Only infection symptom of sinus pain which appears improved after intravenous cefepime. He was previously on cefdinir in October which did not affect his sinus pain which has been ongoing since then. Physical Exam Constitutional: WD/WN, vitals as above Respiratory: normal respiratory effort, lungs clear to auscultation Cardiovascular: RRR, no murmur, no edema Gastrointestinal (Abdomen): normal bowel sounds, soft, nontender, no hepatosplenomegaly Results & Data Results & Data Vital Signs (Past 12 Hours) Vital Signs Temp Pulse Resp BP BP Pulse Ox O2 Del Method 12/22/24 14:39 36.7 C 59 L 18 115/66 96 Room Air 12/22/24 09:00 Nasal Cannula 12/22/24 07:47 36.5 C 62 16 138/78 97 Nasal Cannula 12/22/24 06:05 36.5 C 65 130/73 95 Room Air 12/22/24 04:54 66 16 132/70 95 Room Air 12/22/24 03:53 36.4 C L 63 16 108/63 93 Room Air O2 Flow Rate 12/22/24 14:39 12/22/24 09:00 1 12/22/24 07:47 1.0 12/22/24 06:05 12/22/24 04:54 12/22/24 03:53 PG Care Time/CCT Total # of Minutes Spent Total Time Spent with Patient: Total time spent is greater than 50% in coordination of care (as documented) at patient's floor/unit and/or counseling patient: Coding Level of Care Code 40942 SUB INP/OBS CARE 2/35MIN Diagnoses Fever R50.9 Fever type: unspecified Metabolic dysfunction-associated steatohepatitis (MASH) K75.81 Anemia D64.9 Type 2 diabetes mellitus with obesity E11.69; E66.9 Portal vein thrombosis I81 Depression F32.9 Obstructive sleep apnea G47.33 Hyperlipidemia E78.5 Hypertension I10 (1) Fever Fever type: unspecified Qualified Code(s): R50.9 - Fever, unspecified
[2024-12-22] MEDS: ATORVASTATIN 20 MG TAB PO SCH (20:40)
[2024-12-22] MEDS: GABAPENTIN 300 MG CAP PO SCH (20:42)
[2024-12-22] MEDS: traZODone HCL 50 MG TAB PO SCH (20:43)
[2024-12-23 06:51] LABS: Basophils # (auto) 0.03 K/uL (0.00-0.20); Basophils % (auto) 0.7 %; Eosinophils # (auto) 0.12 K/uL (0.00-0.50); Hematocrit (blood only) 38.1 % (42.0-52.0); Hemoglobin 13.3 g/dl (14.0-18.0); Immature Granulocytes # (auto) 0.03 K/uL (0.01-0.20); Immature Granulocytes % (auto) 0.7 %; Lymphocytes # (auto) 1.07 K/uL (1.20-3.40); Lymphocytes % (auto) 26.4 %; Mean Corpuscular Hemoglobin 34.2 pg (25.0-34.0); Mean Corpuscular Hgb Conc 34.9 g/dL (32.0-36.0); Mean Corpuscular Volume 97.9 fL (80.0-100.0); Mean Platelet Volume 10.2 fL (9.4-12.4); Monocytes # (auto) 0.54 K/uL (0.11-0.59); Monocytes % (auto) 13.3 %; Neutrophils # (auto) 2.26 K/uL (1.40-6.50); Neutrophils % (auto) 55.9 %; Platelet Count 95 K/uL (130-400); RDW Coefficient of Variation 13.6 % (11.5-14.5); RDW Standard Deviation 49.1 fL (36.4-46.3); Red Blood Count 3.89 M/uL (4.70-6.10); White Blood Count 4.05 K/ul (4.8-10.8)
[2024-12-23 07:16] LABS: Albumin Globulin Ratio 1.2 (0.9-2); Albumin Level 3.5 gm/dl (3.4-5.0); Bilirubin,Total 1.7 mg/dl (0.2-1.0); Calcium 8.8 mg/dl (8.6-10.3); Creatinine Clr Calc Pharmacy 82.5 ml/min; Globulin 2.9 gm/dl (2.5-4.0); Potassium 4.3 mmol/L (3.5-5.1); Total Protein 6.4 gm/dl (6.0-8.3)
[2024-12-23 16:09] VITALS: PULSE 65; RESP 18; TEMP 98.1; O2SAT 96
--- NOTE | 2024-12-23 18:14 | Discharge Summary ---
Discharge Summary Date of Service December 23, 2024 Principal Dx & Hospital Course #1 = Principal Diagnosis (1) Fever: (2) Metabolic dysfunction-associated steatohepatitis (MASH): (3) Anemia: (4) Type 2 diabetes mellitus with obesity: (5) Portal vein thrombosis: (6) Depression: (7) Obstructive sleep apnea: (8) Hyperlipidemia: (9) Hypertension: Plan Jose Hunt is a 64 year old admitted to [facility] from December 21 to 2022 due to rigors and history of Pseudomonas bacteremia. Subsequent blood cultures were negative. He was treated with intravenous cefepime during admission due to concern for possible pseudomonas again. This will be switched to doxycycline for total duration of antibiotics for 10 days on discharge for treatment of sinusitis which is suspected to be to the source of his rigors. Given significant improvement with antibiotics steroids were not prescribed. 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 Patient presenting with weakness, fatigue, subjective fevers/chills and sweats as well as rigors and dry heaving. Of note, patient had a similar presentation approximately 1 year ago and was found to have Pseudomonas bacteremia thought to be secondary to a UTI. He does report that he feels similar now. reports that patient's rigors were so intense that the shaking woke her from sleep Patient denies cough, congestion, headache. Denies abdominal pain, diarrhea. Denies rash, ulcers, joint pain. He does report he has had an ongoing sinus infection which improves with use of nasal saline. Also reports that he gets episodes of significant pain in his right shoulder, mostly at night. In the ER patient is afebrile, hemodynamically stable and nontoxic in appearance ER course: Cefepime Discharge Exam Constitutional WD/WN, vitals as above Respiratory normal respiratory effort, lungs clear to auscultation Cardiovascular RRR, no murmur, no edema Gastrointestinal (Abdomen) normal bowel sounds, soft, nontender, no hepatosplenomegaly Discharge Plan Discharge Items Patient Disposition: Home - Self-Care Reason For Visit: FEVER, PRIOR SEPSIS Discharge Diagnosis: Sinusitis Activity: Resume your previous activity Non-emergency contact: Primary Care Provider Call non-emergency contact if: you have any medication questions and your symptoms worsen Follow-up/Referrals: Jyoti Knight MD [Primary Care Provider] - Diet: Regular Addtl Attending Provider Instructions: You were admitted to [facility] from December 21 to 2022 due to rigors and history of Pseudomonas bacteremia. Subsequent blood cultures were negative. You were treated with intravenous cefepime during admission. You will be switched to doxycycline for total duration of antibiotics for 10 days for treatment of sinusitis which is suspected to be to the source of your rigors. Please follow-up with your primary care physician if you have ongoing symptoms. Pending Studies at Discharge: Yes (Final results of blood cultures, negative at 48 hours) Stand-Alone Forms: My [facility], Smoking Cessation Medications and DC Order Prescriptions: New doxycycline hyclate 100 mg tablet 100 mg PO BID 7 Days Qty: 14 0RF Continued rifaximin 550 mg tablet 550 mg PO BID spironolactone 50 mg tablet 50 mg PO DAILY Patient Comments: sent to [facility] [place] for patient pick up man Rx Instructions: [place]. 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 Rx Instructions: Parth Little DO [place] ([place]ME) blood sugar diagnostic [FreeStyle Lite Strips] Strip See Rx Instructions .ROUTE .MEDSUPPLY Qty: 100 0RF Rx Instructions: tests twice daily (DME) lancets [FreeStyle Lancets] 28 gauge misc See Rx Instructions .ROUTE .MEDSUPPLY Qty: 100 0RF Rx Instructions: test 2 times daily (DME) Auto Titrating CPAP Misc See Rx Instructions .ROUTE .MEDSUPPLY Qty: 1 0RF Rx Instructions: AutoPAP [id number] C flex setting 2. With mask fitting (mask of pt choice) humidification heated tubing and chin strap. Lifetime supplies. magnesium 250 mg tablet 250 mg PO DAILY ferrous sulfate 325 mg (65 mg iron) tablet 325 mg PO .three times weekly Qty: 30 0RF Rx Instructions: Thursday, Thursday, and Thursday at night cyclobenzaprine 5 mg tablet 5 mg PO Q6H PRN (Reason: muscle spasm) Qty: 30 0RF carvedilol 6.25 mg tablet 6.25 mg PO BID Qty: 180 3RF zinc sulfate 50 mg zinc (220 mg) tablet 50 mg PO DAILY coenzyme Q10 30 mg capsule 30 mg PO DAILY ondansetron 4 mg tablet,disintegrating 4 mg PO Q6H PRN (Reason: nausea and vomiting) Qty: 30 0RF trazodone 100 mg tablet 50 mg PO HS fluoxetine 10 mg capsule 10 mg PO DAILY omeprazole 20 mg capsule,delayed release(DR/EC) 20 mg PO QAM Rx Instructions: TAKE ONE CAPSULE BY MOUTH EVERY DAY bupropion HCl 300 mg tablet extended release 24 hr 300 mg PO QAM Discharge Orders: Discharge Order (Routine); Ordered 12/23/24 Ordered By: Abedlrahman Godfrey Admission Data Admit Date/Time: 12/21/24 22:11 Attending Provider: Abdelrahman Godfrey Admit Provider: Rowena Meadows Primary Care Provider: Jyoti Knight Other Interventions: Discharge Summary Assessment (RN) Last Done: 12/23/24 18:15 Hospital Stay Data Consultations 12/21/24 21:29 ED Decision to Admit Stat Diagnostic Imagining Performed 12/21/24 17:34 CT abd pelvis IV con only Stat Pending Results Patient Have Any Pending Studies at Discharge: Yes (Final results of blood cultures, negative at 48 hours) Discharge Instructions Given to Patient (Per Discharging Provider) You were admitted to [facility] from December 21 to 2022 due to rigors and history of Pseudomonas bacteremia. Subsequent blood cultures were negative. You were treated with intravenous cefepime during admission. You will be switched to doxycycline for total duration of antibiotics for 10 days for treatment of sinusitis which is suspected to be to the source of your rigors. Please follow-up with your primary care physician if you have ongoing symptoms. Total Time Total Time Spent Total Time Spent (In Minutes): 35 Coding Level of Care Code 50447 INP/OBS DISCH >30 MIN Diagnoses Fever R50.9 Fever type: unspecified Metabolic dysfunction-associated steatohepatitis (MASH) K75.81 Anemia D64.9 Type 2 diabetes mellitus with obesity E11.69; E66.9 Portal vein thrombosis I81 Depression F32.9 Obstructive sleep apnea G47.33 Hyperlipidemia E78.5 Hypertension I10
[2024-12-23 18:16] VITALS: BP 120/68
== END 2024-12-23 18:26 | disposition home or self-care (01) | DRG 153 ==
LOC: ED 15:18 → EDINP 22:11 → SUATTDRO 22:11 → 3E 22:58
DX: Z79.899 Other long term (current) drug therapy; Z86.718 Personal history of other venous thrombosis and embolism; E66.9 Obesity, unspecified; Z79.01 Long term (current) use of anticoagulants; Z88.0 Allergy status to penicillin; G47.33 Obstructive sleep apnea (adult) (pediatric); F32.A Depression, unspecified; D64.9 Anemia, unspecified; E11.319 Type 2 diabetes mellitus with unspecified diabetic retinopathy without macular edema; J32.9 Chronic sinusitis, unspecified; I25.10 Atherosclerotic heart disease of native coronary artery without angina pectoris; I10 Essential (primary) hypertension; E78.5 Hyperlipidemia, unspecified; Z86.19 Personal history of other infectious and parasitic diseases; K75.81 Nonalcoholic steatohepatitis (NASH); I85.10 Secondary esophageal varices without bleeding; Z88.8 Allergy status to other drugs, medicaments and biological substances; Z79.84 Long term (current) use of oral hypoglycemic drugs; K74.60 Unspecified cirrhosis of liver; Z99.89 Dependence on other enabling machines and devices